=== PATIENT | female | born 1955 | race Caucasian/White ===

== ENCOUNTER 2017-05-24 04:52 | Inpatient (IN) | payer MEDICARE, MEDICAID ==
[2017-05-24] MEDS ORDERED: Albuterol/Ipratropium 3.0-0.5 MG/3 ML Neb Soln NEB ONE (05:19)
[2017-05-24] MEDS ORDERED: Albuterol/Ipratropium 3.0-0.5 MG/3 ML Neb Soln ONE (05:25)
--- NOTE | 2017-05-24 05:27 | EDM.PDOC ---
ED HPI GENERAL MEDICAL PROBLEM - General Chief Complaint: Respiratory Problem Stated Complaint: [facility] Time Seen by Provider: 05/24/17 05:12 Source of Information: Reports: Patient, Family History Limitations: Reports: Respiratory Distress - History of Present Illness INITIAL COMMENTS - FREE TEXT/NARRATIVE: This is a 61-year-old female. She apparently was seen by her doctor in the office because she has cellulitis of her lower extremities and she was placed on doxycycline. Over the last 48 hours she has been getting increasingly short of breath. She does smoke and she does not have oxygen at home. She is brought to the ER by ambulance because of her shortness of breath. She does indicate that she's been coughing over the last couple of days but she can't seem to get up any phlegm. She indicates that she has a history of emphysema. She does complain that if she tries to lift her arms up overhead to fix her hair feels like her fat in her neck causes her air to get cut off and if she sits on the toilet with handle she can't put her hands up on the handles without feeling like her air is getting cut off. She denies any nausea and vomiting no diarrhea. She does not know if she's had a fever. Patient denies any history of congestive heart failure. She has long-standing peripheral edema and the edema goes up to her hips. She is not able to walk but maybe 3 or 4 steps before she gets short of breath and has to sit down. The patient's skin smells of tobacco smoke. - Related Data Allergies Allergy/AdvReac Type Severity Reaction Status Date / Time adhesive Allergy Rash Verified 05/24/17 04:55 amoxicillin Allergy Rash Verified 05/24/17 04:55 cimetidine [From Tagamet] Allergy Hives Verified 05/24/17 04:55 venom-honey bee Allergy Swelling Verified 05/24/17 04:55 [bee venom (honey bee)] Home Meds: Home Meds Aspirin/Acetaminophen/Caffeine [Headache Relief Tablet] 1 tab PO DAILY PRN 08/23 [History] Levothyroxine Sodium [Synthroid] 112 mcg PO DAILY 08/24/15 [History] Phenylephrine HCl [Suphedrine PE] 1 tab PO ASDIRECTED PRN 08/24/15 [History] Propylene Glycol/Peg 400 [Systane 0.3-0.4% Eye Drops] 1 drop EYEBOTH TID PRN [History] Ranitidine HCl [Zantac 75] 75 mg PO DAILY PRN 08/24/15 [History] diphenhydrAMINE [Benadryl] 50 mg PO BEDTIME PRN 08/24/15 [History] Doxycycline [Vibramycin] 100 mg PO BID 05/24/17 [History] Furosemide [Lasix] 40 mg PO DAILY 05/24/17 [History] Liothyronine [Cytomel] 5 mcg PO DAILY 05/24/17 [History] Past Medical History HEENT History: Reports: Sinusitis, Other (See Below) Other HEENT History: bilateral tinnitus, wears reading glasses Cardiovascular History: Reports: [place], Other (See Below) Other Cardiovascular History: lower extremity edema Respiratory History: Reports: COPD, Other (See Below) Other Respiratory History: panlobular emphysema, dyspnea Gastrointestinal History: Reports: Cholelithiasis, GERD, Other (See Below) Other Gastrointestinal History: umbilical hernia Genitourinary History: Reports: Urinary Incontinence, Other (See Below) Other Genitourinary History: stress incontinence Musculoskeletal History: Reports: Back Pain, Chronic, Osteoporosis, Other (See Below) Other Musculoskeletal History: carpal tunnel syndrome Neurological History: Reports: Headaches, Chronic Psychiatric History: Reports: Other (See Below) Other Psychiatric History: fatigue Endocrine/Metabolic History: Reports: Hypothyroidism, Obesity/BMI 30+ Hematologic History: Reports: Other (See Below) Other Hematologic History: erythrocytosis - Past Surgical History GI Surgical History: Reports: Appendectomy Female Surgical History: Reports: Hysterectomy Social & Family History - Tobacco Use Smoking Status *Q: Current Every Day Smoker Years of Tobacco use: 50 Packs/Tins Daily: 1 Second Hand Smoke Exposure: Yes - Caffeine Use Caffeine Use: Reports: None - Alcohol Use Days Per Week of Alcohol Use: 0 Number of Drinks Per Day: 0 Total Drinks Per Week: 0 - Recreational Drug Use Recreational Drug Use: Yes - Living Situation & Occupation Living situation: Reports: with Family ED ROS GENERAL - Review of Systems Review Of Systems: See Below Constitutional: Reports: Weakness, Fatigue. Denies: Fever, Chills HEENT: Reports: Rhinitis. Denies: Throat Pain, Throat Swelling Respiratory: Reports: Shortness of Breath, Wheezing, Cough Cardiovascular: Reports: Dyspnea on Exertion, Edema. Denies: Chest Pain Endocrine: Reports: Other (Low thyroid) GI/Abdominal: Reports: Other (Morbidly obese) : Reports: No Symptoms Musculoskeletal: Reports: Other (Limited ambulation secondary to her weight and shortness of breath) Skin: Reports: Other (Lower extremities have severe edema with cellulitis) Neurological: Reports: No Symptoms Psychiatric: Reports: No Symptoms Hematologic/Lymphatic: Reports: No Symptoms ED EXAM, GENERAL - Physical Exam Exam: See Below Exam Limited By: Respiratory Distress General Appearance: Alert, Mild Distress, Other (Patient is morbidly obese) Eye Exam: Bilateral Eye: Normal Inspection Ears: Normal External Exam, Normal Canal, Normal TMs Nose: Clear Rhinorrhea Throat/Mouth: Normal Lips, Normal Voice, No Airway Compromise Head: Normocephalic Neck: Other (I cannot test her neck due to her size) Respiratory/Chest: Other (Noted scattered wheezing with a mild prolonged expiratory phase, no rales or rhonchi are noted no stridor) Cardiovascular: Regular Rate, Rhythm, No Murmur, Tachycardia GI/Abdominal: Other (Morbidly obese but she denies any tenderness on palpation I cannot tell if there is any organ enlargement secondary to her size) Back Exam: Decreased Range of Motion Extremities: Other (Lower extremities are extremely swollen with a cellulitis of both of her lower extremities noted, the swelling goes up goes up to her hips ) Neurological: Alert, Oriented Psychiatric: Anxious Skin Exam: Warm, Dry EKG INTERPRETATION EKG Interpretation Comments: EKG shows a sinus tachycardia with no acute ST or T-wave changes and no ischemia noted Course - Vital Signs Last Recorded V/S: Last Vital Signs Temp 97.2 F 05/24/17 04:56 Pulse 109 H 05/24/17 04:56 Resp 33 H 05/24/17 04:56 BP 154/94 H 05/24/17 04:56 Pulse Ox 95 05/24/17 05:21 - Orders/Labs/Meds Orders: Active Orders 24 hr Category Date Time Status EKG 12 Lead [EKG Documentation Completion] [RC] STAT Care 05/24/17 05:19 Active RT Aerosol Therapy [RC] ASDIRECTED Care 05/24/17 05:19 Active Chest 1V Frontal [CR] Stat Exams 05/24/17 05:20 Taken CULTURE BLOOD [BC] Stat Lab 02/11/18 08:05 Received CULTURE BLOOD [BC] Stat Lab 05/24/17 08:15 Received Blood Culture x2 Reflex Set [OM.PC] Stat Oth 05/24/17 07:28 Ordered Labs: Laboratory Tests 05/24/17 05/24/17 05/24/17 Range/Units 05:30 05:37 05:37 WBC 19.67 H (3.98-10.04) K/mm3 RBC 6.19 H (3.98-5.22) M/mm3 Hgb 16.0 H (11.2-15.7) gm/L Hct 54.2 H (34.1-44.9) % MCV 87.6 (79.4-94.8) fl MCH 25.8 (25.6-32.2) pg MCHC 29.5 L (32.2-35.5) g/dl RDW Std Deviation 59.8 H (36.4-46.3) fL Plt Count 332 (182-369) K/mm3 MPV 10.5 (9.4-12.3) fl Neut % (Auto) 84.5 H (34.0-71.1) % Lymph % (Auto) 6.9 L (19.3-51.7) % [place] % (Auto) 5.7 (4.7-12.5) % Eos % (Auto) 1.8 (0.7-5.8) Baso % (Auto) 0.3 (0.1-1.2) % Neut # (Auto) 16.64 H (1.56-6.13) K/mm3 Lymph # (Auto) 1.35 (1.18-3.74) K/mm3 [place] # (Auto) 1.12 H (0.24-0.36) K/mm3 Eos # (Auto) 0.36 (0.04-0.36) K/mm3 Baso # (Auto) 0.05 (0.01-0.08) K/mm3 Manual Slide Review Abnormal smear Sodium 141 (136-145) mEq/L Potassium 4.0 (3.5-5.1) mEq/L Chloride 101 (98-107) mEq/L Carbon Dioxide 31 (21-32) mEq/L Anion Gap 13.0 (5-15) BUN 13 (7-18) mg/dL Creatinine 0.7 (0.55-1.02) mg/dL Est Cr Clr Drug Dosing 69.81 mL/min Estimated GFR (MDRD) > 60 (>60) mL/min BUN/Creatinine Ratio 18.6 H (14-18) Glucose 141 H (80-115) mg/dL Lactic Acid 2.2 H (0.4-2.0) mmol/L Calcium 9.0 (8.5-10.1) mg/dL Total Bilirubin 0.8 (0.2-1.0) mg/dL AST 22 (15-37) U/L ALT 30 (14-59) U/L Alkaline Phosphatase 139 H (46-116) U/L Troponin I < 0.017 (0.00-0.056) ng/mL NT-Pro-B Natriuret Pep (0-125) pg/mL Total Protein 7.5 (6.4-8.2) g/dl Albumin 3.2 L (3.4-5.0) g/dl Globulin 4.3 gm/dL Albumin/Globulin Ratio 0.7 L (1-2) TSH 3rd Generation 3.890 H (0.358-3.74) uIU/mL 05/24/17 Range/Units 05:37 WBC (3.98-10.04) K/mm3 RBC (3.98-5.22) M/mm3 Hgb (11.2-15.7) gm/L Hct (34.1-44.9) % MCV (79.4-94.8) fl MCH (25.6-32.2) pg MCHC (32.2-35.5) g/dl RDW Std Deviation (36.4-46.3) fL Plt Count (182-369) K/mm3 MPV (9.4-12.3) fl Neut % (Auto) (34.0-71.1) % Lymph % (Auto) (19.3-51.7) % [place] % (Auto) (4.7-12.5) % Eos % (Auto) (0.7-5.8) Baso % (Auto) (0.1-1.2) % Neut # (Auto) (1.56-6.13) K/mm3 Lymph # (Auto) (1.18-3.74) K/mm3 [place] # (Auto) (0.24-0.36) K/mm3 Eos # (Auto) (0.04-0.36) K/mm3 Baso # (Auto) (0.01-0.08) K/mm3 Manual Slide Review Sodium (136-145) mEq/L Potassium (3.5-5.1) mEq/L Chloride (98-107) mEq/L Carbon Dioxide (21-32) mEq/L Anion Gap (5-15) BUN (7-18) mg/dL Creatinine (0.55-1.02) mg/dL Est Cr Clr Drug Dosing mL/min Estimated GFR (MDRD) (>60) mL/min BUN/Creatinine Ratio (14-18) Glucose (80-115) mg/dL Lactic Acid (0.4-2.0) mmol/L Calcium (8.5-10.1) mg/dL Total Bilirubin (0.2-1.0) mg/dL AST (15-37) U/L ALT (14-59) U/L Alkaline Phosphatase (46-116) U/L Troponin I (0.00-0.056) ng/mL NT-Pro-B Natriuret Pep 201 H (0-125) pg/mL Total Protein (6.4-8.2) g/dl Albumin (3.4-5.0) g/dl Globulin gm/dL Albumin/Globulin Ratio (1-2) TSH 3rd Generation (0.358-3.74) uIU/mL Meds: Medications Discontinued Medications Generic Name Dose Route Start Last Admin Trade Name Freq PRN Reason Stop Dose Admin Albuterol/Ipratropium 3 ml 05/24/17 05:19 05/24/17 05:21 Duoneb 3.0-0.5 Mg/3 Ml NEB 05/24/17 05:20 3 ml ONETIME ONE Administration Albuterol/Ipratropium Confirm 05/24/17 05:25 05/24/17 05:36 Duoneb 3.0-0.5 Mg/3 Ml Administered 05/24/17 05:26 Not Given Dose 3 ml .ROUTE .STK-MED ONE - Radiology Interpretation Free Text/Narrative:: Chest x-ray is somewhat underpenetrated I really can't tell much about the bases but the upper alex look clear. - Re-Assessments/Exams Free Text/Narrative Re-Assessment/Exam: 05/24/17 08:33 I spoke to the patient and the family regarding her test results. She is going to be admitted to the hospital for treatment of her cellulitis and exacerbation of her COPD with acute bronchitis. Departure - Departure Time of Disposition: 08:34 Disposition: Admitted As Inpatient 66 Condition: Poor Clinical Impression: Bilateral lower leg cellulitis, Morbid obesity, Edema of both lower legs due to peripheral venous insufficiency, Acute exacerbation of chronic obstructive pulmonary disease (COPD), Hypoxemia COPD (chronic obstructive pulmonary disease) Qualifiers: COPD type: COPD with acute lower respiratory infection Qualified Code(s): J44.0 - Chronic obstructive pulmonary disease with acute lower respiratory infection Acute bronchitis Qualifiers: Bronchitis organism: unspecified organism Qualified Code(s): J20.9 - Acute bronchitis, unspecified - Discharge Information Additional Instructions: I spoke to Dr. Fernandez regarding the patient and she will admit the patient to the hospital for further evaluation and treatment ED Communication - ED Communication Date/Time Date: 05/24/17 Time Called: 08:38 - Discussed Case With (1) Discussed Case With (1): Admitting Provider Person/s Notified (1): Xiomara Fernandez - Conversation Summary Summary Comment: I spoke with Dr. Fernandez and she will admit the patient for further evaluation and treatment - My Orders Last 24 Hours: My Active Orders 05/24/17 05:19 EKG 12 Lead [EKG Documentation Completion] [RC] STAT RT Aerosol Therapy [RC] ASDIRECTED 05/24/17 05:20 Chest 1V Frontal [CR] Stat 05/24/17 07:28 Blood Culture x2 Reflex Set [OM.PC] Stat 05/24/17 08:05 CULTURE BLOOD [BC] Stat 05/24/17 08:15 CULTURE BLOOD [BC] Stat - Assessment/Plan Last 24 Hours: My Active Orders 05/24/17 05:19 EKG 12 Lead [EKG Documentation Completion] [RC] STAT RT Aerosol Therapy [RC] ASDIRECTED 05/24/17 05:20 Chest 1V Frontal [CR] Stat 05/24/17 07:28 Blood Culture x2 Reflex Set [OM.PC] Stat 05/24/17 08:05 CULTURE BLOOD [BC] Stat 05/24/17 08:15 CULTURE BLOOD [BC] Stat
[2017-05-24] MEDS ORDERED: Levofloxacin/Dextrose 5%-Water 750 MG in Premix Bag 1 BAG IV ONE (08:34)
--- NOTE | 2017-05-24 09:51 | PCM.HP ---
H&P History of Present Illness - General Date of Service: 05/24/17 Source of Information: Provider History Limitations: Reports: No Limitations - History of Present Illness Initial Comments - Free Text/Narative: Extremely morbidly obese female presents with SOB after exertion of three steps on level ground. NYHA functional class III-IV, stage C is likely. The patient is not active and has all of her needs provided by her family including bathing. She appears to have seen a primary care provider recently and reports starting doxycycline for bilateral LE cellulitis. Additionally the choice of doxy may have been to treat a COPD exacerbation. She attempts limited activity because raising her arms for any reason will cause a shift in her adipose resulting in shortness of breath. Onset of Symptoms: Reports: Unknown/Unsure Duration of Symptoms: Reports: Week(s):, Getting Worse Location: Reports: Lower Extremity, Left, Lower Extremity, Right Quality: Reports: Same as Previous Episode Severity: Moderate Improves with: Reports: Medication Worsens with: Reports: None Associated Symptoms: Reports: Malaise, Shortness of Breath, Weakness - Related Data Allergies/Adverse Reactions: Allergies Allergy/AdvReac Type Severity Reaction Status Date / Time adhesive Allergy Rash Verified 05/24/17 04:55 amoxicillin Allergy Rash Verified 05/24/17 04:55 cimetidine [From Tagamet] Allergy Hives Verified 05/24/17 04:55 venom-honey bee Allergy Swelling Verified 05/24/17 04:55 [bee venom (honey bee)] Home Medications: Home Meds Aspirin/Acetaminophen/Caffeine [Headache Relief Tablet] 1 tab PO DAILY PRN 08/23 [History] Levothyroxine Sodium [Synthroid] 112 mcg PO DAILY 08/24/15 [History] Phenylephrine HCl [Suphedrine PE] 1 tab PO ASDIRECTED PRN 08/24/15 [History] Propylene Glycol/Peg 400 [Systane 0.3-0.4% Eye Drops] 1 drop EYEBOTH TID PRN [History] Ranitidine HCl [Zantac 75] 75 mg PO DAILY PRN 08/24/15 [History] diphenhydrAMINE [Benadryl] 50 mg PO BEDTIME PRN 08/24/15 [History] Doxycycline [Vibramycin] 100 mg PO BID 05/24/17 [History] Furosemide [Lasix] 40 mg PO DAILY 05/24/17 [History] Liothyronine [Cytomel] 5 mcg PO DAILY 05/24/17 [History] Past Medical History HEENT History: Reports: Sinusitis, Other (See Below) Other HEENT History: bilateral tinnitus, wears reading glasses Cardiovascular History: Reports: [place], Other (See Below) Other Cardiovascular History: lower extremity edema Respiratory History: Reports: COPD, Other (See Below) Other Respiratory History: panlobular emphysema, dyspnea Gastrointestinal History: Reports: Cholelithiasis, GERD, Other (See Below) Other Gastrointestinal History: umbilical hernia Genitourinary History: Reports: Urinary Incontinence, Other (See Below) Other Genitourinary History: stress incontinence Musculoskeletal History: Reports: Back Pain, Chronic, Osteoporosis, Other (See Below) Other Musculoskeletal History: carpal tunnel syndrome Neurological History: Reports: Headaches, Chronic Psychiatric History: Reports: Other (See Below) Other Psychiatric History: fatigue Endocrine/Metabolic History: Reports: Hypothyroidism, Obesity/BMI 30+ Hematologic History: Reports: Other (See Below) Other Hematologic History: erythrocytosis - Past Surgical History GI Surgical History: Reports: Appendectomy Female Surgical History: Reports: Hysterectomy Social & Family History - Tobacco Use Smoking Status *Q: Current Every Day Smoker Years of Tobacco use: 50 Packs/Tins Daily: 1 Second Hand Smoke Exposure: Yes - Caffeine Use Caffeine Use: Reports: None - Alcohol Use Days Per Week of Alcohol Use: 0 Number of Drinks Per Day: 0 Total Drinks Per Week: 0 - Recreational Drug Use Recreational Drug Use: Yes - Living Situation & Occupation Living situation: Reports: with Family H&P Review of Systems - Review of Systems: Review Of Systems: See Below General: Reports: Malaise, Weakness, Fatigue HEENT: Reports: No Symptoms Pulmonary: Reports: Shortness of Breath, Wheezing Cardiovascular: Reports: No Symptoms Gastrointestinal: Reports: No Symptoms Genitourinary: Reports: No Symptoms Musculoskeletal: Reports: No Symptoms Skin: Reports: Erythema, Wound, Change in Color Psychiatric: Reports: Depression Neurological: Reports: No Symptoms Hematologic/Lymphatic: Reports: No Symptoms Immunologic: Reports: No Symptoms Exam - Exam Exam: See Below - Vital Signs Vital Signs: Last Vital Signs Temp 36.2 C 05/24/17 04:56 Pulse 109 H 05/24/17 04:56 Resp 33 H 05/24/17 04:56 BP 154/94 H 05/24/17 04:56 Pulse Ox 88 L 05/24/17 09:18 Weight: 158.757 kg - Exam Quality Assessment: Supplemental Oxygen, DVT Prophylaxis, Skin Breakdown General: Alert, Oriented, Cooperative HEENT: EACs Clear, Nares Patent, Normal Nasal Septum, Pupils Equal, Pupils Reactive, PERRLA Neck: Supple, Trachea Midline Lungs: Normal Respiratory Effort Cardiovascular: Regular Rate, Regular Rhythm GI/Abdominal Exam: Normal Bowel Sounds, Soft, Non-Tender, No Organomegaly, No Distention (Female) Exam: Deferred Rectal (Female) Exam: Deferred Back Exam: Normal Inspection Extremities: Normal Inspection, Pedal Edema Skin: Moist Neurological: Cranial Nerves Intact, Normal Speech Neuro Extensive - Mental Status: Alert Neuro Extensive - Motor, Sensory, Reflexes: CN II-XII Intact Psychiatric: Alert, Depressed - Patient Data Result Diagrams: 05/24/17 05:37 05/24/17 05:30 *Q Meaningful Use (ADM) - VTE *Q VTE Criteria *Q: - Stroke *Q Stroke Criteria *Q: - AMI *Q AMI Criteria *Q: - Problem List (1) Acute bronchitis SNOMED Code(s): 09248992 ICD Code: J20.9 - ACUTE BRONCHITIS, UNSPECIFIED Status: Acute Current Visit: Yes Qualifiers: Bronchitis organism: unspecified organism Qualified Code(s): J20.9 - Acute bronchitis, unspecified (2) Acute exacerbation of chronic obstructive pulmonary disease (COPD) SNOMED Code(s): 056838102 ICD Code: J44.1 - CHRONIC OBSTRUCTIVE PULMONARY DISEASE W (ACUTE) EXACERBATION Status: Acute Current Visit: Yes (3) Bilateral lower leg cellulitis SNOMED Code(s): 877798394 ICD Code: L03.116 - CELLULITIS OF LEFT LOWER LIMB; L03.115 - CELLULITIS OF RIGHT LOWER LIMB Status: Acute Current Visit: Yes (4) Edema of both lower legs due to peripheral venous insufficiency SNOMED Code(s): 80591587663508739 ICD Code: I87.2 - VENOUS INSUFFICIENCY (CHRONIC) (PERIPHERAL); R60.9 - EDEMA , UNSPECIFIED Status: Acute Current Visit: Yes (5) Hypoxemia SNOMED Code(s): 514546489 ICD Code: R09.02 - HYPOXEMIA Status: Acute Current Visit: Yes (6) Morbid obesity SNOMED Code(s): 956699716 ICD Code: E66.01 - MORBID (SEVERE) OBESITY DUE TO EXCESS CALORIES Status: Acute Current Visit: Yes Problem List Initiated/Reviewed/Updated: Yes Orders Last 24hrs: Medication Orders Levofloxacin/Dextrose 750 mg/ (Premix) 150 mls @ 100 mls/hr IV ONETIME ONE Stop: 05/24/17 10:03 Last Admin: 05/24/17 09:40 Dose: 100 mls/hr Assessment/Plan Comment:: Impression: Acute exacerbation of COPD with hypoxia Tobacco abuse/dependence Morbid obesity Poor functional capacity Query CHF, NYHA functional clas III, stage C Query Pulmonary Venous Hypertension Hypothyroid--not therapeutic Chronic venous insufficiency with cellulitis Depression Plan: Nebs scheduled/prn IV Levoquin Nicotine replace O2, keep sat>90% Needs sleep study Bilateral wounds on lower extremities, continue ATB Screen for MRSA Tobacco cessation ed Obesity diet/exercise education Dietary consult Psych consult PT/OT/CM
[2017-05-24] MEDS ORDERED: Albuterol 0.083% 2.5 MG/3 ML Neb Soln NEB PRN (11:26)
[2017-05-24] MEDS ORDERED: Albuterol/Ipratropium 3.0-0.5 MG/3 ML Neb Soln NEB PRN (11:27)
[2017-05-24] MEDS ORDERED: Enoxaparin 40 MG/0.4 ML Syringe SUBCUT SCH (11:30)
[2017-05-24] MEDS: Furosemide 20 MG/2 ML VIAL IVPUSH SCH (13:40)
[2017-05-24] MEDS: Nicotine 21 MG/24 Hr Patch TRDERM SCH (13:40)
[2017-05-24] MEDS ORDERED: Vancomycin 2 GM in Sodium Chloride 0.9% 500 ML IV ONE (14:00)
[2017-05-24] MEDS ORDERED: Pneumococcal Polyvalent-23 Vaccine 0.5 ML SDV IM ONE (14:52)
[2017-05-24] MEDS: Oseltamivir 75 MG Cap PO SCH ×2 (14:53→21:45)
[2017-05-24] MEDS: Metoprolol Tartrate 25 MG Tab PO SCH ×2 (17:41→21:43)
[2017-05-24] MEDS ORDERED: Levalbuterol HCl 1.25 MG/0.5 ML Neb NEB ONE (17:41)
--- NOTE | 2017-05-24 17:46 | CR ---
Chest: Portable view of the chest was obtained. Comparison: No prior chest x-ray. Heart is enlarged. Slight increased density is noted overlying the left heart margin most likely due to atelectasis. Lungs otherwise are clear. Bony structures are grossly intact. Impression: 1. Cardiomegaly. 2. Probable atelectasis within the left mid to lower lung. Diagnostic code #3
[2017-05-24] MEDS ORDERED: Metoprolol Tartrate 5 MG/5 ML SDV ONE (17:50)
[2017-05-24] MEDS ORDERED: Levalbuterol HCl 1.25 MG/3 ML Neb NEB PRN (17:53)
[2017-05-24] MEDS: Metoprolol Tartrate 5 MG/5 ML SDV IVPUSH PRN (17:57)
[2017-05-24] MEDS ORDERED: Diltiazem 125 MG in Sodium Chloride 0.9% 100 ML IV SCH (18:00)
[2017-05-24] MEDS ORDERED: Ipratropium 0.02% 0.5 MG/2.5 ML Neb Soln NEB SCH (21:00)
[2017-05-24] MEDS: Levalbuterol HCl 1.25 MG/3 ML Neb NEB PRN (21:09)
[2017-05-24] MEDS: Ipratropium 0.02% 0.5 MG/2.5 ML Neb Soln NEB SCH (21:09)
[2017-05-24] MEDS: Enoxaparin 150 MG/1 ML Syringe SUBCUT SCH (22:12)
[2017-05-25] MEDS ORDERED: Vancomycin 1 GM, Vancomycin 500 MG in Sodium Chloride 0.9% 250 ML IV SCH (02:00)
[2017-05-25] MEDS: Levalbuterol HCl 1.25 MG/3 ML Neb NEB PRN ×4 (02:52→20:38)
[2017-05-25] MEDS: Levofloxacin/Dextrose 5%-Water 750 MG in Premix Bag 1 BAG IV SCH (03:46)
[2017-05-25] MEDS: Furosemide 20 MG/2 ML VIAL IVPUSH SCH ×2 (05:35→15:03)
[2017-05-25] MEDS: Levothyroxine 112 MCG Tab PO SCH (05:35)
[2017-05-25] MEDS: Liothyronine 5 MCG Tab PO SCH (06:05)
[2017-05-25] MEDS: Ipratropium 0.02% 0.5 MG/2.5 ML Neb Soln NEB SCH ×4 (06:12→20:38)
[2017-05-25] MEDS: Metoprolol Tartrate 25 MG Tab PO SCH ×2 (09:25→20:26)
[2017-05-25] MEDS: Oseltamivir 75 MG Cap PO SCH ×2 (09:25→20:26)
[2017-05-25] MEDS: Nicotine 21 MG/24 Hr Patch TRDERM SCH (09:27)
[2017-05-25] MEDS: Enoxaparin 150 MG/1 ML Syringe SUBCUT SCH ×2 (09:27→20:27)
[2017-05-25] MEDS: Vancomycin 1 GM, Vancomycin 500 MG in Sodium Chloride 0.9% 500 ML IV SCH (15:03)
--- NOTE | 2017-05-25 18:22 | PCM.PN ---
- General Info Date of Service: 05/25/17 Functional Status: Reports: Tolerating Diet, Ambulating (minimal), Urinating - Review of Systems General: Reports: Weakness, Malaise HEENT: Reports: No Symptoms Pulmonary: Reports: Shortness of Breath Cardiovascular: Reports: Dyspnea on Exertion Gastrointestinal: Reports: No Symptoms Genitourinary: Reports: No Symptoms Musculoskeletal: Reports: No Symptoms Skin: Reports: No Symptoms Neurological: Reports: No Symptoms Psychiatric: Reports: No Symptoms - Patient Data Vitals - Most Recent: Last Vital Signs Temp 36.2 C 05/25/17 16:00 Pulse 79 05/25/17 16:00 Resp 21 H 05/25/17 16:00 BP 157/71 H 05/25/17 16:00 Pulse Ox 90 L 05/25/17 16:00 Weight - Most Recent: 162.386 kg I&O - Last 24 Hours: Intake & Output 05/25/17 05/25/17 05/25/17 06:59 14:59 22:59 Intake Total 450 1160 500 Output Total 370 350 350 Balance 80 810 150 Lab Results Last 24 Hours: Laboratory Results - last 24 hr 05/24/17 05/24/17 05/25/17 Range/Units 16:20 20:13 06:10 WBC 13.24 H (3.98-10.04) K/mm3 RBC 5.62 H (3.98-5.22) M/mm3 Hgb 14.5 (11.2-15.7) gm/L Hct 51.5 H (34.1-44.9) % MCV 91.6 (79.4-94.8) fl MCH 25.8 (25.6-32.2) pg MCHC 28.2 L (32.2-35.5) g/dl RDW Std Deviation 60.5 H (36.4-46.3) fL Plt Count 311 (182-369) K/mm3 MPV 11.0 (9.4-12.3) fl Neut % (Auto) 82.4 H (34.0-71.1) % Lymph % (Auto) 6.6 L (19.3-51.7) % [place] % (Auto) 9.0 (4.7-12.5) % Eos % (Auto) 0.4 L (0.7-5.8) Baso % (Auto) 0.2 (0.1-1.2) % Neut # (Auto) 10.92 H (1.56-6.13) K/mm3 Lymph # (Auto) 0.87 L (1.18-3.74) K/mm3 [place] # (Auto) 1.19 H (0.24-0.36) K/mm3 Eos # (Auto) 0.05 (0.04-0.36) K/mm3 Baso # (Auto) 0.03 (0.01-0.08) K/mm3 Manual Slide Review Abnormal smear Sodium (136-145) mEq/L Potassium (3.5-5.1) mEq/L Chloride (98-107) mEq/L Carbon Dioxide (21-32) mEq/L Anion Gap (5-15) BUN (7-18) mg/dL Creatinine (0.55-1.02) mg/dL Est Cr Clr Drug Dosing mL/min Estimated GFR (MDRD) (>60) mL/min BUN/Creatinine Ratio (14-18) Glucose (80-115) mg/dL Calcium (8.5-10.1) mg/dL Magnesium (1.8-2.4) mg/dl Troponin I < 0.017 (0.00-0.056) ng/mL C-Reactive Protein (<1.0) mg/dL NT-Pro-B Natriuret Pep (0-125) pg/mL Mycoplasma pneumon IgM (NEGATIVE) MRSA (PCR) Negative 05/25/17 05/25/17 Range/Units 06:10 06:10 WBC (3.98-10.04) K/mm3 RBC (3.98-5.22) M/mm3 Hgb (11.2-15.7) gm/L Hct (34.1-44.9) % MCV (79.4-94.8) fl MCH (25.6-32.2) pg MCHC (32.2-35.5) g/dl RDW Std Deviation (36.4-46.3) fL Plt Count (182-369) K/mm3 MPV (9.4-12.3) fl Neut % (Auto) (34.0-71.1) % Lymph % (Auto) (19.3-51.7) % [place] % (Auto) (4.7-12.5) % Eos % (Auto) (0.7-5.8) Baso % (Auto) (0.1-1.2) % Neut # (Auto) (1.56-6.13) K/mm3 Lymph # (Auto) (1.18-3.74) K/mm3 [place] # (Auto) (0.24-0.36) K/mm3 Eos # (Auto) (0.04-0.36) K/mm3 Baso # (Auto) (0.01-0.08) K/mm3 Manual Slide Review Sodium 137 (136-145) mEq/L Potassium 4.7 (3.5-5.1) mEq/L Chloride 100 (98-107) mEq/L Carbon Dioxide 34 H (21-32) mEq/L Anion Gap 7.7 (5-15) BUN 14 (7-18) mg/dL Creatinine 0.6 (0.55-1.02) mg/dL Est Cr Clr Drug Dosing 77.88 mL/min Estimated GFR (MDRD) > 60 (>60) mL/min BUN/Creatinine Ratio 23.3 H (14-18) Glucose 127 H (80-115) mg/dL Calcium 8.7 (8.5-10.1) mg/dL Magnesium 1.8 (1.8-2.4) mg/dl Troponin I (0.00-0.056) ng/mL C-Reactive Protein 5.8 H* (<1.0) mg/dL NT-Pro-B Natriuret Pep 1071 H (0-125) pg/mL Mycoplasma pneumon IgM Negative (NEGATIVE) MRSA (PCR) [place] Results Last 24 Hours: Microbiology 05/24/17 13:10 Wound Culture - Preliminary Leg, Right Beta Streptococcus Group B 05/24/17 13:10 Influenza Type A Antigen Screen - Final Nasal, Unspecified Positive Influenza A Ag Influenza Type B Antigen Screen - Final NEGATIVE INFLUENZA B VIRUS AG Med Orders - Current: Current Medications Enoxaparin Sodium (Lovenox) 150 mg SUBCUT Q12HR RORY Last Admin: 05/25/17 09:27 Dose: 150 mg Furosemide (Lasix) 20 mg IVPUSH BIDDIURETIC RORY Last Admin: 05/25/17 15:03 Dose: 20 mg Levofloxacin/Dextrose 750 mg/ (Premix) 150 mls @ 100 mls/hr IV Q24H RORY Last Admin: 05/25/17 03:46 Dose: 100 mls/hr Diltiazem HCl 125 mg/ Sodium (Chloride) 125 mls @ 10 mls/hr IV TITRATE RORY; 10 MG/HR PRN Reason: Protocol Vancomycin HCl 1 gm/Vancomycin HCl 500 mg/ Sodium Chloride 500 mls @ 333.333 mls/hr IV Q12H [facility] Last Admin: 05/25/17 15:03 Dose: 333.333 mls/hr Ipratropium Majestic (Atrovent) 0.5 mg NEB QIDRT RORY Last Admin: 05/25/17 15:30 Dose: 0.5 mg Levalbuterol HCl (Xopenex) 1.25 mg NEB Q4HRRT PRN PRN Reason: Shortness of Breath Last Admin: 05/25/17 15:31 Dose: 1.25 mg Levothyroxine Sodium (Levothyroxine) 112 mcg PO ACBREAKFAST [facility] Last Admin: 05/25/17 05:35 Dose: 112 mcg Liothyronine Sodium (Cytomel) 5 mcg PO ACBREAKFAST [facility] Last Admin: 05/25/17 06:05 Dose: Not Given Metoprolol Tartrate (Lopressor) 25 mg PO Q12HR [facility] Last Admin: 05/25/17 09:25 Dose: 25 mg Metoprolol Tartrate (Lopressor) 5 mg IVPUSH Q4H PRN PRN Reason: HR>120 Last Admin: 05/24/17 17:57 Dose: 5 mg Miscellaneous Information (Remove Patch) 1 ea TRDERM DAILY [facility] Last Admin: 05/25/17 09:27 Dose: 1 ea Nicotine (Habitrol) 21 mg TRDERM DAILY [facility] Last Admin: 05/25/17 09:27 Dose: 21 mg Oseltamivir Phosphate (Tamiflu) 75 mg PO BID [facility] Stop: 05/28/17 14:01 Last Admin: 05/25/17 09:25 Dose: 75 mg Vancomycin HCl (Pharmacy To Dose - Vancomycin) 0 dose .XX ASDIRECTED PRN PRN Reason: RX TO DOSE VANCOMYCIN Discontinued Medications Albuterol (Proventil Neb Soln) 2.5 mg NEB Q4HRRT PRN PRN Reason: Shortness of Breath Albuterol/Ipratropium (Duoneb 3.0-0.5 Mg/3 Ml) 3 ml NEB ONETIME ONE Stop: 05/24/17 05:20 Last Admin: 05/24/17 05:21 Dose: 3 ml Albuterol/Ipratropium (Duoneb 3.0-0.5 Mg/3 Ml) Confirm Administered Dose 3 ml .ROUTE .STK-MED ONE Stop: 05/24/17 05:26 Last Admin: 05/24/17 05:36 Dose: Not Given Albuterol/Ipratropium (Duoneb 3.0-0.5 Mg/3 Ml) 3 ml NEB QIDRT PRN PRN Reason: Shortness of Breath Last Admin: 05/24/17 12:52 Dose: 3 ml Enoxaparin Sodium (Lovenox) 40 mg SUBCUT DAILY [facility] Last Admin: 05/24/17 13:40 Dose: 40 mg Levofloxacin/Dextrose 750 mg/ (Premix) 150 mls @ 100 mls/hr IV ONETIME ONE Stop: 05/24/17 10:03 Last Admin: 05/24/17 09:40 Dose: 100 mls/hr Vancomycin HCl 2 gm/ Sodium (Chloride) 500 mls @ 500 mls/hr IV ONETIME ONE Stop: 05/24/17 14:59 Last Admin: 05/24/17 14:53 Dose: 500 mls/hr Vancomycin HCl 1 gm/Vancomycin HCl 500 mg/ Sodium Chloride 250 mls @ 125 mls/ hr IV Q12H [facility] Last Admin: 05/25/17 01:43 Dose: 125 mls/hr Ipratropium Majestic (Atrovent) 0.5 mg NEB QID RORY Levalbuterol HCl (Xopenex) 1.25 mg NEB ONETIME ONE Stop: 05/24/17 17:42 Last Admin: 05/24/17 18:04 Dose: 1.25 mg Levalbuterol HCl (Xopenex) 1.25 mg NEB Q6HRRT PRN PRN Reason: Shortness of Breath Metoprolol Tartrate (Lopressor) Confirm Administered Dose 5 mg .ROUTE .STK-MED ONE Stop: 05/24/17 17:51 Last Admin: 05/24/17 18:52 Dose: Not Given Pneumococcal Polyvalent Vaccine (Pneumovax 23) 0.5 ml IM .ONCE ONE Stop: 05/24/17 14:53 - Exam Quality Assessment: Supplemental Oxygen, DVT Prophylaxis General: Alert, Oriented, Cooperative, No Acute Distress HEENT: Pupils Equal, Pupils Reactive, EOMI Neck: Trachea Midline, No JVD Lungs: Normal Respiratory Effort, Decreased Breath Sounds Cardiovascular: Regular Rate, Regular Rhythm GI/Abdominal Exam: Normal Bowel Sounds, Soft, Non-Tender, No Organomegaly, No Distention (Female) Exam: Deferred Back Exam: Normal Inspection Extremities: Normal Inspection, Normal Range of Motion, Non-Tender, Pedal Edema Skin: Warm Neurological: No New Focal Deficit, Normal Speech Psy/Mental Status: Alert, Normal Affect, Normal Mood - Problem List & Annotations (1) Acute bronchitis SNOMED Code(s): 67991237 Code(s): J20.9 - ACUTE BRONCHITIS, UNSPECIFIED Status: Acute Current Visit: Yes Qualifiers: Bronchitis organism: unspecified organism Qualified Code(s): J20.9 - Acute bronchitis, unspecified (2) Acute exacerbation of chronic obstructive pulmonary disease (COPD) SNOMED Code(s): 341699322 Code(s): J44.1 - CHRONIC OBSTRUCTIVE PULMONARY DISEASE W (ACUTE) EXACERBATION Status: Acute Current Visit: Yes (3) Bilateral lower leg cellulitis SNOMED Code(s): 420911693 Code(s): L03.116 - CELLULITIS OF LEFT LOWER LIMB; L03.115 - CELLULITIS OF RIGHT LOWER LIMB Status: Acute Current Visit: Yes (4) Edema of both lower legs due to peripheral venous insufficiency SNOMED Code(s): 89222891266836021 Code(s): I87.2 - VENOUS INSUFFICIENCY (CHRONIC) (PERIPHERAL); R60.9 - EDEMA, UNSPECIFIED Status: Acute Current Visit: Yes (5) Hypoxemia SNOMED Code(s): 874230178 Code(s): R09.02 - HYPOXEMIA Status: Acute Current Visit: Yes (6) Morbid obesity SNOMED Code(s): 692275958 Code(s): E66.01 - MORBID (SEVERE) OBESITY DUE TO EXCESS CALORIES Status: Acute Current Visit: Yes - Problem List Review Problem List Initiated/Reviewed/Updated: Yes - My Orders Last 24 Hours: My Active Orders 05/24/17 17:49 Metoprolol Tartrate [Lopressor] 5 mg IVPUSH Q4H PRN 05/24/17 17:51 Patient Status [ADT] Routine Cardiac Monitoring [RC] . DIRECTED 05/24/17 17:54 RT Aerosol Therapy [RC] ASDIRECTED 05/24/17 17:56 Levalbuterol HCl [Xopenex] 1.25 mg NEB Q4HRRT PRN 05/24/17 18:00 Diltiazem 125 mg Sodium Chloride 0.9% [Normal Saline] 100 ml IV TITRATE Metoprolol Tartrate [Lopressor] 25 mg PO Q12HR 05/24/17 21:00 Enoxaparin [Lovenox] 150 mg SUBCUT Q12HR Ipratropium [Atrovent] 0.5 mg NEB QIDRT 05/25/17 14:00 Vancomycin 1 gm Vancomycin 500 mg Sodium Chloride 0.9% [Normal Saline] 500 ml IV Q12H 05/26/17 09:00 Echo Comp wo Cont [US] Routine - Plan Plan:: Impression: Acute exacerbation of COPD with hypoxia, transferred to ICU, 05/24/17 Tobacco abuse/dependence A Fib with RVR Morbid obesity Poor functional capacity Query CHF, NYHA functional clas III, stage C Query Pulmonary Venous Hypertension Hypothyroid--not therapeutic Chronic venous insufficiency with cellulitis Depression Plan: Nebs scheduled/prn IV Levoquin Nicotine patch O2, keep sat>90% Needs sleep study Bilateral wounds on lower extremities, continue ATB; wound care per PT Isolation: contact/droplet Tobacco cessation ed Obesity diet/exercise education Dietary consult Psych consult Query [facility] at disposition; needs inpatient PT and wound care PT/OT/SM (re: SNF)
[2017-05-26] MEDS: Ibuprofen 600 MG Tab PO PRN (00:54)
[2017-05-26] MEDS: Vancomycin 1 GM, Vancomycin 500 MG in Sodium Chloride 0.9% 500 ML IV SCH (01:23)
[2017-05-26] MEDS: Levofloxacin/Dextrose 5%-Water 750 MG in Premix Bag 1 BAG IV SCH (03:08)
[2017-05-26] MEDS: Furosemide 20 MG/2 ML VIAL IVPUSH SCH ×2 (06:00→14:45)
[2017-05-26] MEDS: Liothyronine 5 MCG Tab PO SCH (06:00)
[2017-05-26] MEDS: Levothyroxine 112 MCG Tab PO SCH (06:00)
[2017-05-26] MEDS: Ipratropium 0.02% 0.5 MG/2.5 ML Neb Soln NEB SCH ×4 (06:54→20:44)
--- NOTE | 2017-05-26 08:41 | CR ---
Chest: Two views of the chest were obtained. Comparison: Prior chest x-ray of 05/24/17. Pulmonary vessels are mildly congested on current chest x-ray. Heart is slightly enlarged. Small pleural effusions are seen. Bony structures are grossly intact. Impression: 1. Findings suspicious for mild CHF. Diagnostic code #3
[2017-05-26] MEDS ORDERED: Levalbuterol HCl 1.25 MG/3 ML Neb NEB ONE (09:46)
[2017-05-26] MEDS: Oseltamivir 75 MG Cap PO SCH ×2 (09:52→20:52)
[2017-05-26] MEDS: Metoprolol Tartrate 25 MG Tab PO SCH ×2 (09:52→20:52)
[2017-05-26] MEDS: Nicotine 21 MG/24 Hr Patch TRDERM SCH (09:56)
[2017-05-26] MEDS: Enoxaparin 150 MG/1 ML Syringe SUBCUT SCH ×2 (09:57→20:53)
[2017-05-26] MEDS: Levalbuterol HCl 1.25 MG/3 ML Neb NEB PRN ×2 (10:01→16:44)
[2017-05-26] MEDS ORDERED: methylPREDNISolone Sodium Succinate 125 MG/2 ML SDV IVPUSH ONE (10:07)
--- NOTE | 2017-05-26 13:21 | PCM.SN ---
- Free Text/Narrative Note: Date: 05/26/2017 Start: 1200 Stop: 1305 Time Out: 1155 Procedure: PICC Line placement for long-term antibiotic therapy. Diagnosis: Cellulitis Anesthesia requested for PICC line placement. Patient educated on risk/benefits , allergies reviewed, medication list reviewed, patient agrees to proceed, consent obtained. Patient positioned in supine position. Right arm prepped with 3 chloroprep's, 20 gauge angiocatheter placed to right basilica vein, sterile drapes placed, and sterile gown, gloves used, along with cap and mask. (Sterile Technique Noted ) 1% lidocaine used to localize area. MicroIntroducer kit used: Cherrish NXT PICC 4 malay catheter single lumen advanced without difficulties noted. REF: [id number] LOT: [id number] EXP: 2018-01-10 Catheter advanced and secured at 45 cm at the skin. Catheter cut at 60 cm. Easy blood aspiration noted and catheter flushed with 20 ml's of Normal Saline. Mastisol/Steri-Strips placed, along with Tegaderm with chlorahexidine square applied, with dressing applied. Portable chest xray done and awaiting radiology report for placement confirmation. Bria Woods CRNA
--- NOTE | 2017-05-26 15:08 | PCM.PN ---
- General Info Date of Service: 05/26/17 Admission Dx/Problem (Free Text): A-fib with RVR, Cellulitis Subjective Update: In to see Danielle. She just had a BM and is sitting in the chair. She appears SOB. She states this is worse than her normal. Nursing reports pt. was on BiPAP earlier in day and then came off of it to eat and visit with friends. 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 Her legs have dried up considerably. No active drainage noted. She does have bandages on the posterior aspect of both legs and nursing is working on changing the bandages. Denies any chest pain. She reports some difficulty with eating because she has "bad teeth." Will recommend a dental consult after discharge. She states it hurts to chew and she can really only have soft foods. Functional Status: Reports: Tolerating Diet (although reports some difficulty due to oral pain from her teeth ), Ambulating, Urinating, Other (morbidly obease ). Denies: New Symptoms - Review of Systems General: Reports: Weakness, Fatigue. Denies: Appetite HEENT: Reports: No Symptoms Pulmonary: Reports: Shortness of Breath, Cough, Wheezing. Denies: Pleuritic Chest Pain, Sputum Cardiovascular: Reports: No Symptoms, Dyspnea on Exertion, Edema. Denies: Chest Pain, Palpitations Gastrointestinal: Reports: Decreased Appetite. Denies: Abdominal Pain, Constipation, Diarrhea, Nausea, Vomiting Genitourinary: Reports: No Symptoms Musculoskeletal: Reports: No Symptoms Skin: Reports: No Symptoms Neurological: Reports: Headache (mild now but was worse last night ). Denies: Confusion, Dizziness, Pre-Existing Deficit, Seizure, Syncope, Trouble Speaking Psychiatric: Reports: No Symptoms - Patient Data Vitals - Most Recent: Last Vital Signs Temp 97.5 F 05/26/17 12:00 Pulse 72 05/26/17 12:00 Resp 24 H 05/26/17 12:00 BP 138/75 05/26/17 12:00 Pulse Ox 90 L 05/26/17 12:00 Weight - Most Recent: 359 lb 4.8 oz I&O - Last 24 Hours: Intake & Output 05/26/17 05/26/17 05/26/17 06:59 14:59 22:59 Intake Total 1023 500 Output Total 345 410 Balance 678 90 Lab Results Last 24 Hours: Laboratory Results - last 24 hr 05/26/17 05/26/17 05/26/17 Range/Units 05:58 05:58 05:58 WBC 13.15 H (3.98-10.04) K/mm3 RBC 5.63 H (3.98-5.22) M/mm3 Hgb 14.4 (11.2-15.7) gm/L Hct 51.0 H (34.1-44.9) % MCV 90.6 (79.4-94.8) fl MCH 25.6 (25.6-32.2) pg MCHC 28.2 L (32.2-35.5) g/dl RDW Std Deviation 60.5 H (36.4-46.3) fL Plt Count 276 (182-369) K/mm3 MPV 11.1 (9.4-12.3) fl Neut % (Auto) 79.8 H (34.0-71.1) % Lymph % (Auto) 6.5 L (19.3-51.7) % [place] % (Auto) 11.8 (4.7-12.5) % Eos % (Auto) 1.0 (0.7-5.8) Baso % (Auto) 0.4 (0.1-1.2) % Neut # (Auto) 10.51 H (1.56-6.13) K/mm3 Lymph # (Auto) 0.85 L (1.18-3.74) K/mm3 [place] # (Auto) 1.55 H (0.24-0.36) K/mm3 Eos # (Auto) 0.13 (0.04-0.36) K/mm3 Baso # (Auto) 0.05 (0.01-0.08) K/mm3 Manual Slide Review Abnormal smear Puncture Site ABG pH (7.35-7.45) ABG pCO2 (35.0-45.0) mmHg ABG pO2 (80.0-100.0) mmHg ABG HCO3 (22.0-26.0) meq/L ABG O2 Saturation (96.0-97.0) % ABG Base Excess (-2-2.0) Augusto Test A-a Gradient mmHg O2 Delivery Device Oxygen Flow Rate FiO2 (21.00-100.00) % Sodium 135 L (136-145) mEq/L Potassium 4.2 (3.5-5.1) mEq/L Chloride 96 L (98-107) mEq/L Carbon Dioxide 34 H (21-32) mEq/L Anion Gap 9.2 (5-15) BUN 15 (7-18) mg/dL Creatinine 0.5 L (0.55-1.02) mg/dL Est Cr Clr Drug Dosing 93.45 mL/min Estimated GFR (MDRD) > 60 (>60) mL/min BUN/Creatinine Ratio 30.0 H (14-18) Glucose 108 (80-115) mg/dL Calcium 8.6 (8.5-10.1) mg/dL Magnesium 1.8 (1.8-2.4) mg/dl C-Reactive Protein 4.6 H* (<1.0) mg/dL NT-Pro-B Natriuret Pep 1002 H (0-125) pg/mL 05/26/17 05/26/17 Range/Units 09:55 13:48 WBC (3.98-10.04) K/mm3 RBC (3.98-5.22) M/mm3 Hgb (11.2-15.7) gm/L Hct (34.1-44.9) % MCV (79.4-94.8) fl MCH (25.6-32.2) pg MCHC (32.2-35.5) g/dl RDW Std Deviation (36.4-46.3) fL Plt Count (182-369) K/mm3 MPV (9.4-12.3) fl Neut % (Auto) (34.0-71.1) % Lymph % (Auto) (19.3-51.7) % [place] % (Auto) (4.7-12.5) % Eos % (Auto) (0.7-5.8) Baso % (Auto) (0.1-1.2) % Neut # (Auto) (1.56-6.13) K/mm3 Lymph # (Auto) (1.18-3.74) K/mm3 [place] # (Auto) (0.24-0.36) K/mm3 Eos # (Auto) (0.04-0.36) K/mm3 Baso # (Auto) (0.01-0.08) K/mm3 Manual Slide Review Puncture Site Rt radial Lt radial ABG pH 7.30 L 7.32 L (7.35-7.45) ABG pCO2 73.6 H* 70.0 H (35.0-45.0) mmHg ABG pO2 62.0 L 56.0 L (80.0-100.0) mmHg ABG HCO3 35.2 H 35.1 H (22.0-26.0) meq/L ABG O2 Saturation 88.6 L 88.8 L (96.0-97.0) % ABG Base Excess 6.0 H 6.5 H (-2-2.0) Augusto Test Positive A-a Gradient 102 61 mmHg O2 Delivery Device Nasal cannula Nasal cannula Oxygen Flow Rate 5.0 3.0 FiO2 40.00 32.00 (21.00-100.00) % Sodium (136-145) mEq/L Potassium (3.5-5.1) mEq/L Chloride (98-107) mEq/L Carbon Dioxide (21-32) mEq/L Anion Gap (5-15) BUN (7-18) mg/dL Creatinine (0.55-1.02) mg/dL Est Cr Clr Drug Dosing mL/min Estimated GFR (MDRD) (>60) mL/min BUN/Creatinine Ratio (14-18) Glucose (80-115) mg/dL Calcium (8.5-10.1) mg/dL Magnesium (1.8-2.4) mg/dl C-Reactive Protein (<1.0) mg/dL NT-Pro-B Natriuret Pep (0-125) pg/mL [place] Results Last 24 Hours: Microbiology 05/24/17 13:10 Wound Culture - Final Leg, Right Beta Streptococcus Group B 05/24/17 16:20 Wound Culture - Preliminary Groin, Left Gram Positive Cocci Beta Streptococcus Group B 05/24/17 14:46 Streptococcus pneumoniae Antigen (M - Final Urine Med Orders - Current: Current Medications Enoxaparin Sodium (Lovenox) 150 mg SUBCUT Q12HR RORY Last Admin: 05/26/17 09:57 Dose: 150 mg Furosemide (Lasix) 20 mg IVPUSH BIDDIURETIC RORY Last Admin: 05/26/17 14:45 Dose: 20 mg Levofloxacin/Dextrose 750 mg/ (Premix) 150 mls @ 100 mls/hr IV Q24H RORY Last Admin: 05/26/17 03:08 Dose: 100 mls/hr Diltiazem HCl 125 mg/ Sodium (Chloride) 125 mls @ 10 mls/hr IV TITRATE RORY; 10 MG/HR PRN Reason: Protocol Ibuprofen (Motrin) 600 mg PO Q6H PRN PRN Reason: Pain Last Admin: 05/26/17 00:54 Dose: 600 mg Ipratropium Thompson (Atrovent) 0.5 mg NEB QIDRT RORY Last Admin: 05/26/17 10:01 Dose: 0.5 mg Levalbuterol HCl (Xopenex) 1.25 mg NEB Q4HRRT PRN PRN Reason: Shortness of Breath Last Admin: 05/26/17 10:01 Dose: 1.25 mg Levothyroxine Sodium (Levothyroxine) 112 mcg PO ACBREAKFAST [facility] Last Admin: 05/26/17 06:00 Dose: 112 mcg Liothyronine Sodium (Cytomel) 5 mcg PO ACBREAKFAST [facility] Last Admin: 05/26/17 06:00 Dose: 5 mcg Methylprednisolone Sodium Succinate (Solu-Medrol) 125 mg IVPUSH Q6H RORY Metoprolol Tartrate (Lopressor) 25 mg PO Q12HR [facility] Last Admin: 05/26/17 09:52 Dose: 25 mg Metoprolol Tartrate (Lopressor) 5 mg IVPUSH Q4H PRN PRN Reason: HR>120 Last Admin: 05/24/17 17:57 Dose: 5 mg Miscellaneous Information (Remove Patch) 1 ea TRDERM DAILY [facility] Last Admin: 05/26/17 09:57 Dose: 1 ea Nicotine (Habitrol) 21 mg TRDERM DAILY [facility] Last Admin: 05/26/17 09:56 Dose: 21 mg Oseltamivir Phosphate (Tamiflu) 75 mg PO BID [facility] Stop: 05/28/17 14:01 Last Admin: 05/26/17 09:52 Dose: 75 mg Discontinued Medications Albuterol (Proventil Neb Soln) 2.5 mg NEB Q4HRRT PRN PRN Reason: Shortness of Breath Albuterol/Ipratropium (Duoneb 3.0-0.5 Mg/3 Ml) 3 ml NEB ONETIME ONE Stop: 05/24/17 05:20 Last Admin: 05/24/17 05:21 Dose: 3 ml Albuterol/Ipratropium (Duoneb 3.0-0.5 Mg/3 Ml) Confirm Administered Dose 3 ml .ROUTE .STK-MED ONE Stop: 05/24/17 05:26 Last Admin: 05/24/17 05:36 Dose: Not Given Albuterol/Ipratropium (Duoneb 3.0-0.5 Mg/3 Ml) 3 ml NEB QIDRT PRN PRN Reason: Shortness of Breath Last Admin: 05/24/17 12:52 Dose: 3 ml Enoxaparin Sodium (Lovenox) 40 mg SUBCUT DAILY [facility] Last Admin: 05/24/17 13:40 Dose: 40 mg Levofloxacin/Dextrose 750 mg/ (Premix) 150 mls @ 100 mls/hr IV ONETIME ONE Stop: 05/24/17 10:03 Last Admin: 05/24/17 09:40 Dose: 100 mls/hr Vancomycin HCl 2 gm/ Sodium (Chloride) 500 mls @ 500 mls/hr IV ONETIME ONE Stop: 05/24/17 14:59 Last Admin: 05/24/17 14:53 Dose: 500 mls/hr Vancomycin HCl 1 gm/Vancomycin HCl 500 mg/ Sodium Chloride 250 mls @ 125 mls/ hr IV Q12H [facility] Last Admin: 05/25/17 01:43 Dose: 125 mls/hr Vancomycin HCl 1 gm/Vancomycin HCl 500 mg/ Sodium Chloride 500 mls @ 333.333 mls/hr IV Q12H [facility] Last Admin: 05/26/17 01:23 Dose: 333.333 mls/hr Ipratropium Thompson (Atrovent) 0.5 mg NEB QID RORY Levalbuterol HCl (Xopenex) 1.25 mg NEB ONETIME ONE Stop: 05/24/17 17:42 Last Admin: 05/24/17 18:04 Dose: 1.25 mg Levalbuterol HCl (Xopenex) 1.25 mg NEB Q6HRRT PRN PRN Reason: Shortness of Breath Levalbuterol HCl (Xopenex) 2.5 mg NEB ONETIME ONE Stop: 05/26/17 09:47 Last Admin: 05/26/17 10:02 Dose: 2.5 mg Methylprednisolone Sodium Succinate (Solu-Medrol) 125 mg IVPUSH ONETIME ONE Stop: 05/26/17 10:08 Last Admin: 05/26/17 10:31 Dose: 125 mg Metoprolol Tartrate (Lopressor) Confirm Administered Dose 5 mg .ROUTE .STK-MED ONE Stop: 05/24/17 17:51 Last Admin: 05/24/17 18:52 Dose: Not Given Pneumococcal Polyvalent Vaccine (Pneumovax 23) 0.5 ml IM .ONCE ONE Stop: 05/24/17 14:53 Vancomycin HCl (Pharmacy To Dose - Vancomycin) 0 dose .XX ASDIRECTED PRN PRN Reason: RX TO DOSE VANCOMYCIN - Exam Quality Assessment: Supplemental Oxygen, Urine Catheter, DVT Prophylaxis General: Alert, Oriented, Cooperative, Mild Distress HEENT: Pupils Equal, Pupils Reactive, EOMI, Mucous Membr. Moist/[place] Neck: Supple, Other (difficult to evaluate due to body habitus ) Lungs: Decreased Breath Sounds, Wheezing, Other (somewhat SOB appearing although she did just return from the bathroom and had a BM ) GI/Abdominal Exam: Normal Bowel Sounds, Soft, Non-Tender, No Distention (Female) Exam: Deferred Back Exam: Normal Inspection Extremities: Pedal Edema (mild ), Redness, Other (cool, Dry flaky skin. No drainage. Bandages intact bilaterally on the posterior aspects. Non-tender. Improved from admission.). No: Leg Pain, Increased Warmth Peripheral Pulses: 0: Posterior Tibial (L), Posterior Tibial (R), Dorsalis Pedis (L), Dorsalis Pedis (R), 1+: Radial (L), Radial (R) Skin: Cool, Other (legs as above ) Wound/Incisions: Healing Well, Dressing Dry and Intact, No Drainage. No: Erythema Neurological: No New Focal Deficit Psy/Mental Status: Alert, Normal Affect, Normal Mood - Problem List & Annotations (1) Acute bronchitis SNOMED Code(s): 38888607 Code(s): J20.9 - ACUTE BRONCHITIS, UNSPECIFIED Status: Acute Priority: High Current Visit: Yes Qualifiers: Bronchitis organism: unspecified organism Qualified Code(s): J20.9 - Acute bronchitis, unspecified (2) Acute exacerbation of chronic obstructive pulmonary disease (COPD) SNOMED Code(s): 346079990 Code(s): J44.1 - CHRONIC OBSTRUCTIVE PULMONARY DISEASE W (ACUTE) EXACERBATION Status: Acute Priority: High Current Visit: Yes (3) Bilateral lower leg cellulitis SNOMED Code(s): 783922495 Code(s): L03.116 - CELLULITIS OF LEFT LOWER LIMB; L03.115 - CELLULITIS OF RIGHT LOWER LIMB Status: Acute Priority: High Current Visit: Yes (4) COPD (chronic obstructive pulmonary disease) SNOMED Code(s): 46680885 Code(s): J44.9 - CHRONIC OBSTRUCTIVE PULMONARY DISEASE, UNSPECIFIED Status : Acute Priority: High Current Visit: Yes Qualifiers: COPD type: COPD with acute lower respiratory infection Qualified Code(s): J44.0 - Chronic obstructive pulmonary disease with acute lower respiratory infection (5) Edema of both lower legs due to peripheral venous insufficiency SNOMED Code(s): 30989905095499910 Code(s): I87.2 - VENOUS INSUFFICIENCY (CHRONIC) (PERIPHERAL); R60.9 - EDEMA, UNSPECIFIED Status: Chronic Priority: Medium Current Visit: Yes (6) Hypoxemia SNOMED Code(s): 767157447 Code(s): R09.02 - HYPOXEMIA Status: Acute Priority: High Current Visit : Yes (7) Morbid obesity SNOMED Code(s): 875834844 Code(s): E66.01 - MORBID (SEVERE) OBESITY DUE TO EXCESS CALORIES Status: Chronic Priority: High Current Visit: Yes (8) Tobacco use disorder SNOMED Code(s): 604674822 Code(s): F17.200 - NICOTINE DEPENDENCE, UNSPECIFIED, UNCOMPLICATED Status: Chronic Priority: Medium Current Visit: Yes (9) Influenza A SNOMED Code(s): 252500946 Code(s): J10.1 - FLU DUE TO OTH IDENT INFLUENZA VIRUS W OTH RESP MANIFEST Status: Acute Priority: High Current Visit: Yes (10) Hypothyroidism SNOMED Code(s): 91374753 Code(s): E03.9 - HYPOTHYROIDISM, UNSPECIFIED Status: Acute Priority: High Current Visit: Yes Qualifiers: Hypothyroidism type: unspecified Qualified Code(s): E03.9 - Hypothyroidism , unspecified - Problem List Review Problem List Initiated/Reviewed/Updated: Yes - Plan Plan:: Impression: Acute exacerbation of COPD with hypoxia, transferred to ICU, 05/24/17 Tobacco abuse/dependence A Fib with RVR -->resolved Morbid obesity Poor functional capacity Query CHF, NYHA functional clas III, stage C--> Echo obtained, pending Query Pulmonary Venous Hypertension-->Echo obtained, pending Hypothyroid--not therapeutic, resume home meds Chronic venous insufficiency with cellulitis Depression Influenza A Plan: Nebs scheduled/prn PICC line placed 05/26/17 BIPAP IV Levoquin Tamiflu Nicotine patch O2, keep sat>90% Needs sleep study Bilateral wounds on lower extremities, continue ATB; wound care per PT Isolation: contact/droplet Tobacco cessation ed Needs dental consult at discharge (Re: pain when eating) Obesity diet/exercise education Dietary consult Query Vibra at disposition; needs inpatient PT and wound care PT/OT/SM (re: SNF) Code Status: Full code, PCP: Dr. Milton
[2017-05-26] MEDS: methylPREDNISolone Sodium Succinate 125 MG/2 ML SDV IVPUSH SCH ×2 (15:42→20:53)
[2017-05-27] MEDS: methylPREDNISolone Sodium Succinate 125 MG/2 ML SDV IVPUSH SCH ×4 (04:08→20:38)
[2017-05-27] MEDS: Levofloxacin/Dextrose 5%-Water 750 MG in Premix Bag 1 BAG IV SCH (04:08)
[2017-05-27] MEDS: Ipratropium 0.02% 0.5 MG/2.5 ML Neb Soln NEB SCH ×4 (05:26→20:15)
[2017-05-27] MEDS: Levothyroxine 112 MCG Tab PO SCH (06:40)
[2017-05-27] MEDS: Liothyronine 5 MCG Tab PO SCH (06:40)
[2017-05-27] MEDS: Furosemide 20 MG/2 ML VIAL IVPUSH SCH ×2 (06:41→14:18)
[2017-05-27] MEDS: Oseltamivir 75 MG Cap PO SCH ×2 (09:03→20:38)
[2017-05-27] MEDS: Nicotine 21 MG/24 Hr Patch TRDERM SCH (09:03)
[2017-05-27] MEDS: Metoprolol Tartrate 25 MG Tab PO SCH ×2 (09:04→20:39)
[2017-05-27] MEDS: Enoxaparin 150 MG/1 ML Syringe SUBCUT SCH ×2 (09:05→20:39)
--- NOTE | 2017-05-27 09:14 | CR ---
Chest: Portable view of the chest was obtained. Comparison: Prior chest x-ray of 05/26/17 (7:53 AM) Note: Study has only now been made available for interpretation. Findings: PICC line is seen entering from the right side. Tip of PICC line lies within the expected region of the superior vena cava in satisfactory position. Heart is enlarged. Minimal pulmonary vascular congestion is seen. Lungs otherwise are clear. Bony structures are grossly intact. Impression: 1. Satisfactory position of right-sided PICC line. Tip currently lies within the expected region of the superior vena cava. 2. Stable cardiomegaly and minimal pulmonary vascular congestion. Diagnostic code #2
[2017-05-27] MEDS: Levalbuterol HCl 1.25 MG/3 ML Neb NEB PRN ×2 (09:25→16:00)
[2017-05-27] MEDS: Saccharomyces Boulardii (Probiotic) 250 MG Cap PO SCH ×2 (12:18→20:38)
--- NOTE | 2017-05-27 16:27 | PCM.PN ---
- General Info Date of Service: 05/27/17 Admission Dx/Problem (Free Text): A-fib with RVR, Cellulitis Subjective Update: In to see Danielle. She is sitting in the chair with high-flow O2 on. The plan is to provide high-flow o2 during the day and BIPAP at night. She is 40% blended high-flow. She has not tolerated the BIPAP very well and states it makes her feel very warm while wearing it. While talking with me her saturations remained at 86-90 with 88-89% for a majority of the time. She reports her SOB is back to baseline. She has been up to use the restroom today and reports a softer BM. She reports some fecal material in her groin and she did have her friend bring a device she uses to extend her reach and help clean this out. Padilla is in place. Plan is to discharge to SNF for continued care upon discharge. Her legs continue to improve. Functional Status: Reports: Pain Controlled, Tolerating Diet, Ambulating, Urinating. Denies: New Symptoms - Review of Systems General: Reports: No Symptoms HEENT: Reports: No Symptoms Pulmonary: Reports: Shortness of Breath (improving ), Cough (improving ), Sputum (improving ), Wheezing. Denies: Pleuritic Chest Pain Cardiovascular: Reports: Palpitations, Dyspnea on Exertion, Edema. Denies: Chest Pain, Lightheadedness Gastrointestinal: Reports: No Symptoms. Denies: Abdominal Pain, Constipation, Diarrhea, Nausea, Vomiting Genitourinary: Reports: No Symptoms Musculoskeletal: Reports: No Symptoms Skin: Reports: No Symptoms Neurological: Reports: No Symptoms Psychiatric: Reports: No Symptoms - Patient Data Vitals - Most Recent: Last Vital Signs Temp 97.7 F 05/27/17 15:13 Pulse 86 05/27/17 15:13 Resp 28 H 05/27/17 15:13 BP 143/77 H 05/27/17 15:13 Pulse Ox 91 L 05/27/17 16:00 Weight - Most Recent: 363 lb I&O - Last 24 Hours: Intake & Output 05/27/17 05/27/17 05/27/17 06:59 14:59 22:59 Intake Total 306 391 9850 Output Total 845 700 100 Balance -595 -580 1545 Lab Results Last 24 Hours: Laboratory Results - last 24 hr 05/27/17 05/27/17 Range/Units 05:46 05:46 WBC 11.36 H (3.98-10.04) K/mm3 RBC 5.84 H (3.98-5.22) M/mm3 Hgb 15.1 (11.2-15.7) gm/L Hct 51.4 H (34.1-44.9) % MCV 88.0 (79.4-94.8) fl MCH 25.9 (25.6-32.2) pg MCHC 29.4 L (32.2-35.5) g/dl RDW Std Deviation 57.3 H (36.4-46.3) fL Plt Count 273 (182-369) K/mm3 MPV 11.1 (9.4-12.3) fl Neut % (Auto) 91.9 H (34.0-71.1) % Lymph % (Auto) 5.5 L (19.3-51.7) % Traverse % (Auto) 2.1 L (4.7-12.5) % Eos % (Auto) 0 L (0.7-5.8) Baso % (Auto) 0.1 (0.1-1.2) % Neut # (Auto) 10.44 H (1.56-6.13) K/mm3 Lymph # (Auto) 0.63 L (1.18-3.74) K/mm3 Traverse # (Auto) 0.24 (0.24-0.36) K/mm3 Eos # (Auto) 0.00 L (0.04-0.36) K/mm3 Baso # (Auto) 0.01 (0.01-0.08) K/mm3 Manual Slide Review Abnormal smear Sodium 137 (136-145) mEq/L Potassium 4.4 (3.5-5.1) mEq/L Chloride 97 L (98-107) mEq/L Carbon Dioxide 34 H (21-32) mEq/L Anion Gap 10.4 (5-15) BUN 14 (7-18) mg/dL Creatinine 0.5 L (0.55-1.02) mg/dL Est Cr Clr Drug Dosing 93.45 mL/min Estimated GFR (MDRD) > 60 (>60) mL/min BUN/Creatinine Ratio 28.0 H (14-18) Glucose 149 H (80-115) mg/dL Calcium 9.1 (8.5-10.1) mg/dL Magnesium 1.9 (1.8-2.4) mg/dl C-Reactive Protein 3.3 H* (<1.0) mg/dL [place] Results Last 24 Hours: Microbiology 05/24/17 16:20 Wound Culture - Final Groin, Left Staphylococcus Aureus Beta Streptococcus Group B 05/24/17 13:10 Wound Culture - Final Leg, Right Beta Streptococcus Group B Med Orders - Current: Current Medications Enoxaparin Sodium (Lovenox) 150 mg SUBCUT Q12HR [facility] Last Admin: 05/27/17 09:05 Dose: 150 mg Furosemide (Lasix) 20 mg IVPUSH BIDDIURETIC RORY Last Admin: 05/27/17 14:18 Dose: 20 mg Levofloxacin/Dextrose 750 mg/ (Premix) 150 mls @ 100 mls/hr IV Q24H RORY Last Admin: 05/27/17 04:08 Dose: 100 mls/hr Diltiazem HCl 125 mg/ Sodium (Chloride) 125 mls @ 10 mls/hr IV TITRATE RORY; 10 MG/HR PRN Reason: Protocol Ibuprofen (Motrin) 600 mg PO Q6H PRN PRN Reason: Pain Last Admin: 05/26/17 00:54 Dose: 600 mg Ipratropium Fontanelle (Atrovent) 0.5 mg NEB QIDRT RORY Last Admin: 05/27/17 16:00 Dose: 0.5 mg Levalbuterol HCl (Xopenex) 1.25 mg NEB Q4HRRT PRN PRN Reason: Shortness of Breath Last Admin: 05/27/17 16:00 Dose: 1.25 mg Levothyroxine Sodium (Levothyroxine) 112 mcg PO ACBREAKFAST [facility] Last Admin: 05/27/17 06:40 Dose: 112 mcg Liothyronine Sodium (Cytomel) 5 mcg PO ACBREAKFAST RORY Last Admin: 05/27/17 06:40 Dose: 5 mcg Methylprednisolone Sodium Succinate (Solu-Medrol) 125 mg IVPUSH Q6H [facility] Last Admin: 05/27/17 14:16 Dose: 125 mg Metoprolol Tartrate (Lopressor) 25 mg PO Q12HR [facility] Last Admin: 05/27/17 09:04 Dose: 25 mg Metoprolol Tartrate (Lopressor) 5 mg IVPUSH Q4H PRN PRN Reason: HR>120 Last Admin: 05/24/17 17:57 Dose: 5 mg Miscellaneous Information (Remove Patch) 1 ea TRDERM DAILY [facility] Last Admin: 05/27/17 09:05 Dose: 1 ea Nicotine (Habitrol) 21 mg TRDERM DAILY [facility] Last Admin: 05/27/17 09:03 Dose: 21 mg Oseltamivir Phosphate (Tamiflu) 75 mg PO BID [facility] Stop: 05/28/17 14:01 Last Admin: 05/27/17 09:03 Dose: 75 mg Saccharomyces Boulardii (Florastor) 250 mg PO BID [facility] Last Admin: 05/27/17 12:18 Dose: 250 mg Discontinued Medications Albuterol (Proventil Neb Soln) 2.5 mg NEB Q4HRRT PRN PRN Reason: Shortness of Breath Albuterol/Ipratropium (Duoneb 3.0-0.5 Mg/3 Ml) 3 ml NEB ONETIME ONE Stop: 05/24/17 05:20 Last Admin: 05/24/17 05:21 Dose: 3 ml Albuterol/Ipratropium (Duoneb 3.0-0.5 Mg/3 Ml) Confirm Administered Dose 3 ml .ROUTE .STK-MED ONE Stop: 05/24/17 05:26 Last Admin: 05/24/17 05:36 Dose: Not Given Albuterol/Ipratropium (Duoneb 3.0-0.5 Mg/3 Ml) 3 ml NEB QIDRT PRN PRN Reason: Shortness of Breath Last Admin: 05/24/17 12:52 Dose: 3 ml Enoxaparin Sodium (Lovenox) 40 mg SUBCUT DAILY [facility] Last Admin: 05/24/17 13:40 Dose: 40 mg Levofloxacin/Dextrose 750 mg/ (Premix) 150 mls @ 100 mls/hr IV ONETIME ONE Stop: 05/24/17 10:03 Last Admin: 05/24/17 09:40 Dose: 100 mls/hr Vancomycin HCl 2 gm/ Sodium (Chloride) 500 mls @ 500 mls/hr IV ONETIME ONE Stop: 05/24/17 14:59 Last Admin: 05/24/17 14:53 Dose: 500 mls/hr Vancomycin HCl 1 gm/Vancomycin HCl 500 mg/ Sodium Chloride 250 mls @ 125 mls/ hr IV Q12H [facility] Last Admin: 05/25/17 01:43 Dose: 125 mls/hr Vancomycin HCl 1 gm/Vancomycin HCl 500 mg/ Sodium Chloride 500 mls @ 333.333 mls/hr IV Q12H [facility] Last Admin: 05/26/17 01:23 Dose: 333.333 mls/hr Ipratropium Fontanelle (Atrovent) 0.5 mg NEB QID RORY Levalbuterol HCl (Xopenex) 1.25 mg NEB ONETIME ONE Stop: 05/24/17 17:42 Last Admin: 05/24/17 18:04 Dose: 1.25 mg Levalbuterol HCl (Xopenex) 1.25 mg NEB Q6HRRT PRN PRN Reason: Shortness of Breath Levalbuterol HCl (Xopenex) 2.5 mg NEB ONETIME ONE Stop: 05/26/17 09:47 Last Admin: 05/26/17 10:02 Dose: 2.5 mg Methylprednisolone Sodium Succinate (Solu-Medrol) 125 mg IVPUSH ONETIME ONE Stop: 05/26/17 10:08 Last Admin: 05/26/17 10:31 Dose: 125 mg Metoprolol Tartrate (Lopressor) Confirm Administered Dose 5 mg .ROUTE .STK-MED ONE Stop: 05/24/17 17:51 Last Admin: 05/24/17 18:52 Dose: Not Given Pneumococcal Polyvalent Vaccine (Pneumovax 23) 0.5 ml IM .ONCE ONE Stop: 05/24/17 14:53 Vancomycin HCl (Pharmacy To Dose - Vancomycin) 0 dose .XX ASDIRECTED PRN PRN Reason: RX TO DOSE VANCOMYCIN - Exam Quality Assessment: Supplemental Oxygen, Central Line/PICC, Urine Catheter, DVT Prophylaxis General: Alert, Oriented, Cooperative, No Acute Distress HEENT: Pupils Equal, Pupils Reactive, EOMI, Mucous Membr. Moist/[place] Neck: Other (unable to evaluate due to neck mass ) Lungs: Normal Respiratory Effort, Decreased Breath Sounds, Wheezing Cardiovascular: Regular Rate, Regular Rhythm GI/Abdominal Exam: Normal Bowel Sounds, Soft, Non-Tender (Female) Exam: Deferred Back Exam: Normal Inspection, Decreased Range of Motion (due to mass ) Extremities: Pedal Edema, Limited Range of Motion (due to mass ), Redness ( improved ). No: Leg Pain, Increased Warmth Peripheral Pulses: 0: Posterior Tibial (L), Posterior Tibial (R), Dorsalis Pedis (L), Dorsalis Pedis (R), 1+: Radial (L), Radial (R) Skin: Dry, Intact, Cool (patient has been requesting fans and very cool room temperatures), Other (see leg discription above ) Neurological: No New Focal Deficit Psy/Mental Status: Alert, Normal Affect, Normal Mood - Problem List & Annotations (1) Acute bronchitis SNOMED Code(s): 73039753 Code(s): J20.9 - ACUTE BRONCHITIS, UNSPECIFIED Status: Acute Priority: High Current Visit: Yes Qualifiers: Bronchitis organism: unspecified organism Qualified Code(s): J20.9 - Acute bronchitis, unspecified (2) Acute exacerbation of chronic obstructive pulmonary disease (COPD) SNOMED Code(s): 273574833 Code(s): J44.1 - CHRONIC OBSTRUCTIVE PULMONARY DISEASE W (ACUTE) EXACERBATION Status: Acute Priority: High Current Visit: Yes (3) Bilateral lower leg cellulitis SNOMED Code(s): 247288284 Code(s): L03.116 - CELLULITIS OF LEFT LOWER LIMB; L03.115 - CELLULITIS OF RIGHT LOWER LIMB Status: Acute Priority: High Current Visit: Yes (4) COPD (chronic obstructive pulmonary disease) SNOMED Code(s): 94942522 Code(s): J44.9 - CHRONIC OBSTRUCTIVE PULMONARY DISEASE, UNSPECIFIED Status : Acute Priority: High Current Visit: Yes Qualifiers: COPD type: COPD with acute lower respiratory infection Qualified Code(s): J44.0 - Chronic obstructive pulmonary disease with acute lower respiratory infection (5) Edema of both lower legs due to peripheral venous insufficiency SNOMED Code(s): 66528493411821428 Code(s): I87.2 - VENOUS INSUFFICIENCY (CHRONIC) (PERIPHERAL); R60.9 - EDEMA, UNSPECIFIED Status: Chronic Priority: Medium Current Visit: Yes (6) Hypoxemia SNOMED Code(s): 619134932 Code(s): R09.02 - HYPOXEMIA Status: Acute Priority: High Current Visit : Yes (7) Morbid obesity SNOMED Code(s): 065056006 Code(s): E66.01 - MORBID (SEVERE) OBESITY DUE TO EXCESS CALORIES Status: Chronic Priority: High Current Visit: Yes (8) Tobacco use disorder SNOMED Code(s): 182828593 Code(s): F17.200 - NICOTINE DEPENDENCE, UNSPECIFIED, UNCOMPLICATED Status: Chronic Priority: Medium Current Visit: Yes (9) Influenza A SNOMED Code(s): 404325417 Code(s): J10.1 - FLU DUE TO OTH IDENT INFLUENZA VIRUS W OTH RESP MANIFEST Status: Acute Priority: High Current Visit: Yes (10) Hypothyroidism SNOMED Code(s): 93502731 Code(s): E03.9 - HYPOTHYROIDISM, UNSPECIFIED Status: Acute Priority: High Current Visit: Yes Qualifiers: Hypothyroidism type: unspecified Qualified Code(s): E03.9 - Hypothyroidism , unspecified - Problem List Review Problem List Initiated/Reviewed/Updated: Yes - My Orders Last 24 Hours: My Active Orders 05/27/17 Breakfast Soft Diet [DIET] - Plan Plan:: Impression: Acute exacerbation of COPD with hypoxia, transferred to ICU, 05/24/17 Tobacco abuse/dependence A Fib with RVR -->resolved Morbid obesity Poor functional capacity Query CHF, NYHA functional clas III, stage C--> Echo obtained -LVEF 65% -grade 1 pattern LV diastolic filling -severely elevated RVSP -Dilated inferior vena cava with rest or size variation less than 50% -RV volume/pressure overload. Query Pulmonary Venous Hypertension-->Echo obtained as above Hypothyroid--not therapeutic, resume home meds Chronic venous insufficiency with cellulitis Beta strep group B in culture. Groin wound Staph aureus and beta strep group B from culture CKD stage III--> resolved Electrolyte abnormalities - supplement Query depression Chronic: A Fib HLD HTN IBS Hypothyroidism Plan: Nebs scheduled/prn PICC line placed 05/26/17 BIPAP and high flow O2 IV Levoquin Tamiflu Nicotine patch O2, keep sat>90% Needs sleep study Bilateral wounds on lower extremities, continue ATB; wound care per PT Isolation: contact/droplet Tobacco cessation ed Psych consult PFTs just prior to discharge Needs dental consult at discharge (Re: pain when eating) - soft diet Obesity diet/exercise education Dietary consult Query Vibra at disposition; needs inpatient PT and wound care PT/OT/SM (re: SNF) Code Status: Full code, PCP: Dr. Milton
[2017-05-27] MEDS: Budesonide 0.5 MG/2 ML Neb Susp NEB SCH (20:15)
[2017-05-28] MEDS: methylPREDNISolone Sodium Succinate 125 MG/2 ML SDV IVPUSH SCH ×4 (03:12→20:50)
[2017-05-28] MEDS: Levofloxacin/Dextrose 5%-Water 750 MG in Premix Bag 1 BAG IV SCH (03:13)
[2017-05-28] MEDS: Budesonide 0.5 MG/2 ML Neb Susp NEB SCH ×2 (05:10→21:54)
[2017-05-28] MEDS: Ipratropium 0.02% 0.5 MG/2.5 ML Neb Soln NEB SCH ×4 (05:10→21:54)
[2017-05-28] MEDS: Furosemide 20 MG/2 ML VIAL IVPUSH SCH ×2 (06:55→15:14)
[2017-05-28] MEDS: Levothyroxine 112 MCG Tab PO SCH (06:57)
[2017-05-28] MEDS: Liothyronine 5 MCG Tab PO SCH (06:57)
[2017-05-28] MEDS: Nicotine 21 MG/24 Hr Patch TRDERM SCH (11:25)
[2017-05-28] MEDS: Saccharomyces Boulardii (Probiotic) 250 MG Cap PO SCH ×2 (11:25→20:49)
[2017-05-28] MEDS: Enoxaparin 150 MG/1 ML Syringe SUBCUT SCH ×2 (11:26→20:49)
[2017-05-28] MEDS: Metoprolol Tartrate 25 MG Tab PO SCH ×2 (11:27→20:48)
[2017-05-28] MEDS: Oseltamivir 75 MG Cap PO SCH (11:27)
[2017-05-28] MEDS: Levalbuterol HCl 1.25 MG/3 ML Neb NEB PRN ×2 (11:53→18:24)
--- NOTE | 2017-05-28 15:03 | PCM.PN ---
- General Info Date of Service: 05/28/17 Admission Dx/Problem (Free Text): A-fib with RVR, Cellulitis Subjective Update: In to see Danielle. She is sitting in the chair with O2 through NC. She appears to be doing quite well. She reports her SOB has improved and may be better than baseline. We discussed her cage catheter and the decision was made to discontinue it as she has been ambulating well and her groin wound is healing. I stressed the importance of proper hygiene. We have been utilizing high flow O2 occasionally and the plan now is for night time use as she has struggled with the BIPAP. She will need an outpatient sleep study and we will try to obtain PFTs prior to discharge. Hopeful for discharge on Thursday to [facility]. Functional Status: Reports: Pain Controlled, Tolerating Diet, Ambulating, Urinating, Incentive Spirometry. Denies: New Symptoms - Review of Systems General: Denies: Fever, Weakness, Fatigue, Malaise HEENT: Reports: No Symptoms. Denies: Ear Pain, Eye Pain, Headaches, Sore Throat Pulmonary: Reports: Shortness of Breath (back to baseline or improved with O2 via NC ), Cough (improved ), Wheezing (improved). Denies: Pleuritic Chest Pain , Sputum Cardiovascular: Reports: Dyspnea on Exertion, Edema. Denies: Chest Pain, Palpitations Gastrointestinal: Reports: No Symptoms. Denies: Constipation, Diarrhea, Nausea , Vomiting Genitourinary: Reports: No Symptoms Musculoskeletal: Reports: No Symptoms Skin: Reports: No Symptoms Neurological: Reports: No Symptoms Psychiatric: Reports: No Symptoms - Patient Data Vitals - Most Recent: Last Vital Signs Temp 97.0 F 05/28/17 07:41 Pulse 72 05/28/17 11:27 Resp 18 05/28/17 07:41 BP 122/81 05/28/17 11:27 Pulse Ox 91 L 05/28/17 14:55 Weight - Most Recent: 355 lb 11.2 oz I&O - Last 24 Hours: Intake & Output 05/28/17 05/28/17 05/28/17 06:59 14:59 22:59 Intake Total 450 240 Output Total 450 Balance 0 240 Lab Results Last 24 Hours: Laboratory Results - last 24 hr 05/28/17 05/28/17 Range/Units 05:53 05:53 WBC 13.72 H (3.98-10.04) K/mm3 RBC 5.72 H (3.98-5.22) M/mm3 Hgb 14.8 (11.2-15.7) gm/L Hct 50.9 H (34.1-44.9) % MCV 89.0 (79.4-94.8) fl MCH 25.9 (25.6-32.2) pg MCHC 29.1 L (32.2-35.5) g/dl RDW Std Deviation 58.7 H (36.4-46.3) fL Plt Count 283 (182-369) K/mm3 MPV 11.2 (9.4-12.3) fl Neut % (Auto) 91.1 H (34.0-71.1) % Lymph % (Auto) 5.1 L (19.3-51.7) % [place] % (Auto) 3.6 L (4.7-12.5) % Eos % (Auto) 0 L (0.7-5.8) Baso % (Auto) 0.0 L (0.1-1.2) % Neut # (Auto) 12.50 H (1.56-6.13) K/mm3 Lymph # (Auto) 0.70 L (1.18-3.74) K/mm3 [place] # (Auto) 0.49 H (0.24-0.36) K/mm3 Eos # (Auto) 0.00 L (0.04-0.36) K/mm3 Baso # (Auto) 0.00 L (0.01-0.08) K/mm3 Manual Slide Review Abnormal smear Sodium 140 (136-145) mEq/L Potassium 4.5 (3.5-5.1) mEq/L Chloride 99 (98-107) mEq/L Carbon Dioxide 39 H (21-32) mEq/L Anion Gap 6.5 (5-15) BUN 18 (7-18) mg/dL Creatinine 0.5 L (0.55-1.02) mg/dL Est Cr Clr Drug Dosing 93.45 mL/min Estimated GFR (MDRD) > 60 (>60) mL/min BUN/Creatinine Ratio 36.0 H (14-18) Glucose 142 H (80-115) mg/dL Calcium 9.3 (8.5-10.1) mg/dL Magnesium 2.2 (1.8-2.4) mg/dl C-Reactive Protein 1.2 H* (<1.0) mg/dL [place] Results Last 24 Hours: Microbiology 05/24/17 16:20 Wound Culture - Final Groin, Left Staphylococcus Aureus Beta Streptococcus Group B Med Orders - Current: Current Medications Budesonide (Pulmicort) 0.[address] [facility] Last Admin: 05/28/17 05:10 Dose: 0.5 mg Enoxaparin Sodium (Lovenox) [address] [facility] Last Admin: 05/28/17 11:26 Dose: 150 mg Furosemide (Lasix) [address] [facility] Last Admin: 05/28/17 06:55 Dose: 20 mg Ibuprofen (Motrin) 600 mg PO Q6H PRN PRN Reason: Pain Last Admin: 05/26/17 00:54 Dose: 600 mg Ipratropium [place] (Atrovent) 0.[address] [facility] Last Admin: 05/28/17 11:53 Dose: 0.5 mg Levalbuterol HCl (Xopenex) 1.25 mg NEB Q4HRRT PRN PRN Reason: Shortness of Breath Last Admin: 05/28/17 11:53 Dose: 1.25 mg Levofloxacin (Levaquin) [address] [facility] Levothyroxine Sodium (Levothyroxine) [address] [facility] Last Admin: 05/28/17 06:57 Dose: 112 mcg Liothyronine Sodium (Cytomel) [address] [facility] Last Admin: 05/28/17 06:57 Dose: 5 mcg Methylprednisolone Sodium Succinate (Solu-Medrol) [address] [facility] Last Admin: 05/28/17 11:27 Dose: 125 mg Metoprolol Tartrate (Lopressor) [address] [facility] Last Admin: 05/28/17 11:27 Dose: 25 mg Metoprolol Tartrate (Lopressor) 5 mg IVPUSH Q4H PRN PRN Reason: HR>120 Last Admin: 05/24/17 17:57 Dose: 5 mg Miscellaneous Information (Remove Patch) [address] [facility] Last Admin: 05/28/17 11:27 Dose: 1 ea Nicotine (Habitrol) [address] [facility] Last Admin: 05/28/17 11:25 Dose: 21 mg Saccharomyces Boulardii (Florastor) [address] [facility] Last Admin: 05/28/17 11:25 Dose: 250 mg Discontinued Medications Albuterol (Proventil Neb Soln) 2.5 mg NEB Q4HRRT PRN PRN Reason: Shortness of Breath Albuterol/Ipratropium (Duoneb 3.0-0.5 Mg/3 Ml) 3 ml NEB ONETIME ONE Stop: 05/24/17 05:20 Last Admin: 05/24/17 05:21 Dose: 3 ml Albuterol/Ipratropium (Duoneb 3.0-0.5 Mg/3 Ml) Confirm Administered Dose 3 ml .ROUTE .STK-MED ONE Stop: 05/24/17 05:26 Last Admin: 05/24/17 05:36 Dose: Not Given Albuterol/Ipratropium (Duoneb 3.0-0.5 Mg/3 Ml) 3 ml NEB QIDRT PRN PRN Reason: Shortness of Breath Last Admin: 05/24/17 12:52 Dose: 3 ml Enoxaparin Sodium (Lovenox) [address] [facility] Last Admin: 05/24/17 13:40 Dose: 40 mg Levofloxacin/Dextrose 750 mg/ (Premix) 150 mls @ 100 mls/hr IV ONETIME ONE Stop: 05/24/17 10:03 Last Admin: 05/24/17 09:40 Dose: 100 mls/hr Levofloxacin/Dextrose 750 mg/ (Premix) 150 mls @ 100 mls/hr IV Q24H [facility] Last Admin: 05/28/17 03:13 Dose: 100 mls/hr Vancomycin HCl 2 gm/ Sodium (Chloride) 500 mls @ 500 mls/hr IV ONETIME ONE Stop: 05/24/17 14:59 Last Admin: 05/24/17 14:53 Dose: 500 mls/hr Vancomycin HCl 1 gm/Vancomycin HCl 500 mg/ Sodium Chloride 250 mls @ 125 mls/ hr IV Q12H [facility] Last Admin: 05/25/17 01:43 Dose: 125 mls/hr Diltiazem HCl 125 mg/ Sodium (Chloride) 125 mls @ 10 mls/hr IV TITRATE [facility]; 10 MG/HR PRN Reason: Protocol Vancomycin HCl 1 gm/Vancomycin HCl 500 mg/ Sodium Chloride 500 mls @ 333.333 mls/hr IV Q12H [facility] Last Admin: 05/26/17 01:23 Dose: 333.333 mls/hr Ipratropium [place] (Atrovent) 0.5 mg NEB QID [facility] Levalbuterol HCl (Xopenex) 1.25 mg NEB ONETIME ONE Stop: 05/24/17 17:42 Last Admin: 05/24/17 18:04 Dose: 1.25 mg Levalbuterol HCl (Xopenex) 1.25 mg NEB Q6HRRT PRN PRN Reason: Shortness of Breath Levalbuterol HCl (Xopenex) 2.5 mg NEB ONETIME ONE Stop: 05/26/17 09:47 Last Admin: 05/26/17 10:02 Dose: 2.5 mg Methylprednisolone Sodium Succinate (Solu-Medrol) 125 mg IVPUSH ONETIME ONE Stop: 05/26/17 10:08 Last Admin: 05/26/17 10:31 Dose: 125 mg Metoprolol Tartrate (Lopressor) Confirm Administered Dose 5 mg .ROUTE .STK-MED ONE Stop: 05/24/17 17:51 Last Admin: 05/24/17 18:52 Dose: Not Given Oseltamivir Phosphate (Tamiflu) 75 mg PO BID [facility] Stop: 05/28/17 14:01 Last Admin: 05/28/17 11:27 Dose: 75 mg Pneumococcal Polyvalent Vaccine (Pneumovax 23) 0.5 ml IM .ONCE ONE Stop: 05/24/17 14:53 Vancomycin HCl (Pharmacy To Dose - Vancomycin) 0 dose .XX ASDIRECTED PRN PRN Reason: RX TO DOSE VANCOMYCIN - Exam Quality Assessment: Supplemental Oxygen, Urine Catheter (to be removed today ), DVT Prophylaxis General: Alert, Oriented, Cooperative HEENT: Pupils Equal, Pupils Reactive, EOMI, Mucous Membr. Moist/[place] Neck: Other (difficult to evaluate due to body habitus ) Lungs: Normal Respiratory Effort, Decreased Breath Sounds, Wheezing Cardiovascular: Regular Rate, Regular Rhythm, Other (diminished tones due to body habitus ) GI/Abdominal Exam: Normal Bowel Sounds, Soft, Non-Tender (Female) Exam: Deferred Back Exam: Normal Inspection, Decreased Range of Motion Extremities: Non-Tender, Pedal Edema (very mild ), Limited Range of Motion, Redness, Other (bilater leg wounds continue to improve. PK bandage in place. ) Peripheral Pulses: 0: Posterior Tibial (L), Posterior Tibial (R), Dorsalis Pedis (L), Dorsalis Pedis (R), 1+: Radial (L), Radial (R) Skin: Warm, Dry, Intact, Other (Leg wounds as above. Small groin wound that is improving and just slightly red now ) Wound/Incisions: Healing Well, Dressing Dry and Intact, No Drainage. No: Erythema Neurological: No New Focal Deficit Psy/Mental Status: Alert, Normal Affect, Normal Mood - Problem List & Annotations (1) Acute bronchitis SNOMED Code(s): 31562261 Code(s): J20.9 - ACUTE BRONCHITIS, UNSPECIFIED Status: Acute Priority: High Current Visit: Yes Qualifiers: Bronchitis organism: unspecified organism Qualified Code(s): J20.9 - Acute bronchitis, unspecified (2) Acute exacerbation of chronic obstructive pulmonary disease (COPD) SNOMED Code(s): 424702089 Code(s): J44.1 - CHRONIC OBSTRUCTIVE PULMONARY DISEASE W (ACUTE) EXACERBATION Status: Acute Priority: High Current Visit: Yes (3) Bilateral lower leg cellulitis SNOMED Code(s): 225350302 Code(s): L03.116 - CELLULITIS OF LEFT LOWER LIMB; L03.115 - CELLULITIS OF RIGHT LOWER LIMB Status: Acute Priority: High Current Visit: Yes (4) COPD (chronic obstructive pulmonary disease) SNOMED Code(s): 85910411 Code(s): J44.9 - CHRONIC OBSTRUCTIVE PULMONARY DISEASE, UNSPECIFIED Status : Acute Priority: High Current Visit: Yes Qualifiers: COPD type: COPD with acute lower respiratory infection Qualified Code(s): J44.0 - Chronic obstructive pulmonary disease with acute lower respiratory infection (5) Edema of both lower legs due to peripheral venous insufficiency SNOMED Code(s): 60922700712896458 Code(s): I87.2 - VENOUS INSUFFICIENCY (CHRONIC) (PERIPHERAL); R60.9 - EDEMA, UNSPECIFIED Status: Chronic Priority: Medium Current Visit: Yes (6) Hypoxemia SNOMED Code(s): 893958836 Code(s): R09.02 - HYPOXEMIA Status: Acute Priority: High Current Visit : Yes (7) Morbid obesity SNOMED Code(s): 799799463 Code(s): E66.01 - MORBID (SEVERE) OBESITY DUE TO EXCESS CALORIES Status: Chronic Priority: High Current Visit: Yes (8) Tobacco use disorder SNOMED Code(s): 672174707 Code(s): F17.200 - NICOTINE DEPENDENCE, UNSPECIFIED, UNCOMPLICATED Status: Chronic Priority: Medium Current Visit: Yes (9) Influenza A SNOMED Code(s): 265341041 Code(s): J10.1 - FLU DUE TO OTH IDENT INFLUENZA VIRUS W OTH RESP MANIFEST Status: Acute Priority: High Current Visit: Yes (10) Hypothyroidism SNOMED Code(s): 43011959 Code(s): E03.9 - HYPOTHYROIDISM, UNSPECIFIED Status: Acute Priority: High Current Visit: Yes Qualifiers: Hypothyroidism type: unspecified Qualified Code(s): E03.9 - Hypothyroidism , unspecified - Problem List Review Problem List Initiated/Reviewed/Updated: Yes - My Orders Last 24 Hours: My Active Orders 05/27/17 18:24 Consult to Physician [CONS] Routine 05/27/17 18:25 Notify Provider Consults [RC] ASDIRECTED 05/27/17 21:00 Budesonide [Pulmicort] 0.5 mg NEB BIDRT - Plan Plan:: Impression: Acute exacerbation of COPD with hypoxia, transferred to ICU, 05/24/17--> Downgraded to M/S/P on 05/27/17 Tobacco abuse/dependence A Fib with RVR -->resolved Morbid obesity Poor functional capacity Query CHF, NYHA functional clas III, stage C--> Echo obtained -LVEF 65% -grade 1 pattern LV diastolic filling -severely elevated RVSP -Dilated inferior vena cava with rest or size variation less than 50% -RV volume/pressure overload. Query Pulmonary Venous Hypertension-->Echo obtained as above Hypothyroid--not therapeutic, resume home meds Chronic venous insufficiency with cellulitis -->improving Beta strep group B in culture. Groin wound-->improving Staph aureus and beta strep group B from culture CKD stage III--> resolved Electrolyte abnormalities - supplement Query depression-->perla consulted and does not find pt. depressed Chronic: A Fib HLD HTN IBS Hypothyroidism Plan: Nebs scheduled/prn PICC line placed 05/26/17 BIPAP and high flow O2 -->NC as tolerated IV Levoquin--> PO levaquin tomorrow Tamiflu -->finished therapy Nicotine patch O2, keep sat>90% Needs sleep study Bilateral wounds on lower extremities, continue ATB; wound care per PT Isolation: contact/droplet Tobacco cessation ed Psych consult PFTs just prior to discharge Needs dental consult at discharge (Re: pain when eating) - soft diet Obesity diet/exercise education Dietary consult Query Vibra at disposition; needs inpatient PT and wound care PT/OT/SM (re: SNF) Code Status: Full code, PCP: Dr. Milton LOS >96 HR due to SNF placement, slow response to treatment; Likely discharge Thursday to SNF
[2017-05-29] MEDS: methylPREDNISolone Sodium Succinate 125 MG/2 ML SDV IVPUSH SCH ×2 (02:44→10:49)
[2017-05-29] MEDS: Ipratropium 0.02% 0.5 MG/2.5 ML Neb Soln NEB SCH ×4 (05:18→21:49)
[2017-05-29] MEDS: Budesonide 0.5 MG/2 ML Neb Susp NEB SCH ×2 (05:18→21:49)
[2017-05-29] MEDS: Furosemide 20 MG/2 ML VIAL IVPUSH SCH ×2 (06:52→13:31)
[2017-05-29] MEDS: Levothyroxine 112 MCG Tab PO SCH (06:52)
[2017-05-29] MEDS: Levofloxacin 750 MG Tab PO SCH (06:52)
[2017-05-29] MEDS: Liothyronine 5 MCG Tab PO SCH (07:36)
[2017-05-29] MEDS: Levalbuterol HCl 1.25 MG/3 ML Neb NEB PRN ×2 (09:45→16:45)
[2017-05-29] MEDS: Metoprolol Tartrate 25 MG Tab PO SCH ×2 (10:43→21:43)
[2017-05-29] MEDS: Saccharomyces Boulardii (Probiotic) 250 MG Cap PO SCH ×2 (10:49→21:57)
[2017-05-29] MEDS: Nicotine 21 MG/24 Hr Patch TRDERM SCH (10:50)
[2017-05-29] MEDS: Enoxaparin 150 MG/1 ML Syringe SUBCUT SCH ×2 (10:54→21:47)
--- NOTE | 2017-05-29 12:18 | CONS ---
CONSULTING PHYSICIAN: Nic De La O MD DATE OF CONSULTATION: 05/28/2017 REPORT TITLE: Psychiatric Inpatient Consultation BODY AFTER REPORT TITLE: This is a 60-minute inpatient clinical event. IDENTIFICATION: The patient is a 61-year-old female who is admitted to Inpatient Med/Surg Unit at [facility] on 05/24/2017. She is seen for psychiatric evaluation. CHIEF COMPLAINT: "Flu." HISTORY OF PRESENT ILLNESS: The patient is a 61-year-old female who was admitted for complications of the flu on 05/24/2017. She states that "I get shortness of breath due, a lot, to my weight mostly." She states most recently, "my legs got swollen, and I got edema real bad in addition to having shortness of breath." The patient states that physical health issues and her weight are the main issues, though she does acknowledge "I get stressed out every now and then," but she feels that the stress is mostly, again, due to her physical health and weight. She states that most recently "up until this flu, I have been happy when I am at home. Mostly, it is my breathing issues due to my weight." The patient is denying that she is depressed at this point in time. She does not feel that she is excessively anxious. She denies that she is suicidal or homicidal. She denies any psychotic, delusional, or paranoid symptoms. She denies any illicit substance use or excessive alcohol use complicating her clinical picture. The patient feels that if she can get better from a physical standpoint, she will be doing quite well and does not feel that she needs any kind of psychiatric intervention at this point in time. MEDICATIONS: At the time of presentation are: 1. Nebulizers. 2. Lasix. 3. Synthroid. 4. Tamiflu. 5. Antihypertensive. ALLERGIES: 1. Amoxicillin. 2. Cimetidine. 3. Adhesive tape. PAST MEDICAL HISTORY: 1. Obesity. 2. Hypertension. 3. Hypothyroid. 4. COPD. REVIEW OF SYSTEMS: Aside from cardiovascular, endocrine, pulmonary, and musculoskeletal, all other major organ systems are negative at this point in time for acute difficulties or complications. FAMILY PSYCHIATRIC AND CHEMICAL DEPENDENCY HISTORY: The patient reports maternal grandmother had a history of dementia and paranoia. PAST PSYCHIATRIC AND CHEMICAL DEPENDENCY HISTORY: The patient denies any previous psychiatric hospitalizations or chemical dependency treatments. She is a 1-pack per day smoker x45 years. The patient denies any previous suicide attempts or self-injurious behaviors. She does report some anorexic and bulimic behaviors in her teens, but nothing for many years. Denies any past psychiatric medication history. PRIMARY OUTPATIENT PROVIDER: Dr. Milton. SOCIAL HISTORY: The patient was born in [place]. She was an only child. Her biological father was a contract clerk automobile. Mother was a homemaker. The patient's parents when the patient was 1 years of age. She stayed with her mother who remarried, and then her stepfather was active duty [employer]. The patient's highest level of education is bachelor of science, art, and [place] from [employer]. 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 She has been currently on disability for the past 7 years for physical health issues. She has been x3. She has one son from her first marriage. [place] [facility] when she is not having health issues requiring hospitalization. She denies any prior service or current legal difficulties. She is raised Orthodox. She enjoys reading, jigsaw puzzles, computer games, crafts, and doll collecting. MENTAL STATUS EXAMINATION: The patient is a 61-year-old talkative, white female in no apparent distress. Speech is of regular rate and rhythm. The patient is cognitively oriented. Psychomotor activity is within normal limits. There are no abnormal motor movements or tics observed. Gait and station are not observed. This patient is seated during the course of the interview. Mood is good. Affect is cooperative overall for the purposes of the inpatient psychiatric consult. There is no behavioral or stated evidence of acute suicidal or homicidal ideation or acute psychotic, delusional, or paranoid symptoms. Thought processes are significant for some circumstantiality, but the patient is able to be redirected when needed. There are no acute manic symptoms or loose associations evident. Judgment and insight appear unimpaired at this point in time. Motivation for help appears fair to good. VITAL SIGNS: 5 feet 3 inches tall, 355 pounds, 159/91, 65, 28, 97.2 degrees. IMPRESSION: [place] I: 1. Anxiety disorder, not otherwise specified, F41.9. 2. Depression, not otherwise specified, F32.9. 3. Rule out major depressive disorder. [place] II: None. [place] III: 1. Obesity. 2. Hypertension. 3. Hypothyroid. 4. Chronic obstructive pulmonary disease. [place] IV: Severe. [place] V: 55. PLAN: 1. Recommend the patient be continued on her current treatment plan as laid out by her primary inpatient medical treatment team. 2. Also, recommend the patient's current medical and prescribed medication regimen be continued by primary inpatient medical treatment team. 3. Do not feel that psychiatric medication intervention is necessary at this point in time as the patient is not displaying any overt signs or symptoms of psychosis, depression, or anxiety, and for her part, is denying that she needs any assistance in the mental health area. 4. Do recommend nutritional services consult for purposes of dietary modification plan to help with the patient reducing her weight. 5. Recommend weight reduction strategies be discussed and implemented with the patient that are consistent with maintaining her overall physical health stability. 6. Pastoral guidance while the patient remains on the inpatient medical unit. 7. We will continue to follow up with the patient on an as-needed basis while she remains on the inpatient medical unit. 8. We will follow up with the patient sooner if any complications in the interim. 9. Crisis plan is in place. NIEVES /[id number]
--- NOTE | 2017-05-29 16:15 | PCM.PN ---
- General Info Admission Dx/Problem (Free Text): A-fib with RVR, Cellulitis Subjective Update: In to see Danielle. She is doing well. Back on NC and saturations are around 90%. She reports her SOB is around baseline. She states she is feeling better. Her right toes are slightly red but not warm to the touch. Both legs are wrapped in PK bandages. Nursing reports legs look very good. Padilla was removed last night. She was switched to PO levaquin today. Steroids were decreased. She has been accepted at [facility] and they are reportedly coming up to evaluate her at some point. Likely discharge Thursday or Thursday. Functional Status: Reports: Pain Controlled, Tolerating Diet, Ambulating, Urinating, Incentive Spirometry. Denies: New Symptoms - Review of Systems General: Reports: No Symptoms. Denies: Fever, Weakness, Fatigue HEENT: Reports: No Symptoms Pulmonary: Reports: Shortness of Breath (baseline ), Cough (improved ). Denies : Wheezing Cardiovascular: Reports: Dyspnea on Exertion (baseline ), Edema. Denies: Chest Pain Gastrointestinal: Reports: No Symptoms. Denies: Constipation, Diarrhea, Nausea , Vomiting Genitourinary: Reports: No Symptoms Musculoskeletal: Reports: No Symptoms Skin: Reports: No Symptoms Neurological: Reports: No Symptoms Psychiatric: Reports: No Symptoms - Patient Data Vitals - Most Recent: Last Vital Signs Temp 98.4 F 05/29/17 12:30 Pulse 67 05/29/17 12:30 Resp 24 H 05/29/17 12:30 BP 139/77 05/29/17 12:30 Pulse Ox 90 L 05/29/17 12:30 Weight - Most Recent: 351 lb 6.4 oz I&O - Last 24 Hours: Intake & Output 05/29/17 05/29/17 05/29/17 06:59 14:59 22:59 Intake Total 500 300 240 Balance 500 300 240 Lab Results Last 24 Hours: Laboratory Results - last 24 hr 05/29/17 05/29/17 Range/Units 05:50 05:50 WBC 12.61 H (3.98-10.04) K/mm3 RBC 5.80 H (3.98-5.22) M/mm3 Hgb 14.8 (11.2-15.7) gm/L Hct 51.3 H (34.1-44.9) % MCV 88.4 (79.4-94.8) fl MCH 25.5 L (25.6-32.2) pg MCHC 28.8 L (32.2-35.5) g/dl RDW Std Deviation 59.3 H (36.4-46.3) fL Plt Count 279 (182-369) K/mm3 MPV 11.8 (9.4-12.3) fl Neut % (Auto) 89.1 H (34.0-71.1) % Lymph % (Auto) 6.3 L (19.3-51.7) % [place] % (Auto) 4.4 L (4.7-12.5) % Eos % (Auto) 0 L (0.7-5.8) Baso % (Auto) 0.0 L (0.1-1.2) % Neut # (Auto) 11.23 H (1.56-6.13) K/mm3 Lymph # (Auto) 0.79 L (1.18-3.74) K/mm3 [place] # (Auto) 0.56 H (0.24-0.36) K/mm3 Eos # (Auto) 0.00 L (0.04-0.36) K/mm3 Baso # (Auto) 0.00 L (0.01-0.08) K/mm3 Manual Slide Review Abnormal smear Sodium 141 (136-145) mEq/L Potassium 4.3 (3.5-5.1) mEq/L Chloride 99 (98-107) mEq/L Carbon Dioxide 41 H* (21-32) mEq/L Anion Gap 5.3 (5-15) BUN 20 H (7-18) mg/dL Creatinine 0.5 L (0.55-1.02) mg/dL Est Cr Clr Drug Dosing 93.45 mL/min Estimated GFR (MDRD) > 60 (>60) mL/min BUN/Creatinine Ratio 40.0 H (14-18) Glucose 140 H (80-115) mg/dL Calcium 9.4 (8.5-10.1) mg/dL Magnesium 2.3 (1.8-2.4) mg/dl C-Reactive Protein 0.2 (<1.0) mg/dL Med Orders - Current: Current Medications Budesonide (Pulmicort) 0.5 mg NEB BIDRT [facility] Last Admin: 05/29/17 05:18 Dose: 0.5 mg Enoxaparin Sodium (Lovenox) 150 mg SUBCUT Q12HR [facility] Last Admin: 05/29/17 10:54 Dose: 150 mg Furosemide (Lasix) 20 mg IVPUSH BIDDIURETIC [facility] Last Admin: 05/29/17 13:31 Dose: 20 mg Ibuprofen (Motrin) 600 mg PO Q6H PRN PRN Reason: Pain Last Admin: 05/26/17 00:54 Dose: 600 mg Ipratropium [place] (Atrovent) 0.5 mg NEB QIDRT [facility] Last Admin: 05/29/17 09:45 Dose: 0.5 mg Levalbuterol HCl (Xopenex) 1.25 mg NEB Q4HRRT PRN PRN Reason: Shortness of Breath Last Admin: 05/29/17 09:45 Dose: 1.25 mg Levofloxacin (Levaquin) 750 mg PO Q24H [facility] Last Admin: 05/29/17 06:52 Dose: 750 mg Levothyroxine Sodium (Levothyroxine) 112 mcg PO ACBREAKFAST [facility] Last Admin: 05/29/17 06:52 Dose: 112 mcg Liothyronine Sodium (Cytomel) 5 mcg PO ACBREAKFAST [facility] Last Admin: 05/29/17 07:36 Dose: 5 mcg Methylprednisolone Sodium Succinate (Solu-Medrol) 80 mg IVPUSH Q12H [facility] Metoprolol Tartrate (Lopressor) 25 mg PO Q12HR [facility] Last Admin: 05/29/17 10:43 Dose: 25 mg Metoprolol Tartrate (Lopressor) 5 mg IVPUSH Q4H PRN PRN Reason: HR>120 Last Admin: 05/24/17 17:57 Dose: 5 mg Miscellaneous Information (Remove Patch) 1 ea TRDERM DAILY [facility] Last Admin: 05/29/17 10:52 Dose: Not Given Nicotine (Habitrol) 21 mg TRDERM DAILY [facility] Last Admin: 05/29/17 10:50 Dose: 21 mg Saccharomyces Boulardii (Florastor) 250 mg PO BID [facility] Last Admin: 05/29/17 10:49 Dose: 250 mg Discontinued Medications Albuterol (Proventil Neb Soln) 2.5 mg NEB Q4HRRT PRN PRN Reason: Shortness of Breath Albuterol/Ipratropium (Duoneb 3.0-0.5 Mg/3 Ml) 3 ml NEB ONETIME ONE Stop: 05/24/17 05:20 Last Admin: 05/24/17 05:21 Dose: 3 ml Albuterol/Ipratropium (Duoneb 3.0-0.5 Mg/3 Ml) Confirm Administered Dose 3 ml .ROUTE .STK-MED ONE Stop: 05/24/17 05:26 Last Admin: 05/24/17 05:36 Dose: Not Given Albuterol/Ipratropium (Duoneb 3.0-0.5 Mg/3 Ml) 3 ml NEB QIDRT PRN PRN Reason: Shortness of Breath Last Admin: 05/24/17 12:52 Dose: 3 ml Enoxaparin Sodium (Lovenox) 40 mg SUBCUT DAILY [facility] Last Admin: 05/24/17 13:40 Dose: 40 mg Levofloxacin/Dextrose 750 mg/ (Premix) 150 mls @ 100 mls/hr IV ONETIME ONE Stop: 05/24/17 10:03 Last Admin: 05/24/17 09:40 Dose: 100 mls/hr Levofloxacin/Dextrose 750 mg/ (Premix) 150 mls @ 100 mls/hr IV Q24H [facility] Last Admin: 05/28/17 03:13 Dose: 100 mls/hr Vancomycin HCl 2 gm/ Sodium (Chloride) 500 mls @ 500 mls/hr IV ONETIME ONE Stop: 05/24/17 14:59 Last Admin: 05/24/17 14:53 Dose: 500 mls/hr Vancomycin HCl 1 gm/Vancomycin HCl 500 mg/ Sodium Chloride 250 mls @ 125 mls/ hr IV Q12H [facility] Last Admin: 05/25/17 01:43 Dose: 125 mls/hr Diltiazem HCl 125 mg/ Sodium (Chloride) 125 mls @ 10 mls/hr IV TITRATE [facility]; 10 MG/HR PRN Reason: Protocol Vancomycin HCl 1 gm/Vancomycin HCl 500 mg/ Sodium Chloride 500 mls @ 333.333 mls/hr IV Q12H [facility] Last Admin: 05/26/17 01:23 Dose: 333.333 mls/hr Ipratropium [place] (Atrovent) 0.5 mg NEB QID [facility] Levalbuterol HCl (Xopenex) 1.25 mg NEB ONETIME ONE Stop: 05/24/17 17:42 Last Admin: 05/24/17 18:04 Dose: 1.25 mg Levalbuterol HCl (Xopenex) 1.25 mg NEB Q6HRRT PRN PRN Reason: Shortness of Breath Levalbuterol HCl (Xopenex) 2.5 mg NEB ONETIME ONE Stop: 05/26/17 09:47 Last Admin: 05/26/17 10:02 Dose: 2.5 mg Methylprednisolone Sodium Succinate (Solu-Medrol) 125 mg IVPUSH ONETIME ONE Stop: 05/26/17 10:08 Last Admin: 05/26/17 10:31 Dose: 125 mg Methylprednisolone Sodium Succinate (Solu-Medrol) 125 mg IVPUSH Q6H [facility] Last Admin: 05/29/17 10:49 Dose: 125 mg Metoprolol Tartrate (Lopressor) Confirm Administered Dose 5 mg .ROUTE .STK-MED ONE Stop: 05/24/17 17:51 Last Admin: 05/24/17 18:52 Dose: Not Given Oseltamivir Phosphate (Tamiflu) 75 mg PO BID [facility] Stop: 05/28/17 14:01 Last Admin: 05/28/17 11:27 Dose: 75 mg Pneumococcal Polyvalent Vaccine (Pneumovax 23) 0.5 ml IM .ONCE ONE Stop: 05/24/17 14:53 Vancomycin HCl (Pharmacy To Dose - Vancomycin) 0 dose .XX ASDIRECTED PRN PRN Reason: RX TO DOSE VANCOMYCIN - Exam Quality Assessment: Supplemental Oxygen, Central Line/PICC, DVT Prophylaxis General: Alert, Oriented, Cooperative, No Acute Distress HEENT: Pupils Equal, Pupils Reactive, EOMI, Mucous Membr. Moist/[place] Neck: Supple, Other (difficult to examine due to neck size ) Lungs: Normal Respiratory Effort, Decreased Breath Sounds. No: Rhonchi, Wheezing Cardiovascular: Regular Rate, Regular Rhythm, Other (distant heart tones ) GI/Abdominal Exam: Normal Bowel Sounds, Soft, Non-Tender (Female) Exam: Deferred Back Exam: Normal Inspection, Decreased Range of Motion Extremities: Normal Range of Motion, Non-Tender, Redness (improved), Other ( wounds greatly improved over admission. Bandages with PK wraps in place. ) Peripheral Pulses: 0: Posterior Tibial (L) (Unable to palpate due to PK Bandage ), Posterior Tibial (R) (Unable to palpate due to PK Bandage), Dorsalis Pedis ( L) (Unable to palpate due to PK Bandage), Dorsalis Pedis (R) (Unable to palpate due to PK Bandage), 1+: Radial (L), Radial (R) Skin: Warm, Dry, Intact Wound/Incisions: Healing Well, Dressing Dry and Intact, No Drainage Neurological: No New Focal Deficit Psy/Mental Status: Alert, Normal Affect, Normal Mood - Problem List & Annotations (1) Acute bronchitis SNOMED Code(s): 93270252 Code(s): J20.9 - ACUTE BRONCHITIS, UNSPECIFIED Status: Acute Priority: High Current Visit: Yes Qualifiers: Bronchitis organism: unspecified organism Qualified Code(s): J20.9 - Acute bronchitis, unspecified (2) Acute exacerbation of chronic obstructive pulmonary disease (COPD) SNOMED Code(s): 857147195 Code(s): J44.1 - CHRONIC OBSTRUCTIVE PULMONARY DISEASE W (ACUTE) EXACERBATION Status: Acute Priority: High Current Visit: Yes (3) Bilateral lower leg cellulitis SNOMED Code(s): 188027633 Code(s): L03.116 - CELLULITIS OF LEFT LOWER LIMB; L03.115 - CELLULITIS OF RIGHT LOWER LIMB Status: Acute Priority: High Current Visit: Yes (4) COPD (chronic obstructive pulmonary disease) SNOMED Code(s): 19283212 Code(s): J44.9 - CHRONIC OBSTRUCTIVE PULMONARY DISEASE, UNSPECIFIED Status : Acute Priority: High Current Visit: Yes Qualifiers: COPD type: COPD with acute lower respiratory infection Qualified Code(s): J44.0 - Chronic obstructive pulmonary disease with acute lower respiratory infection (5) Edema of both lower legs due to peripheral venous insufficiency SNOMED Code(s): 80638722392631210 Code(s): I87.2 - VENOUS INSUFFICIENCY (CHRONIC) (PERIPHERAL); R60.9 - EDEMA, UNSPECIFIED Status: Chronic Priority: Medium Current Visit: Yes (6) Hypoxemia SNOMED Code(s): 648603867 Code(s): R09.02 - HYPOXEMIA Status: Acute Priority: High Current Visit : Yes (7) Morbid obesity SNOMED Code(s): 314769628 Code(s): E66.01 - MORBID (SEVERE) OBESITY DUE TO EXCESS CALORIES Status: Chronic Priority: High Current Visit: Yes (8) Tobacco use disorder SNOMED Code(s): 906753523 Code(s): F17.200 - NICOTINE DEPENDENCE, UNSPECIFIED, UNCOMPLICATED Status: Chronic Priority: Medium Current Visit: Yes (9) Influenza A SNOMED Code(s): 126277638 Code(s): J10.1 - FLU DUE TO OTH IDENT INFLUENZA VIRUS W OTH RESP MANIFEST Status: Acute Priority: High Current Visit: Yes (10) Hypothyroidism SNOMED Code(s): 16586983 Code(s): E03.9 - HYPOTHYROIDISM, UNSPECIFIED Status: Acute Priority: High Current Visit: Yes Qualifiers: Hypothyroidism type: unspecified Qualified Code(s): E03.9 - Hypothyroidism , unspecified - Problem List Review Problem List Initiated/Reviewed/Updated: Yes - My Orders Last 24 Hours: My Active Orders 05/28/17 18:21 DC Padilla Catheter [Urinary Catheter Removal] [RC] Per Unit Routine - Plan Plan:: Impression: Acute exacerbation of COPD with hypoxia, transferred to ICU, 05/24/17--> Downgraded to M/S/P on 05/27/17 Tobacco abuse/dependence A Fib with RVR -->resolved Morbid obesity Poor functional capacity Query CHF, NYHA functional clas III, stage C--> Echo obtained -LVEF 65% -grade 1 pattern LV diastolic filling -severely elevated RVSP -Dilated inferior vena cava with rest or size variation less than 50% -RV volume/pressure overload. Query Pulmonary Venous Hypertension-->Echo obtained as above Hypothyroid--not therapeutic, resume home meds Chronic venous insufficiency with cellulitis -->improving Beta strep group B in culture. Groin wound-->improving Staph aureus and beta strep group B from culture CKD stage III--> resolved Electrolyte abnormalities - supplemented Query depression-->perla consulted and does not find pt. depressed Chronic: A Fib HLD HTN IBS Hypothyroidism Plan: Nebs scheduled/prn PICC line placed 05/26/17 BIPAP and high flow O2 -->NC as tolerated IV Levoquin--> PO levaquin today Tamiflu -->finished therapy Nicotine patch O2, keep sat>90% Needs sleep study Bilateral wounds on lower extremities, continue ATB; wound care per PT Isolation: contact/droplet Tobacco cessation ed Psych consult PFTs just prior to discharge or outpatient Needs dental consult at discharge (Re: pain when eating) - soft diet Obesity diet/exercise education Dietary consult Query [facility] at disposition; needs inpatient PT and wound care PT/OT/SM (re: SNF) Code Status: Full code, PCP: Dr. Milton LOS >96 HR due to SNF placement, slow response to treatment; Likely discharge Thursday to [facility]
[2017-05-29] MEDS: methylPREDNISolone Sodium Succinate 40 MG/1 ML SDV IVPUSH SCH ×2 (21:58→22:06)
[2017-05-30] MEDS: Furosemide 20 MG/2 ML VIAL IVPUSH SCH (06:04)
[2017-05-30] MEDS: Levothyroxine 112 MCG Tab PO SCH (06:04)
[2017-05-30] MEDS: Liothyronine 5 MCG Tab PO SCH (06:04)
[2017-05-30] MEDS: Levofloxacin 750 MG Tab PO SCH (06:04)
[2017-05-30] MEDS: Ipratropium 0.02% 0.5 MG/2.5 ML Neb Soln NEB SCH ×4 (06:33→20:26)
[2017-05-30] MEDS: Budesonide 0.5 MG/2 ML Neb Susp NEB SCH ×2 (06:33→20:26)
[2017-05-30] MEDS: Levalbuterol HCl 1.25 MG/3 ML Neb NEB PRN (09:00)
[2017-05-30] MEDS ORDERED: Enoxaparin 40 MG/0.4 ML Syringe SUBCUT SCH (09:35)
[2017-05-30] MEDS: Saccharomyces Boulardii (Probiotic) 250 MG Cap PO SCH ×2 (10:04→21:48)
[2017-05-30] MEDS: Nicotine 21 MG/24 Hr Patch TRDERM SCH (10:05)
[2017-05-30] MEDS: Enoxaparin 40 MG/0.4 ML Syringe SUBCUT SCH (10:06)
[2017-05-30] MEDS: Tamsulosin 0.4 MG Cap.ER PO SCH (10:07)
[2017-05-30] MEDS: Metoprolol Tartrate 25 MG Tab PO SCH ×2 (10:07→21:49)
[2017-05-30] MEDS: Enoxaparin 150 MG/1 ML Syringe SUBCUT SCH (13:17)
--- NOTE | 2017-05-30 14:30 | PCM.PN ---
- General Info Date of Service: 05/30/17 Functional Status: Reports: Pain Controlled, Tolerating Diet, Ambulating, Urinating - Review of Systems General: Reports: No Symptoms HEENT: Reports: No Symptoms Pulmonary: Reports: No Symptoms Cardiovascular: Reports: No Symptoms Gastrointestinal: Reports: No Symptoms Genitourinary: Reports: No Symptoms Musculoskeletal: Reports: No Symptoms Skin: Reports: No Symptoms Neurological: Reports: No Symptoms Psychiatric: Reports: No Symptoms - Patient Data Vitals - Most Recent: Last Vital Signs Temp 36.3 C 05/30/17 11:34 Pulse 58 L 05/30/17 11:34 Resp 24 H 05/30/17 11:34 BP 114/76 05/30/17 11:34 Pulse Ox 93 L 05/30/17 11:34 Weight - Most Recent: 158.621 kg I&O - Last 24 Hours: Intake & Output 05/29/17 05/30/17 05/30/17 22:59 06:59 14:59 Intake Total 1030 550 360 Balance 1030 550 360 Med Orders - Current: Current Medications Budesonide (Pulmicort) 0.5 mg NEB BIDRT [facility] Last Admin: 05/30/17 06:33 Dose: 0.5 mg Enoxaparin Sodium (Lovenox) 40 mg SUBCUT DAILY [facility] Last Admin: 05/30/17 10:06 Dose: 40 mg Furosemide (Lasix) 20 mg PO BIDDIURETIC [facility] Ibuprofen (Motrin) 600 mg PO Q6H PRN PRN Reason: Pain Last Admin: 05/26/17 00:54 Dose: 600 mg Ipratropium [place] (Atrovent) 0.5 mg NEB QIDRT [facility] Last Admin: 05/30/17 09:00 Dose: 0.5 mg Levalbuterol HCl (Xopenex) 1.25 mg NEB Q4HRRT PRN PRN Reason: Shortness of Breath Last Admin: 05/30/17 09:00 Dose: 1.25 mg Levofloxacin (Levaquin) 750 mg PO Q24H [facility] Last Admin: 05/30/17 06:04 Dose: 750 mg Levothyroxine Sodium (Levothyroxine) 112 mcg PO ACBREAKFAST [facility] Last Admin: 05/30/17 06:04 Dose: 112 mcg Liothyronine Sodium (Cytomel) 5 mcg PO ACBREAKFAST [facility] Last Admin: 05/30/17 06:04 Dose: 5 mcg Metoprolol Tartrate (Lopressor) 25 mg PO Q12HR [facility] Last Admin: 05/30/17 10:07 Dose: 25 mg Metoprolol Tartrate (Lopressor) 5 mg IVPUSH Q4H PRN PRN Reason: HR>120 Last Admin: 05/24/17 17:57 Dose: 5 mg Miscellaneous Information (Remove Patch) 1 ea TRDERM DAILY [facility] Last Admin: 05/30/17 10:05 Dose: 1 ea Nicotine (Habitrol) 21 mg TRDERM DAILY [facility] Last Admin: 05/30/17 10:05 Dose: 21 mg Prednisone (Prednisone) 40 mg PO WITHBREAKFAST [facility] Saccharomyces Boulardii (Florastor) 250 mg PO BID [facility] Last Admin: 05/30/17 10:04 Dose: 250 mg Tamsulosin HCl (Flomax) 0.4 mg PO PCBREAKFAST [facility] Last Admin: 05/30/17 10:07 Dose: 0.4 mg Discontinued Medications Albuterol (Proventil Neb Soln) 2.5 mg NEB Q4HRRT PRN PRN Reason: Shortness of Breath Albuterol/Ipratropium (Duoneb 3.0-0.5 Mg/3 Ml) 3 ml NEB ONETIME ONE Stop: 05/24/17 05:20 Last Admin: 05/24/17 05:21 Dose: 3 ml Albuterol/Ipratropium (Duoneb 3.0-0.5 Mg/3 Ml) Confirm Administered Dose 3 ml .ROUTE .STK-MED ONE Stop: 05/24/17 05:26 Last Admin: 05/24/17 05:36 Dose: Not Given Albuterol/Ipratropium (Duoneb 3.0-0.5 Mg/3 Ml) 3 ml NEB QIDRT PRN PRN Reason: Shortness of Breath Last Admin: 05/24/17 12:52 Dose: 3 ml Enoxaparin Sodium (Lovenox) 40 mg SUBCUT DAILY [facility] Last Admin: 05/24/17 13:40 Dose: 40 mg Enoxaparin Sodium (Lovenox) 150 mg SUBCUT Q12HR [facility] Last Admin: 05/30/17 13:17 Dose: Not Given Enoxaparin Sodium (Lovenox) 40 mg SUBCUT Q12HR [facility] Furosemide (Lasix) 20 mg IVPUSH BIDDIURETIC [facility] Last Admin: 05/30/17 06:04 Dose: 20 mg Levofloxacin/Dextrose 750 mg/ (Premix) 150 mls @ 100 mls/hr IV ONETIME ONE Stop: 05/24/17 10:03 Last Admin: 05/24/17 09:40 Dose: 100 mls/hr Levofloxacin/Dextrose 750 mg/ (Premix) 150 mls @ 100 mls/hr IV Q24H [facility] Last Admin: 05/28/17 03:13 Dose: 100 mls/hr Vancomycin HCl 2 gm/ Sodium (Chloride) 500 mls @ 500 mls/hr IV ONETIME ONE Stop: 05/24/17 14:59 Last Admin: 05/24/17 14:53 Dose: 500 mls/hr Vancomycin HCl 1 gm/Vancomycin HCl 500 mg/ Sodium Chloride 250 mls @ 125 mls/ hr IV Q12H [facility] Last Admin: 05/25/17 01:43 Dose: 125 mls/hr Diltiazem HCl 125 mg/ Sodium (Chloride) 125 mls @ 10 mls/hr IV TITRATE [facility]; 10 MG/HR PRN Reason: Protocol Vancomycin HCl 1 gm/Vancomycin HCl 500 mg/ Sodium Chloride 500 mls @ 333.333 mls/hr IV Q12H [facility] Last Admin: 05/26/17 01:23 Dose: 333.333 mls/hr Ipratropium [place] (Atrovent) 0.5 mg NEB QID [facility] Levalbuterol HCl (Xopenex) 1.25 mg NEB ONETIME ONE Stop: 05/24/17 17:42 Last Admin: 05/24/17 18:04 Dose: 1.25 mg Levalbuterol HCl (Xopenex) 1.25 mg NEB Q6HRRT PRN PRN Reason: Shortness of Breath Levalbuterol HCl (Xopenex) 2.5 mg NEB ONETIME ONE Stop: 05/26/17 09:47 Last Admin: 05/26/17 10:02 Dose: 2.5 mg Methylprednisolone Sodium Succinate (Solu-Medrol) 125 mg IVPUSH ONETIME ONE Stop: 05/26/17 10:08 Last Admin: 05/26/17 10:31 Dose: 125 mg Methylprednisolone Sodium Succinate (Solu-Medrol) 125 mg IVPUSH Q6H [facility] Last Admin: 05/29/17 10:49 Dose: 125 mg Methylprednisolone Sodium Succinate (Solu-Medrol) 80 mg IVPUSH Q12H [facility] Last Admin: 05/29/17 22:06 Dose: 80 mg Metoprolol Tartrate (Lopressor) Confirm Administered Dose 5 mg .ROUTE .STK-MED ONE Stop: 05/24/17 17:51 Last Admin: 05/24/17 18:52 Dose: Not Given Oseltamivir Phosphate (Tamiflu) 75 mg PO BID [facility] Stop: 05/28/17 14:01 Last Admin: 05/28/17 11:27 Dose: 75 mg Pneumococcal Polyvalent Vaccine (Pneumovax 23) 0.5 ml IM .ONCE ONE Stop: 05/24/17 14:53 Vancomycin HCl (Pharmacy To Dose - Vancomycin) 0 dose .XX ASDIRECTED PRN PRN Reason: RX TO DOSE VANCOMYCIN - Exam Quality Assessment: Supplemental Oxygen, DVT Prophylaxis General: Alert, Oriented, Cooperative, No Acute Distress HEENT: Pupils Equal, Pupils Reactive, EOMI Neck: Trachea Midline, No JVD Lungs: Normal Respiratory Effort, Decreased Breath Sounds Cardiovascular: Regular Rate, Regular Rhythm GI/Abdominal Exam: Normal Bowel Sounds, Soft, Non-Tender, No Organomegaly, No Distention (Female) Exam: Deferred Back Exam: Normal Inspection Extremities: Normal Inspection, Non-Tender, Normal Capillary Refill Skin: Warm Wound/Incisions: Healing Well, Dressing Dry and Intact, No Drainage Neurological: No New Focal Deficit, Normal Speech Psy/Mental Status: Alert, Normal Affect, Normal Mood - Problem List & Annotations (1) Acute bronchitis SNOMED Code(s): 73836925 Code(s): J20.9 - ACUTE BRONCHITIS, UNSPECIFIED Status: Acute Priority: High Current Visit: Yes Qualifiers: Bronchitis organism: unspecified organism Qualified Code(s): J20.9 - Acute bronchitis, unspecified (2) Acute exacerbation of chronic obstructive pulmonary disease (COPD) SNOMED Code(s): 256342410 Code(s): J44.1 - CHRONIC OBSTRUCTIVE PULMONARY DISEASE W (ACUTE) EXACERBATION Status: Acute Priority: High Current Visit: Yes (3) Bilateral lower leg cellulitis SNOMED Code(s): 806862633 Code(s): L03.116 - CELLULITIS OF LEFT LOWER LIMB; L03.115 - CELLULITIS OF RIGHT LOWER LIMB Status: Acute Priority: High Current Visit: Yes (4) Edema of both lower legs due to peripheral venous insufficiency SNOMED Code(s): 69203174398943988 Code(s): I87.2 - VENOUS INSUFFICIENCY (CHRONIC) (PERIPHERAL); R60.9 - EDEMA, UNSPECIFIED Status: Chronic Priority: Medium Current Visit: Yes (5) Hypoxemia SNOMED Code(s): 350754716 Code(s): R09.02 - HYPOXEMIA Status: Acute Priority: High Current Visit : Yes (6) Morbid obesity SNOMED Code(s): 054930242 Code(s): E66.01 - MORBID (SEVERE) OBESITY DUE TO EXCESS CALORIES Status: Chronic Priority: High Current Visit: Yes - Problem List Review Problem List Initiated/Reviewed/Updated: Yes - My Orders Last 24 Hours: My Active Orders 05/30/17 09:35 Enoxaparin [Lovenox] 40 mg SUBCUT DAILY 05/30/17 14:00 Furosemide [Lasix] 20 mg PO BIDDIURETIC 05/31/17 05:00 BMP [BASIC METABOLIC PANEL,BMP] [CHEM] DAILY CBC WITH AUTO DIFF [HEME] DAILY CRP [C-REACTIVE PROTEIN] [CHEM] DAILY MAGNESIUM [CHEM] DAILY 05/31/17 07:00 predniSONE 40 mg PO WITHBREAKFAST 06/01/17 05:00 BMP [BASIC METABOLIC PANEL,BMP] [CHEM] DAILY CBC WITH AUTO DIFF [HEME] DAILY CRP [C-REACTIVE PROTEIN] [CHEM] DAILY MAGNESIUM [CHEM] DAILY 06/02/17 05:00 BMP [BASIC METABOLIC PANEL,BMP] [CHEM] DAILY CBC WITH AUTO DIFF [HEME] DAILY CRP [C-REACTIVE PROTEIN] [CHEM] DAILY MAGNESIUM [CHEM] DAILY - Plan Plan:: Impression: Acute exacerbation of COPD with hypoxia, transferred to ICU, 05/24/17--> Downgraded to M/S/P on 05/27/17 Tobacco abuse/dependence PFT with severe COPD A Fib with RVR -->resolved Morbid obesity Poor functional capacity Query CHF, NYHA functional clas III, stage C--> Echo obtained -LVEF 65% -grade 1 pattern LV diastolic filling -severely elevated RVSP -Dilated inferior vena cava with rest or size variation less than 50% -RV volume/pressure overload. Query Pulmonary Venous Hypertension-->Echo obtained as above Hypothyroid--not therapeutic, resume home meds Chronic venous insufficiency with cellulitis -->improving Beta strep group B in culture. Groin wound-->improving Staph aureus and beta strep group B from culture--covered by Levoquin 750 mg, started on oral dose CKD stage III--> resolved Electrolyte abnormalities - supplemented Query depression-->started on Buspar 15 mg BID Morbid obesity-->has loss 19 Kg since admission Chronic: A Fib HLD HTN IBS Hypothyroidism Plan: Nebs scheduled/prn PICC line placed 05/26/17 BIPAP and high flow O2 -->NC as tolerated Tamiflu -->finished therapy Nicotine patch O2, keep sat>90% *Needs sleep study as outpatient Bilateral wounds on lower extremities, continue ATB; wound care per PT Isolation: contact/droplet Tobacco cessation ed Psych consult-->started Buspar PFTs just prior to discharge or outpatient-->completed, see above *Needs dental consult at discharge (Re: pain when eating) - soft diet Obesity diet/exercise education Dietary consult Query [facility] at disposition; needs inpatient PT and wound care PT/OT/SM (re: SNF) Code Status: Full code, PCP: Dr. Milton LOS >96 HR due to SNF placement, slow response to treatment; Likely discharge Thursday to [facility]
[2017-05-30] MEDS: Furosemide 20 MG Tab PO SCH (15:19)
[2017-05-30] MEDS: Nystatin Topical Powder 15 GM Bottle TOP SCH ×2 (17:44→21:49)
[2017-05-30] MEDS ORDERED: Nystatin Topical Powder 15 GM Bottle TOP SCH (21:00)
[2017-05-30] MEDS: busPIRone 15 MG Tab PO SCH (21:48)
[2017-05-31] MEDS: Budesonide 0.5 MG/2 ML Neb Susp NEB SCH ×2 (06:41→20:48)
[2017-05-31] MEDS: Ipratropium 0.02% 0.5 MG/2.5 ML Neb Soln NEB SCH ×4 (06:41→20:48)
[2017-05-31] MEDS: Liothyronine 5 MCG Tab PO SCH (06:59)
[2017-05-31] MEDS: predniSONE 20 MG Tab PO SCH (06:59)
[2017-05-31] MEDS: Levofloxacin 750 MG Tab PO SCH (06:59)
[2017-05-31] MEDS: Furosemide 20 MG Tab PO SCH ×2 (06:59→14:32)
[2017-05-31] MEDS: Levothyroxine 112 MCG Tab PO SCH (06:59)
--- NOTE | 2017-05-31 08:09 | PCM.PN ---
- General Info Date of Service: 05/31/17 Admission Dx/Problem (Free Text): A-fib with RVR, Cellulitis Subjective Update: Follow Up Functional Status: Reports: Pain Controlled, Tolerating Diet, Urinating - Review of Systems General: Denies: Fever, Weakness Pulmonary: Reports: Cough. Denies: Shortness of Breath, Sputum, Wheezing Cardiovascular: Reports: Dyspnea on Exertion. Denies: Chest Pain, Palpitations , Edema, Lightheadedness Gastrointestinal: Denies: Abdominal Pain, Constipation, Diarrhea, Nausea, Vomiting Genitourinary: Reports: No Symptoms Musculoskeletal: Reports: No Symptoms Skin: Denies: Cyanosis, Mottled, Pallor, Diaphoresis, Rash Neurological: Reports: Difficulty Walking, Gait Disturbance. Denies: Confusion , Pre-Existing Deficit, Weakness Psychiatric: Denies: Depression, Anxiety, Agitation, Hallucinations Systems Review Comment:: No significant overnight or acute issues. She feels good and slept good last night. She has no new complaints. - Patient Data Vitals - Most Recent: Last Vital Signs Temp 36.9 C 05/31/17 03:03 Pulse 62 05/31/17 03:03 Resp 20 05/31/17 03:03 BP 118/61 05/30/17 21:49 Pulse Ox 93 L 05/31/17 06:41 Weight - Most Recent: 158.757 kg I&O - Last 24 Hours: Intake & Output 05/30/17 05/31/17 05/31/17 22:59 06:59 14:59 Intake Total 990 Balance 990 Lab Results Last 24 Hours: Laboratory Results - last 24 hr 05/31/17 05/31/17 Range/Units 05:07 05:07 WBC 14.07 H (3.98-10.04) K/mm3 RBC 5.64 H (3.98-5.22) M/mm3 Hgb 14.5 (11.2-15.7) gm/L Hct 49.7 H (34.1-44.9) % MCV 88.1 (79.4-94.8) fl MCH 25.7 (25.6-32.2) pg MCHC 29.2 L (32.2-35.5) g/dl RDW Std Deviation 59.4 H (36.4-46.3) fL Plt Count 224 (182-369) K/mm3 MPV 10.8 (9.4-12.3) fl Neut % (Auto) 77.5 H (34.0-71.1) % Lymph % (Auto) 10.0 L (19.3-51.7) % [place] % (Auto) 10.7 (4.7-12.5) % Eos % (Auto) 1.4 (0.7-5.8) Baso % (Auto) 0.0 L (0.1-1.2) % Neut # (Auto) 10.91 H (1.56-6.13) K/mm3 Lymph # (Auto) 1.41 (1.18-3.74) K/mm3 [place] # (Auto) 1.51 H (0.24-0.36) K/mm3 Eos # (Auto) 0.19 (0.04-0.36) K/mm3 Baso # (Auto) 0.00 L (0.01-0.08) K/mm3 Manual Slide Review Abnormal smear Sodium 140 (136-145) mEq/L Potassium 4.1 (3.5-5.1) mEq/L Chloride 100 (98-107) mEq/L Carbon Dioxide 41 H* (21-32) mEq/L Anion Gap 3.1 L (5-15) BUN 22 H (7-18) mg/dL Creatinine 0.6 (0.55-1.02) mg/dL Est Cr Clr Drug Dosing 77.88 mL/min Estimated GFR (MDRD) > 60 (>60) mL/min BUN/Creatinine Ratio 36.7 H (14-18) Glucose 83 (80-115) mg/dL Calcium 8.7 (8.5-10.1) mg/dL Magnesium 2.2 (1.8-2.4) mg/dl C-Reactive Protein < 0.2 (<1.0) mg/dL Med Orders - Current: Current Medications Budesonide (Pulmicort) 0.5 mg NEB BIDRT [facility] Last Admin: 05/31/17 06:41 Dose: 0.5 mg Buspirone HCl (Buspar) 15 mg PO BID [facility] Last Admin: 05/30/17 21:48 Dose: Not Given Enoxaparin Sodium (Lovenox) 40 mg SUBCUT DAILY [facility] Last Admin: 05/30/17 10:06 Dose: 40 mg Furosemide (Lasix) 20 mg PO BIDDIURETIC [facility] Last Admin: 05/31/17 06:59 Dose: 20 mg Ibuprofen (Motrin) 600 mg PO Q6H PRN PRN Reason: Pain Last Admin: 05/26/17 00:54 Dose: 600 mg Ipratropium [place] (Atrovent) 0.5 mg NEB QIDRT [facility] Last Admin: 05/31/17 06:41 Dose: 0.5 mg Levalbuterol HCl (Xopenex) 1.25 mg NEB Q4HRRT PRN PRN Reason: Shortness of Breath Last Admin: 05/30/17 09:00 Dose: 1.25 mg Levofloxacin (Levaquin) 750 mg PO Q24H [facility] Last Admin: 05/31/17 06:59 Dose: 750 mg Levothyroxine Sodium (Levothyroxine) 112 mcg PO ACBREAKFAST [facility] Last Admin: 05/31/17 06:59 Dose: 112 mcg Liothyronine Sodium (Cytomel) 5 mcg PO ACBREAKFAST [facility] Last Admin: 05/31/17 06:59 Dose: 5 mcg Metoprolol Tartrate (Lopressor) 25 mg PO Q12HR [facility] Last Admin: 05/30/17 21:49 Dose: 25 mg Metoprolol Tartrate (Lopressor) 5 mg IVPUSH Q4H PRN PRN Reason: HR>120 Last Admin: 05/24/17 17:57 Dose: 5 mg Miscellaneous Information (Remove Patch) 1 ea TRDERM DAILY [facility] Last Admin: 05/30/17 10:05 Dose: 1 ea Nicotine (Habitrol) 21 mg TRDERM DAILY [facility] Last Admin: 05/30/17 10:05 Dose: 21 mg Nystatin (Nystop) 0 gm TOP TID [facility] Last Admin: 05/30/17 21:49 Dose: 1 applic Prednisone (Prednisone) 40 mg PO WITHBREAKFAST [facility] Last Admin: 05/31/17 06:59 Dose: 40 mg Saccharomyces Boulardii (Florastor) 250 mg PO BID [facility] Last Admin: 05/30/17 21:48 Dose: 250 mg Tamsulosin HCl (Flomax) 0.4 mg PO PCBREAKFAST [facility] Last Admin: 05/30/17 10:07 Dose: 0.4 mg Discontinued Medications Albuterol (Proventil Neb Soln) 2.5 mg NEB Q4HRRT PRN PRN Reason: Shortness of Breath Albuterol/Ipratropium (Duoneb 3.0-0.5 Mg/3 Ml) 3 ml NEB ONETIME ONE Stop: 05/24/17 05:20 Last Admin: 05/24/17 05:21 Dose: 3 ml Albuterol/Ipratropium (Duoneb 3.0-0.5 Mg/3 Ml) Confirm Administered Dose 3 ml .ROUTE .STK-MED ONE Stop: 05/24/17 05:26 Last Admin: 05/24/17 05:36 Dose: Not Given Albuterol/Ipratropium (Duoneb 3.0-0.5 Mg/3 Ml) 3 ml NEB QIDRT PRN PRN Reason: Shortness of Breath Last Admin: 05/24/17 12:52 Dose: 3 ml Enoxaparin Sodium (Lovenox) 40 mg SUBCUT DAILY [facility] Last Admin: 05/24/17 13:40 Dose: 40 mg Enoxaparin Sodium (Lovenox) 150 mg SUBCUT Q12HR [facility] Last Admin: 05/30/17 13:17 Dose: Not Given Enoxaparin Sodium (Lovenox) 40 mg SUBCUT Q12HR [facility] Furosemide (Lasix) 20 mg IVPUSH BIDDIURETIC [facility] Last Admin: 05/30/17 06:04 Dose: 20 mg Levofloxacin/Dextrose 750 mg/ (Premix) 150 mls @ 100 mls/hr IV ONETIME ONE Stop: 05/24/17 10:03 Last Admin: 05/24/17 09:40 Dose: 100 mls/hr Levofloxacin/Dextrose 750 mg/ (Premix) 150 mls @ 100 mls/hr IV Q24H [facility] Last Admin: 05/28/17 03:13 Dose: 100 mls/hr Vancomycin HCl 2 gm/ Sodium (Chloride) 500 mls @ 500 mls/hr IV ONETIME ONE Stop: 05/24/17 14:59 Last Admin: 05/24/17 14:53 Dose: 500 mls/hr Vancomycin HCl 1 gm/Vancomycin HCl 500 mg/ Sodium Chloride 250 mls @ 125 mls/ hr IV Q12H [facility] Last Admin: 05/25/17 01:43 Dose: 125 mls/hr Diltiazem HCl 125 mg/ Sodium (Chloride) 125 mls @ 10 mls/hr IV TITRATE [facility]; 10 MG/HR PRN Reason: Protocol Vancomycin HCl 1 gm/Vancomycin HCl 500 mg/ Sodium Chloride 500 mls @ 333.333 mls/hr IV Q12H [facility] Last Admin: 05/26/17 01:23 Dose: 333.333 mls/hr Ipratropium [place] (Atrovent) 0.5 mg NEB QID [facility] Levalbuterol HCl (Xopenex) 1.25 mg NEB ONETIME ONE Stop: 05/24/17 17:42 Last Admin: 05/24/17 18:04 Dose: 1.25 mg Levalbuterol HCl (Xopenex) 1.25 mg NEB Q6HRRT PRN PRN Reason: Shortness of Breath Levalbuterol HCl (Xopenex) 2.5 mg NEB ONETIME ONE Stop: 05/26/17 09:47 Last Admin: 05/26/17 10:02 Dose: 2.5 mg Methylprednisolone Sodium Succinate (Solu-Medrol) 125 mg IVPUSH ONETIME ONE Stop: 05/26/17 10:08 Last Admin: 05/26/17 10:31 Dose: 125 mg Methylprednisolone Sodium Succinate (Solu-Medrol) 125 mg IVPUSH Q6H [facility] Last Admin: 05/29/17 10:49 Dose: 125 mg Methylprednisolone Sodium Succinate (Solu-Medrol) 80 mg IVPUSH Q12H [facility] Last Admin: 05/29/17 22:06 Dose: 80 mg Metoprolol Tartrate (Lopressor) Confirm Administered Dose 5 mg .ROUTE .STK-MED ONE Stop: 05/24/17 17:51 Last Admin: 05/24/17 18:52 Dose: Not Given Nystatin (Nystop) 0 gm TOP TID [facility] Oseltamivir Phosphate (Tamiflu) 75 mg PO BID [facility] Stop: 05/28/17 14:01 Last Admin: 05/28/17 11:27 Dose: 75 mg Pneumococcal Polyvalent Vaccine (Pneumovax 23) 0.5 ml IM .ONCE ONE Stop: 05/24/17 14:53 Vancomycin HCl (Pharmacy To Dose - Vancomycin) 0 dose .XX ASDIRECTED PRN PRN Reason: RX TO DOSE VANCOMYCIN - Exam Quality Assessment: Supplemental Oxygen General: Alert, Oriented, Cooperative, No Acute Distress, Other (morbidly obese) HEENT: Pupils Equal, Pupils Reactive, EOMI, Mucous Membr. Moist/[place] Neck: Supple, Trachea Midline, No JVD, No Thyromegaly, Other (short and thick) Lungs: Normal Respiratory Effort, Decreased Breath Sounds, Wheezing (mild) Cardiovascular: Regular Rate, Regular Rhythm GI/Abdominal Exam: Normal Bowel Sounds, Soft, Non-Tender, No Organomegaly, No Distention, No Abnormal Bruit, No Mass, Other (Obese) (Female) Exam: Deferred Back Exam: Normal Inspection, Decreased Range of Motion Extremities: Normal Range of Motion, Non-Tender, Redness, Other (small dime like lesion (open wound) on right bernardo-lateral meléndez ). No: Normal Capillary Refill, Pedal Edema, Leg Pain, Increased Warmth, Mottled, Pallor Peripheral Pulses: 1+: Dorsalis Pedis (L), Dorsalis Pedis (R) Skin: Warm, Dry, Intact Wound/Incisions: Healing Well, No Drainage Neurological: No New Focal Deficit. No: Normal Gait Psy/Mental Status: Alert, Normal Affect, Normal Mood - Problem List Review Problem List Initiated/Reviewed/Updated: Yes - Plan Plan:: Impression: Acute: COPD Exacerbation, Significantly Improved - She is an active smoker; smokes 1 or <1 ppd; counseled on smoking cessation - Continue RT Care, Supplemental O2, Bronchodilators, Smooth Muscle Relaxant - D/c Levaquin-she has not pneumonia - PFT result -severe but not able to view report - Start oral azithromycin 250 mg po daily for anti-inflammatory agent; first dose now - Switch IV steroid to oral prednisone for pharmacy to put in OHS/Probable LIZ - Morbidly Obese with BMI of 64 - Poor functional capacity; she wheel chair bound - Screen for LIZ with STOP BANG - Counseled on LSM - Sleep study after discharge Hypercapnea - CO2 34-41 (today); she is alert and awake - 2/2 OHS/LIZ - Supplemental O2 - Needs BiPAP Tobacco Abuse/Dependence - She is still an active smoker - Counseled on smoking cessation - Nicotine patch 21 mg daily Morbid Obesity - BMI 64 - Dietary on board for weight management - Counseled on LSM CHF, NYHA functional clas III, stage C -HF with Preserved EF -2D echo: LVEF 65%, Grade 1 pattern LV diastolic filling, Severely elevated RVSP,Dilated inferior vena cava with rest or size variation less than 50% and RV volume/pressure overload -Continue diuretic and 2L fluid daily restriction Query Pulmonary Venous Hypertension--> Echo obtained as above - 2D echo poorly visuali - Advised LSM - Continue diuretic SSTI/Cellullitis - Risk Factors: Chronic Venous Insufficiency and Poor Hygiene due to Immobility - Positive for Staph aureus and beta strep group B from culture - Small coin like lesion on right bernardo-lateral meléndez - Skin irritation on skin fold in the groin area - Continue oral levaquin and keep area dry - Discontinue Bari wrapped - Cover lesion with gauze loosely BID Anxiety/Depression - [place] I - She has no clinical depression or anxiety per tele-psych consult - Dr. De La O did not recommend any psych meds - Will d/c Buspar - No need for level 2 screening Inadequate IV Access - Continue PICC line Resolved: S/p A Fib with RVR S/p Electrolyte abnormalities Chronic: A Fib HLD HTN Venous Insufficiency IBS Hypothyroidism Obesity Morbid obesity Plan: She is clinically stable Continue current treatment BIPAP and high flow O2 as tolerated O2, keep sat>90% PFTs completed in house-unable to view report *Needs dental consult at discharge (Re: pain when eating) - soft diet Obesity diet/exercise education Continue PT/OT-to improve functional capacity Code Status: Full code, PCP: Dr. Milton LOS > 96 HR due to SNF placement, slow response to treatment; Likely discharge Thursday to [facility]
[2017-05-31] MEDS: Enoxaparin 40 MG/0.4 ML Syringe SUBCUT SCH (08:49)
[2017-05-31] MEDS: Saccharomyces Boulardii (Probiotic) 250 MG Cap PO SCH ×2 (08:49→21:18)
[2017-05-31] MEDS: busPIRone 15 MG Tab PO SCH (08:49)
[2017-05-31] MEDS: Nystatin Topical Powder 15 GM Bottle TOP SCH ×3 (08:50→21:19)
[2017-05-31] MEDS: Nicotine 21 MG/24 Hr Patch TRDERM SCH (08:52)
[2017-05-31] MEDS: Levalbuterol HCl 1.25 MG/3 ML Neb NEB PRN (09:08)
[2017-05-31] MEDS: Tamsulosin 0.4 MG Cap.ER PO SCH (09:24)
[2017-05-31] MEDS: Metoprolol Tartrate 25 MG Tab PO SCH ×2 (09:24→21:14)
[2017-06-01] MEDS: Levothyroxine 112 MCG Tab PO SCH (05:57)
[2017-06-01] MEDS: Furosemide 20 MG Tab PO SCH ×2 (05:57→15:33)
[2017-06-01] MEDS: Liothyronine 5 MCG Tab PO SCH (05:58)
[2017-06-01] MEDS: predniSONE 20 MG Tab PO SCH (06:39)
[2017-06-01] MEDS: Ipratropium 0.02% 0.5 MG/2.5 ML Neb Soln NEB SCH ×4 (07:05→22:06)
[2017-06-01] MEDS: Budesonide 0.5 MG/2 ML Neb Susp NEB SCH ×2 (07:05→22:06)
--- NOTE | 2017-06-01 07:19 | PCM.DCSUM1 ---
Discharge Summary - Hospital Course Free Text/Narrative:: This is a 61-year-old female. She apparently was seen by her doctor in the office because she has cellulitis of her lower extremities and she was placed on doxycycline. Over the last 48 hours she has been getting increasingly short of breath. She does smoke and she does not have oxygen at home. She is brought to the ER by ambulance because of her shortness of breath. She does indicate that she's been coughing over the last couple of days but she can't seem to get up any phlegm. She indicates that she has a history of emphysema. She does complain that if she tries to lift her arms up overhead to fix her hair feels like her fat in her neck causes her air to get cut off and if she sits on the toilet with handle she can't put her hands up on the handles without feeling like her air is getting cut off. She denies any nausea and vomiting no diarrhea. She does not know if she's had a fever. Patient denies any history of congestive heart failure. She has long-standing peripheral edema and the edema goes up to her hips. She is not able to walk but maybe 3 or 4 steps before she gets short of breath and has to sit down. The patient's skin smells of tobacco smoke. - Discharge Data Discharge Date: 06/01/17 (admit date 05/24/17) Discharge Disposition: DC/Tfer to SNF 03 Condition: Good - Discharge Diagnosis/Problem(s) (1) Hypoxemia SNOMED Code(s): 906753273 ICD Code: R09.02 - HYPOXEMIA Status: Acute Priority: High Current Visit : Yes (2) Acute exacerbation of chronic obstructive pulmonary disease (COPD) SNOMED Code(s): 291295599 ICD Code: J44.1 - CHRONIC OBSTRUCTIVE PULMONARY DISEASE W (ACUTE) EXACERBATION Status: Acute Priority: High Current Visit: Yes (3) Acute bronchitis SNOMED Code(s): 67534230 ICD Code: J20.9 - ACUTE BRONCHITIS, UNSPECIFIED Status: Acute Priority: High Current Visit: Yes Qualifiers: Bronchitis organism: unspecified organism Qualified Code(s): J20.9 - Acute bronchitis, unspecified (4) Bilateral lower leg cellulitis SNOMED Code(s): 323413600 ICD Code: L03.116 - CELLULITIS OF LEFT LOWER LIMB; L03.115 - CELLULITIS OF RIGHT LOWER LIMB Status: Resolved Priority: High Current Visit: Yes (5) Edema of both lower legs due to peripheral venous insufficiency SNOMED Code(s): 17567640346069391 ICD Code: I87.2 - VENOUS INSUFFICIENCY (CHRONIC) (PERIPHERAL); R60.9 - EDEMA , UNSPECIFIED Status: Chronic Priority: Medium Current Visit: Yes (6) Morbid obesity SNOMED Code(s): 722808573 ICD Code: E66.01 - MORBID (SEVERE) OBESITY DUE TO EXCESS CALORIES Status: Chronic Priority: High Current Visit: Yes (7) Pulmonary hypertension SNOMED Code(s): 81705407 ICD Code: I27.20 - PULMONARY HYPERTENSION, UNSPECIFIED Status: Chronic Priority: Medium Current Visit: Yes (8) Tobacco use disorder SNOMED Code(s): 402797118 ICD Code: F17.200 - NICOTINE DEPENDENCE, UNSPECIFIED, UNCOMPLICATED Status : Chronic Priority: High Current Visit: Yes (9) Influenza A SNOMED Code(s): 083098418 ICD Code: J10.1 - FLU DUE TO OTH IDENT INFLUENZA VIRUS W OTH RESP MANIFEST Status: Resolved Priority: High Current Visit: Yes (10) Hypothyroidism SNOMED Code(s): 60322342 ICD Code: E03.9 - HYPOTHYROIDISM, UNSPECIFIED Status: Chronic Priority: Medium Current Visit: Yes Qualifiers: Hypothyroidism type: unspecified Qualified Code(s): E03.9 - Hypothyroidism , unspecified - Patient Summary/Data Operative Procedure(s) Performed: None Complications: None Consults: Consultations 05/24/17 13:17 Consult to Physical Therapy [PT Evaluation and Treatment] [CONS] Routine 05/27/17 18:24 Consult to Physician [CONS] Routine 05/28/17 10:59 Consult to Spiritual Care [CONS] Routine Labs Pending at D/C: None Recommend recheck of TSH in 8-12 weeks as thyroid medication was adjusted during hospital stay Recommended Follow-up Testing/Procedures: Patient DC instructions: Nursing: Please give PPSV23 vaccine prior to d/c or chart refusal. No record per Thor. Thank you. Wound care: daily and as needed cleansing of wound then apply Telfa, Kerliz and Coban to bilateral legs. Daily weight. Keep a record for your doctor. Physical and occupational therapy to treat and evaluate if patient goes to the care home A bed rail and tub transfer bench have been ordered for you. Please go to [facility] ([facility] near [facility]) if you wish to obtain these items--for when you are discharged home from rehab Supplemental oxygen to keep saturations >90% Follow-up with ambulatory care coordinator for Pulmonary Function Tests- discuss with Primary Care Provider Follow up with PCP within one week of discharge; Dr. Milton Planned Operative Procedure(s) after DC: None Hospital Course: Impression: Acute: COPD Exacerbation, Significantly Improved - She is an active smoker; smokes 1 or <1 ppd; counseled on smoking cessation , nicotine patch and education-- will be dc'd with rx for nicotine patch - Continue RT Care, Supplemental O2, Bronchodilators, Smooth Muscle Relaxant - D/c Levaquin-she has not pneumonia - PFT result -severe but not able to view report--recommend consult with Insole Lip Turner after review with PCP. - Start oral azithromycin 250 mg po daily for anti-inflammatory agent-- completed course, no need for abx on DC - Switch IV steroid to oral prednisone for pharmacy to put in---prednisone taper on discharge OHS/Probable LIZ - Morbidly Obese with BMI of 64 - Poor functional capacity; she wheel chair bound - Screen for LIZ with STOP BANG - Counseled on LSM - Sleep study after discharge----discuss with PCP. Hypercapnea - CO2 34-41 (today); she is alert and awake- mental status unchanged and baseline; she likely is chronic CO2 retainer due to above - 2/2 OHS/LIZ - Supplemental O2 - Needs BiPAP Tobacco Abuse/Dependence - She is still an active smoker - Counseled on smoking cessation - Nicotine patch 21 mg daily- will receive rx on dc as well Morbid Obesity - BMI 64 - Dietary on board for weight management - Counseled on LSM CHF, NYHA functional clas III, stage C -HF with Preserved EF -2D echo: LVEF 65%, Grade 1 pattern LV diastolic filling, Severely elevated RVSP,Dilated inferior vena cava with rest or size variation less than 50% and RV volume/pressure overload -Continue diuretic and 2L fluid daily restriction Query Pulmonary Venous Hypertension--> Echo obtained as above - 2D echo poorly visuali - Advised LSM - Continue diuretic SSTI/Cellullitis - Risk Factors: Chronic Venous Insufficiency and Poor Hygiene due to Immobility - Positive for Staph aureus and beta strep group B from culture-- treatment with abx course completed during stay, no need for further abx at discharge - Small coin like lesion on right bernardo-lateral meléndez - Skin irritation on skin fold in the groin area - Continue oral levaquin and keep area dry--course completed and dc'd - Discontinue Bari wrapped - Cover lesion with gauze loosely BID Anxiety/Depression---doing well - [place] I - She has no clinical depression or anxiety per tele-psych consult - Dr. De La O did not recommend any psych meds - Will d/c Buspar - No need for level 2 screening Inadequate IV Access - Continue PICC line---will DC at discharge Resolved: S/p A Fib with RVR -- rates controlled now with BB, cont on discharge S/p Electrolyte abnormalities Chronic: A Fib HLD HTN Venous Insufficiency IBS Hypothyroidism--adjusted medications while in hospital- recommend recheck TSH in 8-12 wks with PCP after discharge Obesity Morbid obesity Plan: She is clinically stable Continue current treatment BIPAP and high flow O2 as tolerated O2, keep sat>90% PFTs completed in house-unable to view report *Needs dental consult at discharge (Re: pain when eating) - soft diet Obesity diet/exercise education Continue PT/OT-to improve functional capacity Code Status: Full code, PCP: Dr. Milton LOS > 96 HR due to SNF placement, slow response to treatment; Likely discharge Thursday to [facility] - Patient Instructions Diet: Heart Healthy Diet, Weight Loss Diet Activity: As Tolerated (ambulate 3-4 times daily) Showering/Bathing: May Shower Wound/Incision Care: Change Dressing Daily (and as needed) Notify Provider of: Fever, Increased Pain, Swelling and Redness, Drainage, Nausea and/or Vomiting - Discharge Plan Prescriptions/Med Rec: Levalbuterol HCl [Xopenex] 1.25 mg NEB Q4HRRT PRN #1 box PRN Reason: Shortness Of Breath Metoprolol Tartrate [Lopressor] 25 mg PO Q12HR #60 tablet Budesonide [Pulmicort] 0.5 mg NEB BIDRT #1 box Furosemide [Lasix] 20 mg PO BIDDIURETIC #60 tablet Ipratropium [Atrovent] 0.5 mg NEB QIDRT #1 box Nicotine [Nicotine Patch] 1 each TD DAILY #30 patch.td24 Nystatin [Nystop] 0 gm TOP TID #1 bottle Prednisone [IJD: Prednisone] 10 mg PO DAILY #30 tab Saccharomyces Boulardii [Florastor] 250 mg PO BID #60 cap Tamsulosin [Flomax] 0.4 mg PO PCBREAKFAST #30 cap.er Home Medications: Home Meds Aspirin/Acetaminophen/Caffeine [Headache Relief Tablet] 1 tab PO DAILY PRN 08/23 [History] Levothyroxine Sodium [Synthroid] 112 mcg PO DAILY 08/24/15 [History] Propylene Glycol/Peg 400 [Systane 0.3-0.4% Eye Drops] 1 drop EYEBOTH TID PRN [History] Ranitidine HCl [Zantac 75] 75 mg PO DAILY PRN 08/24/15 [History] Liothyronine [Cytomel] 5 mcg PO DAILY 05/24/17 [History] Budesonide [Pulmicort] 0.5 mg NEB BIDRT #1 box 06/01/17 [Rx] Furosemide [Lasix] 20 mg PO BIDDIURETIC #60 tablet 06/01/17 [Rx] Ibuprofen [IJD: Ibuprofen] 600 mg PO Q6H PRN tablet 06/01/17 [Rx] Ipratropium [Atrovent] 0.5 mg NEB QIDRT #1 box 06/01/17 [Rx] Levalbuterol HCl [Xopenex] 1.25 mg NEB Q4HRRT PRN #1 box 06/01/17 [Rx] Metoprolol Tartrate [Lopressor] 25 mg PO Q12HR #60 tablet 06/01/17 [Rx] Nicotine [Nicotine Patch] 1 each TD DAILY #30 patch.td24 06/01/17 [Rx] Nystatin [Nystop] 0 gm TOP TID #1 bottle 06/01/17 [Rx] Prednisone [IJD: Prednisone] 10 mg PO DAILY #30 tab 06/01/17 [Rx] Saccharomyces Boulardii [Florastor] 250 mg PO BID #60 cap 06/01/17 [Rx] Tamsulosin [Flomax] 0.4 mg PO PCBREAKFAST #30 cap.er 06/01/17 [Rx] Patient Handouts: Chronic Obstructive Pulmonary Disease, [id number], Pulmonary Hypertension, Chronic Venous Insufficiency, How to Change Your Dressing, Cejb-vp-Kczh, Heart Failure, [id number], Steps to Quit Smoking, Obesity, Adult, Syuw-gl-[id number] Referrals: Juni Milton MD [Primary Care Provider] - - Discharge Summary/Plan Comment DC Time >30 min.: Yes (45) - General Info Date of Service: 06/01/17 Admission Dx/Problem (Free Text: A-fib with RVR, Cellulitis Doing well. HR's controlled. Skin and Labs improved. Plans DC to SNF today per Dr. Hou. Functional Status: Reports: Pain Controlled, Tolerating Diet, Ambulating, Urinating. Denies: New Symptoms - Review of Systems General: Reports: Weakness (much improved). Denies: Fever HEENT: Reports: No Symptoms Pulmonary: Reports: Shortness of Breath (chronic but improved since admit) Cardiovascular: Reports: No Symptoms. Denies: Chest Pain, Palpitations Gastrointestinal: Reports: No Symptoms. Denies: Abdominal Pain, Diarrhea, Nausea, Vomiting Genitourinary: Reports: No Symptoms Skin: Reports: Other (chronic edema and venous insufficiency changes noted) Neurological: Reports: No Symptoms Psychiatric: Reports: No Symptoms - Patient Data Vitals - Most Recent: Last Vital Signs Temp 97.5 F 06/01/17 03:04 Pulse 68 06/01/17 03:04 Resp 20 06/01/17 03:04 BP 131/77 06/01/17 03:04 Pulse Ox 89 L 06/01/17 07:05 Weight - Most Recent: 350 lb 12.8 oz I&O - Last 24 hours: Intake & Output 05/31/17 06/01/17 06/01/17 22:59 06:59 14:59 Intake Total 1200 2700 Balance 1200 2700 Lab Results - Last 24 hrs: Laboratory Results - last 24 hr 06/01/17 Range/Units 05:55 WBC 13.77 H (3.98-10.04) K/mm3 RBC 5.73 H (3.98-5.22) M/mm3 Hgb 14.6 (11.2-15.7) gm/L Hct 49.7 H (34.1-44.9) % MCV 86.7 (79.4-94.8) fl MCH 25.5 L (25.6-32.2) pg MCHC 29.4 L (32.2-35.5) g/dl RDW Std Deviation 59.1 H (36.4-46.3) fL Plt Count 218 (182-369) K/mm3 MPV 11.3 (9.4-12.3) fl Neut % (Auto) 72.6 H (34.0-71.1) % Lymph % (Auto) 12.8 L (19.3-51.7) % [place] % (Auto) 10.5 (4.7-12.5) % Eos % (Auto) 3.6 (0.7-5.8) Baso % (Auto) 0.1 (0.1-1.2) % Neut # (Auto) 9.98 H (1.56-6.13) K/mm3 Lymph # (Auto) 1.76 (1.18-3.74) K/mm3 [place] # (Auto) 1.45 H (0.24-0.36) K/mm3 Eos # (Auto) 0.50 H (0.04-0.36) K/mm3 Baso # (Auto) 0.02 (0.01-0.08) K/mm3 Manual Slide Review Abnormal smear Med Orders - Current: Current Medications Budesonide (Pulmicort) 0.5 mg NEB BIDRT [facility] Last Admin: 06/01/17 07:05 Dose: 0.5 mg Enoxaparin Sodium (Lovenox) 40 mg SUBCUT DAILY [facility] Last Admin: 05/31/17 08:49 Dose: 40 mg Furosemide (Lasix) 20 mg PO BIDDIURETIC [facility] Last Admin: 06/01/17 05:57 Dose: 20 mg Ibuprofen (Motrin) 600 mg PO Q6H PRN PRN Reason: Pain Last Admin: 05/26/17 00:54 Dose: 600 mg Ipratropium [place] (Atrovent) 0.5 mg NEB QIDRT [facility] Last Admin: 06/01/17 07:05 Dose: 0.5 mg Levalbuterol HCl (Xopenex) 1.25 mg NEB Q4HRRT PRN PRN Reason: Shortness of Breath Last Admin: 05/31/17 09:08 Dose: 1.25 mg Levothyroxine Sodium (Levothyroxine) 112 mcg PO ACBREAKFAST [facility] Last Admin: 06/01/17 05:57 Dose: 112 mcg Liothyronine Sodium (Cytomel) 5 mcg PO ACBREAKFAST [facility] Last Admin: 06/01/17 05:58 Dose: 5 mcg Metoprolol Tartrate (Lopressor) 25 mg PO Q12HR [facility] Last Admin: 05/31/17 21:14 Dose: 25 mg Metoprolol Tartrate (Lopressor) 5 mg IVPUSH Q4H PRN PRN Reason: HR>120 Last Admin: 05/24/17 17:57 Dose: 5 mg Miscellaneous Information (Remove Patch) 1 ea TRDERM DAILY [facility] Last Admin: 05/31/17 09:00 Dose: 1 ea Nicotine (Habitrol) 21 mg TRDERM DAILY [facility] Last Admin: 05/31/17 08:52 Dose: 21 mg Nystatin (Nystop) 0 gm TOP TID [facility] Last Admin: 05/31/17 21:19 Dose: Not Given Prednisone (Pred[facility]one) [facility] Last Admin: 06/01/17 06:39 Dose: 40 mg Saccharomyces Boulardii (Florastor) 250 mg PO BID [facility] Last Admin: 05/31/17 21:18 Dose: 250 mg Tamsulosin HCl (Flomax) 0.[facility] Last Admin: 05/31/17 09:24 Dose: 0.4 mg Discontinued Medications Albuterol (Proventil Neb Soln) 2.5 mg NEB Q4HRRT PRN PRN Reason: Shortness of Breath Albuterol/Ipratropium (Duoneb 3.0-0.5 Mg/3 Ml) 3 ml NEB ONETIME ONE Stop: 05/24/17 05:20 Last Admin: 05/24/17 05:21 Dose: 3 ml Albuterol/Ipratropium (Duoneb 3.0-0.5 Mg/3 Ml) Confirm Administered Dose 3 ml .ROUTE .STK-MED ONE Stop: 05/24/17 05:26 Last Admin: 05/24/17 05:36 Dose: Not Given Albuterol/Ipratropium (Duoneb 3.0-0.5 Mg/3 Ml) 3 ml NEB QIDRT PRN PRN Reason: Shortness of Breath Last Admin: 05/24/17 12:52 Dose: 3 ml Buspirone HCl (Buspar) 15 mg PO BID [facility] Last Admin: 05/31/17 08:49 Dose: 15 mg Enoxaparin Sodium (Lovenox) 40 mg SUBCUT DAILY [facility] Last Admin: 05/24/17 13:40 Dose: 40 mg Enoxaparin Sodium (Lovenox) 150 mg SUBCUT Q12HR [facility] Last Admin: 05/30/17 13:17 Dose: Not Given Enoxaparin Sodium (Lovenox) 40 mg SUBCUT Q12HR [facility] Furosemide (Lasix) 20 mg IVPUSH BIDDIURETIC [facility] Last Admin: 05/30/17 06:04 Dose: 20 mg Levofloxacin/Dextrose 750 mg/ (Premix) 150 mls @ 100 mls/hr IV ONETIME ONE Stop: 05/24/17 10:03 Last Admin: 05/24/17 09:40 Dose: 100 mls/hr Levofloxacin/Dextrose 750 mg/ (Premix) 150 mls @ 100 mls/hr IV Q24H [facility] Last Admin: 05/28/17 03:13 Dose: 100 mls/hr Vancomycin HCl 2 gm/ Sodium (Chloride) 500 mls @ 500 mls/hr IV ONETIME ONE Stop: 05/24/17 14:59 Last Admin: 05/24/17 14:53 Dose: 500 mls/hr Vancomycin HCl 1 gm/Vancomycin HCl 500 mg/ Sodium Chloride 250 mls @ 125 mls/ hr IV Q12H [facility] Last Admin: 05/25/17 01:43 Dose: 125 mls/hr Diltiazem HCl 125 mg/ Sodium (Chloride) 125 mls @ 10 mls/hr IV TITRATE RORY; 10 MG/HR PRN Reason: Protocol Vancomycin HCl 1 gm/Vancomycin HCl 500 mg/ Sodium Chloride 500 mls @ 333.333 mls/hr IV Q12H [facility] Last Admin: 05/26/17 01:23 Dose: 333.333 mls/hr Ipratropium [place] (Atrovent) 0.5 mg NEB QID RORY Levalbuterol HCl (Xopenex) 1.25 mg NEB ONETIME ONE Stop: 05/24/17 17:42 Last Admin: 05/24/17 18:04 Dose: 1.25 mg Levalbuterol HCl (Xopenex) 1.25 mg NEB Q6HRRT PRN PRN Reason: Shortness of Breath Levalbuterol HCl (Xopenex) 2.5 mg NEB ONETIME ONE Stop: 05/26/17 09:47 Last Admin: 05/26/17 10:02 Dose: 2.5 mg Levofloxacin (Levaquin) 750 mg PO Q24H [facility] Last Admin: 05/31/17 06:59 Dose: 750 mg Methylprednisolone Sodium Succinate (Solu-Medrol) 125 mg IVPUSH ONETIME ONE Stop: 05/26/17 10:08 Last Admin: 05/26/17 10:31 Dose: 125 mg Methylprednisolone Sodium Succinate (Solu-Medrol) 125 mg IVPUSH Q6H [facility] Last Admin: 05/29/17 10:49 Dose: 125 mg Methylprednisolone Sodium Succinate (Solu-Medrol) 80 mg IVPUSH Q12H [facility] Last Admin: 05/29/17 22:06 Dose: 80 mg Metoprolol Tartrate (Lopressor) Confirm Administered Dose 5 mg .ROUTE .STK-MED ONE Stop: 05/24/17 17:51 Last Admin: 05/24/17 18:52 Dose: Not Given Nystatin (Nystop) 0 gm TOP TID [facility] Oseltamivir Phosphate (Tamiflu) 75 mg PO BID [facility] Stop: 05/28/17 14:01 Last Admin: 05/28/17 11:27 Dose: 75 mg Pneumococcal Polyvalent Vaccine (Pneumovax 23) 0.5 ml IM .ONCE ONE Stop: 05/24/17 14:53 Vancomycin HCl (Pharmacy To Dose - Vancomycin) 0 dose .XX ASDIRECTED PRN PRN Reason: RX TO DOSE VANCOMYCIN - Exam Quality Assessment: Reports: Supplemental Oxygen, DVT Prophylaxis General: Reports: Alert, Oriented, Cooperative, No Acute Distress HEENT: Reports: Pupils Equal, EOMI, Mucous Membr. Moist/Landa Neck: Reports: Supple Lungs: Reports: Normal Respiratory Effort, Decreased Breath Sounds (mid to lower lobes) Cardiovascular: Reports: Regular Rate, Regular Rhythm GI/Abdominal Exam: Normal Bowel Sounds, Soft, Non-Tender, Other (round/obese) (Female) Exam: Deferred Rectal (Female) Exam: Deferred Skin: Reports: Other (lower extremities, mid meléndez down, 1+ edema, minimal erythema, no open or weeping areas, venous insufficiency changes noted, significant improvement since admit.) Neurological: Reports: No New Focal Deficit Psy/Mental Status: Reports: Alert, Normal Affect, Normal Mood *Q Meaningful Use (DIS) - VTE *Q VTE Criteria *Q: - Stroke *Q Stroke Criteria *Q: - AMI *Q AMI Criteria *Q:
[2017-06-01] MEDS: Levalbuterol HCl 1.25 MG/3 ML Neb NEB PRN ×2 (09:11→15:55)
[2017-06-01] MEDS: Nicotine 21 MG/24 Hr Patch TRDERM SCH (09:58)
[2017-06-01] MEDS: Saccharomyces Boulardii (Probiotic) 250 MG Cap PO SCH ×2 (09:58→21:15)
[2017-06-01] MEDS: Tamsulosin 0.4 MG Cap.ER PO SCH (09:59)
[2017-06-01] MEDS: Metoprolol Tartrate 25 MG Tab PO SCH ×2 (09:59→21:15)
[2017-06-01] MEDS: Enoxaparin 40 MG/0.4 ML Syringe SUBCUT SCH (10:00)
[2017-06-01] MEDS: Nystatin Topical Powder 15 GM Bottle TOP SCH ×3 (10:00→21:16)
--- NOTE | 2017-06-01 11:37 | PCM.PN ---
- General Info Date of Service: 06/01/17 Admission Dx/Problem (Free Text): A-fib with RVR, Cellulitis Doing well. HR's controlled. Skin and Labs improved. Awaiting level 2 screening for SNF placement today. Patient states she feels good, minimal to no anxiety today, no depressive symptoms. She does have loose stools, "from those antibiotics" but is slowly improving, states "my butt is francisca raw from it". Staff is providing all chris care as patient is unable due to size. She will need assistance with this for the time being. Functional Status: Reports: Pain Controlled, Tolerating Diet, Ambulating, Urinating. Denies: New Symptoms - Review of Systems General: Reports: No Symptoms HEENT: Reports: No Symptoms Pulmonary: Reports: Shortness of Breath (chronic- improved), Cough (improved) Cardiovascular: Reports: No Symptoms. Denies: Chest Pain, Palpitations Gastrointestinal: Reports: Diarrhea (some loose stools, is improving). Denies: Abdominal Pain, Nausea, Vomiting Genitourinary: Reports: Incontinence Skin: Reports: Other (leg wounds improving. No pain) Neurological: Reports: No Symptoms Psychiatric: Denies: Depression, Anxiety - Patient Data Vitals - Most Recent: Last Vital Signs Temp 98.2 F 06/01/17 07:40 Pulse 73 06/01/17 09:59 Resp 19 06/01/17 07:40 BP 137/64 06/01/17 09:59 Pulse Ox 88 L 06/01/17 09:12 Weight - Most Recent: 350 lb 12.8 oz I&O - Last 24 Hours: Intake & Output 05/31/17 06/01/17 06/01/17 22:59 06:59 14:59 Intake Total 1200 2700 Balance 1200 2700 Lab Results Last 24 Hours: Laboratory Results - last 24 hr 06/01/17 06/01/17 Range/Units 05:55 05:55 WBC 13.77 H (3.98-10.04) K/mm3 RBC 5.73 H (3.98-5.22) M/mm3 Hgb 14.6 (11.2-15.7) gm/L Hct 49.7 H (34.1-44.9) % MCV 86.7 (79.4-94.8) fl MCH 25.5 L (25.6-32.2) pg MCHC 29.4 L (32.2-35.5) g/dl RDW Std Deviation 59.1 H (36.4-46.3) fL Plt Count 218 (182-369) K/mm3 MPV 11.3 (9.4-12.3) fl Neut % (Auto) 72.6 H (34.0-71.1) % Lymph % (Auto) 12.8 L (19.3-51.7) % Maries % (Auto) 10.5 (4.7-12.5) % Eos % (Auto) 3.6 (0.7-5.8) Baso % (Auto) 0.1 (0.1-1.2) % Neut # (Auto) 9.98 H (1.56-6.13) K/mm3 Lymph # (Auto) 1.76 (1.18-3.74) K/mm3 Maries # (Auto) 1.45 H (0.24-0.36) K/mm3 Eos # (Auto) 0.50 H (0.04-0.36) K/mm3 Baso # (Auto) 0.02 (0.01-0.08) K/mm3 Manual Slide Review Abnormal smear Sodium 140 (136-145) mEq/L Potassium 4.0 (3.5-5.1) mEq/L Chloride 100 (98-107) mEq/L Carbon Dioxide 38 H (21-32) mEq/L Anion Gap 6.0 (5-15) BUN 18 (7-18) mg/dL Creatinine 0.6 (0.55-1.02) mg/dL Est Cr Clr Drug Dosing 77.88 mL/min Estimated GFR (MDRD) > 60 (>60) mL/min BUN/Creatinine Ratio 30.0 H (14-18) Glucose 96 (80-115) mg/dL Calcium 8.6 (8.5-10.1) mg/dL Magnesium 2.2 (1.8-2.4) mg/dl C-Reactive Protein 0.3 (<1.0) mg/dL Med Orders - Current: Current Medications Budesonide (Pulmicort) 0.5 mg NEB BIDRT [facility] Last Admin: 06/01/17 07:05 Dose: 0.5 mg Enoxaparin Sodium (Lovenox) 40 mg SUBCUT DAILY [facility] Last Admin: 06/01/17 10:00 Dose: 40 mg Furosemide (Lasix) 20 mg PO BIDDIURETIC [facility] Last Admin: 06/01/17 05:57 Dose: 20 mg Ibuprofen (Motrin) 600 mg PO Q6H PRN PRN Reason: Pain Last Admin: 05/26/17 00:54 Dose: 600 mg Ipratropium Thornton (Atrovent) 0.5 mg NEB QIDRT [facility] Last Admin: 06/01/17 09:11 Dose: 0.5 mg Levalbuterol HCl (Xopenex) 1.25 mg NEB Q4HRRT PRN PRN Reason: Shortness of Breath Last Admin: 06/01/17 09:11 Dose: 1.25 mg Levothyroxine Sodium (Levothyroxine) 112 mcg PO ACBREAKFAST [facility] Last Admin: 06/01/17 05:57 Dose: 112 mcg Liothyronine Sodium (Cytomel) 5 mcg PO ACBREAKFAST [facility] Last Admin: 06/01/17 05:58 Dose: 5 mcg Metoprolol Tartrate (Lopressor) 25 mg PO Q12HR [facility] Last Admin: 06/01/17 09:59 Dose: 25 mg Metoprolol Tartrate (Lopressor) 5 mg IVPUSH Q4H PRN PRN Reason: HR>120 Last Admin: 05/24/17 17:57 Dose: 5 mg Miscellaneous Information (Remove Patch) 1 ea TRDERM DAILY [facility] Last Admin: 06/01/17 10:00 Dose: 1 ea Nicotine (Habitrol) 21 mg TRDERM DAILY [facility] Last Admin: 06/01/17 09:58 Dose: 21 mg Nystatin (Nystop) 0 gm TOP TID [facility] Last Admin: 06/01/17 10:00 Dose: Not Given Prednisone (Prednisone) 40 mg PO WITHBREAKFAST [facility] Last Admin: 06/01/17 06:39 Dose: 40 mg Saccharomyces Boulardii (Florastor) 250 mg PO BID [facility] Last Admin: 06/01/17 09:58 Dose: 250 mg Tamsulosin HCl (Flomax) 0.4 mg PO PCBREAKFAST [facility] Last Admin: 06/01/17 09:59 Dose: 0.4 mg Discontinued Medications Albuterol (Proventil Neb Soln) 2.5 mg NEB Q4HRRT PRN PRN Reason: Shortness of Breath Albuterol/Ipratropium (Duoneb 3.0-0.5 Mg/3 Ml) 3 ml NEB ONETIME ONE Stop: 05/24/17 05:20 Last Admin: 05/24/17 05:21 Dose: 3 ml Albuterol/Ipratropium (Duoneb 3.0-0.5 Mg/3 Ml) Confirm Administered Dose 3 ml .ROUTE .STK-MED ONE Stop: 05/24/17 05:26 Last Admin: 05/24/17 05:36 Dose: Not Given Albuterol/Ipratropium (Duoneb 3.0-0.5 Mg/3 Ml) 3 ml NEB QIDRT PRN PRN Reason: Shortness of Breath Last Admin: 05/24/17 12:52 Dose: 3 ml Buspirone HCl (Buspar) 15 mg PO BID [facility] Last Admin: 05/31/17 08:49 Dose: 15 mg Enoxaparin Sodium (Lovenox) 40 mg SUBCUT DAILY [facility] Last Admin: 05/24/17 13:40 Dose: 40 mg Enoxaparin Sodium (Lovenox) 150 mg SUBCUT Q12HR [facility] Last Admin: 05/30/17 13:17 Dose: Not Given Enoxaparin Sodium (Lovenox) 40 mg SUBCUT Q12HR [facility] Furosemide (Lasix) 20 mg IVPUSH BIDDIURETIC [facility] Last Admin: 05/30/17 06:04 Dose: 20 mg Levofloxacin/Dextrose 750 mg/ (Premix) 150 mls @ 100 mls/hr IV ONETIME ONE Stop: 05/24/17 10:03 Last Admin: 05/24/17 09:40 Dose: 100 mls/hr Levofloxacin/Dextrose 750 mg/ (Premix) 150 mls @ 100 mls/hr IV Q24H [facility] Last Admin: 05/28/17 03:13 Dose: 100 mls/hr Vancomycin HCl 2 gm/ Sodium (Chloride) 500 mls @ 500 mls/hr IV ONETIME ONE Stop: 05/24/17 14:59 Last Admin: 05/24/17 14:53 Dose: 500 mls/hr Vancomycin HCl 1 gm/Vancomycin HCl 500 mg/ Sodium Chloride 250 mls @ 125 mls/ hr IV Q12H [facility] Last Admin: 05/25/17 01:43 Dose: 125 mls/hr Diltiazem HCl 125 mg/ Sodium (Chloride) 125 mls @ 10 mls/hr IV TITRATE RORY; 10 MG/HR PRN Reason: Protocol Vancomycin HCl 1 gm/Vancomycin HCl 500 mg/ Sodium Chloride 500 mls @ 333.333 mls/hr IV Q12H [facility] Last Admin: 05/26/17 01:23 Dose: 333.333 mls/hr Ipratropium Thornton (Atrovent) 0.5 mg NEB QID [facility] Levalbuterol HCl (Xopenex) 1.25 mg NEB ONETIME ONE Stop: 05/24/17 17:42 Last Admin: 05/24/17 18:04 Dose: 1.25 mg Levalbuterol HCl (Xopenex) 1.25 mg NEB Q6HRRT PRN PRN Reason: Shortness of Breath Levalbuterol HCl (Xopenex) 2.5 mg NEB ONETIME ONE Stop: 05/26/17 09:47 Last Admin: 05/26/17 10:02 Dose: 2.5 mg Levofloxacin (Levaquin) 750 mg PO Q24H [facility] Last Admin: 05/31/17 06:59 Dose: 750 mg Methylprednisolone Sodium Succinate (Solu-Medrol) 125 mg IVPUSH ONETIME ONE Stop: 05/26/17 10:08 Last Admin: 05/26/17 10:31 Dose: 125 mg Methylprednisolone Sodium Succinate (Solu-Medrol) 125 mg IVPUSH Q6H [facility] Last Admin: 05/29/17 10:49 Dose: 125 mg Methylprednisolone Sodium Succinate (Solu-Medrol) 80 mg IVPUSH Q12H [facility] Last Admin: 05/29/17 22:06 Dose: 80 mg Metoprolol Tartrate (Lopressor) Confirm Administered Dose 5 mg .ROUTE .STK-MED ONE Stop: 05/24/17 17:51 Last Admin: 05/24/17 18:52 Dose: Not Given Nystatin (Nystop) 0 gm TOP TID [facility] Oseltamivir Phosphate (Tamiflu) 75 mg PO BID [facility] Stop: 05/28/17 14:01 Last Admin: 05/28/17 11:27 Dose: 75 mg Pneumococcal Polyvalent Vaccine (Pneumovax 23) 0.5 ml IM .ONCE ONE Stop: 05/24/17 14:53 Vancomycin HCl (Pharmacy To Dose - Vancomycin) 0 dose .XX ASDIRECTED PRN PRN Reason: RX TO DOSE VANCOMYCIN - Exam Quality Assessment: Supplemental Oxygen, DVT Prophylaxis General: Alert, Oriented, Cooperative, No Acute Distress HEENT: Pupils Equal, EOMI, Mucous Membr. Moist/[place] Neck: Supple Lungs: Normal Respiratory Effort, Decreased Breath Sounds Cardiovascular: Regular Rate, Regular Rhythm, Other (distant heart tones) GI/Abdominal Exam: Normal Bowel Sounds, Soft, Other (round/obese) (Female) Exam: Deferred Extremities: Other (LE with mild erythema- chronic, peeling skin, small superficial cracks with scabs surrounding ankles bilaterally; no weeping or oozing, edema is minimal to 1+ bilat) Neurological: No New Focal Deficit Psy/Mental Status: Alert, Normal Affect, Normal Mood, Other (pleasant and talkative this morning) - Problem List & Annotations (1) Hypoxemia SNOMED Code(s): 978576942 Code(s): R09.02 - HYPOXEMIA Status: Acute Priority: High Current Visit : Yes (2) Acute exacerbation of chronic obstructive pulmonary disease (COPD) SNOMED Code(s): 665186728 Code(s): J44.1 - CHRONIC OBSTRUCTIVE PULMONARY DISEASE W (ACUTE) EXACERBATION Status: Acute Priority: High Current Visit: Yes (3) Acute bronchitis SNOMED Code(s): 42266518 Code(s): J20.9 - ACUTE BRONCHITIS, UNSPECIFIED Status: Resolved Priority : High Current Visit: Yes Qualifiers: Bronchitis organism: unspecified organism Qualified Code(s): J20.9 - Acute bronchitis, unspecified (4) Bilateral lower leg cellulitis SNOMED Code(s): 027994636 Code(s): L03.116 - CELLULITIS OF LEFT LOWER LIMB; L03.115 - CELLULITIS OF RIGHT LOWER LIMB Status: Resolved Priority: High Current Visit: Yes (5) Edema of both lower legs due to peripheral venous insufficiency SNOMED Code(s): 15966304130193279 Code(s): I87.2 - VENOUS INSUFFICIENCY (CHRONIC) (PERIPHERAL); R60.9 - EDEMA, UNSPECIFIED Status: Chronic Priority: Medium Current Visit: Yes (6) Morbid obesity SNOMED Code(s): 276263152 Code(s): E66.01 - MORBID (SEVERE) OBESITY DUE TO EXCESS CALORIES Status: Chronic Priority: High Current Visit: Yes (7) Pulmonary hypertension SNOMED Code(s): 44306661 Code(s): I27.20 - PULMONARY HYPERTENSION, UNSPECIFIED Status: Chronic Priority: Medium Current Visit: Yes (8) Tobacco use disorder SNOMED Code(s): 449304940 Code(s): F17.200 - NICOTINE DEPENDENCE, UNSPECIFIED, UNCOMPLICATED Status: Chronic Priority: High Current Visit: Yes (9) Influenza A SNOMED Code(s): 974086355 Code(s): J10.1 - FLU DUE TO OTH IDENT INFLUENZA VIRUS W OTH RESP MANIFEST Status: Resolved Priority: High Current Visit: Yes (10) Hypothyroidism SNOMED Code(s): 44651429 Code(s): E03.9 - HYPOTHYROIDISM, UNSPECIFIED Status: Chronic Priority: Medium Current Visit: Yes Qualifiers: Hypothyroidism type: unspecified Qualified Code(s): E03.9 - Hypothyroidism , unspecified - Problem List Review Problem List Initiated/Reviewed/Updated: Yes - My Orders Last 24 Hours: My Active Orders 06/01/17 07:14 Ready for Discharge [RC] PER UNIT ROUTINE - Plan Plan:: Impression: Acute: COPD Exacerbation, Significantly Improved - She is an active smoker; smokes 1 or <1 ppd; counseled on smoking cessation - nicotine patch at DC - Continue RT Care, Supplemental O2, Bronchodilators, Smooth Muscle Relaxant - D/c Levaquin-she has not pneumonia - PFT result -severe but not able to view report - Start oral azithromycin 250 mg po daily for anti-inflammatory agent; completed course - Switch IV steroid to oral prednisone for pharmacy to put in-- Prednisone taper on discharge OHS/Probable LIZ - Morbidly Obese with BMI of 64 - Poor functional capacity; she wheel chair bound - Screen for LIZ with STOP BANG - Counseled on LSM - Recommend Sleep study after discharge Hypercapnea - CO2 34-41 (today); she is alert and awake--likely chronic retainer with COPD and suspected LIZ - 2/2 OHS/LIZ - Supplemental O2 during the day to keep sats >90% - Needs BiPAP at HS Tobacco Abuse/Dependence - She is still an active smoker - Counseled on smoking cessation - Nicotine patch 21 mg daily Morbid Obesity - BMI 64 - Dietary on board for weight management - Counseled on LSM CHF, NYHA functional clas III, stage C -HF with Preserved EF -2D echo: LVEF 65%, Grade 1 pattern LV diastolic filling, Severely elevated RVSP,Dilated inferior vena cava with rest or size variation less than 50% and RV volume/pressure overload -Continue diuretic and 2L fluid daily restriction, BB Query Pulmonary Venous Hypertension--> Echo obtained as above - Advised LSM - Continue diuretic, BB SSTI/Cellullitis - Risk Factors: Chronic Venous Insufficiency and Poor Hygiene due to Immobility - Positive for Staph aureus and beta strep group B from culture - Small coin like lesion on right bernardo-lateral meléndez - Skin irritation on skin fold in the groin area - Abx course completed, cont probiotic - Discontinue Bari wrapped; Cover lesion with gauze loosely BID - PADNET study ordered Anxiety/Depression - [place] I - She has no clinical depression or anxiety per tele-psych consult - Dr. De La O did not recommend any psych meds - Will d/c Buspar - No need for level 2 screening Inadequate IV Access - Continue PICC line-- will DC prior to discharge home Resolved: S/p A Fib with RVR S/p Electrolyte abnormalities Chronic: A Fib--rates controlled now HLD HTN- stable Venous Insufficiency IBS Hypohyroidism-- recommend recheck TSH in 8-12 wks Morbid obesity Plan: She is clinically stable Continue current treatment BIPAP at HS with supplemental O2 to keep sat>90% PFTs completed in house *Needs dental consult at discharge (Re: pain when eating) - soft diet Obesity diet/exercise education Smoking cessation education Continue PT/OT-to improve functional capacity Code Status: Full code, PCP: Dr. Milton LOS > 96 HR due to SNF placement, slow response to treatment; Likely discharge Thursday to [facility]---now DC is pending level 2 screening per SW.
[2017-06-01] MEDS: Ibuprofen 600 MG Tab PO PRN (17:11)
[2017-06-02] MEDS: Ibuprofen 600 MG Tab PO PRN ×3 (01:02→22:31)
[2017-06-02] MEDS: Ipratropium 0.02% 0.5 MG/2.5 ML Neb Soln NEB SCH ×4 (05:25→21:51)
[2017-06-02] MEDS: Budesonide 0.5 MG/2 ML Neb Susp NEB SCH ×2 (05:25→21:51)
[2017-06-02] MEDS: Liothyronine 5 MCG Tab PO SCH (06:25)
[2017-06-02] MEDS: Furosemide 20 MG Tab PO SCH ×2 (06:26→13:45)
[2017-06-02] MEDS: Levothyroxine 112 MCG Tab PO SCH (06:26)
[2017-06-02] MEDS: predniSONE 20 MG Tab PO SCH (06:27)
[2017-06-02] MEDS: Nicotine 21 MG/24 Hr Patch TRDERM SCH (08:29)
[2017-06-02] MEDS: Metoprolol Tartrate 25 MG Tab PO SCH ×2 (08:29→22:11)
[2017-06-02] MEDS: Saccharomyces Boulardii (Probiotic) 250 MG Cap PO SCH ×2 (08:29→22:11)
[2017-06-02] MEDS: Enoxaparin 40 MG/0.4 ML Syringe SUBCUT SCH (08:30)
[2017-06-02] MEDS: Nystatin Topical Powder 15 GM Bottle TOP SCH ×2 (08:30→18:25)
[2017-06-02] MEDS: Tamsulosin 0.4 MG Cap.ER PO SCH (10:56)
--- NOTE | 2017-06-02 11:37 | PCM.PN ---
- General Info Date of Service: 06/02/17 Admission Dx/Problem (Free Text): A-fib with RVR, Cellulitis Doing well. HR's controlled. Skin and Labs improved. Awaiting level 2 screening for SNF/Rehab placement. Patient states she feels good, minimal to no anxiety today, no depressive symptoms. She does have loose stools, "from those antibiotics" but is slowly improving, states "my butt is francisca raw from it". Staff is providing all chris care as patient is unable due to size. She will need assistance with this for the time being. Functional Status: Reports: Pain Controlled, Tolerating Diet, Ambulating, Urinating, Incentive Spirometry. Denies: New Symptoms - Review of Systems General: Reports: No Symptoms HEENT: Reports: No Symptoms Pulmonary: Reports: No Symptoms Cardiovascular: Reports: No Symptoms Gastrointestinal: Reports: Diarrhea (improved from yesterday). Denies: Abdominal Pain, Nausea, Vomiting Genitourinary: Reports: No Symptoms Musculoskeletal: Reports: No Symptoms Skin: Reports: Other (improving, LE scaling and peeling) Neurological: Reports: No Symptoms Psychiatric: Reports: No Symptoms. Denies: Depression, Mood Lability, Anxiety - Patient Data Vitals - Most Recent: Last Vital Signs Temp 97.7 F 06/02/17 07:40 Pulse 69 06/02/17 08:29 Resp 19 06/02/17 07:40 BP 115/60 06/02/17 08:29 Pulse Ox 90 L 06/02/17 09:04 Weight - Most Recent: 342 lb 8 oz I&O - Last 24 Hours: Intake & Output 06/01/17 06/02/17 06/02/17 22:59 06:59 14:59 Intake Total 840 300 300 Output Total 1100 600 Balance -260 -300 300 Lab Results Last 24 Hours: Laboratory Results - last 24 hr 06/02/17 06/02/17 Range/Units 06:02 06:02 WBC 12.92 H (3.98-10.04) K/mm3 RBC 5.36 H (3.98-5.22) M/mm3 Hgb 14.4 (11.2-15.7) gm/L Hct 47.3 H (34.1-44.9) % MCV 88.2 (79.4-94.8) fl MCH 26.9 (25.6-32.2) pg MCHC 30.4 L (32.2-35.5) g/dl RDW Std Deviation 59.8 H (36.4-46.3) fL Plt Count 204 (182-369) K/mm3 MPV 11.8 (9.4-12.3) fl Neut % (Auto) 67.5 (34.0-71.1) % Lymph % (Auto) 15.9 L (19.3-51.7) % [place] % (Auto) 9.9 (4.7-12.5) % Eos % (Auto) 6.5 H (0.7-5.8) Baso % (Auto) 0.2 (0.1-1.2) % Neut # (Auto) 8.73 H (1.56-6.13) K/mm3 Lymph # (Auto) 2.05 (1.18-3.74) K/mm3 [place] # (Auto) 1.28 H (0.24-0.36) K/mm3 Eos # (Auto) 0.84 H (0.04-0.36) K/mm3 Baso # (Auto) 0.02 (0.01-0.08) K/mm3 Sodium 141 (136-145) mEq/L Potassium 4.1 (3.5-5.1) mEq/L Chloride 101 (98-107) mEq/L Carbon Dioxide 37 H (21-32) mEq/L Anion Gap 7.1 (5-15) BUN 17 (7-18) mg/dL Creatinine 0.5 L (0.55-1.02) mg/dL Est Cr Clr Drug Dosing 93.45 mL/min Estimated GFR (MDRD) > 60 (>60) mL/min BUN/Creatinine Ratio 34.0 H (14-18) Glucose 86 (80-115) mg/dL Calcium 8.4 L (8.5-10.1) mg/dL Magnesium 2.2 (1.8-2.4) mg/dl C-Reactive Protein < 0.2 (<1.0) mg/dL Med Orders - Current: Current Medications Budesonide (Pulmicort) 0.5 mg NEB BIDRT [facility] Last Admin: 06/02/17 05:25 Dose: 0.5 mg Enoxaparin Sodium (Lovenox) 40 mg SUBCUT DAILY [facility] Last Admin: 06/02/17 08:30 Dose: 40 mg Furosemide (Lasix) 20 mg PO BIDDIURETIC [facility] Last Admin: 06/02/17 06:26 Dose: 20 mg Ibuprofen (Motrin) 600 mg PO Q6H PRN PRN Reason: Pain Last Admin: 06/02/17 08:29 Dose: 600 mg Ipratropium [place]pa (Atrovent) 0.5 mg NEB QIDRT [facility] Last Admin: 06/02/17 09:02 Dose: 0.5 mg Levalbuterol HCl (Xopenex) 1.25 mg NEB Q4HRRT PRN PRN Reason: Shortness of Breath Last Admin: 06/01/17 15:55 Dose: 1.25 mg Levothyroxine Sodium (Levothyroxine) 112 mcg PO ACBREAKFAST [facility] Last Admin: 06/02/17 06:26 Dose: 112 mcg Liothyronine Sodium (Cytomel) 5 mcg PO ACBREAKFAST [facility] Last Admin: 06/02/17 06:25 Dose: 5 mcg Metoprolol Tartrate (Lopressor) 25 mg PO Q12HR [facility] Last Admin: 06/02/17 08:29 Dose: 25 mg Metoprolol Tartrate (Lopressor) 5 mg IVPUSH Q4H PRN PRN Reason: HR>120 Last Admin: 05/24/17 17:57 Dose: 5 mg Miscellaneous Information (Remove Patch) 1 ea TRDERM DAILY [facility] Last Admin: 06/02/17 08:30 Dose: 1 ea Nicotine (Habitrol) 21 mg TRDERM DAILY [facility] Last Admin: 06/02/17 08:29 Dose: 21 mg Nystatin (Nystop) 0 gm TOP TID [facility] Last Admin: 06/02/17 08:30 Dose: Not Given Prednisone (Prednisone) 40 mg PO WITHBREAKFAST [facility] Last Admin: 06/02/17 06:27 Dose: 40 mg Saccharomyces Boulardii (Florastor) 250 mg PO BID [facility] Last Admin: 06/02/17 08:29 Dose: 250 mg Tamsulosin HCl (Flomax) 0.4 mg PO PCBREAKFAST [facility] Last Admin: 06/02/17 10:56 Dose: 0.4 mg Discontinued Medications Albuterol (Proventil Neb Soln) 2.5 mg NEB Q4HRRT PRN PRN Reason: Shortness of Breath Albuterol/Ipratropium (Duoneb 3.0-0.5 Mg/3 Ml) 3 ml NEB ONETIME ONE Stop: 05/24/17 05:20 Last Admin: 05/24/17 05:21 Dose: 3 ml Albuterol/Ipratropium (Duoneb 3.0-0.5 Mg/3 Ml) Confirm Administered Dose 3 ml .ROUTE .STK-MED ONE Stop: 05/24/17 05:26 Last Admin: 05/24/17 05:36 Dose: Not Given Albuterol/Ipratropium (Duoneb 3.0-0.5 Mg/3 Ml) 3 ml NEB QIDRT PRN PRN Reason: Shortness of Breath Last Admin: 05/24/17 12:52 Dose: 3 ml Buspirone HCl (Buspar) 15 mg PO BID [facility] Last Admin: 05/31/17 08:49 Dose: 15 mg Enoxaparin Sodium (Lovenox) 40 mg SUBCUT DAILY [facility] Last Admin: 05/24/17 13:40 Dose: 40 mg Enoxaparin Sodium (Lovenox) 150 mg SUBCUT Q12HR [facility] Last Admin: 05/30/17 13:17 Dose: Not Given Enoxaparin Sodium (Lovenox) 40 mg SUBCUT Q12HR [facility] Furosemide (Lasix) 20 mg IVPUSH BIDDIURETIC [facility] Last Admin: 05/30/17 06:04 Dose: 20 mg Levofloxacin/Dextrose 750 mg/ (Premix) 150 mls @ 100 mls/hr IV ONETIME ONE Stop: 05/24/17 10:03 Last Admin: 05/24/17 09:40 Dose: 100 mls/hr Levofloxacin/Dextrose 750 mg/ (Premix) 150 mls @ 100 mls/hr IV Q24H [facility] Last Admin: 05/28/17 03:13 Dose: 100 mls/hr Vancomycin HCl 2 gm/ Sodium (Chloride) 500 mls @ 500 mls/hr IV ONETIME ONE Stop: 05/24/17 14:59 Last Admin: 05/24/17 14:53 Dose: 500 mls/hr Vancomycin HCl 1 gm/Vancomycin HCl 500 mg/ Sodium Chloride 250 mls @ 125 mls/ hr IV Q12H [facility] Last Admin: 05/25/17 01:43 Dose: 125 mls/hr Diltiazem HCl 125 mg/ Sodium (Chloride) 125 mls @ 10 mls/hr IV TITRATE RORY; 10 MG/HR PRN Reason: Protocol Vancomycin HCl 1 gm/Vancomycin HCl 500 mg/ Sodium Chloride 500 mls @ 333.333 mls/hr IV Q12H [facility] Last Admin: 05/26/17 01:23 Dose: 333.333 mls/hr Ipratropium Talpa (Atrovent) 0.5 mg NEB QID [facility] Levalbuterol HCl (Xopenex) 1.25 mg NEB ONETIME ONE Stop: 05/24/17 17:42 Last Admin: 05/24/17 18:04 Dose: 1.25 mg Levalbuterol HCl (Xopenex) 1.25 mg NEB Q6HRRT PRN PRN Reason: Shortness of Breath Levalbuterol HCl (Xopenex) 2.5 mg NEB ONETIME ONE Stop: 05/26/17 09:47 Last Admin: 05/26/17 10:02 Dose: 2.5 mg Levofloxacin (Levaquin) 750 mg PO Q24H [facility] Last Admin: 05/31/17 06:59 Dose: 750 mg Methylprednisolone Sodium Succinate (Solu-Medrol) 125 mg IVPUSH ONETIME ONE Stop: 05/26/17 10:08 Last Admin: 05/26/17 10:31 Dose: 125 mg Methylprednisolone Sodium Succinate (Solu-Medrol) 125 mg IVPUSH Q6H [facility] Last Admin: 05/29/17 10:49 Dose: 125 mg Methylprednisolone Sodium Succinate (Solu-Medrol) 80 mg IVPUSH Q12H [facility] Last Admin: 05/29/17 22:06 Dose: 80 mg Metoprolol Tartrate (Lopressor) Confirm Administered Dose 5 mg .ROUTE .STK-MED ONE Stop: 05/24/17 17:51 Last Admin: 05/24/17 18:52 Dose: Not Given Nystatin (Nystop) 0 gm TOP TID [facility] Oseltamivir Phosphate (Tamiflu) 75 mg PO BID [facility] Stop: 05/28/17 14:01 Last Admin: 05/28/17 11:27 Dose: 75 mg Pneumococcal Polyvalent Vaccine (Pneumovax 23) 0.5 ml IM .ONCE ONE Stop: 05/24/17 14:53 Vancomycin HCl (Pharmacy To Dose - Vancomycin) 0 dose .XX ASDIRECTED PRN PRN Reason: RX TO DOSE VANCOMYCIN - Exam Quality Assessment: Supplemental Oxygen, DVT Prophylaxis General: Alert, Oriented, Cooperative, No Acute Distress HEENT: Pupils Equal, EOMI, Mucous Membr. Moist/[place] Neck: Supple Lungs: Normal Respiratory Effort, Decreased Breath Sounds (throughout) Cardiovascular: Regular Rate, Regular Rhythm, Other (distant heart tones) GI/Abdominal Exam: Other (round/obese) (Female) Exam: Deferred Extremities: Other (trace to 1+ edema bilat LE; scaling improving, scabs still present to lateral aspects of both ankles from peeling/weeping sites prior. Overall significat improvememnt) Peripheral Pulses: 1+: Dorsalis Pedis (L), Dorsalis Pedis (R) Neurological: No New Focal Deficit Psy/Mental Status: Alert, Normal Affect, Normal Mood - Problem List & Annotations (1) Hypoxemia SNOMED Code(s): 520029924 Code(s): R09.02 - HYPOXEMIA Status: Acute Priority: High Current Visit : Yes (2) Acute exacerbation of chronic obstructive pulmonary disease (COPD) SNOMED Code(s): 731704582 Code(s): J44.1 - CHRONIC OBSTRUCTIVE PULMONARY DISEASE W (ACUTE) EXACERBATION Status: Acute Priority: High Current Visit: Yes (3) Acute bronchitis SNOMED Code(s): 12657363 Code(s): J20.9 - ACUTE BRONCHITIS, UNSPECIFIED Status: Resolved Priority : High Current Visit: Yes Qualifiers: Bronchitis organism: unspecified organism Qualified Code(s): J20.9 - Acute bronchitis, unspecified (4) Bilateral lower leg cellulitis SNOMED Code(s): 775913228 Code(s): L03.116 - CELLULITIS OF LEFT LOWER LIMB; L03.115 - CELLULITIS OF RIGHT LOWER LIMB Status: Resolved Priority: High Current Visit: Yes (5) Edema of both lower legs due to peripheral venous insufficiency SNOMED Code(s): 39104480463767033 Code(s): I87.2 - VENOUS INSUFFICIENCY (CHRONIC) (PERIPHERAL); R60.9 - EDEMA, UNSPECIFIED Status: Chronic Priority: Medium Current Visit: Yes (6) Morbid obesity SNOMED Code(s): 389366936 Code(s): E66.01 - MORBID (SEVERE) OBESITY DUE TO EXCESS CALORIES Status: Chronic Priority: High Current Visit: Yes (7) Pulmonary hypertension SNOMED Code(s): 60084375 Code(s): I27.20 - PULMONARY HYPERTENSION, UNSPECIFIED Status: Chronic Priority: Medium Current Visit: Yes (8) Tobacco use disorder SNOMED Code(s): 566047625 Code(s): F17.200 - NICOTINE DEPENDENCE, UNSPECIFIED, UNCOMPLICATED Status: Chronic Priority: High Current Visit: Yes (9) Influenza A SNOMED Code(s): 633564732 Code(s): J10.1 - FLU DUE TO OTH IDENT INFLUENZA VIRUS W OTH RESP MANIFEST Status: Resolved Priority: High Current Visit: Yes (10) Hypothyroidism SNOMED Code(s): 72802579 Code(s): E03.9 - HYPOTHYROIDISM, UNSPECIFIED Status: Chronic Priority: Medium Current Visit: Yes Qualifiers: Hypothyroidism type: unspecified Qualified Code(s): E03.9 - Hypothyroidism , unspecified - Problem List Review Problem List Initiated/Reviewed/Updated: Yes - Plan Plan:: Impression: Acute: COPD Exacerbation, Significantly Improved - She is an active smoker; smokes 1 or <1 ppd; counseled on smoking cessation - nicotine patch at ND - Continue RT Care, Supplemental O2, Bronchodilators, Smooth Muscle Relaxant - D/c Levaquin-she has not pneumonia - PFT result -severe but not able to view report - Start oral azithromycin 250 mg po daily for anti-inflammatory agent; completed course - Switch IV steroid to oral prednisone for pharmacy to put in-- Prednisone taper on discharge--- prednisone currently at 40mg PO daily OHS/Probable LIZ - Morbidly Obese with BMI of 64 - Poor functional capacity; she wheel chair bound - Screen for LIZ with STOP BANG - Counseled on LSM - Recommend Sleep study after discharge Hypercapnea - CO2 34-41 (today); she is alert and awake--likely chronic retainer with COPD and suspected LIZ - 2/2 OHS/LIZ - Supplemental O2 during the day to keep sats >90% - Needs BiPAP at Tobacco Abuse/Dependence - She is still an active smoker - Counseled on smoking cessation - Nicotine patch 21 mg daily Morbid Obesity - BMI 64 - Dietary on board for weight management - Counseled on LSM CHF, NYHA functional clas III, stage C -HF with Preserved EF -2D echo: LVEF 65%, Grade 1 pattern LV diastolic filling, Severely elevated RVSP,Dilated inferior vena cava with rest or size variation less than 50% and RV volume/pressure overload -Continue diuretic and 2L fluid daily restriction, BB Query Pulmonary Venous Hypertension--> Echo obtained as above - Advised LSM - Continue diuretic, BB SSTI/Cellullitis - Risk Factors: Chronic Venous Insufficiency and Poor Hygiene due to Immobility - Positive for Staph aureus and beta strep group B from culture - Small coin like lesion on right bernardo-lateral meléndez - Skin irritation on skin fold in the groin area - Abx course completed, cont probiotic - Discontinue Bari wrapped; Cover lesion with gauze loosely BID - PADNET study ordered- results pending today Anxiety/Depression - [place] - She has no clinical depression or anxiety per tele-psych consult - Dr. De La O did not recommend any psych meds - Will d/c Buspar - No need for level [address] Hou -Awaiting screening results; placement is pending this screening currently Inadequate IV Access - Continue PICC line-- will DC prior to discharge home Resolved: S/p A Fib with RVR S/p Electrolyte abnormalities Chronic: A Fib--rates controlled now HLD HTN- stable Venous Insufficiency IBS Hypohyroidism-- recommend recheck TSH in 8-12 wks Morbid obesity Plan: She is clinically stable Continue current treatment BIPAP at HS with supplemental O2 to keep sat>90% PFTs completed in house *Needs dental consult at discharge (Re: pain when eating) - soft diet Obesity diet/exercise education Smoking cessation education Continue PT/OT-to improve functional capacity Code Status: Full code, PCP: Dr. Milton LOS > 96 HR due to SNF placement, slow response to treatment; Likely discharge to [place] SNF/rehab pending level 2 screening results.
[2017-06-03] MEDS: Budesonide 0.5 MG/2 ML Neb Susp NEB SCH ×2 (05:09→22:08)
[2017-06-03] MEDS: Ipratropium 0.02% 0.5 MG/2.5 ML Neb Soln NEB SCH ×4 (05:09→22:08)
[2017-06-03] MEDS: Furosemide 20 MG Tab PO SCH ×2 (05:52→14:42)
[2017-06-03] MEDS: Levothyroxine 112 MCG Tab PO SCH (05:52)
[2017-06-03] MEDS: Liothyronine 5 MCG Tab PO SCH (05:52)
[2017-06-03] MEDS: predniSONE 20 MG Tab PO SCH (06:14)
[2017-06-03] MEDS: Metoprolol Tartrate 25 MG Tab PO SCH ×2 (08:10→22:25)
[2017-06-03] MEDS: Saccharomyces Boulardii (Probiotic) 250 MG Cap PO SCH ×2 (08:10→22:25)
[2017-06-03] MEDS: Ibuprofen 600 MG Tab PO PRN (08:11)
[2017-06-03] MEDS: Nicotine 21 MG/24 Hr Patch TRDERM SCH (08:11)
[2017-06-03] MEDS: Enoxaparin 40 MG/0.4 ML Syringe SUBCUT SCH (08:12)
[2017-06-03] MEDS: Tamsulosin 0.4 MG Cap.ER PO SCH (09:39)
--- NOTE | 2017-06-03 10:47 | PCM.PN ---
- General Info Date of Service: 06/03/17 Admission Dx/Problem (Free Text): A-fib with RVR, Cellulitis Doing well. HR's controlled. Skin and Labs improved. Awaiting level 2 screening for SNF/Rehab placement. Patient states she feels good, minimal to no anxiety today, no depressive symptoms. She does have loose stools, "from those antibiotics" but is slowly improving, states "my butt is francisca raw from it". Staff is providing all chris care as patient is unable due to size. She will need assistance with this for the time being. Subjective Update: In to see Danielle. She is sitting on the edge of bed. We discussed her LUCERO results and her plan of care. She is questioning SNF placement. Discussed with charge nurse. SW/CM will talk with patient. She reports she feels like she did before she was sick and is significantly improved. Legs are dry but improved. Small wound of posterior aspect of right leg which is improving. Nursing has been washing and drying legs, also treating with moisturizer. She is on 2L O2. Denies SOB with conversation. Likely discharge tomorrow or Thursday pending placement. - Patient Data Vitals - Most Recent: Last Vital Signs Temp 98.4 F 06/03/17 07:34 Pulse 72 06/03/17 08:10 Resp 18 06/03/17 07:34 BP 139/71 06/03/17 08:10 Pulse Ox 88 L 06/03/17 09:59 Weight - Most Recent: 338 lb 8 oz I&O - Last 24 Hours: Intake & Output 06/02/17 06/03/17 06/03/17 22:59 06:59 14:59 Intake Total 880 600 340 Output Total 1850 1500 Balance -970 -900 340 Lab Results Last 24 Hours: Laboratory Results - last 24 hr 06/03/17 06/03/17 Range/Units 05:50 05:50 WBC 17.29 H (3.98-10.04) K/mm3 RBC 5.58 H (3.98-5.22) M/mm3 Hgb 14.8 (11.2-15.7) gm/L Hct 49.3 H (34.1-44.9) % MCV 88.4 (79.4-94.8) fl MCH 26.5 (25.6-32.2) pg MCHC 30.0 L (32.2-35.5) g/dl RDW Std Deviation 60.6 H (36.4-46.3) fL Plt Count 227 (182-369) K/mm3 MPV 11.9 (9.4-12.3) fl Neut % (Auto) 68.5 (34.0-71.1) % Lymph % (Auto) 15.6 L (19.3-51.7) % [place] % (Auto) 10.8 (4.7-12.5) % Eos % (Auto) 5.0 (0.7-5.8) Baso % (Auto) 0.1 (0.1-1.2) % Neut # (Auto) 11.86 H (1.56-6.13) K/mm3 Lymph # (Auto) 2.69 (1.18-3.74) K/mm3 [place] # (Auto) 1.86 H (0.24-0.36) K/mm3 Eos # (Auto) 0.87 H (0.04-0.36) K/mm3 Baso # (Auto) 0.01 (0.01-0.08) K/mm3 Manual Slide Review Abnormal smear Sodium 142 (136-145) mEq/L Potassium 4.3 (3.5-5.1) mEq/L Chloride 101 (98-107) mEq/L Carbon Dioxide 34 H (21-32) mEq/L Anion Gap 11.3 (5-15) BUN 16 (7-18) mg/dL Creatinine 0.6 (0.55-1.02) mg/dL Est Cr Clr Drug Dosing 77.88 mL/min Estimated GFR (MDRD) > 60 (>60) mL/min BUN/Creatinine Ratio 26.7 H (14-18) Glucose 79 L (80-115) mg/dL Calcium 8.7 (8.5-10.1) mg/dL Med Orders - Current: Current Medications Budesonide (Pulmicort) 0.5 mg NEB BIDRT [facility] Last Admin: 06/03/17 05:09 Dose: 0.5 mg Enoxaparin Sodium (Lovenox) 40 mg SUBCUT DAILY [facility] Last Admin: 06/03/17 08:12 Dose: 40 mg Furosemide (Lasix) 20 mg PO BIDDIURETIC [facility] Last Admin: 06/03/17 05:52 Dose: 20 mg Ibuprofen (Motrin) 600 mg PO Q6H PRN PRN Reason: Pain Last Admin: 06/03/17 08:11 Dose: 600 mg Ipratropium [place] (Atrovent) 0.5 mg NEB QIDRT [facility] Last Admin: 06/03/17 09:59 Dose: 0.5 mg Levalbuterol HCl (Xopenex) 1.25 mg NEB Q4HRRT PRN PRN Reason: Shortness of Breath Last Admin: 06/01/17 15:55 Dose: 1.25 mg Levothyroxine Sodium (Levothyroxine) 112 mcg PO ACBREAKFAST [facility] Last Admin: 06/03/17 05:52 Dose: 112 mcg Liothyronine Sodium (Cytomel) 5 mcg PO ACBREAKFAST [facility] Last Admin: 06/03/17 05:52 Dose: 5 mcg Metoprolol Tartrate (Lopressor) 25 mg PO Q12HR [facility] Last Admin: 06/03/17 08:10 Dose: 25 mg Metoprolol Tartrate (Lopressor) 5 mg IVPUSH Q4H PRN PRN Reason: HR>120 Last Admin: 05/24/17 17:57 Dose: 5 mg Miscellaneous Information (Remove Patch) 1 ea TRDERM DAILY [facility] Last Admin: 06/03/17 08:12 Dose: 1 ea Nicotine (Habitrol) 21 mg TRDERM DAILY [facility] Last Admin: 06/03/17 08:11 Dose: 21 mg Prednisone (Prednisone) 40 mg PO WITHBREAKFAST [facility] Last Admin: 06/03/17 06:14 Dose: 40 mg Saccharomyces Boulardii (Florastor) 250 mg PO BID [facility] Last Admin: 06/03/17 08:10 Dose: 250 mg Tamsulosin HCl (Flomax) 0.4 mg PO PCBREAKFAST [facility] Last Admin: 06/03/17 09:39 Dose: 0.4 mg Discontinued Medications Albuterol (Proventil Neb Soln) 2.5 mg NEB Q4HRRT PRN PRN Reason: Shortness of Breath Albuterol/Ipratropium (Duoneb 3.0-0.5 Mg/3 Ml) 3 ml NEB ONETIME ONE Stop: 05/24/17 05:20 Last Admin: 05/24/17 05:21 Dose: 3 ml Albuterol/Ipratropium (Duoneb 3.0-0.5 Mg/3 Ml) Confirm Administered Dose 3 ml .ROUTE .STK-MED ONE Stop: 05/24/17 05:26 Last Admin: 05/24/17 05:36 Dose: Not Given Albuterol/Ipratropium (Duoneb 3.0-0.5 Mg/3 Ml) 3 ml NEB QIDRT PRN PRN Reason: Shortness of Breath Last Admin: 05/24/17 12:52 Dose: 3 ml Buspirone HCl (Buspar) 15 mg PO BID [facility] Last Admin: 05/31/17 08:49 Dose: 15 mg Enoxaparin Sodium (Lovenox) 40 mg SUBCUT DAILY [facility] Last Admin: 05/24/17 13:40 Dose: 40 mg Enoxaparin Sodium (Lovenox) 150 mg SUBCUT Q12HR [facility] Last Admin: 05/30/17 13:17 Dose: Not Given Enoxaparin Sodium (Lovenox) 40 mg SUBCUT Q12HR [facility] Furosemide (Lasix) 20 mg IVPUSH BIDDIURETIC [facility] Last Admin: 05/30/17 06:04 Dose: 20 mg Levofloxacin/Dextrose 750 mg/ (Premix) 150 mls @ 100 mls/hr IV ONETIME ONE Stop: 05/24/17 10:03 Last Admin: 05/24/17 09:40 Dose: 100 mls/hr Levofloxacin/Dextrose 750 mg/ (Premix) 150 mls @ 100 mls/hr IV Q24H [facility] Last Admin: 05/28/17 03:13 Dose: 100 mls/hr Vancomycin HCl 2 gm/ Sodium (Chloride) 500 mls @ 500 mls/hr IV ONETIME ONE Stop: 05/24/17 14:59 Last Admin: 05/24/17 14:53 Dose: 500 mls/hr Vancomycin HCl 1 gm/Vancomycin HCl 500 mg/ Sodium Chloride 250 mls @ 125 mls/ hr IV Q12H RORY Last Admin: 05/25/17 01:43 Dose: 125 mls/hr Diltiazem HCl 125 mg/ Sodium (Chloride) 125 mls @ 10 mls/hr IV TITRATE RORY; 10 MG/HR PRN Reason: Protocol Vancomycin HCl 1 gm/Vancomycin HCl 500 mg/ Sodium Chloride 500 mls @ 333.333 mls/hr IV Q12H [facility] Last Admin: 05/26/17 01:23 Dose: 333.333 mls/hr Ipratropium [place] (Atrovent) 0.5 mg NEB QID RORY Levalbuterol HCl (Xopenex) 1.25 mg NEB ONETIME ONE Stop: 05/24/17 17:42 Last Admin: 05/24/17 18:04 Dose: 1.25 mg Levalbuterol HCl (Xopenex) 1.25 mg NEB Q6HRRT PRN PRN Reason: Shortness of Breath Levalbuterol HCl (Xopenex) 2.5 mg NEB ONETIME ONE Stop: 05/26/17 09:47 Last Admin: 05/26/17 10:02 Dose: 2.5 mg Levofloxacin (Levaquin) 750 mg PO Q24H [facility] Last Admin: 05/31/17 06:59 Dose: 750 mg Methylprednisolone Sodium Succinate (Solu-Medrol) 125 mg IVPUSH ONETIME ONE Stop: 05/26/17 10:08 Last Admin: 05/26/17 10:31 Dose: 125 mg Methylprednisolone Sodium Succinate (Solu-Medrol) 125 mg IVPUSH Q6H [facility] Last Admin: 05/29/17 10:49 Dose: 125 mg Methylprednisolone Sodium Succinate (Solu-Medrol) 80 mg IVPUSH Q12H [facility] Last Admin: 05/29/17 22:06 Dose: 80 mg Metoprolol Tartrate (Lopressor) Confirm Administered Dose 5 mg .ROUTE .STK-MED ONE Stop: 05/24/17 17:51 Last Admin: 05/24/17 18:52 Dose: Not Given Nystatin (Nystop) 0 gm TOP TID [facility] Nystatin (Nystop) 0 gm TOP TID [facility] Last Admin: 06/02/17 18:25 Dose: Not Given Oseltamivir Phosphate (Tamiflu) 75 mg PO BID RORY Stop: 05/28/17 14:01 Last Admin: 05/28/17 11:27 Dose: 75 mg Pneumococcal Polyvalent Vaccine (Pneumovax 23) 0.5 ml IM .ONCE ONE Stop: 05/24/17 14:53 Vancomycin HCl (Pharmacy To Dose - Vancomycin) 0 dose .XX ASDIRECTED PRN PRN Reason: RX TO DOSE VANCOMYCIN - Exam Quality Assessment: Supplemental Oxygen, Central Line/PICC, DVT Prophylaxis General: Alert, Oriented, Cooperative, No Acute Distress HEENT: Pupils Equal, Pupils Reactive, EOMI, Mucous Membr. Moist/[place] Neck: Supple, Trachea Midline, No JVD Lungs: Clear to Auscultation, Normal Respiratory Effort, Decreased Breath Sounds Cardiovascular: Regular Rate, Regular Rhythm, Other (distant heart tones ) GI/Abdominal Exam: Normal Bowel Sounds, Soft, Non-Tender, No Organomegaly, No Distention, No Abnormal Bruit, No Mass, Pelvis Stable (Female) Exam: Normal External Exam, Normal Speculum Exam, Normal Bimanual Exam Back Exam: Normal Inspection, Full Range of Motion Extremities: Non-Tender, Normal Capillary Refill, Pedal Edema (trace to none ), Redness, Other (legs dry and scaly. Mild wound to right posterior leg. Nursing is treating. Is improving.) Peripheral Pulses: 0: Posterior Tibial (L), Posterior Tibial (R), Dorsalis Pedis (L), Dorsalis Pedis (R), 2+: Radial (L), Radial (R) Skin: Warm, Dry, Intact Wound/Incisions: Healing Well, No Drainage Neurological: No New Focal Deficit Psy/Mental Status: Alert, Normal Affect, Normal Mood - Problem List & Annotations (1) Acute bronchitis SNOMED Code(s): 36555932 Code(s): J20.9 - ACUTE BRONCHITIS, UNSPECIFIED Status: Resolved Priority : High Current Visit: Yes Qualifiers: Bronchitis organism: unspecified organism Qualified Code(s): J20.9 - Acute bronchitis, unspecified (2) Acute exacerbation of chronic obstructive pulmonary disease (COPD) SNOMED Code(s): 828993504 Code(s): J44.1 - CHRONIC OBSTRUCTIVE PULMONARY DISEASE W (ACUTE) EXACERBATION Status: Acute Priority: High Current Visit: Yes (3) Bilateral lower leg cellulitis SNOMED Code(s): 679105045 Code(s): L03.116 - CELLULITIS OF LEFT LOWER LIMB; L03.115 - CELLULITIS OF RIGHT LOWER LIMB Status: Resolved Priority: High Current Visit: Yes (4) COPD (chronic obstructive pulmonary disease) SNOMED Code(s): 82990360 Code(s): J44.9 - CHRONIC OBSTRUCTIVE PULMONARY DISEASE, UNSPECIFIED Status : Acute Priority: High Current Visit: Yes Qualifiers: COPD type: COPD with acute lower respiratory infection Qualified Code(s): J44.0 - Chronic obstructive pulmonary disease with acute lower respiratory infection (5) Edema of both lower legs due to peripheral venous insufficiency SNOMED Code(s): 79602872473963896 Code(s): I87.2 - VENOUS INSUFFICIENCY (CHRONIC) (PERIPHERAL); R60.9 - EDEMA, UNSPECIFIED Status: Chronic Priority: Medium Current Visit: Yes (6) Hypoxemia SNOMED Code(s): 935556698 Code(s): R09.02 - HYPOXEMIA Status: Acute Priority: High Current Visit : Yes (7) Morbid obesity SNOMED Code(s): 269328914 Code(s): E66.01 - MORBID (SEVERE) OBESITY DUE TO EXCESS CALORIES Status: Chronic Priority: High Current Visit: Yes (8) Tobacco use disorder SNOMED Code(s): 961642153 Code(s): F17.200 - NICOTINE DEPENDENCE, UNSPECIFIED, UNCOMPLICATED Status: Chronic Priority: High Current Visit: Yes (9) Influenza A SNOMED Code(s): 819035862 Code(s): J10.1 - FLU DUE TO OTH IDENT INFLUENZA VIRUS W OTH RESP MANIFEST Status: Resolved Priority: High Current Visit: Yes (10) Hypothyroidism SNOMED Code(s): 59015931 Code(s): E03.9 - HYPOTHYROIDISM, UNSPECIFIED Status: Chronic Priority: Medium Current Visit: Yes Qualifiers: Hypothyroidism type: unspecified Qualified Code(s): E03.9 - Hypothyroidism , unspecified - Problem List Review Problem List Initiated/Reviewed/Updated: Yes - Plan Plan:: Impression: Acute: COPD Exacerbation, Significantly Improved - She is an active smoker; smokes 1 or <1 ppd; counseled on smoking cessation - nicotine patch at NM - Continue RT Care, Supplemental O2, Bronchodilators, Smooth Muscle Relaxant - D/c Levaquin-she has no pneumonia - PFT result -severe disease, no response to bronchodilators - Start oral azithromycin 250 mg po daily for anti-inflammatory agent; completed course - Switch IV steroid to oral prednisone for pharmacy to put in-- Prednisone taper on discharge--- prednisone currently at 40mg PO daily OHS/Probable LIZ - Morbidly Obese with BMI of 64 - Poor functional capacity; she is wheelchair bound - Screen for LIZ with STOP BANG - Counseled on LSM - Recommend Sleep study after discharge Hypercapnea - CO2 34-41; she is alert and awake--likely chronic retainer with COPD and suspected LIZ - 2/2 OHS/LIZ - Supplemental O2 during the day to keep sats >90% - Needs BiPAP at HS Tobacco Abuse/Dependence - She is still an active smoker - Counseled on smoking cessation - Nicotine patch 21 mg daily Morbid Obesity - BMI 64-->61.9 - Dietary on board for weight management - Counseled on LSM CHF, NYHA functional clas III, stage C -HF with Preserved EF -2D echo: LVEF 65%, Grade 1 pattern LV diastolic filling, Severely elevated RVSP,Dilated inferior vena cava with rest or size variation less than 50% and RV volume/pressure overload -Continue diuretic and 2L fluid daily restriction, BB Query Pulmonary Venous Hypertension--> Echo obtained as above - Advised LSM - Continue diuretic, BB SSTI/Cellullitis - Risk Factors: Chronic Venous Insufficiency and Poor Hygiene due to Immobility - Positive for Staph aureus and beta strep group B from culture - Small coin like lesion on right bernardo-lateral meléndez - Skin irritation on skin fold in the groin area - Abx course completed, cont probiotic - Discontinue Bari wrapped; Cover lesion with gauze loosely BID - PADNET study ordered- no PVD bilaterally Anxiety/Depression - [place] I - She has no clinical depression or anxiety per tele-psych consult - Dr. De La O did not recommend any psych meds - Will d/c Buspar - No need for level [address] Hou - Awaiting screening results, has been seen; placement is pending this screening currently Inadequate IV Access - Nursing will attempt to switch to periphreal IV today, if no success will keep PICC - Risks and benefits discussed with patient. Resolved: S/p A Fib with RVR S/p Electrolyte abnormalities Chronic: A Fib--rates controlled now HLD HTN- stable Venous Insufficiency IBS Hypohyroidism-- recommend recheck TSH in 8-12 wks Morbid obesity Plan: She is clinically stable Continue current treatment BIPAP at HS with supplemental O2 to keep sat>90% PFTs completed in house *Needs dental consult at discharge (Re: pain when eating) - soft diet Obesity diet/exercise education Smoking cessation education Continue PT/OT-to improve functional capacity Code Status: Full code, PCP: Dr. Milton LOS > 96 HR due to SNF placement, slow response to treatment; Likely discharge to [facility]/rehab pending level 2 screening results.
[2017-06-04] MEDS: Metoprolol Tartrate 5 MG/5 ML SDV IVPUSH PRN ×2 (04:18→08:19)
[2017-06-04] MEDS: Ipratropium 0.02% 0.5 MG/2.5 ML Neb Soln NEB SCH ×4 (05:33→21:49)
[2017-06-04] MEDS: Budesonide 0.5 MG/2 ML Neb Susp NEB SCH ×2 (05:33→21:49)
[2017-06-04] MEDS: Levothyroxine 112 MCG Tab PO SCH (06:00)
[2017-06-04] MEDS: Liothyronine 5 MCG Tab PO SCH (06:00)
[2017-06-04] MEDS: Furosemide 20 MG Tab PO SCH ×2 (06:01→13:38)
[2017-06-04] MEDS: predniSONE 20 MG Tab PO SCH (06:01)
[2017-06-04] MEDS: Enoxaparin 40 MG/0.4 ML Syringe SUBCUT SCH (08:14)
[2017-06-04] MEDS: Saccharomyces Boulardii (Probiotic) 250 MG Cap PO SCH ×2 (08:14→22:01)
[2017-06-04] MEDS: Nicotine 21 MG/24 Hr Patch TRDERM SCH (08:15)
[2017-06-04] MEDS: Metoprolol Tartrate 25 MG Tab PO SCH ×2 (08:16→22:01)
[2017-06-04] MEDS: Tamsulosin 0.4 MG Cap.ER PO SCH (09:48)
--- NOTE | 2017-06-04 09:52 | PCM.PN ---
- General Info Date of Service: 06/04/17 Admission Dx/Problem (Free Text): A-fib with RVR, Cellulitis Subjective Update: In to see Danielle. She is doing well. Lying in bed watching TV. Labs look good. Her WBC is elevated but still likely from her steroids. Functional Status: Reports: Pain Controlled, Tolerating Diet, Ambulating, Urinating. Denies: New Symptoms - Review of Systems General: Reports: No Symptoms HEENT: Reports: No Symptoms Pulmonary: Reports: No Symptoms Cardiovascular: Reports: No Symptoms Gastrointestinal: Reports: No Symptoms Genitourinary: Reports: No Symptoms Musculoskeletal: Reports: No Symptoms Skin: Reports: No Symptoms Neurological: Reports: No Symptoms Psychiatric: Reports: No Symptoms - Patient Data Vitals - Most Recent: Last Vital Signs Temp 98.4 F 06/04/17 08:15 Pulse 123 H 06/04/17 08:19 Resp 20 06/04/17 08:15 BP 103/83 06/04/17 08:19 Pulse Ox 91 L 06/04/17 09:11 Weight - Most Recent: 336 lb 3.2 oz I&O - Last 24 Hours: Intake & Output 06/03/17 06/04/17 06/04/17 22:59 06:59 14:59 Intake Total 640 650 Output Total 1900 1350 Balance -1260 -700 Lab Results Last 24 Hours: Laboratory Results - last 24 hr 06/04/17 06/04/17 Range/Units 06:18 06:18 WBC 17.85 H (3.98-10.04) K/mm3 RBC 5.82 H (3.98-5.22) M/mm3 Hgb 15.3 (11.2-15.7) gm/L Hct 50.7 H (34.1-44.9) % MCV 87.1 (79.4-94.8) fl MCH 26.3 (25.6-32.2) pg MCHC 30.2 L (32.2-35.5) g/dl RDW Std Deviation 59.8 H (36.4-46.3) fL Plt Count 222 (182-369) K/mm3 MPV 11.1 (9.4-12.3) fl Neut % (Auto) 67.8 (34.0-71.1) % Lymph % (Auto) 15.6 L (19.3-51.7) % Cooper % (Auto) 12.8 H (4.7-12.5) % Eos % (Auto) 3.7 (0.7-5.8) Baso % (Auto) 0.1 (0.1-1.2) % Neut # (Auto) 12.09 H (1.56-6.13) K/mm3 Lymph # (Auto) 2.79 (1.18-3.74) K/mm3 Cooper # (Auto) 2.29 H (0.24-0.36) K/mm3 Eos # (Auto) 0.66 H (0.04-0.36) K/mm3 Baso # (Auto) 0.02 (0.01-0.08) K/mm3 Manual Slide Review Normal smear Sodium 141 (136-145) mEq/L Potassium 4.5 (3.5-5.1) mEq/L Chloride 102 (98-107) mEq/L Carbon Dioxide 35 H (21-32) mEq/L Anion Gap 8.5 (5-15) BUN 15 (7-18) mg/dL Creatinine 0.6 (0.55-1.02) mg/dL Est Cr Clr Drug Dosing 77.88 mL/min Estimated GFR (MDRD) > 60 (>60) mL/min BUN/Creatinine Ratio 25.0 H (14-18) Glucose 112 (80-115) mg/dL Calcium 8.5 (8.5-10.1) mg/dL Magnesium 2.1 (1.8-2.4) mg/dl Med Orders - Current: Current Medications Budesonide (Pulmicort) 0.5 mg NEB BIDRT [facility] Last Admin: 06/04/17 05:33 Dose: 0.5 mg Enoxaparin Sodium (Lovenox) 40 mg SUBCUT DAILY [facility] Last Admin: 06/04/17 08:14 Dose: 40 mg Furosemide (Lasix) 20 mg PO BIDDIURETIC [facility] Last Admin: 06/04/17 06:01 Dose: 20 mg Ibuprofen (Motrin) 600 mg PO Q6H PRN PRN Reason: Pain Last Admin: 06/03/17 08:11 Dose: 600 mg Ipratropium [place] (Atrovent) 0.5 mg NEB QIDRT [facility] Last Admin: 06/04/17 09:11 Dose: 0.5 mg Levalbuterol HCl (Xopenex) 1.25 mg NEB Q4HRRT PRN PRN Reason: Shortness of Breath Last Admin: 06/01/17 15:55 Dose: 1.25 mg Levothyroxine Sodium (Levothyroxine) 112 mcg PO ACBREAKFAST [facility] Last Admin: 06/04/17 06:00 Dose: 112 mcg Liothyronine Sodium (Cytomel) 5 mcg PO ACBREAKFAST [facility] Last Admin: 06/04/17 06:00 Dose: 5 mcg Metoprolol Tartrate (Lopressor) 25 mg PO Q12HR [facility] Last Admin: 06/04/17 08:16 Dose: 25 mg Metoprolol Tartrate (Lopressor) 5 mg IVPUSH Q4H PRN PRN Reason: HR>120 Last Admin: 06/04/17 08:19 Dose: 5 mg Miscellaneous Information (Remove Patch) 1 ea TRDERM DAILY [facility] Last Admin: 06/04/17 09:48 Dose: 1 ea Nicotine (Habitrol) 21 mg TRDERM DAILY [facility] Last Admin: 06/04/17 08:15 Dose: 21 mg Prednisone (Prednisone) 40 mg PO WITHBREAKFAST [facility] Last Admin: 06/04/17 06:01 Dose: 40 mg Saccharomyces Boulardii (Florastor) 250 mg PO BID [facility] Last Admin: 06/04/17 08:14 Dose: 250 mg Tamsulosin HCl (Flomax) 0.4 mg PO PCBREAKFAST [facility] Last Admin: 06/04/17 09:48 Dose: 0.4 mg Discontinued Medications Albuterol (Proventil Neb Soln) 2.5 mg NEB Q4HRRT PRN PRN Reason: Shortness of Breath Albuterol/Ipratropium (Duoneb 3.0-0.5 Mg/3 Ml) 3 ml NEB ONETIME ONE Stop: 05/24/17 05:20 Last Admin: 05/24/17 05:21 Dose: 3 ml Albuterol/Ipratropium (Duoneb 3.0-0.5 Mg/3 Ml) Confirm Administered Dose 3 ml .ROUTE .STK-MED ONE Stop: 05/24/17 05:26 Last Admin: 05/24/17 05:36 Dose: Not Given Albuterol/Ipratropium (Duoneb 3.0-0.5 Mg/3 Ml) 3 ml NEB QIDRT PRN PRN Reason: Shortness of Breath Last Admin: 05/24/17 12:52 Dose: 3 ml Buspirone HCl (Buspar) 15 mg PO BID [facility] Last Admin: 05/31/17 08:49 Dose: 15 mg Enoxaparin Sodium (Lovenox) 40 mg SUBCUT DAILY [facility] Last Admin: 05/24/17 13:40 Dose: 40 mg Enoxaparin Sodium (Lovenox) 150 mg SUBCUT Q12HR [facility] Last Admin: 05/30/17 13:17 Dose: Not Given Enoxaparin Sodium (Lovenox) 40 mg SUBCUT Q12HR [facility] Furosemide (Lasix) 20 mg IVPUSH BIDDIURETIC [facility] Last Admin: 05/30/17 06:04 Dose: 20 mg Levofloxacin/Dextrose 750 mg/ (Premix) 150 mls @ 100 mls/hr IV ONETIME ONE Stop: 05/24/17 10:03 Last Admin: 05/24/17 09:40 Dose: 100 mls/hr Levofloxacin/Dextrose 750 mg/ (Premix) 150 mls @ 100 mls/hr IV Q24H [facility] Last Admin: 05/28/17 03:13 Dose: 100 mls/hr Vancomycin HCl 2 gm/ Sodium (Chloride) 500 mls @ 500 mls/hr IV ONETIME ONE Stop: 05/24/17 14:59 Last Admin: 05/24/17 14:53 Dose: 500 mls/hr Vancomycin HCl 1 gm/Vancomycin HCl 500 mg/ Sodium Chloride 250 mls @ 125 mls/ hr IV Q12H [facility] Last Admin: 05/25/17 01:43 Dose: 125 mls/hr Diltiazem HCl 125 mg/ Sodium (Chloride) 125 mls @ 10 mls/hr IV TITRATE [facility]; 10 MG/HR PRN Reason: Protocol Vancomycin HCl 1 gm/Vancomycin HCl 500 mg/ Sodium Chloride 500 mls @ 333.333 mls/hr IV Q12H [facility] Last Admin: 05/26/17 01:23 Dose: 333.333 mls/hr Ipratropium [place] (Atrovent) 0.5 mg NEB QID [facility] Levalbuterol HCl (Xopenex) 1.25 mg NEB ONETIME ONE Stop: 05/24/17 17:42 Last Admin: 05/24/17 18:04 Dose: 1.25 mg Levalbuterol HCl (Xopenex) 1.25 mg NEB Q6HRRT PRN PRN Reason: Shortness of Breath Levalbuterol HCl (Xopenex) 2.5 mg NEB ONETIME ONE Stop: 05/26/17 09:47 Last Admin: 05/26/17 10:02 Dose: 2.5 mg Levofloxacin (Levaquin) 750 mg PO Q24H [facility] Last Admin: 05/31/17 06:59 Dose: 750 mg Methylprednisolone Sodium Succinate (Solu-Medrol) 125 mg IVPUSH ONETIME ONE Stop: 05/26/17 10:08 Last Admin: 05/26/17 10:31 Dose: 125 mg Methylprednisolone Sodium Succinate (Solu-Medrol) 125 mg IVPUSH Q6H [facility] Last Admin: 05/29/17 10:49 Dose: 125 mg Methylprednisolone Sodium Succinate (Solu-Medrol) 80 mg IVPUSH Q12H [facility] Last Admin: 05/29/17 22:06 Dose: 80 mg Metoprolol Tartrate (Lopressor) Confirm Administered Dose 5 mg .ROUTE .STK-MED ONE Stop: 05/24/17 17:51 Last Admin: 05/24/17 18:52 Dose: Not Given Nystatin (Nystop) 0 gm TOP TID [facility] Nystatin (Nystop) 0 gm TOP TID [facility] Last Admin: 06/02/17 18:25 Dose: Not Given Oseltamivir Phosphate (Tamiflu) 75 mg PO BID [facility] Stop: 05/28/17 14:01 Last Admin: 05/28/17 11:27 Dose: 75 mg Pneumococcal Polyvalent Vaccine (Pneumovax 23) 0.5 ml IM .ONCE ONE Stop: 05/24/17 14:53 Vancomycin HCl (Pharmacy To Dose - Vancomycin) 0 dose .XX ASDIRECTED PRN PRN Reason: RX TO DOSE VANCOMYCIN - Exam Quality Assessment: Supplemental Oxygen, DVT Prophylaxis General: Alert, Oriented, Cooperative, No Acute Distress HEENT: Pupils Equal, Pupils Reactive, EOMI, Mucous Membr. Moist/[place] Neck: Supple, Trachea Midline, No JVD Lungs: Normal Respiratory Effort, Decreased Breath Sounds Cardiovascular: Regular Rate, Regular Rhythm GI/Abdominal Exam: Normal Bowel Sounds, Soft, Non-Tender, No Organomegaly, No Distention, No Abnormal Bruit, No Mass, Pelvis Stable (Female) Exam: Deferred Extremities: Non-Tender, No Pedal Edema, Normal Capillary Refill, Redness ( improved to resolved ), Other (Dry scaly skin bilaterally.) Peripheral Pulses: 1+: Posterior Tibial (L), Posterior Tibial (R), Dorsalis Pedis (L), Dorsalis Pedis (R), 2+: Radial (L), Radial (R) Skin: Warm, Dry, Intact Wound/Incisions: Healing Well Neurological: No New Focal Deficit Psy/Mental Status: Alert, Normal Affect, Normal Mood - Problem List & Annotations (1) Acute bronchitis SNOMED Code(s): 96298907 Code(s): J20.9 - ACUTE BRONCHITIS, UNSPECIFIED Status: Resolved Priority : High Current Visit: Yes Qualifiers: Bronchitis organism: unspecified organism Qualified Code(s): J20.9 - Acute bronchitis, unspecified (2) Acute exacerbation of chronic obstructive pulmonary disease (COPD) SNOMED Code(s): 351392960 Code(s): J44.1 - CHRONIC OBSTRUCTIVE PULMONARY DISEASE W (ACUTE) EXACERBATION Status: Acute Priority: High Current Visit: Yes (3) Bilateral lower leg cellulitis SNOMED Code(s): 495660353 Code(s): L03.116 - CELLULITIS OF LEFT LOWER LIMB; L03.115 - CELLULITIS OF RIGHT LOWER LIMB Status: Resolved Priority: High Current Visit: Yes (4) COPD (chronic obstructive pulmonary disease) SNOMED Code(s): 85873947 Code(s): J44.9 - CHRONIC OBSTRUCTIVE PULMONARY DISEASE, UNSPECIFIED Status : Acute Priority: High Current Visit: Yes Qualifiers: COPD type: COPD with acute lower respiratory infection Qualified Code(s): J44.0 - Chronic obstructive pulmonary disease with acute lower respiratory infection (5) Edema of both lower legs due to peripheral venous insufficiency SNOMED Code(s): 80973055471569443 Code(s): I87.2 - VENOUS INSUFFICIENCY (CHRONIC) (PERIPHERAL); R60.9 - EDEMA, UNSPECIFIED Status: Chronic Priority: Medium Current Visit: Yes (6) Hypoxemia SNOMED Code(s): 121000833 Code(s): R09.02 - HYPOXEMIA Status: Acute Priority: High Current Visit : Yes (7) Morbid obesity SNOMED Code(s): 945342709 Code(s): E66.01 - MORBID (SEVERE) OBESITY DUE TO EXCESS CALORIES Status: Chronic Priority: High Current Visit: Yes (8) Tobacco use disorder SNOMED Code(s): 444005489 Code(s): F17.200 - NICOTINE DEPENDENCE, UNSPECIFIED, UNCOMPLICATED Status: Chronic Priority: High Current Visit: Yes (9) Influenza A SNOMED Code(s): 201192866 Code(s): J10.1 - FLU DUE TO OTH IDENT INFLUENZA VIRUS W OTH RESP MANIFEST Status: Resolved Priority: High Current Visit: Yes (10) Hypothyroidism SNOMED Code(s): 35065299 Code(s): E03.9 - HYPOTHYROIDISM, UNSPECIFIED Status: Chronic Priority: Medium Current Visit: Yes Qualifiers: Hypothyroidism type: unspecified Qualified Code(s): E03.9 - Hypothyroidism , unspecified - Problem List Review Problem List Initiated/Reviewed/Updated: Yes - My Orders Last 24 Hours: My Active Orders 06/03/17 12:13 Central Line PICC Discontinue [OM.PC] Routine 06/05/17 05:11 BASIC METABOLIC PANEL,BMP [CHEM] AM CBC WITH AUTO DIFF [HEME] AM MAGNESIUM [CHEM] AM 06/06/17 05:11 BASIC METABOLIC PANEL,BMP [CHEM] AM CBC WITH AUTO DIFF [HEME] AM MAGNESIUM [CHEM] AM 06/07/17 05:11 BASIC METABOLIC PANEL,BMP [CHEM] AM CBC WITH AUTO DIFF [HEME] AM MAGNESIUM [CHEM] AM - Plan Plan:: Impression: Acute: COPD Exacerbation, Significantly Improved to resolved - She is an active smoker; smokes 1 or <1 ppd; counseled on smoking cessation - nicotine patch at [place] - Continue RT Care, Supplemental O2, Bronchodilators, Smooth Muscle Relaxant - D/c Levaquin-she has no pneumonia - PFT result -severe disease, no response to bronchodilators - Start oral azithromycin 250 mg po daily for anti-inflammatory agent; completed course - Switch IV steroid to oral prednisone for pharmacy to put in-- Prednisone taper on discharge--- prednisone currently at 40mg PO daily OHS/Probable LIZ - Morbidly Obese with BMI of 64 - Poor functional capacity; she is wheelchair bound - Screen for LIZ with STOP BANG - Counseled on LSM - Recommend Sleep study after discharge Hypercapnea - CO2 34-41; she is alert and awake--likely chronic retainer with COPD and suspected LIZ - 2/2 OHS/LIZ - Supplemental O2 during the day to keep sats >90% - Needs BiPAP at HS Tobacco Abuse/Dependence - She is still an active smoker - Counseled on smoking cessation - Nicotine patch 21 mg daily Morbid Obesity - BMI 64-->61.9 - Slowly loosing weight during stay - Dietary on board for weight management - Counseled on LSM CHF, NYHA functional clas III, stage C -HF with Preserved EF -2D echo: LVEF 65%, Grade 1 pattern LV diastolic filling, Severely elevated RVSP,Dilated inferior vena cava with rest or size variation less than 50% and RV volume/pressure overload -Continue diuretic and 2L fluid daily restriction, BB Query Pulmonary Venous Hypertension--> Echo obtained as above - Advised LSM - Continue diuretic, BB SSTI/Cellullitis, Improved - Risk Factors: Chronic Venous Insufficiency and Poor Hygiene due to Immobility - Positive for Staph aureus and beta strep group B from culture - Small coin like lesion on right bernardo-lateral meléndez - Skin irritation on skin fold in the groin area - Abx course completed, cont probiotic - Discontinue Bari wrapped; Cover lesion with gauze loosely BID - PADNET study ordered- no PVD bilaterally Anxiety/Depression - [place] I - She has no clinical depression or anxiety per tele-psych consult - Dr. De La O did not recommend any psych meds - Will d/c Buspar - No need for level [address] Hou - Awaiting screening results, has been seen; placement is pending this screening currently Resolved: Inadequate IV Access - peripheral IV established by nursing - Nursing will attempt to switch to periphreal IV today, if no success will keep PICC - Risks and benefits discussed with patient. Resolved: S/p A Fib with RVR S/p Electrolyte abnormalities Chronic: A Fib--rates controlled now HLD HTN- stable Venous Insufficiency IBS Hypohyroidism-- recommend recheck TSH in 8-12 wks Morbid obesity Plan: She is clinically stable Continue current treatment BIPAP at HS with supplemental O2 to keep sat>90% PFTs completed in house *Needs dental consult at discharge (Re: pain when eating) - soft diet Obesity diet/exercise education Smoking cessation education Continue PT/OT-to improve functional capacity Code Status: Full code, PCP: Dr. Milton LOS > 96 HR due to SNF placement, slow response to treatment; Likely discharge to [facility] [place]hab pending level 2 screening results.
[2017-06-05] MEDS: Ipratropium 0.02% 0.5 MG/2.5 ML Neb Soln NEB SCH ×4 (06:03→21:14)
[2017-06-05] MEDS: Budesonide 0.5 MG/2 ML Neb Susp NEB SCH ×2 (06:03→21:14)
[2017-06-05] MEDS: Furosemide 20 MG Tab PO SCH ×2 (06:21→15:00)
[2017-06-05] MEDS: Liothyronine 5 MCG Tab PO SCH (06:21)
[2017-06-05] MEDS: Levothyroxine 112 MCG Tab PO SCH (06:21)
[2017-06-05] MEDS: predniSONE 20 MG Tab PO SCH (06:21)
[2017-06-05] MEDS: Nicotine 21 MG/24 Hr Patch TRDERM SCH (09:07)
[2017-06-05] MEDS: Saccharomyces Boulardii (Probiotic) 250 MG Cap PO SCH ×2 (09:07→21:00)
[2017-06-05] MEDS: Metoprolol Tartrate 25 MG Tab PO SCH ×2 (09:10→21:00)
[2017-06-05] MEDS: Enoxaparin 40 MG/0.4 ML Syringe SUBCUT SCH (09:10)
[2017-06-05] MEDS: Tamsulosin 0.4 MG Cap.ER PO SCH (11:43)
--- NOTE | 2017-06-05 15:27 | PCM.PN ---
- General Info Date of Service: 06/05/17 Admission Dx/Problem (Free Text): A-fib with RVR, Cellulitis Subjective Update: In to see Danielle. She is doing well. Lying in bed watching TV. Labs continue to look good. Her WBC is elevated but still likely from her steroids. Will discontinue steroids. Functional Status: Reports: Pain Controlled, Tolerating Diet, Ambulating, Urinating, Incentive Spirometry. Denies: New Symptoms - Review of Systems General: Reports: No Symptoms HEENT: Reports: No Symptoms Pulmonary: Reports: Shortness of Breath (at baseline ). Denies: Cough, Sputum Cardiovascular: Reports: Dyspnea on Exertion (at baseline ). Denies: Chest Pain , Orthopnea, Edema, Lightheadedness Gastrointestinal: Reports: No Symptoms Genitourinary: Reports: No Symptoms Musculoskeletal: Reports: No Symptoms Skin: Reports: No Symptoms Neurological: Reports: No Symptoms Psychiatric: Reports: No Symptoms - Patient Data Vitals - Most Recent: Last Vital Signs Temp 97.5 F 06/05/17 11:15 Pulse 66 06/05/17 11:46 Resp 17 06/05/17 11:15 BP 114/62 06/05/17 11:15 Pulse Ox 88 L 06/05/17 11:46 Weight - Most Recent: 335 lb 3.2 oz I&O - Last 24 Hours: Intake & Output 06/05/17 06/05/17 06/05/17 06:59 14:59 22:59 Intake Total 400 300 Output Total 550 Balance -150 300 Lab Results Last 24 Hours: Laboratory Results - last 24 hr 06/05/17 06/05/17 Range/Units 06:26 06:26 WBC 17.03 H (3.98-10.04) K/mm3 RBC 5.70 H (3.98-5.22) M/mm3 Hgb 14.6 (11.2-15.7) gm/L Hct 49.3 H (34.1-44.9) % MCV 86.5 (79.4-94.8) fl MCH 25.6 (25.6-32.2) pg MCHC 29.6 L (32.2-35.5) g/dl RDW Std Deviation 58.7 H (36.4-46.3) fL Plt Count 196 (182-369) K/mm3 MPV 10.9 (9.4-12.3) fl Neut % (Auto) 64.4 (34.0-71.1) % Lymph % (Auto) 16.6 L (19.3-51.7) % [place] % (Auto) 13.7 H (4.7-12.5) % Eos % (Auto) 4.0 (0.7-5.8) Baso % (Auto) 0.2 (0.1-1.2) % Neut # (Auto) 10.98 H (1.56-6.13) K/mm3 Lymph # (Auto) 2.82 (1.18-3.74) K/mm3 [place] # (Auto) 2.34 H (0.24-0.36) K/mm3 Eos # (Auto) 0.68 H (0.04-0.36) K/mm3 Baso # (Auto) 0.03 (0.01-0.08) K/mm3 Manual Slide Review Abnormal smear Sodium 141 (136-145) mEq/L Potassium 4.5 (3.5-5.1) mEq/L Chloride 101 (98-107) mEq/L Carbon Dioxide 37 H (21-32) mEq/L Anion Gap 7.5 (5-15) BUN 14 (7-18) mg/dL Creatinine 0.6 (0.55-1.02) mg/dL Est Cr Clr Drug Dosing 77.88 mL/min Estimated GFR (MDRD) > 60 (>60) mL/min BUN/Creatinine Ratio 23.3 H (14-18) Glucose 101 (80-115) mg/dL Calcium 8.8 (8.5-10.1) mg/dL Magnesium 2.2 (1.8-2.4) mg/dl Med Orders - Current: Current Medications Budesonide (Pulmicort) 0.5 mg NEB BIDRT [facility] Last Admin: 06/05/17 06:03 Dose: 0.5 mg Enoxaparin Sodium (Lovenox) 40 mg SUBCUT DAILY [facility] Last Admin: 06/05/17 09:10 Dose: 40 mg Furosemide (Lasix) 20 mg PO BIDDIURETIC [facility] Last Admin: 06/05/17 15:00 Dose: 20 mg Ibuprofen (Motrin) 600 mg PO Q6H PRN PRN Reason: Pain Last Admin: 06/03/17 08:11 Dose: 600 mg Ipratropium [place] (Atrovent) 0.5 mg NEB QIDRT [facility] Last Admin: 06/05/17 09:31 Dose: 0.5 mg Levalbuterol HCl (Xopenex) 1.25 mg NEB Q4HRRT PRN PRN Reason: Shortness of Breath Last Admin: 06/01/17 15:55 Dose: 1.25 mg Levothyroxine Sodium (Levothyroxine) 112 mcg PO ACBREAKFAST [facility] Last Admin: 06/05/17 06:21 Dose: 112 mcg Liothyronine Sodium (Cytomel) 5 mcg PO ACBREAKFAST [facility] Last Admin: 06/05/17 06:21 Dose: 5 mcg Metoprolol Tartrate (Lopressor) 25 mg PO Q12HR [facility] Last Admin: 06/05/17 09:10 Dose: 25 mg Metoprolol Tartrate (Lopressor) 5 mg IVPUSH Q4H PRN PRN Reason: HR>120 Last Admin: 06/04/17 08:19 Dose: 5 mg Nicotine (Habitrol) 21 mg TRDERM DAILY [facility] Last Admin: 06/05/17 09:07 Dose: 21 mg Prednisone (Prednisone) 40 mg PO WITHBREAKFAST [facility] Last Admin: 06/05/17 06:21 Dose: 40 mg Saccharomyces Boulardii (Florastor) 250 mg PO BID [facility] Last Admin: 06/05/17 09:07 Dose: 250 mg Tamsulosin HCl (Flomax) 0.4 mg PO PCBREAKFAST [facility] Last Admin: 06/05/17 11:43 Dose: 0.4 mg Discontinued Medications Albuterol (Proventil Neb Soln) 2.5 mg NEB Q4HRRT PRN PRN Reason: Shortness of Breath Albuterol/Ipratropium (Duoneb 3.0-0.5 Mg/3 Ml) 3 ml NEB ONETIME ONE Stop: 05/24/17 05:20 Last Admin: 05/24/17 05:21 Dose: 3 ml Albuterol/Ipratropium (Duoneb 3.0-0.5 Mg/3 Ml) Confirm Administered Dose 3 ml .ROUTE .STK-MED ONE Stop: 05/24/17 05:26 Last Admin: 05/24/17 05:36 Dose: Not Given Albuterol/Ipratropium (Duoneb 3.0-0.5 Mg/3 Ml) 3 ml NEB QIDRT PRN PRN Reason: Shortness of Breath Last Admin: 05/24/17 12:52 Dose: 3 ml Buspirone HCl (Buspar) 15 mg PO BID [facility] Last Admin: 05/31/17 08:49 Dose: 15 mg Enoxaparin Sodium (Lovenox) 40 mg SUBCUT DAILY [facility] Last Admin: 05/24/17 13:40 Dose: 40 mg Enoxaparin Sodium (Lovenox) 150 mg SUBCUT Q12HR [facility] Last Admin: 05/30/17 13:17 Dose: Not Given Enoxaparin Sodium (Lovenox) 40 mg SUBCUT Q12HR [facility] Furosemide (Lasix) 20 mg IVPUSH BIDDIURETIC [facility] Last Admin: 05/30/17 06:04 Dose: 20 mg Levofloxacin/Dextrose 750 mg/ (Premix) 150 mls @ 100 mls/hr IV ONETIME ONE Stop: 05/24/17 10:03 Last Admin: 05/24/17 09:40 Dose: 100 mls/hr Levofloxacin/Dextrose 750 mg/ (Premix) 150 mls @ 100 mls/hr IV Q24H [facility] Last Admin: 05/28/17 03:13 Dose: 100 mls/hr Vancomycin HCl 2 gm/ Sodium (Chloride) 500 mls @ 500 mls/hr IV ONETIME ONE Stop: 05/24/17 14:59 Last Admin: 05/24/17 14:53 Dose: 500 mls/hr Vancomycin HCl 1 gm/Vancomycin HCl 500 mg/ Sodium Chloride 250 mls @ 125 mls/ hr IV Q12H [facility] Last Admin: 05/25/17 01:43 Dose: 125 mls/hr Diltiazem HCl 125 mg/ Sodium (Chloride) 125 mls @ 10 mls/hr IV TITRATE [facility]; 10 MG/HR PRN Reason: Protocol Vancomycin HCl 1 gm/Vancomycin HCl 500 mg/ Sodium Chloride 500 mls @ 333.333 mls/hr IV Q12H [facility] Last Admin: 05/26/17 01:23 Dose: 333.333 mls/hr Ipratropium [place] (Atrovent) 0.5 mg NEB QID [facility] Levalbuterol HCl (Xopenex) 1.25 mg NEB ONETIME ONE Stop: 05/24/17 17:42 Last Admin: 05/24/17 18:04 Dose: 1.25 mg Levalbuterol HCl (Xopenex) 1.25 mg NEB Q6HRRT PRN PRN Reason: Shortness of Breath Levalbuterol HCl (Xopenex) 2.5 mg NEB ONETIME ONE Stop: 05/26/17 09:47 Last Admin: 05/26/17 10:02 Dose: 2.5 mg Levofloxacin (Levaquin) 750 mg PO Q24H [facility] Last Admin: 05/31/17 06:59 Dose: 750 mg Methylprednisolone Sodium Succinate (Solu-Medrol) 125 mg IVPUSH ONETIME ONE Stop: 05/26/17 10:08 Last Admin: 05/26/17 10:31 Dose: 125 mg Methylprednisolone Sodium Succinate (Solu-Medrol) 125 mg IVPUSH Q6H [facility] Last Admin: 05/29/17 10:49 Dose: 125 mg Methylprednisolone Sodium Succinate (Solu-Medrol) 80 mg IVPUSH Q12H [facility] Last Admin: 05/29/17 22:06 Dose: 80 mg Metoprolol Tartrate (Lopressor) Confirm Administered Dose 5 mg .ROUTE .STK-MED ONE Stop: 05/24/17 17:51 Last Admin: 05/24/17 18:52 Dose: Not Given Miscellaneous Information (Remove Patch) 1 ea TRDERM DAILY [facility] Last Admin: 06/05/17 09:11 Dose: 1 ea Nystatin (Nystop) 0 gm TOP TID [facility] Nystatin (Nystop) 0 gm TOP TID [facility] Last Admin: 06/02/17 18:25 Dose: Not Given Oseltamivir Phosphate (Tamiflu) 75 mg PO BID [facility] Stop: 05/28/17 14:01 Last Admin: 05/28/17 11:27 Dose: 75 mg Pneumococcal Polyvalent Vaccine (Pneumovax 23) 0.5 ml IM .ONCE ONE Stop: 05/24/17 14:53 Vancomycin HCl (Pharmacy To Dose - Vancomycin) 0 dose .XX ASDIRECTED PRN PRN Reason: RX TO DOSE VANCOMYCIN - Exam Quality Assessment: Supplemental Oxygen, DVT Prophylaxis General: Alert, Oriented, Cooperative, No Acute Distress HEENT: Pupils Equal, Pupils Reactive, EOMI, Mucous Membr. Moist/[place] Neck: Supple, Trachea Midline Lungs: Normal Respiratory Effort, Decreased Breath Sounds, Wheezing (mild ) Cardiovascular: Regular Rate, Tachycardia GI/Abdominal Exam: Normal Bowel Sounds, Soft, Non-Tender, No Organomegaly, No Distention, No Abnormal Bruit, No Mass, Pelvis Stable (Female) Exam: Deferred Back Exam: Normal Inspection, Full Range of Motion Extremities: Normal Range of Motion, Non-Tender, No Pedal Edema, Normal Capillary Refill, Redness (stable ). No: Leg Pain, Increased Warmth Peripheral Pulses: 1+: Posterior Tibial (L), Posterior Tibial (R), Dorsalis Pedis (L), Dorsalis Pedis (R), 2+: Radial (L), Radial (R) Skin: Warm, Dry, Intact Neurological: No New Focal Deficit Psy/Mental Status: Alert, Normal Affect, Normal Mood - Problem List & Annotations (1) Acute bronchitis SNOMED Code(s): 14299826 Code(s): J20.9 - ACUTE BRONCHITIS, UNSPECIFIED Status: Resolved Priority : High Current Visit: Yes Qualifiers: Bronchitis organism: unspecified organism Qualified Code(s): J20.9 - Acute bronchitis, unspecified (2) Acute exacerbation of chronic obstructive pulmonary disease (COPD) SNOMED Code(s): 686519648 Code(s): J44.1 - CHRONIC OBSTRUCTIVE PULMONARY DISEASE W (ACUTE) EXACERBATION Status: Acute Priority: High Current Visit: Yes (3) Bilateral lower leg cellulitis SNOMED Code(s): 284038527 Code(s): L03.116 - CELLULITIS OF LEFT LOWER LIMB; L03.115 - CELLULITIS OF RIGHT LOWER LIMB Status: Resolved Priority: High Current Visit: Yes (4) COPD (chronic obstructive pulmonary disease) SNOMED Code(s): 45286608 Code(s): J44.9 - CHRONIC OBSTRUCTIVE PULMONARY DISEASE, UNSPECIFIED Status : Acute Priority: High Current Visit: Yes Qualifiers: COPD type: COPD with acute lower respiratory infection Qualified Code(s): J44.0 - Chronic obstructive pulmonary disease with acute lower respiratory infection (5) Edema of both lower legs due to peripheral venous insufficiency SNOMED Code(s): 89269503668802505 Code(s): I87.2 - VENOUS INSUFFICIENCY (CHRONIC) (PERIPHERAL); R60.9 - EDEMA, UNSPECIFIED Status: Chronic Priority: Medium Current Visit: Yes (6) Hypoxemia SNOMED Code(s): 436645043 Code(s): R09.02 - HYPOXEMIA Status: Acute Priority: High Current Visit : Yes (7) Morbid obesity SNOMED Code(s): 479609928 Code(s): E66.01 - MORBID (SEVERE) OBESITY DUE TO EXCESS CALORIES Status: Chronic Priority: High Current Visit: Yes (8) Tobacco use disorder SNOMED Code(s): 132987688 Code(s): F17.200 - NICOTINE DEPENDENCE, UNSPECIFIED, UNCOMPLICATED Status: Chronic Priority: High Current Visit: Yes (9) Influenza A SNOMED Code(s): 292943454 Code(s): J10.1 - FLU DUE TO OTH IDENT INFLUENZA VIRUS W OTH RESP MANIFEST Status: Resolved Priority: High Current Visit: Yes (10) Hypothyroidism SNOMED Code(s): 07982344 Code(s): E03.9 - HYPOTHYROIDISM, UNSPECIFIED Status: Chronic Priority: Medium Current Visit: Yes Qualifiers: Hypothyroidism type: unspecified Qualified Code(s): E03.9 - Hypothyroidism , unspecified - Problem List Review Problem List Initiated/Reviewed/Updated: Yes - My Orders Last 24 Hours: My Active Orders 06/06/17 05:11 BASIC METABOLIC PANEL,BMP [CHEM] AM CBC WITH AUTO DIFF [HEME] AM MAGNESIUM [CHEM] AM 06/07/17 05:11 BASIC METABOLIC PANEL,BMP [CHEM] AM CBC WITH AUTO DIFF [HEME] AM MAGNESIUM [CHEM] AM - Plan Plan:: Impression: Acute: COPD Exacerbation, Significantly Improved to resolved - She is an active smoker; smokes 1 or <1 ppd; counseled on smoking cessation - nicotine patch at [place] - Continue RT Care, Supplemental O2, Bronchodilators, Smooth Muscle Relaxant - D/c Levaquin-she has no pneumonia - PFT result -severe disease, no response to bronchodilators - Start oral azithromycin 250 mg po daily for anti-inflammatory agent; completed course - Switch IV steroid to oral prednisone for pharmacy to put in-- Prednisone taper on discharge--- prednisone currently at 40mg PO daily OHS/Probable LIZ - Morbidly Obese with BMI of 64 - Poor functional capacity; she is wheelchair bound - Screen for LIZ with STOP BANG - Counseled on LSM - Recommend Sleep study after discharge Hypercapnea - CO2 34-41; she is alert and awake--likely chronic retainer with COPD and suspected LIZ - 2/2 OHS/LIZ - Supplemental O2 during the day to keep sats >90% - Needs BiPAP at HS Tobacco Abuse/Dependence - She is still an active smoker - Counseled on smoking cessation - Nicotine patch 21 mg daily Morbid Obesity - BMI 64-->61.9 - Slowly loosing weight during stay - Dietary on board for weight management - Counseled on LSM CHF, NYHA functional clas III, stage C -HF with Preserved EF -2D echo: LVEF 65%, Grade 1 pattern LV diastolic filling, Severely elevated RVSP,Dilated inferior vena cava with rest or size variation less than 50% and RV volume/pressure overload -Continue diuretic and 2L fluid daily restriction, BB Query Pulmonary Venous Hypertension--> Echo obtained as above - Advised LSM - Continue diuretic, BB SSTI/Cellullitis, resolved - Risk Factors: Chronic Venous Insufficiency and Poor Hygiene due to Immobility - Positive for Staph aureus and beta strep group B from culture - Small coin like lesion on right bernardo-lateral meléndez - Skin irritation on skin fold in the groin area - Abx course completed, cont probiotic - Discontinue Bari wrapped; Cover lesion with gauze loosely BID - PADNET study ordered- no PVD bilaterally Anxiety/Depression - [place] I - She has no clinical depression or anxiety per tele-psych consult - Dr. De La O did not recommend any psych meds - Will d/c Buspar - No need for level [address] Hou - Awaiting screening results, has been seen; placement is pending this screening currently Resolved: Inadequate IV Access - peripheral IV established by nursing - Nursing will attempt to switch to periphreal IV today, if no success will keep PICC - Risks and benefits discussed with patient. Resolved: S/p A Fib with RVR S/p Electrolyte abnormalities Chronic: A Fib--rates controlled now HLD HTN- stable Venous Insufficiency IBS Hypohyroidism-- recommend recheck TSH in 8-12 wks Morbid obesity Plan: She is clinically stable Continue current treatment BIPAP at HS with supplemental O2 to keep sat>90% PFTs completed in house *Needs dental consult at discharge (Re: pain when eating) - soft diet Obesity diet/exercise education Smoking cessation education Continue PT/OT-to improve functional capacity Code Status: Full code, PCP: Dr. Milton LOS > 96 HR due to SNF placement, slow response to treatment; Likely discharge to [facility]/rehab pending level 2 screening results.
[2017-06-06] MEDS: predniSONE 20 MG Tab PO SCH (06:09)
[2017-06-06] MEDS: Levothyroxine 112 MCG Tab PO SCH (06:09)
[2017-06-06] MEDS: Furosemide 20 MG Tab PO SCH ×2 (06:09→13:49)
[2017-06-06] MEDS: Budesonide 0.5 MG/2 ML Neb Susp NEB SCH ×2 (06:17→20:30)
[2017-06-06] MEDS: Ipratropium 0.02% 0.5 MG/2.5 ML Neb Soln NEB SCH ×3 (06:17→15:42)
[2017-06-06] MEDS: Liothyronine 5 MCG Tab PO SCH (06:28)
--- NOTE | 2017-06-06 07:44 | PCM.PN ---
- General Info Date of Service: 06/06/17 Admission Dx/Problem (Free Text): A-fib with RVR, Cellulitis Subjective Update: No overnight or acute issues. She is doing relatively well. She has no new complaints or issues. Functional Status: Reports: Pain Controlled, Tolerating Diet, Urinating - Review of Systems General: Denies: Fever, Weakness, Fatigue, Malaise, Chills HEENT: Reports: No Symptoms Pulmonary: Denies: Shortness of Breath Cardiovascular: Denies: Chest Pain Gastrointestinal: Reports: Flatus. Denies: Abdominal Pain, Constipation, Diarrhea, Nausea, Vomiting Genitourinary: Reports: No Symptoms Musculoskeletal: Reports: No Symptoms Skin: Denies: Cyanosis, Mottled, Pallor, Diaphoresis Neurological: Reports: Difficulty Walking, Gait Disturbance. Denies: Confusion , Weakness Psychiatric: Denies: Depression, Mood Lability, Anxiety, Agitation, Hallucinations Systems Review Comment:: No overnight or acute issues. She is doing relatively well. She has no new complaints. - Patient Data Vitals - Most Recent: Last Vital Signs Temp 36.7 C 06/05/17 19:25 Pulse 80 06/05/17 21:00 Resp 19 06/05/17 19:25 BP 131/61 06/05/17 21:00 Pulse Ox 90 L 06/06/17 06:20 Weight - Most Recent: 150.729 kg I&O - Last 24 Hours: Intake & Output 06/05/17 06/06/17 06/06/17 22:59 06:59 14:59 Intake Total 1000 300 Output Total 550 1800 Balance 450 -1500 Lab Results Last 24 Hours: Laboratory Results - last 24 hr 06/05/17 06/06/17 06/06/17 Range/Units 06:26 05:40 05:40 WBC 16.68 H (3.98-10.04) K/mm3 RBC 5.72 H (3.98-5.22) M/mm3 Hgb 14.7 (11.2-15.7) gm/L Hct 49.6 H (34.1-44.9) % MCV 86.7 (79.4-94.8) fl MCH 25.7 (25.6-32.2) pg MCHC 29.6 L (32.2-35.5) g/dl RDW Std Deviation 59.4 H (36.4-46.3) fL Plt Count 201 (182-369) K/mm3 MPV 11.8 (9.4-12.3) fl Neut % (Auto) 64.1 (34.0-71.1) % Lymph % (Auto) 17.0 L (19.3-51.7) % [place] % (Auto) 12.9 H (4.7-12.5) % Eos % (Auto) 4.7 (0.7-5.8) Baso % (Auto) 0.1 (0.1-1.2) % Neut # (Auto) 10.68 H (1.56-6.13) K/mm3 Lymph # (Auto) 2.84 (1.18-3.74) K/mm3 [place] # (Auto) 2.15 H (0.24-0.36) K/mm3 Eos # (Auto) 0.79 H (0.04-0.36) K/mm3 Baso # (Auto) 0.02 (0.01-0.08) K/mm3 Manual Slide Review Abnormal smear Normal smear Sodium 141 (136-145) mEq/L Potassium 3.8 (3.5-5.1) mEq/L Chloride 100 (98-107) mEq/L Carbon Dioxide 35 H (21-32) mEq/L Anion Gap 9.8 (5-15) BUN 15 (7-18) mg/dL Creatinine 0.7 (0.55-1.02) mg/dL Est Cr Clr Drug Dosing 66.75 mL/min Estimated GFR (MDRD) > 60 (>60) mL/min BUN/Creatinine Ratio 21.4 H (14-18) Glucose 89 (80-115) mg/dL Calcium 8.8 (8.5-10.1) mg/dL Magnesium 2.1 (1.8-2.4) mg/dl Med Orders - Current: Current Medications Budesonide (Pulmicort) 0.5 mg NEB BIDRT [facility] Last Admin: 06/06/17 06:17 Dose: 0.5 mg Enoxaparin Sodium (Lovenox) 40 mg SUBCUT DAILY [facility] Last Admin: 06/05/17 09:10 Dose: 40 mg Furosemide (Lasix) 20 mg PO BIDDIURETIC [facility] Last Admin: 06/06/17 06:09 Dose: 20 mg Ibuprofen (Motrin) 600 mg PO Q6H PRN PRN Reason: Pain Last Admin: 06/03/17 08:11 Dose: 600 mg Ipratropium [place] (Atrovent) 0.5 mg NEB QIDRT [facility] Last Admin: 06/06/17 06:17 Dose: 0.5 mg Levalbuterol HCl (Xopenex) 1.25 mg NEB Q4HRRT PRN PRN Reason: Shortness of Breath Last Admin: 06/01/17 15:55 Dose: 1.25 mg Levothyroxine Sodium (Levothyroxine) 112 mcg PO ACBREAKFAST [facility] Last Admin: 06/06/17 06:09 Dose: 112 mcg Liothyronine Sodium (Cytomel) 5 mcg PO ACBREAKFAST [facility] Last Admin: 06/06/17 06:28 Dose: 5 mcg Metoprolol Tartrate (Lopressor) 25 mg PO Q12HR [facility] Last Admin: 06/05/17 21:00 Dose: 25 mg Metoprolol Tartrate (Lopressor) 5 mg IVPUSH Q4H PRN PRN Reason: HR>120 Last Admin: 06/04/17 08:19 Dose: 5 mg Nicotine (Habitrol) 21 mg TRDERM DAILY [facility] Last Admin: 06/05/17 09:07 Dose: 21 mg Prednisone (Prednisone) 40 mg PO WITHBREAKFAST [facility] Last Admin: 06/06/17 06:09 Dose: 40 mg Saccharomyces Boulardii (Florastor) 250 mg PO BID [facility] Last Admin: 06/05/17 21:00 Dose: 250 mg Tamsulosin HCl (Flomax) 0.4 mg PO PCBREAKFAST [facility] Last Admin: 06/05/17 11:43 Dose: 0.4 mg Discontinued Medications Albuterol (Proventil Neb Soln) 2.5 mg NEB Q4HRRT PRN PRN Reason: Shortness of Breath Albuterol/Ipratropium (Duoneb 3.0-0.5 Mg/3 Ml) 3 ml NEB ONETIME ONE Stop: 05/24/17 05:20 Last Admin: 05/24/17 05:21 Dose: 3 ml Albuterol/Ipratropium (Duoneb 3.0-0.5 Mg/3 Ml) Confirm Administered Dose 3 ml .ROUTE .STK-MED ONE Stop: 05/24/17 05:26 Last Admin: 05/24/17 05:36 Dose: Not Given Albuterol/Ipratropium (Duoneb 3.0-0.5 Mg/3 Ml) 3 ml NEB QIDRT PRN PRN Reason: Shortness of Breath Last Admin: 05/24/17 12:52 Dose: 3 ml Buspirone HCl (Buspar) 15 mg PO BID [facility] Last Admin: 05/31/17 08:49 Dose: 15 mg Enoxaparin Sodium (Lovenox) 40 mg SUBCUT DAILY [facility] Last Admin: 05/24/17 13:40 Dose: 40 mg Enoxaparin Sodium (Lovenox) 150 mg SUBCUT Q12HR [facility] Last Admin: 05/30/17 13:17 Dose: Not Given Enoxaparin Sodium (Lovenox) 40 mg SUBCUT Q12HR [facility] Furosemide (Lasix) 20 mg IVPUSH BIDDIURETIC [facility] Last Admin: 05/30/17 06:04 Dose: 20 mg Levofloxacin/Dextrose 750 mg/ (Premix) 150 mls @ 100 mls/hr IV ONETIME ONE Stop: 05/24/17 10:03 Last Admin: 05/24/17 09:40 Dose: 100 mls/hr Levofloxacin/Dextrose 750 mg/ (Premix) 150 mls @ 100 mls/hr IV Q24H [facility] Last Admin: 05/28/17 03:13 Dose: 100 mls/hr Vancomycin HCl 2 gm/ Sodium (Chloride) 500 mls @ 500 mls/hr IV ONETIME ONE Stop: 05/24/17 14:59 Last Admin: 05/24/17 14:53 Dose: 500 mls/hr Vancomycin HCl 1 gm/Vancomycin HCl 500 mg/ Sodium Chloride 250 mls @ 125 mls/ hr IV Q12H [facility] Last Admin: 05/25/17 01:43 Dose: 125 mls/hr Diltiazem HCl 125 mg/ Sodium (Chloride) 125 mls @ 10 mls/hr IV TITRATE RORY; 10 MG/HR PRN Reason: Protocol Vancomycin HCl 1 gm/Vancomycin HCl 500 mg/ Sodium Chloride 500 mls @ 333.333 mls/hr IV Q12H [facility] Last Admin: 05/26/17 01:23 Dose: 333.333 mls/hr Ipratropium Pillow (Atrovent) 0.5 mg NEB QID [facility] Levalbuterol HCl (Xopenex) 1.25 mg NEB ONETIME ONE Stop: 05/24/17 17:42 Last Admin: 05/24/17 18:04 Dose: 1.25 mg Levalbuterol HCl (Xopenex) 1.25 mg NEB Q6HRRT PRN PRN Reason: Shortness of Breath Levalbuterol HCl (Xopenex) 2.5 mg NEB ONETIME ONE Stop: 05/26/17 09:47 Last Admin: 05/26/17 10:02 Dose: 2.5 mg Levofloxacin (Levaquin) 750 mg PO Q24H [facility] Last Admin: 05/31/17 06:59 Dose: 750 mg Methylprednisolone Sodium Succinate (Solu-Medrol) 125 mg IVPUSH ONETIME ONE Stop: 05/26/17 10:08 Last Admin: 05/26/17 10:31 Dose: 125 mg Methylprednisolone Sodium Succinate (Solu-Medrol) 125 mg IVPUSH Q6H [facility] Last Admin: 05/29/17 10:49 Dose: 125 mg Methylprednisolone Sodium Succinate (Solu-Medrol) 80 mg IVPUSH Q12H [facility] Last Admin: 05/29/17 22:06 Dose: 80 mg Metoprolol Tartrate (Lopressor) Confirm Administered Dose 5 mg .ROUTE .STK-MED ONE Stop: 05/24/17 17:51 Last Admin: 05/24/17 18:52 Dose: Not Given Miscellaneous Information (Remove Patch) 1 ea TRDERM DAILY [facility] Last Admin: 06/05/17 09:11 Dose: 1 ea Nystatin (Nystop) 0 gm TOP TID [facility] Nystatin (Nystop) 0 gm TOP TID [facility] Last Admin: 06/02/17 18:25 Dose: Not Given Oseltamivir Phosphate (Tamiflu) 75 mg PO BID [facility] Stop: 05/28/17 14:01 Last Admin: 05/28/17 11:27 Dose: 75 mg Pneumococcal Polyvalent Vaccine (Pneumovax 23) 0.5 ml IM .ONCE ONE Stop: 05/24/17 14:53 Vancomycin HCl (Pharmacy To Dose - Vancomycin) 0 dose .XX ASDIRECTED PRN PRN Reason: RX TO DOSE VANCOMYCIN - Exam Quality Assessment: Supplemental Oxygen General: Alert, Oriented, Cooperative, No Acute Distress, Other (Morbdily Obese) HEENT: Pupils Equal, Pupils Reactive, EOMI, Mucous Membr. Moist/[place] Neck: Supple, Trachea Midline, No JVD, No Thyromegaly Lungs: Clear to Auscultation, Normal Respiratory Effort, Decreased Breath Sounds Cardiovascular: Regular Rate, Regular Rhythm GI/Abdominal Exam: Normal Bowel Sounds, Soft, Non-Tender, No Organomegaly, No Distention, No Abnormal Bruit, Other (Obese) (Female) Exam: Deferred Back Exam: Normal Inspection, Decreased Range of Motion Extremities: Normal Inspection, Normal Range of Motion, Non-Tender, No Pedal Edema, Normal Capillary Refill, Redness Peripheral Pulses: 2+: Dorsalis Pedis (L), Dorsalis Pedis (R) Skin: Warm, Dry, Intact Neurological: No New Focal Deficit Psy/Mental Status: Alert, Normal Affect, Normal Mood - Problem List Review Problem List Initiated/Reviewed/Updated: Yes - Plan Plan:: Impression: Acute: OHS/Probable LIZ - Morbidly Obese with BMI of 64 - Poor functional capacity; she is wheelchair bound - Screen for LIZ with STOP BANG - Counseled on LSM - Recommend Sleep study after discharge Hypercapnea - CO2 34-41; she is alert and awake--likely chronic retainer with COPD and suspected LIZ - 2/2 OHS/LIZ - Supplemental O2 during the day to keep sats >90% - PRN BiPAP at Tobacco Abuse/Dependence - She is still an active smoker - Counseled on smoking cessation - Nicotine patch 21 mg daily Morbid Obesity - BMI 64--> 61.9 - Slowly loosing weight during stay - Dietary on board for weight management - Counseled on LSM Anxiety/Depression - [place] I - She has no clinical depression or anxiety per tele-psych consult - Dr. De La O did not recommend any psych meds - Will d/c Buspar - No need for level [address] Hou - Awaiting screening results, has been seen; placement is pending this screening currently Resolved: Inadequate IV Access - peripheral IV established by nursing - Nursing will attempt to switch to periphreal IV today, if no success will keep PICC - Risks and benefits discussed with patient S/p COPD Exacerbation - She is an active smoker; smokes 1 or <1 ppd; counseled on smoking cessation - nicotine patch at [place] - Continue RT Care, Supplemental O2, Bronchodilators, Smooth Muscle Relaxant - D/c Levaquin-she has no pneumonia - PFT result -severe disease, no response to bronchodilators - Start oral azithromycin 250 mg po daily for anti-inflammatory agent; completed course - Switch IV steroid to oral prednisone for pharmacy to put in; now off prednisone S/p A Fib with RVR S/p Electrolyte abnormalities CHF, NYHA functional clas III, stage C -HF with Preserved EF -2D echo: LVEF 65%, Grade 1 pattern LV diastolic filling, Severely elevated RVSP,Dilated inferior vena cava with rest or size variation less than 50% and RV volume/pressure overload -Continue diuretic and 2L fluid daily restriction, BB Query Pulmonary Venous Hypertension--> Echo obtained as above - Advised LSM - Continue diuretic, BB SSTI/Cellullitis - Risk Factors: Chronic Venous Insufficiency and Poor Hygiene due to Immobility - Positive for Staph aureus and beta strep group B from culture - Small coin like lesion on right bernardo-lateral meléndez - Skin irritation on skin fold in the groin area - Abx course completed, cont probiotic - Discontinue Bari wrapped; Cover lesion with gauze loosely BID - PADNET study ordered- no PVD bilaterally Chronic: A Fib--rates controlled now HLD HTN- stable Venous Insufficiency IBS Hypohyroidism-- recommend recheck TSH in 8-12 wks Morbid obesity Plan: She remains clinically stable Continue current treatment PRN BIPAP at HS with supplemental O2 to keep sat>90% *Needs dental consult at discharge (Re: pain when eating) - soft diet Obesity diet/exercise education Smoking cessation education Continue PT/OT-to improve functional capacity Code Status: Full code, PCP: Dr. Milton Still awaiting placement
[2017-06-06] MEDS: Nicotine 21 MG/24 Hr Patch TRDERM SCH (09:57)
[2017-06-06] MEDS: Metoprolol Tartrate 25 MG Tab PO SCH ×2 (09:57→20:48)
[2017-06-06] MEDS: Enoxaparin 40 MG/0.4 ML Syringe SUBCUT SCH (09:57)
[2017-06-06] MEDS: Saccharomyces Boulardii (Probiotic) 250 MG Cap PO SCH (09:57)
[2017-06-06] MEDS: Tamsulosin 0.4 MG Cap.ER PO SCH (09:58)
[2017-06-07] MEDS: Liothyronine 5 MCG Tab PO SCH (06:24)
[2017-06-07] MEDS: Furosemide 20 MG Tab PO SCH ×2 (06:24→13:43)
[2017-06-07] MEDS: Levothyroxine 112 MCG Tab PO SCH (06:24)
[2017-06-07] MEDS: Budesonide 0.5 MG/2 ML Neb Susp NEB SCH ×2 (06:27→20:44)
[2017-06-07] MEDS: Metoprolol Tartrate 25 MG Tab PO SCH ×2 (09:26→20:38)
[2017-06-07] MEDS: Tamsulosin 0.4 MG Cap.ER PO SCH (09:32)
[2017-06-07] MEDS: Enoxaparin 40 MG/0.4 ML Syringe SUBCUT SCH (09:34)
[2017-06-07] MEDS: Nicotine 21 MG/24 Hr Patch TRDERM SCH (09:56)
--- NOTE | 2017-06-07 12:08 | PCM.PN ---
- General Info Date of Service: 06/07/17 Admission Dx/Problem (Free Text): A-fib with RVR, Cellulitis Subjective Update: No overnight or acute issues. She is doing relatively well. She has no new complaints or issues. Functional Status: Reports: Pain Controlled, Tolerating Diet, Ambulating, Urinating. Denies: New Symptoms - Review of Systems General: Denies: Fever, Weakness, Fatigue, Malaise, Chills HEENT: Reports: No Symptoms Pulmonary: Denies: Shortness of Breath Cardiovascular: Denies: Chest Pain Gastrointestinal: Denies: Abdominal Pain, Nausea, Vomiting Genitourinary: Reports: No Symptoms Musculoskeletal: Reports: No Symptoms Skin: Denies: Cyanosis, Jaundice, Pallor, Diaphoresis Neurological: Reports: Difficulty Walking, Gait Disturbance. Denies: Confusion , Weakness Psychiatric: Reports: Agitation. Denies: Depression, Anxiety, Hallucinations Systems Review Comment:: No overnight or acute issues. She is doing relatively well. She has no complaints. - Patient Data Vitals - Most Recent: Last Vital Signs Temp 36.6 C 06/07/17 04:19 Pulse 78 06/07/17 09:26 Resp 20 06/07/17 09:00 BP 125/65 06/07/17 09:26 Pulse Ox 90 L 06/07/17 09:00 Weight - Most Recent: 149.277 kg I&O - Last 24 Hours: Intake & Output 06/06/17 06/07/17 06/07/17 22:59 06:59 14:59 Intake Total 480 200 340 Output Total 600 1650 Balance -120 -1450 340 Lab Results Last 24 Hours: Laboratory Results - last 24 hr 06/07/17 06/07/17 Range/Units 05:50 05:50 WBC 16.73 H (3.98-10.04) K/mm3 RBC 5.71 H (3.98-5.22) M/mm3 Hgb 14.7 (11.2-15.7) gm/L Hct 49.2 H (34.1-44.9) % MCV 86.2 (79.4-94.8) fl MCH 25.7 (25.6-32.2) pg MCHC 29.9 L (32.2-35.5) g/dl RDW Std Deviation 59.8 H (36.4-46.3) fL Plt Count 188 (182-369) K/mm3 MPV 11.3 (9.4-12.3) fl Neut % (Auto) 64.6 (34.0-71.1) % Lymph % (Auto) 17.2 L (19.3-51.7) % [place] % (Auto) 11.2 (4.7-12.5) % Eos % (Auto) 5.6 (0.7-5.8) Baso % (Auto) 0.2 (0.1-1.2) % Neut # (Auto) 10.83 H (1.56-6.13) K/mm3 Lymph # (Auto) 2.87 (1.18-3.74) K/mm3 [place] # (Auto) 1.87 H (0.24-0.36) K/mm3 Eos # (Auto) 0.93 H (0.04-0.36) K/mm3 Baso # (Auto) 0.03 (0.01-0.08) K/mm3 Manual Slide Review Normal smear Sodium 141 (136-145) mEq/L Potassium 4.1 (3.5-5.1) mEq/L Chloride 102 (98-107) mEq/L Carbon Dioxide 33 H (21-32) mEq/L Anion Gap 10.1 (5-15) BUN 15 (7-18) mg/dL Creatinine 0.6 (0.55-1.02) mg/dL Est Cr Clr Drug Dosing 77.88 mL/min Estimated GFR (MDRD) > 60 (>60) mL/min BUN/Creatinine Ratio 25.0 H (14-18) Glucose 101 (80-115) mg/dL Calcium 8.8 (8.5-10.1) mg/dL Magnesium 2.1 (1.8-2.4) mg/dl Med Orders - Current: Current Medications Budesonide (Pulmicort) 0.5 mg NEB BIDRT [facility] Last Admin: 06/07/17 06:27 Dose: 0.5 mg Enoxaparin Sodium (Lovenox) 40 mg SUBCUT DAILY [facility] Last Admin: 06/07/17 09:34 Dose: 40 mg Furosemide (Lasix) 20 mg PO BIDDIURETIC [facility] Last Admin: 06/07/17 06:24 Dose: 20 mg Ibuprofen (Motrin) 600 mg PO Q6H PRN PRN Reason: Pain Last Admin: 06/03/17 08:11 Dose: 600 mg Levalbuterol HCl (Xopenex) 1.25 mg NEB Q4HRRT PRN PRN Reason: Shortness of Breath Last Admin: 06/01/17 15:55 Dose: 1.25 mg Levothyroxine Sodium (Levothyroxine) 112 mcg PO ACBREAKFAST [facility] Last Admin: 06/07/17 06:24 Dose: 112 mcg Liothyronine Sodium (Cytomel) 5 mcg PO ACBREAKFAST [facility] Last Admin: 06/07/17 06:24 Dose: 5 mcg Metoprolol Tartrate (Lopressor) 25 mg PO Q12HR [facility] Last Admin: 06/07/17 09:26 Dose: 25 mg Metoprolol Tartrate (Lopressor) 5 mg IVPUSH Q4H PRN PRN Reason: HR>120 Last Admin: 06/04/17 08:19 Dose: 5 mg Nicotine (Habitrol) 21 mg TRDERM DAILY [facility] Last Admin: 06/07/17 09:56 Dose: 21 mg Tamsulosin HCl (Flomax) 0.4 mg PO PCBREAKFAST [facility] Last Admin: 06/07/17 09:32 Dose: 0.4 mg Discontinued Medications Albuterol (Proventil Neb Soln) 2.5 mg NEB Q4HRRT PRN PRN Reason: Shortness of Breath Albuterol/Ipratropium (Duoneb 3.0-0.5 Mg/3 Ml) 3 ml NEB ONETIME ONE Stop: 05/24/17 05:20 Last Admin: 05/24/17 05:21 Dose: 3 ml Albuterol/Ipratropium (Duoneb 3.0-0.5 Mg/3 Ml) Confirm Administered Dose 3 ml .ROUTE .STK-MED ONE Stop: 05/24/17 05:26 Last Admin: 05/24/17 05:36 Dose: Not Given Albuterol/Ipratropium (Duoneb 3.0-0.5 Mg/3 Ml) 3 ml NEB QIDRT PRN PRN Reason: Shortness of Breath Last Admin: 05/24/17 12:52 Dose: 3 ml Buspirone HCl (Buspar) 15 mg PO BID [facility] Last Admin: 05/31/17 08:49 Dose: 15 mg Enoxaparin Sodium (Lovenox) 40 mg SUBCUT DAILY [facility] Last Admin: 05/24/17 13:40 Dose: 40 mg Enoxaparin Sodium (Lovenox) 150 mg SUBCUT Q12HR [facility] Last Admin: 05/30/17 13:17 Dose: Not Given Enoxaparin Sodium (Lovenox) 40 mg SUBCUT Q12HR [facility] Furosemide (Lasix) 20 mg IVPUSH BIDDIURETIC [facility] Last Admin: 05/30/17 06:04 Dose: 20 mg Levofloxacin/Dextrose 750 mg/ (Premix) 150 mls @ 100 mls/hr IV ONETIME ONE Stop: 05/24/17 10:03 Last Admin: 05/24/17 09:40 Dose: 100 mls/hr Levofloxacin/Dextrose 750 mg/ (Premix) 150 mls @ 100 mls/hr IV Q24H [facility] Last Admin: 05/28/17 03:13 Dose: 100 mls/hr Vancomycin HCl 2 gm/ Sodium (Chloride) 500 mls @ 500 mls/hr IV ONETIME ONE Stop: 05/24/17 14:59 Last Admin: 05/24/17 14:53 Dose: 500 mls/hr Vancomycin HCl 1 gm/Vancomycin HCl 500 mg/ Sodium Chloride 250 mls @ 125 mls/ hr IV Q12H [facility] Last Admin: 05/25/17 01:43 Dose: 125 mls/hr Diltiazem HCl 125 mg/ Sodium (Chloride) 125 mls @ 10 mls/hr IV TITRATE RORY; 10 MG/HR PRN Reason: Protocol Vancomycin HCl 1 gm/Vancomycin HCl 500 mg/ Sodium Chloride 500 mls @ 333.333 mls/hr IV Q12H [facility] Last Admin: 05/26/17 01:23 Dose: 333.333 mls/hr Ipratropium [place] (Atrovent) 0.5 mg NEB QID [facility] Ipratropium [place] (Atrovent) 0.5 mg NEB QIDRT [facility] Last Admin: 06/06/17 15:42 Dose: Not Given Levalbuterol HCl (Xopenex) 1.25 mg NEB ONETIME ONE Stop: 05/24/17 17:42 Last Admin: 05/24/17 18:04 Dose: 1.25 mg Levalbuterol HCl (Xopenex) 1.25 mg NEB Q6HRRT PRN PRN Reason: Shortness of Breath Levalbuterol HCl (Xopenex) 2.5 mg NEB ONETIME ONE Stop: 05/26/17 09:47 Last Admin: 05/26/17 10:02 Dose: 2.5 mg Levofloxacin (Levaquin) 750 mg PO Q24H [facility] Last Admin: 05/31/17 06:59 Dose: 750 mg Methylprednisolone Sodium Succinate (Solu-Medrol) 125 mg IVPUSH ONETIME ONE Stop: 05/26/17 10:08 Last Admin: 05/26/17 10:31 Dose: 125 mg Methylprednisolone Sodium Succinate (Solu-Medrol) 125 mg IVPUSH Q6H [facility] Last Admin: 05/29/17 10:49 Dose: 125 mg Methylprednisolone Sodium Succinate (Solu-Medrol) 80 mg IVPUSH Q12H [facility] Last Admin: 05/29/17 22:06 Dose: 80 mg Metoprolol Tartrate (Lopressor) Confirm Administered Dose 5 mg .ROUTE .STK-MED ONE Stop: 05/24/17 17:51 Last Admin: 05/24/17 18:52 Dose: Not Given Miscellaneous Information (Remove Patch) 1 ea TRDERM DAILY [facility] Last Admin: 06/05/17 09:11 Dose: 1 ea Nystatin (Nystop) 0 gm TOP TID [facility] Nystatin (Nystop) 0 gm TOP TID [facility] Last Admin: 06/02/17 18:25 Dose: Not Given Oseltamivir Phosphate (Tamiflu) 75 mg PO BID [facility] Stop: 05/28/17 14:01 Last Admin: 05/28/17 11:27 Dose: 75 mg Pneumococcal Polyvalent Vaccine (Pneumovax 23) 0.5 ml IM .ONCE ONE Stop: 05/24/17 14:53 Prednisone (Prednisone) 40 mg PO WITHBREAKFAST [facility] Last Admin: 06/06/17 06:09 Dose: 40 mg Saccharomyces Boulardii (Florastor) 250 mg PO BID [facility] Last Admin: 06/06/17 09:57 Dose: 250 mg Vancomycin HCl (Pharmacy To Dose - Vancomycin) 0 dose .XX ASDIRECTED PRN PRN Reason: RX TO DOSE VANCOMYCIN - Exam Quality Assessment: Supplemental Oxygen General: Alert, Oriented, Cooperative, No Acute Distress, Other (Morbidly Obese) HEENT: Pupils Equal, EOMI, Mucous Membr. Moist/[place] Neck: Supple, Trachea Midline, No JVD Lungs: Normal Respiratory Effort, Decreased Breath Sounds Cardiovascular: Regular Rate, Regular Rhythm GI/Abdominal Exam: Normal Bowel Sounds, Soft, Non-Tender, No Organomegaly, No Distention, No Abnormal Bruit (Female) Exam: Deferred Back Exam: Normal Inspection, Decreased Range of Motion Extremities: Normal Inspection, Normal Range of Motion, Non-Tender, No Pedal Edema, Normal Capillary Refill, Other (small coin like sore on right lower extremity) Peripheral Pulses: 2+: Dorsalis Pedis (L), Dorsalis Pedis (R) Skin: Warm, Dry, Intact Wound/Incisions: Healing Well, No Drainage. No: Erythema Neurological: No New Focal Deficit Psy/Mental Status: Alert, Normal Affect, Normal Mood - Problem List Review Problem List Initiated/Reviewed/Updated: Yes - Plan Plan:: Impression: Acute: OHS/Probable LIZ - Morbidly Obese with BMI of 64 - Poor functional capacity; she is wheelchair bound - Screen for LIZ with STOP BANG - Counseled on LSM - Recommend Sleep study after discharge Hypercapnea - CO2 34-41; she is alert and awake--likely chronic retainer with COPD and suspected LIZ - 2/2 OHS/LIZ - Supplemental O2 during the day to keep sats >90% - PRN BiPAP at [place] Tobacco Abuse/Dependence - She is still an active smoker - Counseled on smoking cessation - Nicotine patch 21 mg daily Morbid Obesity - BMI 64--> 61.9 - Slowly loosing weight during stay - Dietary on board for weight management - Counseled on LSM Anxiety/Depression - [place] I - She has no clinical depression or anxiety per tele-psych consult - Dr. De La O did not recommend any psych meds - Will d/c Buspar - No need for level [address] Hou - Awaiting screening results, has been seen; placement is pending this screening currently Resolved: Inadequate IV Access - peripheral IV established by nursing - Nursing will attempt to switch to periphreal IV today, if no success will keep PICC - Risks and benefits discussed with patient S/p COPD Exacerbation - She is an active smoker; smokes 1 or <1 ppd; counseled on smoking cessation - nicotine patch at [place] - Continue RT Care, Supplemental O2, Bronchodilators, Smooth Muscle Relaxant - D/c Levaquin-she has no pneumonia - PFT result -severe disease, no response to bronchodilators - Start oral azithromycin 250 mg po daily for anti-inflammatory agent; completed course - Switch IV steroid to oral prednisone for pharmacy to put in; now off prednisone S/p A Fib with RVR S/p Electrolyte abnormalities CHF, NYHA functional clas III, stage C -HF with Preserved EF -2D echo: LVEF 65%, Grade 1 pattern LV diastolic filling, Severely elevated RVSP,Dilated inferior vena cava with rest or size variation less than 50% and RV volume/pressure overload -Continue diuretic and 2L fluid daily restriction, BB Query Pulmonary Venous Hypertension--> Echo obtained as above - Advised LSM - Continue diuretic, BB SSTI/Cellullitis - Risk Factors: Chronic Venous Insufficiency and Poor Hygiene due to Immobility - Positive for Staph aureus and beta strep group B from culture - Small coin like lesion on right bernardo-lateral meléndez - Skin irritation on skin fold in the groin area - Abx course completed, cont probiotic - Discontinue Bari wrapped; Cover lesion with gauze loosely BID - PADNET study ordered- no PVD bilaterally Chronic: A Fib--rates controlled now HLD HTN- stable Venous Insufficiency IBS Hypohyroidism-- recommend recheck TSH in 8-12 wks Morbid obesity Plan: She remains clinically stable Continue current treatment PRN BIPAP at HS with supplemental O2 to keep sat>90% *Needs dental consult at discharge (Re: pain when eating) - soft diet Obesity diet/exercise education Smoking cessation education Continue PT/OT-to improve functional capacity Code Status: Full code, PCP: Dr. Milton Still awaiting placement
[2017-06-08] MEDS: Liothyronine 5 MCG Tab PO SCH (05:58)
[2017-06-08] MEDS: Levothyroxine 112 MCG Tab PO SCH (05:58)
[2017-06-08] MEDS: Furosemide 20 MG Tab PO SCH ×2 (05:59→13:41)
[2017-06-08] MEDS: Budesonide 0.5 MG/2 ML Neb Susp NEB SCH (06:02)
[2017-06-08] MEDS: Tamsulosin 0.4 MG Cap.ER PO SCH (09:32)
[2017-06-08] MEDS: Nicotine 21 MG/24 Hr Patch TRDERM SCH (09:32)
[2017-06-08] MEDS: Enoxaparin 40 MG/0.4 ML Syringe SUBCUT SCH (09:32)
[2017-06-08] MEDS: Metoprolol Tartrate 25 MG Tab PO SCH (09:32)
--- NOTE | 2017-06-08 12:01 | PCM.DCSUM1 ---
Discharge Summary - Hospital Course HPI Initial Comments: Extremely morbidly obese female presents with SOB after exertion of three steps on level ground. NYHA functional class III-IV, stage C is likely. The patient is not active and has all of her needs provided by her family including bathing. She appears to have seen a primary care provider recently and reports starting doxycycline for bilateral LE cellulitis. Additionally the choice of doxy may have been to treat a COPD exacerbation. She attempts limited activity because raising her arms for any reason will cause a shift in her adipose resulting in shortness of breath. - Discharge Data Discharge Date: 06/08/17 (Admit date: 05/24/17) Discharge Disposition: Home, W Home Health Agency 06 Condition: Good - Discharge Diagnosis/Problem(s) (1) Acute bronchitis SNOMED Code(s): 26745567 ICD Code: J20.9 - ACUTE BRONCHITIS, UNSPECIFIED Status: Resolved Priority : High Current Visit: Yes Qualifiers: Bronchitis organism: unspecified organism Qualified Code(s): J20.9 - Acute bronchitis, unspecified (2) Acute exacerbation of chronic obstructive pulmonary disease (COPD) SNOMED Code(s): 294114422 ICD Code: J44.1 - CHRONIC OBSTRUCTIVE PULMONARY DISEASE W (ACUTE) EXACERBATION Status: Resolved Priority: High Current Visit: Yes (3) Bilateral lower leg cellulitis SNOMED Code(s): 314230371 ICD Code: L03.116 - CELLULITIS OF LEFT LOWER LIMB; L03.115 - CELLULITIS OF RIGHT LOWER LIMB Status: Resolved Priority: High Current Visit: Yes (4) COPD (chronic obstructive pulmonary disease) SNOMED Code(s): 50333552 ICD Code: J44.9 - CHRONIC OBSTRUCTIVE PULMONARY DISEASE, UNSPECIFIED Status : Acute Priority: High Current Visit: Yes Qualifiers: COPD type: COPD with acute lower respiratory infection Qualified Code(s): J44.0 - Chronic obstructive pulmonary disease with acute lower respiratory infection (5) Edema of both lower legs due to peripheral venous insufficiency SNOMED Code(s): 67032523224767446 ICD Code: I87.2 - VENOUS INSUFFICIENCY (CHRONIC) (PERIPHERAL); R60.9 - EDEMA , UNSPECIFIED Status: Chronic Priority: Medium Current Visit: Yes (6) Hypoxemia SNOMED Code(s): 916320952 ICD Code: R09.02 - HYPOXEMIA Status: Acute Priority: High Current Visit : Yes (7) Morbid obesity SNOMED Code(s): 283694762 ICD Code: E66.01 - MORBID (SEVERE) OBESITY DUE TO EXCESS CALORIES Status: Chronic Priority: High Current Visit: Yes (8) Tobacco use disorder SNOMED Code(s): 195465597 ICD Code: F17.200 - NICOTINE DEPENDENCE, UNSPECIFIED, UNCOMPLICATED Status : Chronic Priority: High Current Visit: Yes (9) Influenza A SNOMED Code(s): 668397847 ICD Code: J10.1 - FLU DUE TO OTH IDENT INFLUENZA VIRUS W OTH RESP MANIFEST Status: Resolved Priority: High Current Visit: Yes (10) Hypothyroidism SNOMED Code(s): 18604271 ICD Code: E03.9 - HYPOTHYROIDISM, UNSPECIFIED Status: Chronic Priority: Medium Current Visit: Yes Qualifiers: Hypothyroidism type: unspecified Qualified Code(s): E03.9 - Hypothyroidism , unspecified - Patient Summary/Data Operative Procedure(s) Performed: None Consults: Consultations 05/24/17 13:17 Consult to Physical Therapy [PT Evaluation and Treatment] [CONS] Routine 05/27/17 18:24 Consult to Physician [CONS] Routine 05/28/17 10:59 Consult to Spiritual Care [CONS] Routine Labs Pending at D/C: None Recommended Follow-up Testing/Procedures: Follow-up with your primary care provider, Dr. Milton, in 7-10 days Recommend sleep study at discharge. Follow-up with PCP for this Recommend dental visit after discharge regarding dental pain when eating Hospital Course: Impression: Acute: OHS/Probable LIZ - Morbidly Obese with BMI of 64 - Poor functional capacity; she is wheelchair bound - Screen for LIZ with STOP BANG - Counseled on LSM - Recommend Sleep study after discharge Hypercapnea - CO2 34-41; she is alert and awake--likely chronic retainer with COPD and suspected LIZ - 2/2 OHS/LIZ - Supplemental O2 during the day to keep sats >90% - PRN BiPAP at HS Tobacco Abuse/Dependence - She is still an active smoker - Counseled on smoking cessation - Nicotine patch 21 mg daily Morbid Obesity - BMI 64--> 61.9-->60.3 - Slowly loosing weight during stay - Dietary on board for weight management - Counseled on LSM Anxiety/Depression - [place] I - She has no clinical depression or anxiety per tele-psych consult - Dr. De La O did not recommend any psych meds - Will d/c Buspar - No need for level [address] Hou - Awaiting screening results, has been seen; placement is pending this screening currently; will d/c home with home health Resolved: Inadequate IV Access - peripheral IV established by nursing - Nursing will attempt to switch to periphreal IV today, if no success will keep PICC - Risks and benefits discussed with patient S/p COPD Exacerbation - She is an active smoker; smokes 1 or <1 ppd; counseled on smoking cessation - nicotine patch at DC - Continue RT Care, Supplemental O2, Bronchodilators, Smooth Muscle Relaxant - D/c Levaquin-she has no pneumonia - PFT result -severe disease, no response to bronchodilators - Start oral azithromycin 250 mg po daily for anti-inflammatory agent; completed course - Switch IV steroid to oral prednisone for pharmacy to put in; now off prednisone S/p A Fib with RVR S/p Electrolyte abnormalities CHF, NYHA functional clas III, stage C -HF with Preserved EF -2D echo: LVEF 65%, Grade 1 pattern LV diastolic filling, Severely elevated RVSP,Dilated inferior vena cava with rest or size variation less than 50% and RV volume/pressure overload -Continue diuretic and 2L fluid daily restriction, BB Query Pulmonary Venous Hypertension--> Echo obtained as above - Advised LSM - Continue diuretic, BB SSTI/Cellullitis - Risk Factors: Chronic Venous Insufficiency and Poor Hygiene due to Immobility - Positive for Staph aureus and beta strep group B from culture - Small coin like lesion on right bernardo-lateral meléndez - Skin irritation on skin fold in the groin area - Abx course completed, cont probiotic - Discontinue Bari wrapped; Cover lesion with gauze loosely BID - PADNET study ordered- no PVD bilaterally Chronic: A Fib--rates controlled now HLD HTN- stable Venous Insufficiency IBS Hypohyroidism-- recommend recheck TSH in 8-12 wks Morbid obesity Plan: She remains clinically stable Continue current treatment PRN BIPAP at HS with supplemental O2 to keep sat>90% *Needs dental consult at discharge (Re: pain when eating) - soft diet Obesity diet/exercise education Smoking cessation education Continue PT/OT-to improve functional capacity Code Status: Full code, PCP: Dr. Yoan Estes Danielle did quite well while in our care. She responded well to treatment and her cellulitis on her legs resolved. She did have significant swelling which compounded the situation and was placed on a 2L fluid restriction. Her A- fib with RVR responded and remained controlled. This greatly improved the bilateral leg swelling. PFT was obtained and showed severe obstructive airway disease. LUCERO was obtained and was normal. Echo showed EF of 65%. Will defer to the paperwork for these individual tests for full report. She worked regularly with PT/OT and did improve her ability to walk as she was essentially wheelchair bound on admission. She is on O2 and will need 1L at rest and up to 2L with activity. We also suggest follow-up with pulmonology in the future. She will be discharged with a home med, home health, and PT/OT. I met with Danielle face to face. We discussed her plan of care and follow-up. She will be requiring home health for assistance with medications and ADL's. She will need PT/OT for continued conditioning and assistance with ambulation. She should follow-up with her PCP, Dr. Milton, who can monitor her progress and adjust care as needed. We also discussed her smoking status. She has been on a nicotine patch and would like to continue this at home. We discussed how she will likely need to step down her dosing over multiple weeks and Dr. Milton will be an excellent resource for this. We discussed the [place] quits line and she said she is familiar with them. We discussed seeking help with cravings and practical alternatives to smoking. She reports she has a good stockpile of gum for oral cravings. We also discussed the importance of quitting smoking as her lungs are hurt and smoking will only worsen this. She voiced understanding. We attempted some antoinette-max for urinary retention however she did not tolerate this and requested it be stopped. She had had some issues with groin wounds and nystatin powder has been used. We discussed proper hygiene and she voiced understanding. She will be discharged home with nebulized medications, probiotic, lopressor for HR control, and lasix for swelling/heart failure. She should follow-up with Dr. Milton in 7-10 weeks for checkup. She was instructed to weigh herself daily and bring these with to her appointment. It is advised she obtain a sleep study outpatient. - Patient Instructions Diet: Heart Healthy Diet, Weight Loss Diet Fluid Restriction: 2000 mL Activity: As Tolerated (ambulate 3-4 times daily) Showering/Bathing: May Shower Wound/Incision Care: Change Dressing Daily (and as needed) Notify Provider of: Fever, Increased Pain, Swelling and Redness, Drainage, Nausea and/or Vomiting - Discharge Plan Prescriptions/Med Rec: RX: Levalbuterol HCl [Xopenex] 1.25 mg NEB Q4HRRT PRN #1 box PRN Reason: Shortness Of Breath RX: Metoprolol Tartrate [Lopressor] 25 mg PO Q12HR #60 tablet RX: Budesonide [Pulmicort] 0.5 mg NEB BIDRT #1 box RX: Furosemide [Lasix] 20 mg PO BIDDIURETIC #60 tablet RX: Ipratropium [Atrovent] 0.5 mg NEB QIDRT #1 box Nicotine [Nicotine Patch] 1 each TD DAILY #30 patch.td24 RX: Nystatin [Nystop] 0 gm TOP TID #1 bottle RX: Saccharomyces Boulardii [Florastor] 250 mg PO BID #60 cap Home Medications: Home Meds RX: Aspirin/Acetaminophen/Caffeine [Headache Relief Tablet] 1 tab PO DAILY PRN 08/24/15 [History] RX: Levothyroxine Sodium [Synthroid] 112 mcg PO DAILY 08/24/15 [History] RX: Propylene Glycol/Peg 400 [Systane 0.3-0.4% Eye Drops] 1 drop EYEBOTH TID PRN 08/24/15 [History] RX: Ranitidine HCl [Zantac 75] 75 mg PO DAILY PRN 08/24/15 [History] RX: Liothyronine [Cytomel] 5 mcg PO DAILY 05/24/17 [History] Nicotine [Nicotine Patch] 1 each TD DAILY #30 patch.td24 06/01/17 [Rx] RX: Budesonide [Pulmicort] 0.5 mg NEB BIDRT #1 box 06/01/17 [Rx] RX: Furosemide [Lasix] 20 mg PO BIDDIURETIC #60 tablet 06/01/17 [Rx] RX: Ibuprofen [IJD: Ibuprofen] 600 mg PO Q6H PRN tablet 06/01/17 [Rx] RX: Ipratropium [Atrovent] 0.5 mg NEB QIDRT #1 box 06/01/17 [Rx] RX: Levalbuterol HCl [Xopenex] 1.25 mg NEB Q4HRRT PRN #1 box 06/01/17 [Rx] RX: Metoprolol Tartrate [Lopressor] 25 mg PO Q12HR #60 tablet 06/01/17 [Rx] RX: Nystatin [Nystop] 0 gm TOP TID #1 bottle 06/01/17 [Rx] RX: Saccharomyces Boulardii [Florastor] 250 mg PO BID #60 cap 06/01/17 [Rx] Patient Handouts: Chronic Obstructive Pulmonary Disease, [id number], Pulmonary Hypertension, Chronic Venous Insufficiency, How to Change Your Dressing, [id number], Heart Failure, Dzto-[id number], Steps to Quit Smoking, Obesity, Adult, [id number] Referrals: Juni Milton MD [Primary Care Provider] - 06/15/17 1:00 pm (please follow up for the post-hospital appointment as it is scheduled for you below.) - Discharge Summary/Plan Comment DC Time >30 min.: Yes (45 min) - General Info Date of Service: 06/08/17 Admission Dx/Problem (Free Text: A-fib with RVR, Cellulitis Subjective Update: No overnight or acute issues. She is doing relatively well. She has no new complaints or issues. Functional Status: Reports: Pain Controlled, Tolerating Diet, Ambulating, Urinating. Denies: New Symptoms - Review of Systems General: Reports: No Symptoms HEENT: Reports: No Symptoms Pulmonary: Reports: No Symptoms. Denies: Shortness of Breath, Cough, Sputum Cardiovascular: Reports: Dyspnea on Exertion (improved from baseline ). Denies : Chest Pain, Edema Gastrointestinal: Reports: No Symptoms Genitourinary: Reports: No Symptoms Musculoskeletal: Reports: No Symptoms Skin: Reports: No Symptoms Neurological: Reports: No Symptoms Psychiatric: Reports: No Symptoms - Patient Data Vitals - Most Recent: Last Vital Signs Temp 97.5 F 06/08/17 07:46 Pulse 75 06/08/17 09:32 Resp 18 06/08/17 07:46 BP 124/92 H 06/08/17 09:32 Pulse Ox 90 L 06/08/17 07:46 Weight - Most Recent: 329 lb 9.6 oz I&O - Last 24 hours: Intake & Output 06/07/17 06/08/17 06/08/17 22:59 06:59 14:59 Intake Total 880 200 340 Output Total 800 1000 Balance 80 -800 340 Med Orders - Current: Current Medications Budesonide (Pulmicort) 0.5 mg NEB BIDRT [facility] Last Admin: 06/08/17 06:02 Dose: 0.5 mg Enoxaparin Sodium (Lovenox) 40 mg SUBCUT DAILY [facility] Last Admin: 06/08/17 09:32 Dose: 40 mg Furosemide (Lasix) 20 mg PO BIDDIURETIC [facility] Last Admin: 06/08/17 05:59 Dose: 20 mg Ibuprofen (Motrin) 600 mg PO Q6H PRN PRN Reason: Pain Last Admin: 06/03/17 08:11 Dose: 600 mg Levalbuterol HCl (Xopenex) 1.25 mg NEB Q4HRRT PRN PRN Reason: Shortness of Breath Last Admin: 06/01/17 15:55 Dose: 1.25 mg Levothyroxine Sodium (Levothyroxine) 112 mcg PO ACBREAKFAST [facility] Last Admin: 06/08/17 05:58 Dose: 112 mcg Liothyronine Sodium (Cytomel) 5 mcg PO ACBREAKFAST [facility] Last Admin: 06/08/17 05:58 Dose: 5 mcg Metoprolol Tartrate (Lopressor) 25 mg PO Q12HR [facility] Last Admin: 06/08/17 09:32 Dose: 25 mg Metoprolol Tartrate (Lopressor) 5 mg IVPUSH Q4H PRN PRN Reason: HR>120 Last Admin: 06/04/17 08:19 Dose: 5 mg Nicotine (Habitrol) 21 mg TRDERM DAILY [facility] Last Admin: 06/08/17 09:32 Dose: 21 mg Tamsulosin HCl (Flomax) 0.4 mg PO PCBREAKFAST [facility] Last Admin: 06/08/17 09:32 Dose: 0.4 mg Discontinued Medications Albuterol (Proventil Neb Soln) 2.5 mg NEB Q4HRRT PRN PRN Reason: Shortness of Breath Albuterol/Ipratropium (Duoneb 3.0-0.5 Mg/3 Ml) 3 ml NEB ONETIME ONE Stop: 05/24/17 05:20 Last Admin: 05/24/17 05:21 Dose: 3 ml Albuterol/Ipratropium (Duoneb 3.0-0.5 Mg/3 Ml) Confirm Administered Dose 3 ml .ROUTE .STK-MED ONE Stop: 05/24/17 05:26 Last Admin: 05/24/17 05:36 Dose: Not Given Albuterol/Ipratropium (Duoneb 3.0-0.5 Mg/3 Ml) 3 ml NEB QIDRT PRN PRN Reason: Shortness of Breath Last Admin: 05/24/17 12:52 Dose: 3 ml Buspirone HCl (Buspar) 15 mg PO BID [facility] Last Admin: 05/31/17 08:49 Dose: 15 mg Enoxaparin Sodium (Lovenox) 40 mg SUBCUT DAILY [facility] Last Admin: 05/24/17 13:40 Dose: 40 mg Enoxaparin Sodium (Lovenox) 150 mg SUBCUT Q12HR [facility] Last Admin: 05/30/17 13:17 Dose: Not Given Enoxaparin Sodium (Lovenox) 40 mg SUBCUT Q12HR [facility] Furosemide (Lasix) 20 mg IVPUSH BIDDIURETIC [facility] Last Admin: 05/30/17 06:04 Dose: 20 mg Levofloxacin/Dextrose 750 mg/ (Premix) 150 mls @ 100 mls/hr IV ONETIME ONE Stop: 05/24/17 10:03 Last Admin: 05/24/17 09:40 Dose: 100 mls/hr Levofloxacin/Dextrose 750 mg/ (Premix) 150 mls @ 100 mls/hr IV Q24H [facility] Last Admin: 05/28/17 03:13 Dose: 100 mls/hr Vancomycin HCl 2 gm/ Sodium (Chloride) 500 mls @ 500 mls/hr IV ONETIME ONE Stop: 05/24/17 14:59 Last Admin: 05/24/17 14:53 Dose: 500 mls/hr Vancomycin HCl 1 gm/Vancomycin HCl 500 mg/ Sodium Chloride 250 mls @ 125 mls/ hr IV Q12H [facility] Last Admin: 05/25/17 01:43 Dose: 125 mls/hr Diltiazem HCl 125 mg/ Sodium (Chloride) 125 mls @ 10 mls/hr IV TITRATE RORY; 10 MG/HR PRN Reason: Protocol Vancomycin HCl 1 gm/Vancomycin HCl 500 mg/ Sodium Chloride 500 mls @ 333.333 mls/hr IV Q12H [facility] Last Admin: 05/26/17 01:23 Dose: 333.333 mls/hr Ipratropium [place] (Atrovent) 0.5 mg NEB QID RORY Ipratropium [place] (Atrovent) 0.5 mg NEB QIDRT [facility] Last Admin: 06/06/17 15:42 Dose: Not Given Levalbuterol HCl (Xopenex) 1.25 mg NEB ONETIME ONE Stop: 05/24/17 17:42 Last Admin: 05/24/17 18:04 Dose: 1.25 mg Levalbuterol HCl (Xopenex) 1.25 mg NEB Q6HRRT PRN PRN Reason: Shortness of Breath Levalbuterol HCl (Xopenex) 2.5 mg NEB ONETIME ONE Stop: 05/26/17 09:47 Last Admin: 05/26/17 10:02 Dose: 2.5 mg Levofloxacin (Levaquin) 750 mg PO Q24H [facility] Last Admin: 05/31/17 06:59 Dose: 750 mg Methylprednisolone Sodium Succinate (Solu-Medrol) 125 mg IVPUSH ONETIME ONE Stop: 05/26/17 10:08 Last Admin: 05/26/17 10:31 Dose: 125 mg Methylprednisolone Sodium Succinate (Solu-Medrol) 125 mg IVPUSH Q6H [facility] Last Admin: 05/29/17 10:49 Dose: 125 mg Methylprednisolone Sodium Succinate (Solu-Medrol) 80 mg IVPUSH Q12H [facility] Last Admin: 05/29/17 22:06 Dose: 80 mg Metoprolol Tartrate (Lopressor) Confirm Administered Dose 5 mg .ROUTE .STK-MED ONE Stop: 05/24/17 17:51 Last Admin: 05/24/17 18:52 Dose: Not Given Miscellaneous Information (Remove Patch) 1 ea TRDERM DAILY [facility] Last Admin: 06/05/17 09:11 Dose: 1 ea Nystatin (Nystop) 0 gm TOP TID [facility] Nystatin (Nystop) 0 gm TOP TID [facility] Last Admin: 06/02/17 18:25 Dose: Not Given Oseltamivir Phosphate (Tamiflu) 75 mg PO BID [facility] Stop: 05/28/17 14:01 Last Admin: 05/28/17 11:27 Dose: 75 mg Pneumococcal Polyvalent Vaccine (Pneumovax 23) 0.5 ml IM .ONCE ONE Stop: 02/11/18 14:53 Prednisone (Prednisone) 40 mg PO WITHBREAKFAST [facility] Last Admin: 06/06/17 06:09 Dose: 40 mg Saccharomyces Boulardii (Florastor) 250 mg PO BID [facility] Last Admin: 06/06/17 09:57 Dose: 250 mg Vancomycin HCl (Pharmacy To Dose - Vancomycin) 0 dose .XX ASDIRECTED PRN PRN Reason: RX TO DOSE VANCOMYCIN - Exam Quality Assessment: Reports: Supplemental Oxygen, DVT Prophylaxis, Skin Breakdown (mild in groin. ) General: Reports: Alert, Oriented, Cooperative, No Acute Distress HEENT: Reports: Pupils Equal, Pupils Reactive, EOMI, Mucous Membr. Moist/[place] Neck: Reports: Supple, Trachea Midline, No JVD Lungs: Reports: Normal Respiratory Effort, Decreased Breath Sounds Cardiovascular: Reports: Regular Rate, Regular Rhythm GI/Abdominal Exam: Normal Bowel Sounds, Soft, Non-Tender, No Organomegaly, No Distention, No Abnormal Bruit, No Mass, Pelvis Stable (Female) Exam: Deferred Rectal (Female) Exam: Deferred Back Exam: Reports: Normal Inspection, Full Range of Motion Extremities: Normal Inspection, Normal Range of Motion, Non-Tender, No Pedal Edema, Normal Capillary Refill Skin: Reports: Warm, Dry, Intact Wound/Incisions: Reports: Healing Well Neurological: Reports: No New Focal Deficit Psy/Mental Status: Reports: Alert, Normal Affect, Normal Mood *Q Meaningful Use (DIS) - VTE *Q VTE Criteria *Q: - Stroke *Q Stroke Criteria *Q: - AMI *Q AMI Criteria *Q:
[2017-06-08] MEDS ORDERED: Pneumococcal Polyvalent-23 Vaccine 0.5 ML SDV IM ONE (14:18)
[2017-06-08 16:21] VITALS: BP 117/63
== END 2017-06-08 15:45 | disposition home health service (06) | DRG 191 ==
LOC: JD.ED 04:52 → JD.MS 09:22 → UNDOADMIN 09:22 → JD.MS 12:17 → JD.ICU 17:51 → JD.MS 05-27 20:31
PROVIDERS: ADMIT Internal Medicine Cardiovascular Disease; ATTEND Internal Medicine Cardiovascular Disease
PROC: 05HY33Z Insertion of Infusion Device into Upper Vein, Percutaneous Approach (ICD-10-PCS; principal; 2017-05-26)
PROC: 3E03329 Introduction of Other Anti-infective into Peripheral Vein, Percutaneous Approach (ICD-10-PCS; 2017-05-26)
DX: J44.0 Chronic obstructive pulmonary disease with (acute) lower respiratory infection (principal); J20.9 Acute bronchitis, unspecified; L03.116 Cellulitis of left lower limb; L03.115 Cellulitis of right lower limb; Z68.44 Body mass index [BMI] 60.0-69.9, adult; I13.0 Hypertensive heart and chronic kidney disease with heart failure and stage 1 through stage 4 chronic kidney disease, or unspecified chronic kidney disease; J11.1 Influenza due to unidentified influenza virus with other respiratory manifestations; J44.1 Chronic obstructive pulmonary disease with (acute) exacerbation; K21.9 Gastro-esophageal reflux disease without esophagitis; F17.200 Nicotine dependence, unspecified, uncomplicated; I87.2 Venous insufficiency (chronic) (peripheral); R09.02 Hypoxemia; R06.89 Other abnormalities of breathing; E66.01 Morbid (severe) obesity due to excess calories; E03.9 Hypothyroidism, unspecified; F32.9 Major depressive disorder, single episode, unspecified; F41.9 Anxiety disorder, unspecified; N18.3 Chronic kidney disease, stage 3 (moderate); I48.91 Unspecified atrial fibrillation; K58.9 Irritable bowel syndrome, unspecified; G47.33 Obstructive sleep apnea (adult) (pediatric); I50.9 Heart failure, unspecified; B95.61 Methicillin susceptible Staphylococcus aureus infection as the cause of diseases classified elsewhere; B95.1 Streptococcus, group B, as the cause of diseases classified elsewhere; G89.29 Other chronic pain; M54.9 Dorsalgia, unspecified; H93.13 Tinnitus, bilateral; H54.7 Unspecified visual loss; Z88.1 Allergy status to other antibiotic agents; Z91.030 Bee allergy status; Z91.048 Other nonmedicinal substance allergy status; Z79.82 Long term (current) use of aspirin; Z99.81 Dependence on supplemental oxygen; Z79.899 Other long term (current) drug therapy
CPT/HCPCS: 36415; 51702; 71045; 80053; 83605; 83880; 84443; 84484; 85025; 87040 ×2; 93005; 94640; 96365; 96366; 99285; J1956; 36569; 36600; 71046; 71046-26; 80048; 82803; 83735; 86140; 86738; 87070; 87077; 87186; 87641; 87804; 87899; 90471; 90732; 93306; 93923; 94060; 94660; 94761; 97110-GO; 97110-GP; 97116-GP; 97162-GP; 97167-GO; 97530-GO; 97530-GP; 97535-GP; A9270-GY; C1751; G0009; J1650; J2920; J2930; J3370; J3490; J7040; J7050; J7612

== ENCOUNTER 2020-11-03 17:57 | Inpatient (IN) | payer MEDICARE, MEDICAID ==
[2020-11-03] MEDS ORDERED: Sodium Chloride 0.9% 10 ML Syringe FLUSH PRN (18:30)
[2020-11-03] MEDS ORDERED: Diltiazem 50 MG/10 ML SDV IVPUSH ONE (18:31)
--- NOTE | 2020-11-03 18:34 | EDM.PDOC ---
<Brad Best Case - Last Filed: 11/03/20 18:37> ED HPI GENERAL MEDICAL PROBLEM - General Chief Complaint: General Stated Complaint: [facility] Time Seen by Provider: 11/03/20 18:16 Source of Information: Reports: Patient, EMS, RN Notes Reviewed - History of Present Illness INITIAL COMMENTS - FREE TEXT/NARRATIVE: 65 yr old female brought in by [facility] for generalized weakness, difficulty standing and walking worsening over the past 3 to 4 days. She has also been having some R sided back pain, dyspnes with exertion. Not coughing any more than usual. No fever or chills. No voiding sx. No known hx of prior A fib. or prior cardiac problems. Hx of quite severe obesity, prior smoking hx, quit about 2 yrs ago. Uses oxygen 03/11. - Related Data Allergies Allergy/AdvReac Type Severity Reaction Status Date / Time adhesive Allergy Severe Rash Verified 11/03/20 18:10 amoxicillin Allergy Severe Rash Verified 11/03/20 18:10 cimetidine [From Tagamet] Allergy Severe Hives Verified 11/03/20 18:10 venom-honey bee Allergy Severe Swelling Verified 11/03/20 18:10 [bee venom (honey bee)] Home Meds: Home Meds Aspirin/Acetaminophen/Caffeine [Headache Relief Tablet] 1 tab PO DAILY PRN 08/24/15 [History] Levothyroxine Sodium [Synthroid] 112 mcg PO DAILY 08/24/15 [History] Propylene Glycol/Peg 400 [Systane 0.3-0.4% Eye Drops] 1 drop EYEBOTH TID PRN 08/24/15 [History] Aspirin [Aspirin EC] 81 mg PO DAILY 11/03/20 [History] Furosemide [Lasix] 20 mg PO DAILY 11/03/20 [History] diphenhydrAMINE [Benadryl] 25 mg PO DAILY 11/03/20 [History] metFORMIN [Glucophage] 500 mg PO DAILY 11/03/20 [History] Past Medical History HEENT History: Reports: Sinusitis, Other (See Below) Other HEENT History: bilateral tinnitus, wears reading glasses Cardiovascular History: Reports: SD, Other (See Below) Other Cardiovascular History: lower extremity edema Respiratory History: Reports: COPD, Other (See Below) Other Respiratory History: panlobular emphysema, dyspnea Gastrointestinal History: Reports: Cholelithiasis, GERD, Other (See Below) Other Gastrointestinal History: umbilical hernia Genitourinary History: Reports: Urinary Incontinence, Other (See Below) Other Genitourinary History: stress incontinence [employer] History: Reports: None Musculoskeletal History: Reports: Back Pain, Chronic, Osteoporosis, Other (See Below) Other Musculoskeletal History: carpal tunnel syndrome Neurological History: Reports: Headaches, Chronic Other Neuro History: pt. states she has "twitches" Psychiatric History: Reports: Other (See Below) Other Psychiatric History: fatigue Endocrine/Metabolic History: Reports: Hypothyroidism, Obesity/BMI 30+ Hematologic History: Reports: Other (See Below) Other Hematologic History: erythrocytosis Immunologic History: Reports: None Oncologic (Cancer) History: Reports: None Dermatologic History: Reports: Cellulitis - Infectious Disease History Infectious Disease History: Reports: Influenza - Past Surgical History GI Surgical History: Reports: Appendectomy Female Surgical History: Reports: Hysterectomy Social & Family History - Tobacco Use Tobacco Use Status *Q: Never Tobacco User - Caffeine Use Caffeine Use: Reports: None - Recreational Drug Use Recreational Drug Use: No - Living Situation & Occupation Living situation: Reports: with Family ED ROS GENERAL - Review of Systems Review Of Systems: See Below Constitutional: Denies: Fever, Chills, Diaphoresis HEENT: Reports: No Symptoms Respiratory: Reports: Shortness of Breath. Denies: Pleuritic Chest Pain, Cough Cardiovascular: Denies: Chest Pain Endocrine: Reports: Fatigue GI/Abdominal: Denies: Abdominal Pain, Nausea, Vomiting Musculoskeletal: Denies: Shoulder Pain, Arm Pain Skin: Denies: Bruising, Rash Neurological: Reports: Dizziness, Difficulty Walking (for the last 3 to 4 days), Weakness (Generalized). Denies: Trouble Speaking ED EXAM, GENERAL - Physical Exam Exam: See Below General Appearance: Alert, Mild Distress Throat/Mouth: Normal Inspection Head: Atraumatic Neck: Supple Respiratory/Chest: Respiratory Distress (moderate tachypnea). No: Rales, Rhonchi, Wheezing Cardiovascular: Tachycardia, Irregularly Irregular GI/Abdominal: Soft, Non-Tender. No: Tender Back Exam: No: CVA Tenderness (L), CVA Tenderness (R) Extremities: Pedal Edema (mild bilat). No: Leg Pain, Increased Warmth, Redness Neurological: Alert, Oriented, No Motor/Sensory Deficits #1 Interpretation EKG Date: 11/03/20 Rhythm: A-Fib Rate (Beats/Min): 159 P-Wave: Absent QRS: Other (low voltage precordial leads) ST-T: Other (mild nonspecific changes) Course - Re-Assessments/Exams Free Text/Narrative Re-Assessment/Exam: 11/03/20 18:53. Have ordered and 20 mg diltiazem has been given IV. Heart rate is down to 120's form 140 to 150's on arrival. Diltiazem drip ordered. Appropriate labs ordered. Approaching change of shift, will transfer care to Dr Craig. Departure - Departure Disposition: Admitted As Inpatient 66 Clinical Impression: New onset atrial fibrillation, Leukocytosis, Renal insufficiency, Atrial fibrillation with rapid ventricular response - Discharge Information Referrals: Juni Milton MD [Primary Care Provider] - Forms: ED Department Discharge Sepsis Event Note (ED) - Evaluation Sepsis Screening Result: No Definite Risk <Tutu Craig - Last Filed: 11/03/20 20:55> Past Medical History Respiratory History: Reports: COPD (suspected, not PFT-tested, on continuous O2 3L per NC) Endocrine/Metabolic History: Reports: Diabetes, Type II - Past Surgical History HEENT Surgical History: Reports: Oral Surgery (dental extractions), Tonsillectomy Female Surgical History: Reports: Hysterectomy (complete) Social & Family History - Tobacco Use Tobacco Use Status *Q: Former Tobacco User Years of Tobacco use: 46 Packs/Tins Daily: 1 Month/Year Tobacco Last Used: Quit 2018 Tobacco Use Comment: Started smoking 1971 - Alcohol Use Alcohol Use History: No - Recreational Drug Use Recreational Drug Use: No - Living Situation & Occupation Living situation: Reports: , with Family Occupation: Retired Course - Vital Signs Last Recorded V/S: Last Vital Signs Temp 36.3 C 11/03/20 18:06 Pulse 151 H 11/03/20 19:04 Resp 30 H 11/03/20 18:06 BP 139/98 H 11/03/20 19:04 Pulse Ox 94 L 11/03/20 18:06 - Orders/Labs/Meds Orders: Active Orders 24 hr Category Date Time Status EKG 12 Lead [EKG Documentation Completion] [RC] STAT Care 11/03/20 18:29 Active Insert Padilla Catheter [Insert Urinary Catheter] [OM.PC] Care 11/03/20 19:06 Ordered Stat Oxygen Therapy [RC] ASDIRECTED Care 11/03/20 18:29 Active Peripheral IV Care [RC] . DIRECTED Care 11/03/20 18:30 Active Chest 1V Frontal [CR] Stat Exams 11/03/20 18:29 Taken Diltiazem [Cardizem] 100 mg Med 11/03/20 19:00 Active Sodium Chloride 0.9% [Normal Saline] 100 ml IV TITRATE Sodium Chloride 0.9% [Saline Flush] Med 11/03/20 18:30 Active 10 ml FLUSH ASDIRECTED PRN Peripheral IV Insertion Adult [OM.PC] Stat Oth 11/03/20 18:29 Ordered Medication Orders Diltiazem HCl 100 mg/ Sodium (Chloride) 100 mls @ 5 mls/hr IV TITRATE RORY; Protocol Last Titration: 11/03/20 20:04 Dose: 15 mg/hr, 15 mls/hr Documented by: Admin: 11/03/20 19:01 Dose: 10 mg/hr, 10 mls/hr Documented by: COLTEN Sodium Chloride (Sodium Chloride 0.9% 10 Ml Syringe) 10 ml FLUSH ASDIRECTED PRN PRN Reason: Keep Vein Open Last Admin: 11/03/20 18:39 Dose: 10 ml Documented by: COLTEN Labs: Laboratory Tests 11/03/20 11/03/20 11/03/20 Range/Units 18:41 18:47 18:47 WBC 20.54 H (3.98-10.04) K/mm3 RBC 4.88 (3.98-5.22) M/mm3 Hgb 13.4 (11.2-15.7) gm/dl Hct 43.2 (34.1-44.9) % MCV 88.5 (79.4-94.8) fl MCH 27.5 (25.6-32.2) pg MCHC 31.0 L (32.2-35.5) g/dl RDW Std Deviation 50.9 H (36.4-46.3) fL Plt Count 223 (182-369) K/mm3 MPV 10.9 (9.4-12.3) fl Neut % (Auto) 86.4 H (34.0-71.1) % Lymph % (Auto) 4.1 L (19.3-51.7) % [place] % (Auto) 9.0 (4.7-12.5) % Eos % (Auto) 0 L (0.7-5.8) Baso % (Auto) 0.2 (0.1-1.2) % Neut # (Auto) 17.74 H (1.56-6.13) K/mm3 Lymph # (Auto) 0.84 L (1.18-3.74) K/mm3 [place] # (Auto) 1.85 H (0.24-0.36) K/mm3 Eos # (Auto) 0.00 L (0.04-0.36) K/mm3 Baso # (Auto) 0.04 (0.01-0.08) K/mm3 Manual Slide Review Abnormal smear PT (9.7-12.0) SECONDS INR Sodium 136 (136-145) mEq/L Potassium 3.6 (3.5-5.1) mEq/L Chloride 97 L (98-107) mEq/L Carbon Dioxide 30 (21-32) mEq/L Anion Gap 12.6 (5-15) BUN 26 H (7-18) mg/dL Creatinine 1.7 H (0.55-1.02) mg/dL Est Cr Clr Drug Dosing 24.90 mL/min Estimated GFR (MDRD) 30 (>60) mL/min BUN/Creatinine Ratio 15.3 (14-18) Glucose 161 H (70-99) mg/dL Calcium 9.5 (8.5-10.1) mg/dL Total Bilirubin 1.6 H (0.2-1.0) mg/dL AST 44 H (15-37) U/L ALT 22 (14-59) U/L Alkaline Phosphatase 91 (46-116) U/L Troponin I < 0.017 (0.00-0.056) ng/mL NT-Pro-B Natriuret Pep (0-125) pg/mL Total Protein 7.2 (6.4-8.2) g/dl Albumin 3.1 L (3.4-5.0) g/dl Globulin 4.1 gm/dL Albumin/Globulin Ratio 0.8 L (1-2) TSH 3rd Generation 2.046 (0.358-3.74) uIU/mL Urine Color (Yellow) Urine Appearance (Clear) Urine pH (5.0-8.0) Ur Specific [place] (1.005-1.030) Urine Protein (Negative) Urine Glucose (UA) (Negative) Urine Ketones (Negative) Urine Occult Blood (Negative) Urine Nitrite (Negative) Urine Bilirubin (Negative) Urine Urobilinogen (0.2-1.0) Ur Leukocyte Esterase (Negative) U Hyaline Cast (Auto) (0-5) /lpf Urine RBC (0-5) /hpf Urine WBC (0-5) /hpf Ur Squamous Epith Cells (0-5) /hpf Urine Bacteria (FEW) /hpf Urine Mucus (FEW) /hpf SARS-CoV-2 RNA (LY) (NEGATIVE) 11/03/20 11/03/20 11/03/20 Range/Units 18:47 18:47 18:52 WBC (3.98-10.04) K/mm3 RBC (3.98-5.22) M/mm3 Hgb (11.2-15.7) gm/dl Hct (34.1-44.9) % MCV (79.4-94.8) fl MCH (25.6-32.2) pg MCHC (32.2-35.5) g/dl RDW Std Deviation (36.4-46.3) fL Plt Count (182-369) K/mm3 MPV (9.4-12.3) fl Neut % (Auto) (34.0-71.1) % Lymph % (Auto) (19.3-51.7) % [place] % (Auto) (4.7-12.5) % Eos % (Auto) (0.7-5.8) Baso % (Auto) (0.1-1.2) % Neut # (Auto) (1.56-6.13) K/mm3 Lymph # (Auto) (1.18-3.74) K/mm3 [place] # (Auto) (0.24-0.36) K/mm3 Eos # (Auto) (0.04-0.36) K/mm3 Baso # (Auto) (0.01-0.08) K/mm3 Manual Slide Review PT 13.1 H (9.7-12.0) SECONDS INR 1.23 Sodium (136-145) mEq/L Potassium (3.5-5.1) mEq/L Chloride (98-107) mEq/L Carbon Dioxide (21-32) mEq/L Anion Gap (5-15) BUN (7-18) mg/dL Creatinine (0.55-1.02) mg/dL Est Cr Clr Drug Dosing mL/min Estimated GFR (MDRD) (>60) mL/min BUN/Creatinine Ratio (14-18) Glucose (70-99) mg/dL Calcium (8.5-10.1) mg/dL Total Bilirubin (0.2-1.0) mg/dL AST (15-37) U/L ALT (14-59) U/L Alkaline Phosphatase (46-116) U/L Troponin I (0.00-0.056) ng/mL NT-Pro-B Natriuret Pep 1770 H (0-125) pg/mL Total Protein (6.4-8.2) g/dl Albumin (3.4-5.0) g/dl Globulin gm/dL Albumin/Globulin Ratio (1-2) TSH 3rd Generation (0.358-3.74) uIU/mL Urine Color Yellow (Yellow) Urine Appearance Slt cloudy H (Clear) Urine pH 6.0 (5.0-8.0) Ur Specific [place] > or = 1.030 (1.005-1.030) Urine Protein 2+ H (Negative) Urine Glucose (UA) Negative (Negative) Urine Ketones Trace H (Negative) Urine Occult Blood 2+ H (Negative) Urine Nitrite Positive H (Negative) Urine Bilirubin 1+ H (Negative) Urine Urobilinogen 0.2 (0.2-1.0) Ur Leukocyte Esterase Negative (Negative) U Hyaline Cast (Auto) 5-10 H (0-5) /lpf Urine RBC 0-5 (0-5) /hpf Urine WBC 10-20 H (0-5) /hpf Ur Squamous Epith Cells 0-5 (0-5) /hpf Urine Bacteria Many H (FEW) /hpf Urine Mucus Few (FEW) /hpf SARS-CoV-2 RNA (LY) (NEGATIVE) 11/03/20 Range/Units 18:52 WBC (3.98-10.04) K/mm3 RBC (3.98-5.22) M/mm3 Hgb (11.2-15.7) gm/dl Hct (34.1-44.9) % MCV (79.4-94.8) fl MCH (25.6-32.2) pg MCHC (32.2-35.5) g/dl RDW Std Deviation (36.4-46.3) fL Plt Count (182-369) K/mm3 MPV (9.4-12.3) fl Neut % (Auto) (34.0-71.1) % Lymph % (Auto) (19.3-51.7) % [place] % (Auto) (4.7-12.5) % Eos % (Auto) (0.7-5.8) Baso % (Auto) (0.1-1.2) % Neut # (Auto) (1.56-6.13) K/mm3 Lymph # (Auto) (1.18-3.74) K/mm3 [place] # (Auto) (0.24-0.36) K/mm3 Eos # (Auto) (0.04-0.36) K/mm3 Baso # (Auto) (0.01-0.08) K/mm3 Manual Slide Review PT (9.7-12.0) SECONDS INR Sodium (136-145) mEq/L Potassium (3.5-5.1) mEq/L Chloride (98-107) mEq/L Carbon Dioxide (21-32) mEq/L Anion Gap (5-15) BUN (7-18) mg/dL Creatinine (0.55-1.02) mg/dL Est Cr Clr Drug Dosing mL/min Estimated GFR (MDRD) (>60) mL/min BUN/Creatinine Ratio (14-18) Glucose (70-99) mg/dL Calcium (8.5-10.1) mg/dL Total Bilirubin (0.2-1.0) mg/dL AST (15-37) U/L ALT (14-59) U/L Alkaline Phosphatase (46-116) U/L Troponin I (0.00-0.056) ng/mL NT-Pro-B Natriuret Pep (0-125) pg/mL Total Protein (6.4-8.2) g/dl Albumin (3.4-5.0) g/dl Globulin gm/dL Albumin/Globulin Ratio (1-2) TSH 3rd Generation (0.358-3.74) uIU/mL Urine Color (Yellow) Urine Appearance (Clear) Urine pH (5.0-8.0) Ur Specific [place] (1.005-1.030) Urine Protein (Negative) Urine Glucose (UA) (Negative) Urine Ketones (Negative) Urine Occult Blood (Negative) Urine Nitrite (Negative) Urine Bilirubin (Negative) Urine Urobilinogen (0.2-1.0) Ur Leukocyte Esterase (Negative) U Hyaline Cast (Auto) (0-5) /lpf Urine RBC (0-5) /hpf Urine WBC (0-5) /hpf Ur Squamous Epith Cells (0-5) /hpf Urine Bacteria (FEW) /hpf Urine Mucus (FEW) /hpf SARS-CoV-2 RNA (LY) Negative (NEGATIVE) Meds: Medications Generic Name Dose Route Start Last Admin Trade Name Freq PRN Reason Stop Dose Admin Diltiazem HCl 100 mg/ Sodium 100 mls @ 5 mls/hr 11/03/20 19:00 11/03/20 20:04 Chloride IV 15 mg/hr TITRATE RORY 15 mls/hr Titration Protocol 5 MG/HR Sodium Chloride 10 ml 11/03/20 18:30 11/03/20 18:39 Sodium Chloride 0.9% 10 Ml Syringe FLUSH 10 ml ASDIRECTED PRN Administration Keep Vein Open Discontinued Medications Generic Name Dose Route Start Last Admin Trade Name Freq PRN Reason Stop Dose Admin Apixaban 2.5 mg 11/03/20 20:29 11/03/20 20:51 Apixaban 2.5 Mg Tab PO 11/03/20 20:30 2.5 mg ONETIME ONE Administration Diltiazem HCl 20 mg 11/03/20 18:31 11/03/20 18:36 Diltiazem 50 Mg/10 Ml Sdv IVPUSH 11/03/20 18:32 20 mg ONETIME ONE Administration - Re-Assessments/Exams Free Text/Narrative Re-Assessment/Exam: 11/03/20 20:[address] Best, for change of shift. I agree with his history and physical exam as documented. The patient's CBC is remarkable for leukocytosis of 20.54, and is otherwise unremarkable. Her CMP is remarkable for a BUN/Cr elevated at 26/1.7, with hyperglycemia of 161 , and the remainder of her CMP being unremarkable. Her TSH is within normal limits at 2.046. Her troponin is undetectably low. Her pro-BNP is modestly elevated at 1770. Her PT/INR are mildly elevated at 13.1/1.23. Her urinalysis is remarkable for slightly cloudy appearance, 2+ occult blood with 0-5 RBCs, leukocyte esterase negative with 10-20 WBCs, nitrate positive with many bacteria, and 0-5 squamous epithelial cells. The patient's swab for the SARS-CoV-2 virus is negative. Portable chest radiograph reviewed. There is mild cardiomegaly. Mild pulmonary vascular congestion. No pleural effusions seen on this AP view. No focal infiltrate. No pneumothorax. Formal read per the Radiologist pending. At present, the patient's HR is 145 bpm. Her diltiazem drip was increased to 15 mg/h a few minutes ago. Reviewing prior labs finds that the patient's BUN/Cr were normal on 06/07/2017. The patient's [id number] score is 6, therefore anticoagulation is recommended. Although the patient's pro-BNP is modestly elevated, and her portable chest x- ray indicates cardiomegaly and mild pulmonary vascular congestion, I am not recommending diuresis at this time, as her elevated pro-BNP is likely related to her renal insufficiency, and her mild pulmonary vascular congestion is likely related to her atrial fibrillation and rapid heart rate. If her heart rate can be brought under control, her CHF will likely resolve itself, and if we were to give a diuretic, it would only worsen her renal insufficiency. 11/03/20 20:[address] Negrito Muse, Hospitalist, at 20:19. He accepted the patient for admission to the ICU. He prefers Eliquis for anticoagulation. Because of her renal insufficiency, the recommended dose is 2.5 mg po BID. 11/03/20 20:51 The above plan was discussed with the patient and 2 family members. The patient mentioned that Dr. Lockhart told her that she has ventricular hypertrophy, but she denied having CHF. She stated that she takes furosemide for lower extremity edema, not her heart. She mentioned that her chronic back pain is acting up. I offered to treat it with some pain medication or muscle relaxant, but she declined. I mentioned to her that the beds in the ICU will likely be much more comfortable than the gurneys in the ED. Departure - Departure Time of Disposition: 20:23 Condition: Good - Discharge Information *PRESCRIPTION DRUG MONITORING PROGRAM REVIEWED*: Not Applicable *COPY OF PRESCRIPTION DRUG MONITORING REPORT IN PATIENT LASHA: Not Applicable Sepsis Event Note (ED) - Focused Exam Vital Signs: Vital Signs Temp Pulse Resp BP Pulse Ox 11/03/20 19:04 151 H 139/98 H 11/03/20 18:06 36.3 C 164 H 30 H 156/129 H 94 L
[2020-11-03] MEDS: Diltiazem 100 MG in Sodium Chloride 0.9% 100 ML IV SCH (19:01)
[2020-11-03] MEDS ORDERED: Apixaban 2.5 MG Tab PO ONE (20:29)
[2020-11-03] MEDS ORDERED: Morphine 2 MG/ML SYRINGE IVPUSH PRN (22:35)
[2020-11-04] MEDS: Diltiazem 100 MG in Sodium Chloride 0.9% 100 ML IV SCH (01:10)
[2020-11-04] MEDS: HYDROmorphone 0.5 MG/0.5 ML Syringe IVPUSH PRN ×2 (03:12→09:20)
--- NOTE | 2020-11-04 03:22 | PCM.HP.2 ---
H&P History of Present Illness - General Date of Service: 11/04/20 Admit Problem/Dx: Admission Diagnosis/Problem Admission Diagnosis/Problem Atrial fibrillation Source of Information: Patient History Limitations: Reports: No Limitations - History of Present Illness Initial Comments - Free Text/Narative: Patient is a 65-year-old lady who was brought to the emergency room via ambulance for generalized weakness, difficulty standing and walking that has worsened over the past 3 to 4 days. In the emergency department the patient was noted to be in new onset atrial fibrillation with rapid ventricular response. The patient is also super obese with a BMI of 62.8. The patient is somewhat of a poor historian. She has been ill for the past week or so and her main concern is that she has been having trouble ambulating. The patient does not use oxygen at home. The patient has denied any fever or chills. She has had no nausea or vomiting. She is taking medication for hypothyroidism as well as diabetes. She does not normally follow with a physician. Onset of Symptoms: Reports: Unknown/Unsure Duration of Symptoms: Reports: Day(s): Location: Reports: Abdomen Severity: Moderate Improves with: Reports: None Worsens with: Reports: None Context: Reports: Exertion Associated Symptoms: Reports: No Other Symptoms - Related Data Allergies/Adverse Reactions: Allergies Allergy/AdvReac Type Severity Reaction Status Date / Time venom-honey bee Allergy Severe Swelling Verified 11/03/20 22:47 [bee venom (honey bee)] adhesive Allergy Intermediate Rash Verified 11/04/20 08:42 amoxicillin Allergy Intermediate Rash Verified 11/04/20 08:42 cimetidine [From Tagamet] Allergy Mild Hives Verified 11/04/20 08:42 Home Medications: Home Meds Aspirin/Acetaminophen/Caffeine [Headache Relief Tablet] 1 tab PO DAILY PRN 08/24/15 [History] Levothyroxine Sodium [Synthroid] 112 mcg PO DAILY 08/24/15 [History] Propylene Glycol/Peg 400 [Systane 0.3-0.4% Eye Drops] 1 drop EYEBOTH TID PRN 08/24/15 [History] Aspirin [Aspirin EC] 81 mg PO DAILY 11/03/20 [History] Furosemide [Lasix] 20 mg PO DAILY 11/03/20 [History] diphenhydrAMINE [Benadryl] 25 mg PO DAILY 11/03/20 [History] metFORMIN [Glucophage] 500 mg PO DAILY 11/03/20 [History] Past Medical History HEENT History: Reports: Sinusitis, Other (See Below) Other HEENT History: bilateral tinnitus, wears reading glasses Cardiovascular History: Reports: ND, Other (See Below) Other Cardiovascular History: lower extremity edema Respiratory History: Reports: COPD Other Respiratory History: panlobular emphysema, dyspnea Gastrointestinal History: Reports: Cholelithiasis, GERD, Other (See Below) Other Gastrointestinal History: umbilical hernia Genitourinary History: Reports: Urinary Incontinence, Other (See Below) Other Genitourinary History: stress incontinence VASCULAR NURSE History: Reports: Musculoskeletal History: Reports: Back Pain, Chronic, Osteoporosis, Other (See Below) Other Musculoskeletal History: carpal tunnel syndrome Neurological History: Reports: Headaches, Chronic Other Neuro History: pt. states she has "twitches" Psychiatric History: Reports: Other (See Below) Other Psychiatric History: fatigue Endocrine/Metabolic History: Reports: Diabetes, Type II Hematologic History: Reports: Other (See Below) Other Hematologic History: erythrocytosis Immunologic History: Reports: None Oncologic (Cancer) History: Reports: None Dermatologic History: Reports: Cellulitis - Infectious Disease History Infectious Disease History: Reports: Influenza - Past Surgical History HEENT Surgical History: Reports: Oral Surgery, Tonsillectomy Cardiovascular Surgical History: Reports: None Respiratory Surgical History: Reports: None GI Surgical History: Reports: Appendectomy Female Surgical History: Reports: Hysterectomy Endocrine Surgical History: Reports: None Neurological Surgical History: Reports: None Musculoskeletal Surgical History: Reports: None Oncologic Surgical History: Reports: None Dermatological Surgical History: Reports: None Social & Family History - Tobacco Use Tobacco Use Status *Q: Never Tobacco User Years of Tobacco use: 46 Packs/Tins Daily: 1 Month/Year Tobacco Last Used: Quit 2018 Tobacco Use Comment: Started smoking 1972 Second Hand Smoke Exposure: No - Caffeine Use Caffeine Use: Reports: Soda Caffeine Use Comment: diet 7 up - Recreational Drug Use Recreational Drug Use: No - Living Situation & Occupation Living situation: Reports: , with Family Occupation: Retired H&P Review of Systems - Review of Systems: Review Of Systems: See Below General: Reports: Weakness, Fatigue HEENT: Reports: No Symptoms Pulmonary: Reports: Shortness of Breath, Cough Cardiovascular: Reports: No Symptoms Gastrointestinal: Reports: No Symptoms Genitourinary: Reports: No Symptoms Musculoskeletal: Reports: Back Pain, Leg Pain Skin: Reports: No Symptoms Psychiatric: Reports: No Symptoms Neurological: Reports: No Symptoms Hematologic/Lymphatic: Reports: No Symptoms Immunologic: Reports: No Symptoms Exam - Exam Exam: See Below - Vital Signs Vital Signs: Last Vital Signs Temp 36.4 C 11/04/20 00:00 Pulse 121 H 11/03/20 21:13 Resp 25 H 11/04/20 00:00 BP 157/100 H 11/04/20 03:00 Pulse Ox 90 L 11/04/20 03:00 Weight: 150.774 kg - Exam Quality Assessment: Supplemental Oxygen, DVT Prophylaxis General: Alert, Oriented, Mild Distress HEENT: Conjunctiva Clear, EACs Clear. No: Mucosa Moist & [place] (Dry) Neck: Supple, Trachea Midline Lungs: Decreased Breath Sounds, Rales Cardiovascular: Irregular Rhythm, Tachycardia GI/Abdominal Exam: Normal Bowel Sounds, Soft, Non-Tender, No Distention (Female) Exam: Deferred Rectal (Female) Exam: Deferred Back Exam: No: Normal Inspection, Full Range of Motion Extremities: Normal Inspection, No Pedal Edema Skin: Warm, Dry, Intact Neurological: Cranial Nerves Intact Neuro Extensive - Mental Status: Alert, Oriented x3 Psychiatric: Alert, Normal Affect - Patient Data Lab Results Last 24 hrs: Laboratory Results - last 24 hr 11/03/20 11/03/20 11/03/20 Range/Units 18:41 18:47 18:47 WBC 20.54 H (3.98-10.04) K/mm3 RBC 4.88 (3.98-5.22) M/mm3 Hgb 13.4 (11.2-15.7) gm/dl Hct 43.2 (34.1-44.9) % MCV 88.5 (79.4-94.8) fl MCH 27.5 (25.6-32.2) pg MCHC 31.0 L (32.2-35.5) g/dl RDW Std Deviation 50.9 H (36.4-46.3) fL Plt Count 223 (182-369) K/mm3 MPV 10.9 (9.4-12.3) fl Neut % (Auto) 86.4 H (34.0-71.1) % Lymph % (Auto) 4.1 L (19.3-51.7) % Ceiba % (Auto) 9.0 (4.7-12.5) % Eos % (Auto) 0 L (0.7-5.8) Baso % (Auto) 0.2 (0.1-1.2) % Neut # (Auto) 17.74 H (1.56-6.13) K/mm3 Lymph # (Auto) 0.84 L (1.18-3.74) K/mm3 Ceiba # (Auto) 1.85 H (0.24-0.36) K/mm3 Eos # (Auto) 0.00 L (0.04-0.36) K/mm3 Baso # (Auto) 0.04 (0.01-0.08) K/mm3 Manual Slide Review Abnormal smear PT (9.7-12.0) SECONDS INR Sodium 136 (136-145) mEq/L Potassium 3.6 (3.5-5.1) mEq/L Chloride 97 L (98-107) mEq/L Carbon Dioxide 30 (21-32) mEq/L Anion Gap 12.6 (5-15) BUN 26 H (7-18) mg/dL Creatinine 1.7 H (0.55-1.02) mg/dL Est Cr Clr Drug Dosing 24.90 mL/min Estimated GFR (MDRD) 30 (>60) mL/min BUN/Creatinine Ratio 15.3 (14-18) Glucose 161 H (70-99) mg/dL Calcium 9.5 (8.5-10.1) mg/dL Total Bilirubin 1.6 H (0.2-1.0) mg/dL AST 44 H (15-37) U/L ALT 22 (14-59) U/L Alkaline Phosphatase 91 (46-116) U/L Troponin I < 0.017 (0.00-0.056) ng/mL NT-Pro-B Natriuret Pep (0-125) pg/mL Total Protein 7.2 (6.4-8.2) g/dl Albumin 3.1 L (3.4-5.0) g/dl Globulin 4.1 gm/dL Albumin/Globulin Ratio 0.8 L (1-2) TSH 3rd Generation 2.046 (0.358-3.74) uIU/mL Urine Color (Yellow) Urine Appearance (Clear) Urine pH (5.0-8.0) Ur Specific [place] (1.005-1.030) Urine Protein (Negative) Urine Glucose (UA) (Negative) Urine Ketones (Negative) Urine Occult Blood (Negative) Urine Nitrite (Negative) Urine Bilirubin (Negative) Urine Urobilinogen (0.2-1.0) Ur Leukocyte Esterase (Negative) U Hyaline Cast (Auto) (0-5) /lpf Urine RBC (0-5) /hpf Urine WBC (0-5) /hpf Ur Squamous Epith Cells (0-5) /hpf Urine Bacteria (FEW) /hpf Urine Mucus (FEW) /hpf SARS-CoV-2 RNA (LY) (NEGATIVE) 11/03/20 11/03/20 11/03/20 Range/Units 18:47 18:47 18:52 WBC (3.98-10.04) K/mm3 RBC (3.98-5.22) M/mm3 Hgb (11.2-15.7) gm/dl Hct (34.1-44.9) % MCV (79.4-94.8) fl MCH (25.6-32.2) pg MCHC (32.2-35.5) g/dl RDW Std Deviation (36.4-46.3) fL Plt Count (182-369) K/mm3 MPV (9.4-12.3) fl Neut % (Auto) (34.0-71.1) % Lymph % (Auto) (19.3-51.7) % Ce[place] % (Auto) (4.7-12.5) % Eos % (Auto) (0.7-5.8) Baso % (Auto) (0.1-1.2) % Neut # (Auto) (1.56-6.13) K/mm3 Lymph # (Auto) (1.18-3.74) K/mm3 [place] # (Auto) (0.24-0.36) K/mm3 Eos # (Auto) (0.04-0.36) K/mm3 Baso # (Auto) (0.01-0.08) K/mm3 Manual Slide Review PT 13.1 H (9.7-12.0) SECONDS INR 1.23 Sodium (136-145) mEq/L Potassium (3.5-5.1) mEq/L Chloride (98-107) mEq/L Carbon Dioxide (21-32) mEq/L Anion Gap (5-15) BUN (7-18) mg/dL Creatinine (0.55-1.02) mg/dL Est Cr Clr Drug Dosing mL/min Estimated GFR (MDRD) (>60) mL/min BUN/Creatinine Ratio (14-18) Glucose (70-99) mg/dL Calcium (8.5-10.1) mg/dL Total Bilirubin (0.2-1.0) mg/dL AST (15-37) U/L ALT (14-59) U/L Alkaline Phosphatase (46-116) U/L Troponin I (0.00-0.056) ng/mL NT-Pro-B Natriuret Pep 1770 H (0-125) pg/mL Total Protein (6.4-8.2) g/dl Albumin (3.4-5.0) g/dl Globulin gm/dL Albumin/Globulin Ratio (1-2) TSH 3rd Generation (0.358-3.74) uIU/mL Urine Color Yellow (Yellow) Urine Appearance Slt cloudy H (Clear) Urine pH 6.0 (5.0-8.0) Ur Specific [place] > or = 1.030 (1.005-1.030) Urine Protein 2+ H (Negative) Urine Glucose (UA) Negative (Negative) Urine Ketones Trace H (Negative) Urine Occult Blood 2+ H (Negative) Urine Nitrite Positive H (Negative) Urine Bilirubin 1+ H (Negative) Urine Urobilinogen 0.2 (0.2-1.0) Ur Leukocyte Esterase Negative (Negative) U Hyaline Cast (Auto) 5-10 H (0-5) /lpf Urine RBC 0-5 (0-5) /hpf Urine WBC 10-20 H (0-5) /hpf Ur Squamous Epith Cells 0-5 (0-5) /hpf Urine Bacteria Many H (FEW) /hpf Urine Mucus Few (FEW) /hpf SARS-CoV-2 RNA (LY) (NEGATIVE) 11/03/20 Range/Units 18:52 WBC (3.98-10.04) K/mm3 RBC (3.98-5.22) M/mm3 Hgb (11.2-15.7) gm/dl Hct (34.1-44.9) % MCV (79.4-94.8) fl MCH (25.6-32.2) pg MCHC (32.2-35.5) g/dl RDW Std Deviation (36.4-46.3) fL Plt Count (182-369) K/mm3 MPV (9.4-12.3) fl Neut % (Auto) (34.0-71.1) % Lymph % (Auto) (19.3-51.7) % [place] % (Auto) (4.7-12.5) % Eos % (Auto) (0.7-5.8) Baso % (Auto) (0.1-1.2) % Neut # (Auto) (1.56-6.13) K/mm3 Lymph # (Auto) (1.18-3.74) K/mm3 [place] # (Auto) (0.24-0.36) K/mm3 Eos # (Auto) (0.04-0.36) K/mm3 Baso # (Auto) (0.01-0.08) K/mm3 Manual Slide Review PT (9.7-12.0) SECONDS INR Sodium (136-145) mEq/L Potassium (3.5-5.1) mEq/L Chloride (98-107) mEq/L Carbon Dioxide (21-32) mEq/L Anion Gap (5-15) BUN (7-18) mg/dL Creatinine (0.55-1.02) mg/dL Est Cr Clr Drug Dosing mL/min Estimated GFR (MDRD) (>60) mL/min BUN/Creatinine Ratio (14-18) Glucose (70-99) mg/dL Calcium (8.5-10.1) mg/dL Total Bilirubin (0.2-1.0) mg/dL AST (15-37) U/L ALT (14-59) U/L Alkaline Phosphatase (46-116) U/L Troponin I (0.00-0.056) ng/mL NT-Pro-B Natriuret Pep (0-125) pg/mL Total Protein (6.4-8.2) g/dl Albumin (3.4-5.0) g/dl Globulin gm/dL Albumin/Globulin Ratio (1-2) TSH 3rd Generation (0.358-3.74) uIU/mL Urine Color (Yellow) Urine Appearance (Clear) Urine pH (5.0-8.0) Ur Specific [place] (1.005-1.030) Urine Protein (Negative) Urine Glucose (UA) (Negative) Urine Ketones (Negative) Urine Occult Blood (Negative) Urine Nitrite (Negative) Urine Bilirubin (Negative) Urine Urobilinogen (0.2-1.0) Ur Leukocyte Esterase (Negative) U Hyaline Cast (Auto) (0-5) /lpf Urine RBC (0-5) /hpf Urine WBC (0-5) /hpf Ur Squamous Epith Cells (0-5) /hpf Urine Bacteria (FEW) /hpf Urine Mucus (FEW) /hpf SARS-CoV-2 RNA (LY) Negative (NEGATIVE) Result Diagrams: 11/04/20 07:03 11/04/20 07:03 Sepsis Event Note - Evaluation Sepsis Screening Result: Sepsis Risk Current Stage of Sepsis: Severe Sepsis Possible Source of Sepsis: Genitourinary - Focused Exam Sepsis Event Note Statement: Focused Sepsis Exam Completed Vital Signs: Vital Signs Temp Pulse Resp BP BP Pulse Ox Pulse Ox 11/04/20 03:00 157/100 H 90 L 11/04/20 02:00 149/100 H 11/04/20 01:00 152/100 H 11/04/20 00:00 36.4 C 25 H 150/85 H 94 L 11/03/20 23:00 24 H 131/72 95 11/03/20 22:00 37.2 C 20 145/70 H 97 97 11/03/20 21:13 121 H 140/88 11/03/20 19:04 151 H 139/98 H 11/03/20 18:06 36.3 C 164 H 30 H 156/129 H 94 L Respiratory Effort Without Exertion: Dyspneic, Pursed Lips Heart Sounds: Irregular Capillary Refill, Detail: Less than/Equal to (</=) 2 Seconds Pulse Description: 1+ [place] Peripheral Pulse Location: Radial Skin Exam (Focused Sepsis): Normal Turgor - Problem List (1) Sepsis SNOMED Code(s): 81377204 ICD Code: A41.9 - SEPSIS, UNSPECIFIED ORGANISM Status: Acute Priority: High Current Visit: Yes Qualifiers: Sepsis type: sepsis due to unspecified organism Sepsis acute organ dysfunction status: with acute organ dysfunction Severe sepsis acute organ dysfunction type: acute respiratory failure Acute respiratory failure type: with hypoxia Severe sepsis shock status: without septic shock Qualified Code(s): A41.9 - Sepsis, unspecified organism; R65.20 - Severe sepsis without septic shock; J96.01 - Acute respiratory failure with hypoxia (2) Atrial fibrillation with rapid ventricular response SNOMED Code(s): 628440607410963 ICD Code: I48.91 - UNSPECIFIED ATRIAL FIBRILLATION Status: Acute Priority: High Current Visit: Yes Problem Details: New onset (3) Urinary tract infection SNOMED Code(s): 74915992 ICD Code: N39.0 - URINARY TRACT INFECTION, SITE NOT SPECIFIED Status: Acute Priority: High Current Visit: Yes Qualifiers: Urinary tract infection type: acute pyelonephritis Qualified Code(s): N10 - Acute pyelonephritis (4) Obesity hypoventilation syndrome SNOMED Code(s): 82861564, 054638903 ICD Code: E66.2 - MORBID (SEVERE) OBESITY WITH ALVEOLAR HYPOVENTILATION Status: Chronic Priority: High Current Visit: Yes (5) Hypoxemia SNOMED Code(s): 934128319 ICD Code: R09.02 - HYPOXEMIA Status: Acute Priority: High Current Visit: Yes (6) Chronic kidney disease, stage 3, mod decreased GFR SNOMED Code(s): 402283912 ICD Code: N18.30 - CHRONIC KIDNEY DISEASE, STAGE 3 UNSPECIFIED Status: Chronic Priority: High Current Visit: Yes Qualifiers: Chronic kidney disease stage 3 subtype: stage 3b (GFR 30-44) Qualified Code(s): N18.32 - Chronic kidney disease, stage 3b Problem List Initiated/Reviewed/Updated: Yes Orders Last 24hrs: Active Orders 24 hr Category Date Time Status Patient Status [ADT] Routine ADT 11/03/20 21:06 Active Bedrest [RC] ASDIRECTED Care 11/03/20 22:51 Active Insert Padilla Catheter [Insert Urinary Catheter] [OM.PC] Care 11/03/20 22:45 Ordered Q24H Insert Padilla Catheter [Insert Urinary Catheter] [OM.PC] Care 11/03/20 19:06 Ordered Stat Oxygen Therapy [RC] ASDIRECTED Care 11/03/20 18:29 Active Peripheral IV Care [RC] Q2HR Care 11/03/20 18:30 Active Urinary Catheter Assessment [RC] Q4HR Care 11/03/20 22:38 Active ADA Diabetic [[place] [employer] Diet] [DIET Diet 11/04/20 Breakfast Active ] Chest 1V Frontal [CR] Stat Exams 11/03/20 18:29 Taken CBC WITH AUTO DIFF [HEME] Routine Lab 11/04/20 05:00 Ordered CMP [COMPREHENSIVE METABOLIC PN,CMP] [CHEM] Routine Lab 11/04/20 05:00 Ordered Acetaminophen [TylenoL] Med 11/03/20 22:35 Active 650 mg PO Q4H PRN Diltiazem [Cardizem] 100 mg Med 11/03/20 19:00 Active Sodium Chloride 0.9% [Normal Saline] 100 ml IV TITRATE HYDROmorphone [Dilaudid] Med 11/04/20 02:57 Active 0.5 mg IVPUSH Q2H PRN Morphine Med 11/03/20 22:35 Active 1 mg IVPUSH Q2HR PRN Sodium Chloride 0.9% [Saline Flush] Med 11/03/20 18:30 Active 10 ml FLUSH ASDIRECTED PRN Peripheral IV Insertion Adult [OM.PC] Stat Oth 11/03/20 18:29 Ordered Code Status [Resuscitation Status] Routine Resus Stat 11/03/20 22:41 Ordered Medication Orders Acetaminophen (Acetaminophen 325 Mg Tab) 650 mg PO Q4H PRN PRN Reason: Pain/Fever Hydromorphone HCl (Hydromorphone 0.5 Mg/0.5 Ml Syringe) 0.5 mg IVPUSH Q2H PRN PRN Reason: PAIN Last Admin: 11/04/20 03:12 Dose: 0.5 mg Documented by: GABBY Diltiazem HCl 100 mg/ Sodium (Chloride) 100 mls @ 5 mls/hr IV TITRATE RORY; Protocol Last Titration: 11/04/20 03:00 Dose: 20 mg/hr, 20 mls/hr Documented by: Admin: 11/04/20 01:10 Dose: 15 mg/hr, 15 mls/hr Documented by: Titration: 11/04/20 01:10 Dose: 15 mg/hr, 15 mls/hr Documented by: Titration: 11/03/20 20:04 Dose: 15 mg/hr, 15 mls/hr Documented by: Admin: 11/03/20 19:01 Dose: 10 mg/hr, 10 mls/hr Documented by: COLTEN Morphine Sulfate (Morphine 2 Mg/Ml Syringe) 1 mg IVPUSH Q2HR PRN PRN Reason: Pain (severe 7-10) Last Admin: 11/04/20 01:46 Dose: 1 mg Documented by: GABBY Sodium Chloride (Sodium Chloride 0.9% 10 Ml Syringe) 10 ml FLUSH ASDIRECTED PRN PRN Reason: Keep Vein Open Last Admin: 11/03/20 18:39 Dose: 10 ml Documented by: COLTEN Assessment/Plan Comment:: Patient is a medically complex 65-year-old lady who has been admitted to the intensive care unit primarily out of concern for atrial fibrillation with RVR and the patient had diltiazem in the emergency department. The patient's rate had not been controlled adequately and I have consulted with pharmacy with regards to starting the patient with digoxin due to her chronic kidney disease as well as her super morbid obesity. The patient because of the obesity is also suspected of having obesity pulmonary hypoventilation syndrome and oxygen support will be continued to help keep the patient saturations around 92%. The patient's urinalysis was also supportive of urinary tract infection along with concentration with the specific gravity of 1.030. The patient may have a component of heart failure due to her atrial fibrillation her B-type natriuretic peptide is elevated at 1700. Patient has Lasix ordered and will continue to monitor her fluid status closely in order to avoid renal injury. I have ordered a repeat chest x-ray for this morning as the patient is still continuing to have shortness of breath and physical examination shows that she has decreased sounds. The patient is a diabetic and she takes Metformin at home and this is being continued. The patient will also be kept on diabetic diet as well as insulin sliding scale. The patient is also started on Eliquis for atrial fibrillation as well as DVT prophylaxis. The patient does have a history of DVT. I discussed with the patient the possibility of rehab in order to safely go home. - Mortality Measure Prognosis:: Good
[2020-11-04] MEDS: Digoxin 500 MCG/2 ML Amp IVPUSH SCH ×2 (03:53→09:20)
[2020-11-04] MEDS ORDERED: Carboxymethylcellulose Sodium 1% Ophth Gel 15 ML Bottle EYEBOTH PRN (03:56)
[2020-11-04] MEDS ORDERED: Levofloxacin/Dextrose 5%-Water 250 MG in Premix Bag 1 BAG IV SCH (04:15)
[2020-11-04] MEDS: Levofloxacin/Dextrose 5%-Water 750 MG in Premix Bag 1 BAG IV SCH (04:22)
[2020-11-04] MEDS ORDERED: Levothyroxine 112 MCG Tab PO SCH (06:00)
[2020-11-04] MEDS ORDERED: metFORMIN 500 MG Tab PO SCH (07:00)
[2020-11-04] MEDS: Acetaminophen 325 MG Tab PO PRN ×2 (08:21→22:39)
[2020-11-04] MEDS: Apixaban 5 MG Tab PO SCH ×2 (08:22→20:20)
[2020-11-04] MEDS: Furosemide 20 MG/2 ML VIAL IVPUSH SCH (08:23)
--- NOTE | 2020-11-04 08:37 | CR ---
Chest: Frontal view of the chest was obtained in AP projection. Comparison: Prior chest x-ray on 05/26/17. Heart is enlarged. Slight parenchymal density is seen within the left base and difficult to exclude an area of pneumonia. Pulmonary vessels are minimally congested which appears stable. Bony structures show nothing acute. Impression: 1. Cardiomegaly and mild chronic pulmonary vascular congestion. 2. Slight density within the left lung base and difficult to exclude pneumonia. Diagnostic code #3
--- NOTE | 2020-11-04 08:37 | CR ---
Chest: Portable view of the chest was obtained. Comparison: Prior chest x-ray of 11/03/20. Heart size is enlarged. Stable pulmonary vascular congestion is seen. Continuing density within the left lung base is seen. Lungs otherwise are clear. Bony structures showed nothing acute. Impression: 1. Stable cardiomegaly with mild chronic pulmonary vascular congestion. 2. Slight parenchymal density within the left lung base. This is unchanged from most recent exam and difficult to exclude an area of pneumonia if patient has infectious symptoms. Diagnostic code #3
[2020-11-04] MEDS ORDERED: Apixaban 2.5 MG Tab PO SCH (09:00)
[2020-11-04] MEDS ORDERED: Furosemide 20 MG Tab PO SCH (09:00)
[2020-11-04] MEDS: Metoprolol Tartrate 25 MG Tab PO SCH ×2 (11:14→20:20)
[2020-11-04] MEDS: Insulin Regular, Human 100 Units/ML 3 ML Vial SUBCUT SCH ×2 (12:34→18:42)
--- NOTE | 2020-11-05 07:08 | PCM.PN ---
- General Info Date of Service: 11/05/20 Admission Dx/Problem (Free Text): Admission Diagnosis/Problem Admission Diagnosis/Problem Atrial fibrillation with RVR, urinary tract infection, pre-existing hypoxia Subjective Update: The patient is a 65-year-old lady who was admitted yesterday to the intensive care unit as an inpatient out of concern for generalized weakness, difficulty standing and walking and was found to be in A. fib with RVR initially in the emergency department with a ventricular rate of 160 bpm. The patient has been rate controlled today and she remains in A. fib with variable rate from 82 -117 per minute. Patient also says that she has been breathing better although she is using oxygen at home. The patient has expressed the desire to go home when ready. She was also noted to have urinary tract infection and she is on medication for this. The patient says that she feels better today. She has been tolerating her diet. She says that she has a cough and has been coughing up sputum. Functional Status: Reports: Pain Controlled, Tolerating Diet - Review of Systems General: Reports: Weakness, Fatigue HEENT: Reports: No Symptoms Pulmonary: Reports: Shortness of Breath, Cough, Sputum Cardiovascular: Reports: No Symptoms Gastrointestinal: Reports: No Symptoms Genitourinary: Reports: No Symptoms Musculoskeletal: Reports: No Symptoms Skin: Reports: No Symptoms Neurological: Reports: No Symptoms Psychiatric: Reports: No Symptoms - Patient Data Vitals - Most Recent: Last Vital Signs Temp 36.2 C 11/05/20 04:00 Pulse 105 H 11/04/20 20:20 Resp 24 H 11/05/20 04:00 BP 150/98 H 11/05/20 04:00 Pulse Ox 96 11/05/20 06:21 Weight - Most Recent: 154.221 kg I&O - Last 24 Hours: Intake & Output 11/04/20 11/05/20 11/05/20 22:59 06:59 14:59 Intake Total 500 350 Output Total 335 350 Balance 165 0 Lab Results Last 24 Hours: Laboratory Results - last 24 hr 11/04/20 11/04/20 11/04/20 Range/Units 07:03 07:03 07:03 WBC 23.82 H (3.98-10.04) K/mm3 RBC 4.98 (3.98-5.22) M/mm3 Hgb 13.6 (11.2-15.7) gm/dl Hct 45.4 H (34.1-44.9) % MCV 91.2 (79.4-94.8) fl MCH 27.3 (25.6-32.2) pg MCHC 30.0 L (32.2-35.5) g/dl RDW Std Deviation 52.8 H (36.4-46.3) fL Plt Count 220 (182-369) K/mm3 MPV 11.0 (9.4-12.3) fl Neut % (Auto) 85.2 H (34.0-71.1) % Lymph % (Auto) 3.7 L (19.3-51.7) % Wallace % (Auto) 10.3 (4.7-12.5) % Eos % (Auto) 0 L (0.7-5.8) Baso % (Auto) 0.2 (0.1-1.2) % Neut # (Auto) 20.31 H (1.56-6.13) K/mm3 Lymph # (Auto) 0.88 L (1.18-3.74) K/mm3 Wallace # (Auto) 2.45 H (0.24-0.36) K/mm3 Eos # (Auto) 0.00 L (0.04-0.36) K/mm3 Baso # (Auto) 0.04 (0.01-0.08) K/mm3 Manual Slide Review Abnormal smear Sodium 135 L (136-145) mEq/L Potassium 4.3 (3.5-5.1) mEq/L Chloride 98 (98-107) mEq/L Carbon Dioxide 34 H (21-32) mEq/L Anion Gap 7.3 (5-15) BUN 27 H (7-18) mg/dL Creatinine 1.5 H (0.55-1.02) mg/dL Est Cr Clr Drug Dosing 28.21 mL/min Estimated GFR (MDRD) 35 (>60) mL/min BUN/Creatinine Ratio 18.0 (14-18) Glucose 158 H (70-99) mg/dL POC Glucose (70-99) mg/dL Lactic Acid (0.4-2.0) mmol/L Calcium 9.5 (8.5-10.1) mg/dL Magnesium (1.8-2.4) mg/dL Total Bilirubin 1.4 H (0.2-1.0) mg/dL AST 41 H (15-37) U/L ALT 24 (14-59) U/L Alkaline Phosphatase 94 (46-116) U/L Total Protein 7.7 (6.4-8.2) g/dl Albumin 3.0 L (3.4-5.0) g/dl Globulin 4.7 gm/dL Albumin/Globulin Ratio 0.6 L (1-2) Digoxin 0.7 L (0.9-2.0) ng/mL 11/04/20 11/04/20 11/04/20 Range/Units 08:25 08:32 09:20 WBC (3.98-10.04) K/mm3 RBC (3.98-5.22) M/mm3 Hgb (11.2-15.7) gm/dl Hct (34.1-44.9) % MCV (79.4-94.8) fl MCH (25.6-32.2) pg MCHC (32.2-35.5) g/dl RDW Std Deviation (36.4-46.3) fL Plt Count (182-369) K/mm3 MPV (9.4-12.3) fl Neut % (Auto) (34.0-71.1) % Lymph % (Auto) (19.3-51.7) % Wallace % (Auto) (4.7-12.5) % Eos % (Auto) (0.7-5.8) Baso % (Auto) (0.1-1.2) % Neut # (Auto) (1.56-6.13) K/mm3 Lymph # (Auto) (1.18-3.74) K/mm3 Wallace # (Auto) (0.24-0.36) K/mm3 Eos # (Auto) (0.04-0.36) K/mm3 Baso # (Auto) (0.01-0.08) K/mm3 Manual Slide Review Sodium (136-145) mEq/L Potassium (3.5-5.1) mEq/L Chloride (98-107) mEq/L Carbon Dioxide (21-32) mEq/L Anion Gap (5-15) BUN (7-18) mg/dL Creatinine (0.55-1.02) mg/dL Est Cr Clr Drug Dosing mL/min Estimated GFR (MDRD) (>60) mL/min BUN/Creatinine Ratio (14-18) Glucose (70-99) mg/dL POC Glucose 144 H (70-99) mg/dL Lactic Acid 0.8 (0.4-2.0) mmol/L Calcium (8.5-10.1) mg/dL Magnesium 1.9 (1.8-2.4) mg/dL Total Bilirubin (0.2-1.0) mg/dL AST (15-37) U/L ALT (14-59) U/L Alkaline Phosphatase (46-116) U/L Total Protein (6.4-8.2) g/dl Albumin (3.4-5.0) g/dl Globulin gm/dL Albumin/Globulin Ratio (1-2) Digoxin (0.9-2.0) ng/mL 11/04/20 11/04/20 11/05/20 Range/Units 11:24 17:36 06:13 WBC 18.98 H (3.98-10.04) K/mm3 RBC 4.99 (3.98-5.22) M/mm3 Hgb 13.5 (11.2-15.7) gm/dl Hct 46.6 H (34.1-44.9) % MCV 93.4 (79.4-94.8) fl MCH 27.1 (25.6-32.2) pg MCHC 29.0 L (32.2-35.5) g/dl RDW Std Deviation 52.4 H (36.4-46.3) fL Plt Count 202 (182-369) K/mm3 MPV 11.1 (9.4-12.3) fl Neut % (Auto) 81.3 H (34.0-71.1) % Lymph % (Auto) 4.6 L (19.3-51.7) % Wallace % (Auto) 13.4 H (4.7-12.5) % Eos % (Auto) 0.1 L (0.7-5.8) Baso % (Auto) 0.1 (0.1-1.2) % Neut # (Auto) 15.44 H (1.56-6.13) K/mm3 Lymph # (Auto) 0.88 L (1.18-3.74) K/mm3 Wallace # (Auto) 2.54 H (0.24-0.36) K/mm3 Eos # (Auto) 0.01 L (0.04-0.36) K/mm3 Baso # (Auto) 0.01 (0.01-0.08) K/mm3 Manual Slide Review Sodium (136-145) mEq/L Potassium (3.5-5.1) mEq/L Chloride (98-107) mEq/L Carbon Dioxide (21-32) mEq/L Anion Gap (5-15) BUN (7-18) mg/dL Creatinine (0.55-1.02) mg/dL Est Cr Clr Drug Dosing mL/min Estimated GFR (MDRD) (>60) mL/min BUN/Creatinine Ratio (14-18) Glucose (70-99) mg/dL POC Glucose 123 H 131 H (70-99) mg/dL Lactic Acid (0.4-2.0) mmol/L Calcium (8.5-10.1) mg/dL Magnesium (1.8-2.4) mg/dL Total Bilirubin (0.2-1.0) mg/dL AST (15-37) U/L ALT (14-59) U/L Alkaline Phosphatase (46-116) U/L Total Protein (6.4-8.2) g/dl Albumin (3.4-5.0) g/dl Globulin gm/dL Albumin/Globulin Ratio (1-2) Digoxin (0.9-2.0) ng/mL 11/05/20 Range/Units 06:13 WBC (3.98-10.04) K/mm3 RBC (3.98-5.22) M/mm3 Hgb (11.2-15.7) gm/dl Hct (34.1-44.9) % MCV (79.4-94.8) fl MCH (25.6-32.2) pg MCHC (32.2-35.5) g/dl RDW Std Deviation (36.4-46.3) fL Plt Count (182-369) K/mm3 MPV (9.4-12.3) fl Neut % (Auto) (34.0-71.1) % Lymph % (Auto) (19.3-51.7) % Wallace % (Auto) (4.7-12.5) % Eos % (Auto) (0.7-5.8) Baso % (Auto) (0.1-1.2) % Neut # (Auto) (1.56-6.13) K/mm3 Lymph # (Auto) (1.18-3.74) K/mm3 Wallace # (Auto) (0.24-0.36) K/mm3 Eos # (Auto) (0.04-0.36) K/mm3 Baso # (Auto) (0.01-0.08) K/mm3 Manual Slide Review Sodium 138 (136-145) mEq/L Potassium 4.6 (3.5-5.1) mEq/L Chloride 98 (98-107) mEq/L Carbon Dioxide 35 H (21-32) mEq/L Anion Gap 9.6 (5-15) BUN 35 H (7-18) mg/dL Creatinine 1.2 H (0.55-1.02) mg/dL Est Cr Clr Drug Dosing 35.27 mL/min Estimated GFR (MDRD) 45 (>60) mL/min BUN/Creatinine Ratio 29.2 H (14-18) Glucose 120 H (70-99) mg/dL POC Glucose (70-99) mg/dL Lactic Acid (0.4-2.0) mmol/L Calcium 10.0 (8.5-10.1) mg/dL Magnesium 2.4 (1.8-2.4) mg/dL Total Bilirubin 0.7 (0.2-1.0) mg/dL AST 41 H (15-37) U/L ALT 27 (14-59) U/L Alkaline Phosphatase 96 (46-116) U/L Total Protein 7.4 (6.4-8.2) g/dl Albumin 2.7 L (3.4-5.0) g/dl Globulin 4.7 gm/dL Albumin/Globulin Ratio 0.6 L (1-2) Digoxin 0.9 (0.9-2.0) ng/mL Med Orders - Current: Current Medications Acetaminophen (Acetaminophen 325 Mg Tab) 650 mg PO Q4H PRN PRN Reason: Pain/Fever Last Admin: 11/04/20 22:39 Dose: 650 mg Documented by: Apixaban (Apixaban 5 Mg Tab) 5 mg PO BID [facility] Last Admin: 11/04/20 20:20 Dose: 5 mg Documented by: Artificial Tears (Carboxymethylcellulose Sodium 1% Ophth Gel 15 Ml Bottle) 0 ml EYEBOTH TID PRN PRN Reason: Dry Eyes Last Admin: 11/04/20 08:23 Dose: 15 ml Documented by: Furosemide (Furosemide 20 Mg/2 Ml Vial) 20 mg IVPUSH DAILY [facility] Last Admin: 11/04/20 08:23 Dose: 20 mg Documented by: Hydromorphone HCl (Hydromorphone 0.5 Mg/0.5 Ml Syringe) 0.5 mg IVPUSH Q2H PRN PRN Reason: PAIN Last Admin: 11/04/20 09:20 Dose: 0.5 mg Documented by: Levofloxacin/Dextrose 750 mg/ (Premix) 150 mls @ 100 mls/hr IV Q48H [facility] Last Admin: 11/04/20 04:22 Dose: 100 mls/hr Documented by: Insulin Human Regular (Insulin Regular, Human 100 Units/Ml 3 Ml Vial) 0 unit SUBCUT TIDPC [facility]; Protocol Last Admin: 11/04/20 18:42 Dose: Not Given Documented by: Levothyroxine Sodium (Levothyroxine 112 Mcg Tab) 112 mcg PO DAILY@0800 [facility] Metformin HCl (Metformin 500 Mg Tab) 500 mg PO DAILY@0900 [facility] Metoprolol Tartrate (Metoprolol Tartrate 25 Mg Tab) 25 mg PO Q12HR [facility] Last Admin: 11/04/20 20:20 Dose: 25 mg Documented by: Morphine Sulfate (Morphine 2 Mg/Ml Syringe) 1 mg IVPUSH Q2HR PRN PRN Reason: Pain (severe 7-10) Last Admin: 11/04/20 01:46 Dose: 1 mg Documented by: Sodium Chloride (Sodium Chloride 0.9% 10 Ml Syringe) 10 ml FLUSH ASDIRECTED PRN PRN Reason: Keep Vein Open Last Admin: 11/03/20 18:39 Dose: 10 ml Documented by: Discontinued Medications Apixaban (Apixaban 2.5 Mg Tab) 2.5 mg PO ONETIME ONE Stop: 11/03/20 20:30 Last Admin: 11/03/20 20:51 Dose: 2.5 mg Documented by: Apixaban (Apixaban 2.5 Mg Tab) 2.5 mg PO BID [facility] Digoxin (Digoxin 500 Mcg/2 Ml Amp) 250 mcg IVPUSH Q6H [facility] Stop: 11/04/20 09:46 Last Admin: 11/04/20 09:20 Dose: 250 mcg Documented by: Diltiazem HCl (Diltiazem 50 Mg/10 Ml Sdv) 20 mg IVPUSH ONETIME ONE Stop: 11/03/20 18:32 Last Admin: 11/03/20 18:36 Dose: 20 mg Documented by: Furosemide (Furosemide 20 Mg Tab) 20 mg PO DAILY [facility] Diltiazem HCl 100 mg/ Sodium (Chloride) 100 mls @ 5 mls/hr IV TITRATE [facility]; Protocol Last Titration: 11/04/20 03:00 Dose: 20 mg/hr, 20 mls/hr Documented by: Levothyroxine Sodium (Levothyroxine 112 Mcg Tab) 112 mcg PO ACBRK RORY Last Admin: 11/04/20 08:23 Dose: 112 mcg Documented by: Metformin HCl (Metformin 500 Mg Tab) 500 mg PO WITHBREAKFAST [facility] Last Admin: 11/04/20 08:24 Dose: 500 mg Documented by: - Exam Quality Assessment: Supplemental Oxygen, Urine Catheter, DVT Prophylaxis (On Eliquis) Urinary Catheter Total Time: 1Days 5Hours General: Alert, Oriented, Cooperative HEENT: Pupils Equal, Pupils Reactive, EOMI, Mucous Membr. Moist/[place] Neck: Supple, Trachea Midline Lungs: Clear to Auscultation, Normal Respiratory Effort Cardiovascular: Irregular Rhythm, Tachycardia GI/Abdominal Exam: Normal Bowel Sounds, Soft, Non-Tender, No Distention, Other (Morbidly obese) (Female) Exam: Deferred Back Exam: Normal Inspection, Full Range of Motion Extremities: Normal Inspection, No Pedal Edema Skin: Warm, Dry, Intact Neurological: No New Focal Deficit Psy/Mental Status: Alert, Normal Affect - Patient Data Lab Results Last 24 hrs: Laboratory Results - last 24 hr 11/04/20 11/04/20 11/04/20 Range/Units 07:03 07:03 07:03 WBC 23.82 H (3.98-10.04) K/mm3 RBC 4.98 (3.98-5.22) M/mm3 Hgb 13.6 (11.2-15.7) gm/dl Hct 45.4 H (34.1-44.9) % MCV 91.2 (79.4-94.8) fl MCH 27.3 (25.6-32.2) pg MCHC 30.0 L (32.2-35.5) g/dl RDW Std Deviation 52.8 H (36.4-46.3) fL Plt Count 220 (182-369) K/mm3 MPV 11.0 (9.4-12.3) fl Neut % (Auto) 85.2 H (34.0-71.1) % Lymph % (Auto) 3.7 L (19.3-51.7) % Wallace % (Auto) 10.3 (4.7-12.5) % Eos % (Auto) 0 L (0.7-5.8) Baso % (Auto) 0.2 (0.1-1.2) % Neut # (Auto) 20.31 H (1.56-6.13) K/mm3 Lymph # (Auto) 0.88 L (1.18-3.74) K/mm3 Wallace # (Auto) 2.45 H (0.24-0.36) K/mm3 Eos # (Auto) 0.00 L (0.04-0.36) K/mm3 Baso # (Auto) 0.04 (0.01-0.08) K/mm3 Manual Slide Review Abnormal smear Sodium 135 L (136-145) mEq/L Potassium 4.3 (3.5-5.1) mEq/L Chloride 98 (98-107) mEq/L Carbon Dioxide 34 H (21-32) mEq/L Anion Gap 7.3 (5-15) BUN 27 H (7-18) mg/dL Creatinine 1.5 H (0.55-1.02) mg/dL Est Cr Clr Drug Dosing 28.21 mL/min Estimated GFR (MDRD) 35 (>60) mL/min BUN/Creatinine Ratio 18.0 (14-18) Glucose 158 H (70-99) mg/dL POC Glucose (70-99) mg/dL Lactic Acid (0.4-2.0) mmol/L Calcium 9.5 (8.5-10.1) mg/dL Magnesium (1.8-2.4) mg/dL Total Bilirubin 1.4 H (0.2-1.0) mg/dL AST 41 H (15-37) U/L ALT 24 (14-59) U/L Alkaline Phosphatase 94 (46-116) U/L Total Protein 7.7 (6.4-8.2) g/dl Albumin 3.0 L (3.4-5.0) g/dl Globulin 4.7 gm/dL Albumin/Globulin Ratio 0.6 L (1-2) Digoxin 0.7 L (0.9-2.0) ng/mL 11/04/20 11/04/20 11/04/20 Range/Units 08:25 08:32 09:20 WBC (3.98-10.04) K/mm3 RBC (3.98-5.22) M/mm3 Hgb (11.2-15.7) gm/dl Hct (34.1-44.9) % MCV (79.4-94.8) fl MCH (25.6-32.2) pg MCHC (32.2-35.5) g/dl RDW Std Deviation (36.4-46.3) fL Plt Count (182-369) K/mm3 MPV (9.4-12.3) fl Neut % (Auto) (34.0-71.1) % Lymph % (Auto) (19.3-51.7) % Wallace % (Auto) (4.7-12.5) % Eos % (Auto) (0.7-5.8) Baso % (Auto) (0.1-1.2) % Neut # (Auto) (1.56-6.13) K/mm3 Lymph # (Auto) (1.18-3.74) K/mm3 Wallace # (Auto) (0.24-0.36) K/mm3 Eos # (Auto) (0.04-0.36) K/mm3 Baso # (Auto) (0.01-0.08) K/mm3 Manual Slide Review Sodium (136-145) mEq/L Potassium (3.5-5.1) mEq/L Chloride (98-107) mEq/L Carbon Dioxide (21-32) mEq/L Anion Gap (5-15) BUN (7-18) mg/dL Creatinine (0.55-1.02) mg/dL Est Cr Clr Drug Dosing mL/min Estimated GFR (MDRD) (>60) mL/min BUN/Creatinine Ratio (14-18) Glucose (70-99) mg/dL POC Glucose 144 H (70-99) mg/dL Lactic Acid 0.8 (0.4-2.0) mmol/L Calcium (8.5-10.1) mg/dL Magnesium 1.9 (1.8-2.4) mg/dL Total Bilirubin (0.2-1.0) mg/dL AST (15-37) U/L ALT (14-59) U/L Alkaline Phosphatase (46-116) U/L Total Protein (6.4-8.2) g/dl Albumin (3.4-5.0) g/dl Globulin gm/dL Albumin/Globulin Ratio (1-2) Digoxin (0.9-2.0) ng/mL 11/04/20 11/04/20 11/05/20 Range/Units 11:24 17:36 06:13 WBC 18.98 H (3.98-10.04) K/mm3 RBC 4.99 (3.98-5.22) M/mm3 Hgb 13.5 (11.2-15.7) gm/dl Hct 46.6 H (34.1-44.9) % MCV 93.4 (79.4-94.8) fl MCH 27.1 (25.6-32.2) pg MCHC 29.0 L (32.2-35.5) g/dl RDW Std Deviation 52.4 H (36.4-46.3) fL Plt Count 202 (182-369) K/mm3 MPV 11.1 (9.4-12.3) fl Neut % (Auto) 81.3 H (34.0-71.1) % Lymph % (Auto) 4.6 L (19.3-51.7) % Wallace % (Auto) 13.4 H (4.7-12.5) % Eos % (Auto) 0.1 L (0.7-5.8) Baso % (Auto) 0.1 (0.1-1.2) % Neut # (Auto) 15.44 H (1.56-6.13) K/mm3 Lymph # (Auto) 0.88 L (1.18-3.74) K/mm3 Wallace # (Auto) 2.54 H (0.24-0.36) K/mm3 Eos # (Auto) 0.01 L (0.04-0.36) K/mm3 Baso # (Auto) 0.01 (0.01-0.08) K/mm3 Manual Slide Review Sodium (136-145) mEq/L Potassium (3.5-5.1) mEq/L Chloride (98-107) mEq/L Carbon Dioxide (21-32) mEq/L Anion Gap (5-15) BUN (7-18) mg/dL Creatinine (0.55-1.02) mg/dL Est Cr Clr Drug Dosing mL/min Estimated GFR (MDRD) (>60) mL/min BUN/Creatinine Ratio (14-18) Glucose (70-99) mg/dL POC Glucose 123 H 131 H (70-99) mg/dL Lactic Acid (0.4-2.0) mmol/L Calcium (8.5-10.1) mg/dL Magnesium (1.8-2.4) mg/dL Total Bilirubin (0.2-1.0) mg/dL AST (15-37) U/L ALT (14-59) U/L Alkaline Phosphatase (46-116) U/L Total Protein (6.4-8.2) g/dl Albumin (3.4-5.0) g/dl Globulin gm/dL Albumin/Globulin Ratio (1-2) Digoxin (0.9-2.0) ng/mL 11/05/20 Range/Units 06:13 WBC (3.98-10.04) K/mm3 RBC (3.98-5.22) M/mm3 Hgb (11.2-15.7) gm/dl Hct (34.1-44.9) % MCV (79.4-94.8) fl MCH (25.6-32.2) pg MCHC (32.2-35.5) g/dl RDW Std Deviation (36.4-46.3) fL Plt Count (182-369) K/mm3 MPV (9.4-12.3) fl Neut % (Auto) (34.0-71.1) % Lymph % (Auto) (19.3-51.7) % Wallace % (Auto) (4.7-12.5) % Eos % (Auto) (0.7-5.8) Baso % (Auto) (0.1-1.2) % Neut # (Auto) (1.56-6.13) K/mm3 Lymph # (Auto) (1.18-3.74) K/mm3 Wallace # (Auto) (0.24-0.36) K/mm3 Eos # (Auto) (0.04-0.36) K/mm3 Baso # (Auto) (0.01-0.08) K/mm3 Manual Slide Review Sodium 138 (136-145) mEq/L Potassium 4.6 (3.5-5.1) mEq/L Chloride 98 (98-107) mEq/L Carbon Dioxide 35 H (21-32) mEq/L Anion Gap 9.6 (5-15) BUN 35 H (7-18) mg/dL Creatinine 1.2 H (0.55-1.02) mg/dL Est Cr Clr Drug Dosing 35.27 mL/min Estimated GFR (MDRD) 45 (>60) mL/min BUN/Creatinine Ratio 29.2 H (14-18) Glucose 120 H (70-99) mg/dL POC Glucose (70-99) mg/dL Lactic Acid (0.4-2.0) mmol/L Calcium 10.0 (8.5-10.1) mg/dL Magnesium 2.4 (1.8-2.4) mg/dL Total Bilirubin 0.7 (0.2-1.0) mg/dL AST 41 H (15-37) U/L ALT 27 (14-59) U/L Alkaline Phosphatase 96 (46-116) U/L Total Protein 7.4 (6.4-8.2) g/dl Albumin 2.7 L (3.4-5.0) g/dl Globulin 4.7 gm/dL Albumin/Globulin Ratio 0.6 L (1-2) Digoxin 0.9 (0.9-2.0) ng/mL Result Diagrams: 11/05/20 06:13 11/05/20 06:13 Sepsis Event Note - Evaluation Sepsis Screening Result: Sepsis Risk - Focused Exam Vital Signs: Vital Signs Temp Pulse Resp BP BP BP Pulse Ox 11/05/20 06:21 11/05/20 04:00 36.2 C 24 H 150/98 H 94 L 11/05/20 00:00 36.0 C L 26 H 123/88 95 11/04/20 21:20 11/04/20 20:20 105 H 129/100 H 11/04/20 20:00 36.2 C 24 H 129/100 H 95 Pulse Ox 11/05/20 06:21 96 11/05/20 04:00 11/05/20 00:00 11/04/20 21:20 95 11/04/20 20:20 11/04/20 20:00 - Problem List & Annotations (1) Sepsis SNOMED Code(s): 63163360 Code(s): A41.9 - SEPSIS, UNSPECIFIED ORGANISM Status: Acute Priority: High Current Visit: Yes Qualifiers: Sepsis type: sepsis due to unspecified organism Sepsis acute organ dysfunction status: with acute organ dysfunction Severe sepsis acute organ dysfunction type: acute respiratory failure Acute respiratory failure type: with hypoxia Severe sepsis shock status: without septic shock Qualified Code(s): A41.9 - Sepsis, unspecified organism; R65.20 - Severe sepsis without septic shock; J96.01 - Acute respiratory failure with hypoxia (2) Atrial fibrillation with rapid ventricular response SNOMED Code(s): 962240106159635 Code(s): I48.91 - UNSPECIFIED ATRIAL FIBRILLATION Status: Acute Priority: High Current Visit: Yes Annotation/Comment:: New onset (3) Urinary tract infection SNOMED Code(s): 70918292 Code(s): N39.0 - URINARY TRACT INFECTION, SITE NOT SPECIFIED Status: Acute Priority: High Current Visit: Yes Qualifiers: Urinary tract infection type: acute pyelonephritis Qualified Code(s): N10 - Acute pyelonephritis (4) Obesity hypoventilation syndrome SNOMED Code(s): 49305971, 986085624 Code(s): E66.2 - MORBID (SEVERE) OBESITY WITH ALVEOLAR HYPOVENTILATION Status: Chronic Priority: High Current Visit: Yes (5) Hypoxemia SNOMED Code(s): 118418114 Code(s): R09.02 - HYPOXEMIA Status: Acute Priority: High Current Visit: Yes (6) Chronic kidney disease, stage 3, mod decreased GFR SNOMED Code(s): 292600626 Code(s): N18.30 - CHRONIC KIDNEY DISEASE, STAGE 3 UNSPECIFIED Status: Chronic Priority: High Current Visit: Yes Qualifiers: Chronic kidney disease stage 3 subtype: stage 3b (GFR 30-44) Qualified Code(s): N18.32 - Chronic kidney disease, stage 3b - Problem List Review Problem List Initiated/Reviewed/Updated: Yes - My Orders Last 24 Hours: My Active Orders 11/04/20 06:14 Oxygen Therapy [RC] ASDIRECTED 11/04/20 09:00 Apixaban [Eliquis] 5 mg PO BID Furosemide [Lasix] 20 mg IVPUSH DAILY 11/04/20 09:07 Blood Glucose Check, Bedside [RC] TIDMEALS Up With Assistance [RC] ASDIRECTED OT Evaluation and Treatment [CONS] Routine PT Evaluation and Treatment [CONS] Routine Glucose Management Sub Q Reflex [OM.PC] Click to Edit VTE Mechanical Contraindications [AST] Per Unit Routine VTE Pharmacological Contraindications [AST] Per Unit Routine 11/04/20 09:08 Cardiac Monitoring [RC] CONTINUOUS Oxygen Therapy [RC] PRN VTE/DVT Education [RC] 11/04/20 09:14 Diabetes Education [RC] 1600 11/04/20 Lunch Consistent Carbohydrate Diet [DIET] Metoprolol Tartrate [Lopressor] 25 mg PO Q12HR 11/04/20 13:00 Insulin Regular, Human [HumuLIN R] See Protocol [facility] 11/05/20 06:13 CBC WITH AUTO DIFF [HEME] AM 11/05/20 08:00 Levothyroxine 112 mcg PO DAILY@0800 11/05/20 09:00 metFORMIN [Glucophage] 500 mg PO DAILY@0900 - Assessment Assessment:: The patient is a 65-year-old lady who is doing somewhat better today. Her rate has been better controlled although she still remains tachycardic. I have increased the patient's metoprolol tartrate to 50 mg twice daily. Digitalis level has been ordered it was therapeutic this morning. Digoxin will be continued. This is worked for her in the past. The patient will also be kept on telemetry. The patient is also on renally dosed Levaquin for her urinary tract infection 750 mg every 8 hours. She will be continued on insulin sliding scale as well as carb constant diet. Patient does have a Padilla catheter in and therefore strict DAMIAN's have been ordered. She is on IV Lasix. The patient was started on apixaban for DVT prophylaxis as well as for anticoagulation for atrial fibrillation. Repeat laboratory studies have been ordered. PT OT will continue to evaluate patient. Patient has refused the idea of skilled facility for rehabilitation. She prefers to go home. - Plan Plan:: Patient is a medically complex 65-year-old lady who has been admitted to the intensive care unit primarily out of concern for atrial fibrillation with RVR and the patient had diltiazem in the emergency department. The patient's rate had not been controlled adequately and I have consulted with pharmacy with regards to starting the patient with digoxin due to her chronic kidney disease as well as her super morbid obesity. The patient because of the obesity is also suspected of having obesity pulmonary hypoventilation syndrome and oxygen support will be continued to help keep the patient saturations around 92%. The patient's urinalysis was also supportive of urinary tract infection along with concentration with the specific gravity of 1.030. The patient may have a component of heart failure due to her atrial fibrillation her B-type natriuretic peptide is elevated at 1700. Patient has Lasix ordered and will continue to monitor her fluid status closely in order to avoid renal injury. I have ordered a repeat chest x-ray for this morning as the patient is still continuing to have shortness of breath and physical examination shows that she has decreased sounds. The patient is a diabetic and she takes Metformin at home and this is being continued. The patient will also be kept on diabetic diet as well as insulin sliding scale. The patient is also started on Eliquis for atrial fibrillation as well as DVT prophylaxis. The patient does have a history of DVT. I discussed with the patient the possibility of rehab in order to safely go home.
[2020-11-05] MEDS ORDERED: Metoprolol Tartrate 50 MG Tab PO SCH (07:30)
[2020-11-05] MEDS ORDERED: Benzonatate 100 MG Cap PO PRN (07:45)
[2020-11-05] MEDS: metFORMIN 500 MG Tab PO SCH (08:04)
[2020-11-05] MEDS: Levothyroxine 112 MCG Tab PO SCH (08:05)
[2020-11-05] MEDS: Metoprolol Tartrate 50 MG Tab PO SCH ×2 (08:05→20:25)
[2020-11-05] MEDS: Apixaban 5 MG Tab PO SCH ×2 (08:05→20:27)
[2020-11-05] MEDS: Insulin Regular, Human 100 Units/ML 3 ML Vial SUBCUT SCH ×3 (08:05→18:05)
[2020-11-05] MEDS: Furosemide 20 MG/2 ML VIAL IVPUSH SCH (08:05)
[2020-11-05] MEDS: Digoxin 500 MCG/2 ML Amp IVPUSH SCH ×2 (18:00→23:40)
[2020-11-05] MEDS: HYDROmorphone 0.5 MG/0.5 ML Syringe IVPUSH PRN (20:25)
[2020-11-06] MEDS: Levofloxacin/Dextrose 5%-Water 750 MG in Premix Bag 1 BAG IV SCH (03:48)
[2020-11-06] MEDS: HYDROmorphone 0.5 MG/0.5 ML Syringe IVPUSH PRN (03:50)
[2020-11-06] MEDS: Digoxin 500 MCG/2 ML Amp IVPUSH SCH (05:17)
[2020-11-06] MEDS: Metoprolol Tartrate 50 MG Tab PO SCH ×2 (08:27→20:57)
[2020-11-06] MEDS: metFORMIN 500 MG Tab PO SCH (08:27)
[2020-11-06] MEDS: Apixaban 5 MG Tab PO SCH ×2 (08:27→20:58)
[2020-11-06] MEDS: Insulin Regular, Human 100 Units/ML 3 ML Vial SUBCUT SCH ×3 (08:27→20:22)
[2020-11-06] MEDS: Levothyroxine 112 MCG Tab PO SCH (08:27)
[2020-11-06] MEDS: Furosemide 20 MG/2 ML VIAL IVPUSH SCH ×3 (08:27→21:08)
--- NOTE | 2020-11-06 09:37 | CR ---
Chest: Portable view of the chest was obtained. Comparison: Prior chest x-ray of 11/04/20. Lung markings are increased which appear stable from prior exam. Left retrocardiac region is not well penetrated. Heart is enlarged. Upper mediastinum is stable. No acute osseous finding is seen. Impression: 1. Stable chest x-ray from previous exam. 2. Nothing acute is seen. Diagnostic code #2
[2020-11-06] MEDS: cefTRIAXone 1 GM in Sodium Chloride 0.9% 100 ML IV SCH (10:10)
--- NOTE | 2020-11-06 15:54 | PCM.PN ---
- General Info Date of Service: 11/06/20 Admission Dx/Problem (Free Text): patient endorses SOB denies cp RVR has resolved no fever - Patient Data Vitals - Most Recent: Last Vital Signs Temp 97.2 F 11/06/20 11:41 Pulse 88 11/06/20 11:41 Resp 20 11/06/20 11:41 BP 107/72 11/06/20 11:41 Pulse Ox 99 11/06/20 11:41 Weight - Most Recent: 339 lb 12.564 oz I&O - Last 24 Hours: Intake & Output 11/06/20 11/06/20 11/06/20 06:59 14:59 22:59 Intake Total 150 Output Total 600 500 Balance -450 -500 Lab Results Last 24 Hours: Laboratory Results - last 24 hr 11/05/20 11/06/20 11/06/20 Range/Units 17:09 05:00 05:00 WBC 18.35 H (3.98-10.04) K/mm3 RBC 4.89 (3.98-5.22) M/mm3 Hgb 13.4 (11.2-15.7) gm/dl Hct 46.3 H (34.1-44.9) % MCV 94.7 (79.4-94.8) fl MCH 27.4 (25.6-32.2) pg MCHC 28.9 L (32.2-35.5) g/dl RDW Std Deviation 53.3 H (36.4-46.3) fL Plt Count 223 (182-369) K/mm3 MPV 11.4 (9.4-12.3) fl Neut % (Auto) 69.4 (34.0-71.1) % Lymph % (Auto) 6.5 L (19.3-51.7) % Faulkner % (Auto) 23.0 H (4.7-12.5) % Eos % (Auto) 0.1 L (0.7-5.8) Baso % (Auto) 0.2 (0.1-1.2) % Neut # (Auto) 12.73 H (1.56-6.13) K/mm3 Lymph # (Auto) 1.20 (1.18-3.74) K/mm3 Faulkner # (Auto) 4.22 H (0.24-0.36) K/mm3 Eos # (Auto) 0.02 L (0.04-0.36) K/mm3 Baso # (Auto) 0.03 (0.01-0.08) K/mm3 Manual Slide Review Abnormal smear Sodium 135 L (136-145) mEq/L Potassium 5.3 H (3.5-5.1) mEq/L Chloride 97 L (98-107) mEq/L Carbon Dioxide 36 H (21-32) mEq/L Anion Gap 7.3 (5-15) BUN 40 H (7-18) mg/dL Creatinine 1.0 (0.55-1.02) mg/dL Est Cr Clr Drug Dosing 42.32 mL/min Estimated GFR (MDRD) 56 (>60) mL/min BUN/Creatinine Ratio 40.0 H (14-18) Glucose 143 H (70-99) mg/dL POC Glucose 119 H (70-99) mg/dL Calcium 10.3 H (8.5-10.1) mg/dL Magnesium 2.3 (1.8-2.4) mg/dL Total Bilirubin 0.4 (0.2-1.0) mg/dL AST 29 (15-37) U/L ALT 29 (14-59) U/L Alkaline Phosphatase 94 (46-116) U/L Total Protein 7.2 (6.4-8.2) g/dl Albumin 2.4 L (3.4-5.0) g/dl Globulin 4.8 gm/dL Albumin/Globulin Ratio 0.5 L (1-2) Digoxin 1.7 (0.9-2.0) ng/mL 11/06/20 11/06/20 Range/Units 08:18 11:27 WBC (3.98-10.04) K/mm3 RBC (3.98-5.22) M/mm3 Hgb (11.2-15.7) gm/dl Hct (34.1-44.9) % MCV (79.4-94.8) fl MCH (25.6-32.2) pg MCHC (32.2-35.5) g/dl RDW Std Deviation (36.4-46.3) fL Plt Count (182-369) K/mm3 MPV (9.4-12.3) fl Neut % (Auto) (34.0-71.1) % Lymph % (Auto) (19.3-51.7) % Faulkner % (Auto) (4.7-12.5) % Eos % (Auto) (0.7-5.8) Baso % (Auto) (0.1-1.2) % Neut # (Auto) (1.56-6.13) K/mm3 Lymph # (Auto) (1.18-3.74) K/mm3 Faulkner # (Auto) (0.24-0.36) K/mm3 Eos # (Auto) (0.04-0.36) K/mm3 Baso # (Auto) (0.01-0.08) K/mm3 Manual Slide Review Sodium (136-145) mEq/L Potassium (3.5-5.1) mEq/L Chloride (98-107) mEq/L Carbon Dioxide (21-32) mEq/L Anion Gap (5-15) BUN (7-18) mg/dL Creatinine (0.55-1.02) mg/dL Est Cr Clr Drug Dosing mL/min Estimated GFR (MDRD) (>60) mL/min BUN/Creatinine Ratio (14-18) Glucose (70-99) mg/dL POC Glucose 111 H 81 (70-99) mg/dL Calcium (8.5-10.1) mg/dL Magnesium (1.8-2.4) mg/dL Total Bilirubin (0.2-1.0) mg/dL AST (15-37) U/L ALT (14-59) U/L Alkaline Phosphatase (46-116) U/L Total Protein (6.4-8.2) g/dl Albumin (3.4-5.0) g/dl Globulin gm/dL Albumin/Globulin Ratio (1-2) Digoxin (0.9-2.0) ng/mL Med Orders - Current: Current Medications Acetaminophen (Acetaminophen 325 Mg Tab) 650 mg PO Q4H PRN PRN Reason: Pain/Fever Last Admin: 11/04/20 22:39 Dose: 650 mg Documented by: Apixaban (Apixaban 5 Mg Tab) 5 mg PO BID RORY Last Admin: 11/06/20 08:27 Dose: 5 mg Documented by: Artificial Tears (Carboxymethylcellulose Sodium 1% Ophth Gel 15 Ml Bottle) 0 ml EYEBOTH TID PRN PRN Reason: Dry Eyes Last Admin: 11/04/20 08:23 Dose: 15 ml Documented by: Benzonatate (Benzonatate 100 Mg Cap) 100 mg PO Q8H PRN PRN Reason: Cough Last Admin: 11/05/20 08:04 Dose: 100 mg Documented by: Furosemide (Furosemide 20 Mg/2 Ml Vial) 20 mg IVPUSH TID [facility] Last Admin: 11/06/20 15:41 Dose: 20 mg Documented by: Hydromorphone HCl (Hydromorphone 0.5 Mg/0.5 Ml Syringe) 0.5 mg IVPUSH Q2H PRN PRN Reason: PAIN Last Admin: 11/06/20 03:50 Dose: 0.5 mg Documented by: Ceftriaxone Sodium 1 gm/ (Sodium Chloride) 100 mls @ 200 mls/hr IV Q24H [facility] Last Admin: 11/06/20 10:10 Dose: 200 mls/hr Documented by: Insulin Human Regular (Insulin Regular, Human 100 Units/Ml 3 Ml Vial) 0 unit SUBCUT TIDPC [facility]; Protocol Last Admin: 11/06/20 13:24 Dose: Not Given Documented by: Levothyroxine Sodium (Levothyroxine 112 Mcg Tab) 112 mcg PO DAILY@0800 [facility] Last Admin: 11/06/20 08:27 Dose: 112 mcg Documented by: Metoprolol Tartrate (Metoprolol Tartrate 50 Mg Tab) 50 mg PO Q12HR [facility] Last Admin: 11/06/20 08:27 Dose: 50 mg Documented by: Morphine Sulfate (Morphine 2 Mg/Ml Syringe) 1 mg IVPUSH Q2HR PRN PRN Reason: Pain (severe 7-10) Last Admin: 11/04/20 01:46 Dose: 1 mg Documented by: Sodium Chloride (Sodium Chloride 0.9% 10 Ml Syringe) 10 ml FLUSH ASDIRECTED PRN PRN Reason: Keep Vein Open Last Admin: 11/03/20 18:39 Dose: 10 ml Documented by: Discontinued Medications Apixaban (Apixaban 2.5 Mg Tab) 2.5 mg PO ONETIME ONE Stop: 11/03/20 20:30 Last Admin: 11/03/20 20:51 Dose: 2.5 mg Documented by: Apixaban (Apixaban 2.5 Mg Tab) 2.5 mg PO BID [facility] Digoxin (Digoxin 500 Mcg/2 Ml Amp) 250 mcg IVPUSH Q6H RORY Stop: 11/04/20 09:46 Last Admin: 11/04/20 09:20 Dose: 250 mcg Documented by: Digoxin (Digoxin 500 Mcg/2 Ml Amp) 250 mcg IVPUSH Q6H RORY Stop: 11/07/20 00:01 Last Admin: 11/06/20 05:17 Dose: 250 mcg Documented by: Diltiazem HCl (Diltiazem 50 Mg/10 Ml Sdv) 20 mg IVPUSH ONETIME ONE Stop: 11/03/20 18:32 Last Admin: 11/03/20 18:36 Dose: 20 mg Documented by: Furosemide (Furosemide 20 Mg Tab) 20 mg PO DAILY [facility] Furosemide (Furosemide 20 Mg/2 Ml Vial) 20 mg IVPUSH DAILY [facility] Last Admin: 11/06/20 08:27 Dose: 20 mg Documented by: Diltiazem HCl 100 mg/ Sodium (Chloride) 100 mls @ 5 mls/hr IV TITRATE [facility]; Protocol Last Titration: 11/04/20 03:00 Dose: 20 mg/hr, 20 mls/hr Documented by: Levofloxacin/Dextrose 750 mg/ (Premix) 150 mls @ 100 mls/hr IV Q48H [facility] Last Admin: 11/06/20 03:48 Dose: 100 mls/hr Documented by: Levothyroxine Sodium (Levothyroxine 112 Mcg Tab) 112 mcg PO ACBRK [facility] Last Admin: 11/04/20 08:23 Dose: 112 mcg Documented by: Metformin HCl (Metformin 500 Mg Tab) 500 mg PO WITHBREAKFAST [facility] Last Admin: 11/04/20 08:24 Dose: 500 mg Documented by: Metformin HCl (Metformin 500 Mg Tab) 500 mg PO DAILY@0900 [facility] Last Admin: 11/06/20 08:27 Dose: 500 mg Documented by: Metoprolol Tartrate (Metoprolol Tartrate 25 Mg Tab) 25 mg PO Q12HR [facility] Last Admin: 11/04/20 20:20 Dose: 25 mg Documented by: Metoprolol Tartrate (Metoprolol Tartrate 50 Mg Tab) 50 mg PO Q12H [facility] Last Admin: 11/05/20 08:09 Dose: Not Given Documented by: - Exam Urinary Catheter Total Time: 2Days 11Hours Physical Findings Comments:: Gen no acute distress HEENT: NCAT EOMI MMM CV: IRIR normal s1 s2 Lungs: Diminished breath sounds Abd: soft, nt ,nd Neuro: Alert oriented, moving extremities, at baseline state MSK: age appropriate muscle mass - Patient Data Lab Results Last 24 hrs: Laboratory Results - last 24 hr 11/05/20 11/06/20 11/06/20 Range/Units 17:09 05:00 05:00 WBC 18.35 H (3.98-10.04) K/mm3 RBC 4.89 (3.98-5.22) M/mm3 Hgb 13.4 (11.2-15.7) gm/dl Hct 46.3 H (34.1-44.9) % MCV 94.7 (79.4-94.8) fl MCH 27.4 (25.6-32.2) pg MCHC 28.9 L (32.2-35.5) g/dl RDW Std Deviation 53.3 H (36.4-46.3) fL Plt Count 223 (182-369) K/mm3 MPV 11.4 (9.4-12.3) fl Neut % (Auto) 69.4 (34.0-71.1) % Lymph % (Auto) 6.5 L (19.3-51.7) % Faulkner % (Auto) 23.0 H (4.7-12.5) % Eos % (Auto) 0.1 L (0.7-5.8) Baso % (Auto) 0.2 (0.1-1.2) % Neut # (Auto) 12.73 H (1.56-6.13) K/mm3 Lymph # (Auto) 1.20 (1.18-3.74) K/mm3 Faulkner # (Auto) 4.22 H (0.24-0.36) K/mm3 Eos # (Auto) 0.02 L (0.04-0.36) K/mm3 Baso # (Auto) 0.03 (0.01-0.08) K/mm3 Manual Slide Review Abnormal smear Sodium 135 L (136-145) mEq/L Potassium 5.3 H (3.5-5.1) mEq/L Chloride 97 L (98-107) mEq/L Carbon Dioxide 36 H (21-32) mEq/L Anion Gap 7.3 (5-15) BUN 40 H (7-18) mg/dL Creatinine 1.0 (0.55-1.02) mg/dL Est Cr Clr Drug Dosing 42.32 mL/min Estimated GFR (MDRD) 56 (>60) mL/min BUN/Creatinine Ratio 40.0 H (14-18) Glucose 143 H (70-99) mg/dL POC Glucose 119 H (70-99) mg/dL Calcium 10.3 H (8.5-10.1) mg/dL Magnesium 2.3 (1.8-2.4) mg/dL Total Bilirubin 0.4 (0.2-1.0) mg/dL AST 29 (15-37) U/L ALT 29 (14-59) U/L Alkaline Phosphatase 94 (46-116) U/L Total Protein 7.2 (6.4-8.2) g/dl Albumin 2.4 L (3.4-5.0) g/dl Globulin 4.8 gm/dL Albumin/Globulin Ratio 0.5 L (1-2) Digoxin 1.7 (0.9-2.0) ng/mL 11/06/20 11/06/20 Range/Units 08:18 11:27 WBC (3.98-10.04) K/mm3 RBC (3.98-5.22) M/mm3 Hgb (11.2-15.7) gm/dl Hct (34.1-44.9) % MCV (79.4-94.8) fl MCH (25.6-32.2) pg MCHC (32.2-35.5) g/dl RDW Std Deviation (36.4-46.3) fL Plt Count (182-369) K/mm3 MPV (9.4-12.3) fl Neut % (Auto) (34.0-71.1) % Lymph % (Auto) (19.3-51.7) % Faulkner % (Auto) (4.7-12.5) % Eos % (Auto) (0.7-5.8) Baso % (Auto) (0.1-1.2) % Neut # (Auto) (1.56-6.13) K/mm3 Lymph # (Auto) (1.18-3.74) K/mm3 Faulkner # (Auto) (0.24-0.36) K/mm3 Eos # (Auto) (0.04-0.36) K/mm3 Baso # (Auto) (0.01-0.08) K/mm3 Manual Slide Review Sodium (136-145) mEq/L Potassium (3.5-5.1) mEq/L Chloride (98-107) mEq/L Carbon Dioxide (21-32) mEq/L Anion Gap (5-15) BUN (7-18) mg/dL Creatinine (0.55-1.02) mg/dL Est Cr Clr Drug Dosing mL/min Estimated GFR (MDRD) (>60) mL/min BUN/Creatinine Ratio (14-18) Glucose (70-99) mg/dL POC Glucose 111 H 81 (70-99) mg/dL Calcium (8.5-10.1) mg/dL Magnesium (1.8-2.4) mg/dL Total Bilirubin (0.2-1.0) mg/dL AST (15-37) U/L ALT (14-59) U/L Alkaline Phosphatase (46-116) U/L Total Protein (6.4-8.2) g/dl Albumin (3.4-5.0) g/dl Globulin gm/dL Albumin/Globulin Ratio (1-2) Digoxin (0.9-2.0) ng/mL Result Diagrams: 11/06/20 05:00 11/06/20 05:00 Sepsis Event Note - Evaluation Sepsis Screening Result: Sepsis Risk - Focused Exam Vital Signs: Vital Signs Temp Temp Pulse Resp BP BP Pulse Ox 11/06/20 11:41 97.2 F 88 20 107/72 99 11/06/20 08:31 97.3 F 95 33 H 169/92 H 91 L 11/06/20 08:27 95 169/92 H 11/06/20 06:56 11/06/20 05:17 105 H 11/06/20 04:00 98.1 F 17 131/82 91 L Pulse Ox 11/06/20 11:41 11/06/20 08:31 11/06/20 08:27 11/06/20 06:56 100 11/06/20 05:17 11/06/20 04:00 - Problem List Review Problem List Initiated/Reviewed/Updated: Yes - My Orders Last 24 Hours: My Active Orders 11/06/20 08:44 UA RFX AIDEE AND CULT IF INDIC [URIN] Routine 11/06/20 09:00 cefTRIAXone [Rocephin] 1 gm Sodium Chloride 0.9% [Normal Saline] 100 ml IV Q24H 11/06/20 10:41 Admission Status [Patient Status] [ADT] Routine 11/06/20 15:00 Furosemide [Lasix] 20 mg IVPUSH TID - Assessment Assessment:: The patient is a 65-year-old lady who is doing somewhat better today. Her rate has been better controlled although she still remains tachycardic. I have increased the patient's metoprolol tartrate to 50 mg twice daily. Digitalis level has been ordered it was therapeutic this morning. Digoxin will be continued. This is worked for her in the past. The patient will also be kept on telemetry. The patient is also on renally dosed Levaquin for her urinary tract infection 750 mg every 8 hours. She will be continued on insulin sliding scale as well as carb constant diet. Patient does have a Padilla catheter in and therefore strict DAMIAN's have been ordered. She is on IV Lasix. The patient was started on apixaban for DVT prophylaxis as well as for anticoagulation for at rial fibrillation. Repeat laboratory studies have been ordered. PT OT will continue to evaluate patient. Patient has refused the idea of skilled facility for rehabilitation. She prefers to go home. 1. Afib w/RVR; RVR has resolved 2. Recent hx of UTI/Sepsis (Tachycardia; leukocytosis) 3. Suspected Diastolic CHF exacerbation 4. Mild Hyperkalemia 5. Hx of Type II DM 6. Acute hypoxia likely secondary to #3 Plan -dc diltiazem -dc digoxin -dc metformin -add urine culture to UA -CXR -echo -lasix -monitor I&O -daily weight -antibiotics: switch to ceftriaxone Code-Full code DVT ppx-on eliquis - Plan Plan:: Patient is a medically complex 65-year-old lady who has been admitted to the intensive care unit primarily out of concern for atrial fibrillation with RVR and the patient had diltiazem in the emergency department. The patient's rate had not been controlled adequately and I have consulted with pharmacy with regards to starting the patient with digoxin due to her chronic kidney disease as well as her super morbid obesity. The patient because of the obesity is also suspected of having obesity pulmonary hypoventilation syndrome and oxygen support will be continued to help keep the patient saturations around 92%. The patient's urinalysis was also supportive of urinary tract infection along with concentration with the specific gravity of 1.030. The patient may have a component of heart failure due to her atrial fibrillation her B-type natriuretic peptide is elevated at 1700. Patient has Lasix ordered and will continue to monitor her fluid status closely in order to avoid renal injury. I have ordered a repeat chest x-ray for this morning as the patient is still continuing to have shortness of breath and physical examination shows that she has decreased sounds. The patient is a diabetic and she takes Metformin at home and this is being continued. The patient will also be kept on diabetic diet as well as insulin sliding scale. The patient is also started on Eliquis for atrial fibrillation as well as DVT prophylaxis. The patient does have a history of DVT. I discussed with the patient the possibility of rehab in order to safely go home.
[2020-11-06] MEDS: Acetaminophen 325 MG Tab PO PRN (21:05)
[2020-11-07] MEDS: HYDROmorphone 0.5 MG/0.5 ML Syringe IVPUSH PRN ×2 (00:30→21:01)
[2020-11-07] MEDS: Furosemide 40 MG/4 ML VIAL IVPUSH SCH ×2 (09:24→20:16)
[2020-11-07] MEDS: Levothyroxine 112 MCG Tab PO SCH (09:24)
[2020-11-07] MEDS: Metoprolol Tartrate 50 MG Tab PO SCH ×2 (09:24→20:16)
[2020-11-07] MEDS: cefTRIAXone 1 GM in Sodium Chloride 0.9% 100 ML IV SCH (09:25)
[2020-11-07] MEDS: Apixaban 5 MG Tab PO SCH ×2 (09:25→20:16)
[2020-11-07] MEDS: Insulin Regular, Human 100 Units/ML 3 ML Vial SUBCUT SCH ×3 (09:25→19:19)
--- NOTE | 2020-11-07 16:50 | PCM.PN ---
- General Info Date of Service: 11/07/20 Admission Dx/Problem (Free Text): patient endorses SOB denies cp RVR has resolved no fever Subjective Update: patient sitting in chair today; sleeping awakens but falls asleep minimally engaging denies sob and cough denies cp - Patient Data Vitals - Most Recent: Last Vital Signs Temp 97.3 F 11/07/20 16:04 Pulse 98 11/07/20 16:04 Resp 20 11/07/20 16:04 BP 137/86 11/07/20 16:04 Pulse Ox 97 11/07/20 16:04 Weight - Most Recent: 341 lb I&O - Last 24 Hours: Intake & Output 11/07/20 11/07/20 11/07/20 06:59 14:59 22:59 Intake Total 100 240 240 Output Total 625 Balance -525 240 240 Lab Results Last 24 Hours: Laboratory Results - last 24 hr 11/06/20 11/07/20 11/07/20 Range/Units 17:35 05:58 05:58 WBC 14.87 H (3.98-10.04) K/mm3 RBC 4.83 (3.98-5.22) M/mm3 Hgb 14.8 (11.2-15.7) gm/dl Hct 45.0 H (34.1-44.9) % MCV 93.2 (79.4-94.8) fl MCH 30.6 (25.6-32.2) pg MCHC 32.9 (32.2-35.5) g/dl RDW Std Deviation 51.3 H (36.4-46.3) fL Plt Count 181 L (182-369) K/mm3 MPV 11.4 (9.4-12.3) fl Sodium 138 (136-145) mEq/L Potassium 4.7 (3.5-5.1) mEq/L Chloride 98 (98-107) mEq/L Carbon Dioxide 38 H (21-32) mEq/L Anion Gap 6.7 (5-15) BUN 37 H (7-18) mg/dL Creatinine 0.9 (0.55-1.02) mg/dL Est Cr Clr Drug Dosing 47.03 mL/min Estimated GFR (MDRD) > 60 (>60) mL/min BUN/Creatinine Ratio 41.1 H (14-18) Glucose 87 (70-99) mg/dL POC Glucose 92 (70-99) mg/dL Calcium 10.3 H (8.5-10.1) mg/dL Magnesium 2.0 (1.8-2.4) mg/dL 11/07/20 11/07/20 Range/Units 06:32 11:08 WBC (3.98-10.04) K/mm3 RBC (3.98-5.22) M/mm3 Hgb (11.2-15.7) gm/dl Hct (34.1-44.9) % MCV (79.4-94.8) fl MCH (25.6-32.2) pg MCHC (32.2-35.5) g/dl RDW Std Deviation (36.4-46.3) fL Plt Count (182-369) K/mm3 MPV (9.4-12.3) fl Sodium (136-145) mEq/L Potassium (3.5-5.1) mEq/L Chloride (98-107) mEq/L Carbon Dioxide (21-32) mEq/L Anion Gap (5-15) BUN (7-18) mg/dL Creatinine (0.55-1.02) mg/dL Est Cr Clr Drug Dosing mL/min Estimated GFR (MDRD) (>60) mL/min BUN/Creatinine Ratio (14-18) Glucose (70-99) mg/dL POC Glucose 81 167 H (70-99) mg/dL Calcium (8.5-10.1) mg/dL Magnesium (1.8-2.4) mg/dL Med Orders - Current: Current Medications Acetaminophen (Acetaminophen 325 Mg Tab) 650 mg PO Q4H PRN PRN Reason: Pain/Fever Last Admin: 11/06/20 21:05 Dose: 650 mg Documented by: Apixaban (Apixaban 5 Mg Tab) 5 mg PO BID RORY Last Admin: 11/07/20 09:25 Dose: 5 mg Documented by: Artificial Tears (Carboxymethylcellulose Sodium 1% Ophth Gel 15 Ml Bottle) 0 ml EYEBOTH TID PRN PRN Reason: Dry Eyes Last Admin: 11/04/20 08:23 Dose: 15 ml Documented by: Benzonatate (Benzonatate 100 Mg Cap) 100 mg PO Q8H PRN PRN Reason: Cough Last Admin: 11/05/20 08:04 Dose: 100 mg Documented by: Furosemide (Furosemide 40 Mg/4 Ml Vial) 40 mg IVPUSH BID [facility] Last Admin: 11/07/20 09:24 Dose: 40 mg Documented by: Hydromorphone HCl (Hydromorphone 0.5 Mg/0.5 Ml Syringe) 0.5 mg IVPUSH Q2H PRN PRN Reason: PAIN Last Admin: 11/07/20 00:30 Dose: 0.5 mg Documented by: Ceftriaxone Sodium 1 gm/ (Sodium Chloride) 100 mls @ 200 mls/hr IV Q24H [facility] Last Admin: 11/07/20 09:25 Dose: 200 mls/hr Documented by: Insulin Human Regular (Insulin Regular, Human 100 Units/Ml 3 Ml Vial) 0 unit SUBCUT TIDPC [facility]; Protocol Last Admin: 11/07/20 12:35 Dose: 1 unit Documented by: Levothyroxine Sodium (Levothyroxine 112 Mcg Tab) 112 mcg PO DAILY@0800 [facility] Last Admin: 11/07/20 09:24 Dose: 112 mcg Documented by: Metoprolol Tartrate (Metoprolol Tartrate 50 Mg Tab) 50 mg PO Q12HR [facility] Last Admin: 11/07/20 09:24 Dose: 50 mg Documented by: Morphine Sulfate (Morphine 2 Mg/Ml Syringe) 1 mg IVPUSH Q2HR PRN PRN Reason: Pain (severe 7-10) Last Admin: 11/04/20 01:46 Dose: 1 mg Documented by: Sodium Chloride (Sodium Chloride 0.9% 10 Ml Syringe) 10 ml FLUSH ASDIRECTED PRN PRN Reason: Keep Vein Open Last Admin: 11/03/20 18:39 Dose: 10 ml Documented by: Discontinued Medications Apixaban (Apixaban 2.5 Mg Tab) 2.5 mg PO ONETIME ONE Stop: 11/03/20 20:30 Last Admin: 11/03/20 20:51 Dose: 2.5 mg Documented by: Apixaban (Apixaban 2.5 Mg Tab) 2.5 mg PO BID [facility] Digoxin (Digoxin 500 Mcg/2 Ml Amp) 250 mcg IVPUSH Q6H [facility] Stop: 11/04/20 09:46 Last Admin: 11/04/20 09:20 Dose: 250 mcg Documented by: Digoxin (Digoxin 500 Mcg/2 Ml Amp) 250 mcg IVPUSH Q6H [facility] Stop: 11/07/20 00:01 Last Admin: 11/06/20 05:17 Dose: 250 mcg Documented by: Diltiazem HCl (Diltiazem 50 Mg/10 Ml Sdv) 20 mg IVPUSH ONETIME ONE Stop: 11/03/20 18:32 Last Admin: 11/03/20 18:36 Dose: 20 mg Documented by: Furosemide (Furosemide 20 Mg Tab) 20 mg PO DAILY [facility] Furosemide (Furosemide 20 Mg/2 Ml Vial) 20 mg IVPUSH DAILY [facility] Last Admin: 11/06/20 08:27 Dose: 20 mg Documented by: Furosemide (Furosemide 20 Mg/2 Ml Vial) 20 mg IVPUSH TID [facility] Last Admin: 11/06/20 21:08 Dose: 20 mg Documented by: Diltiazem HCl 100 mg/ Sodium (Chloride) 100 mls @ 5 mls/hr IV TITRATE [facility]; Protocol Last Titration: 11/04/20 03:00 Dose: 20 mg/hr, 20 mls/hr Documented by: Levofloxacin/Dextrose 750 mg/ (Premix) 150 mls @ 100 mls/hr IV Q48H [facility] Last Admin: 11/06/20 03:48 Dose: 100 mls/hr Documented by: Levothyroxine Sodium (Levothyroxine 112 Mcg Tab) 112 mcg PO ACBRK [facility] Last Admin: 11/04/20 08:23 Dose: 112 mcg Documented by: Metformin HCl (Metformin 500 Mg Tab) 500 mg PO WITHBREAKFAST [facility] Last Admin: 11/04/20 08:24 Dose: 500 mg Documented by: Metformin HCl (Metformin 500 Mg Tab) 500 mg PO DAILY@0900 [facility] Last Admin: 11/06/20 08:27 Dose: 500 mg Documented by: Metoprolol Tartrate (Metoprolol Tartrate 25 Mg Tab) 25 mg PO Q12HR [facility] Last Admin: 11/04/20 20:20 Dose: 25 mg Documented by: Metoprolol Tartrate (Metoprolol Tartrate 50 Mg Tab) 50 mg PO Q12H [facility] Last Admin: 11/05/20 08:09 Dose: Not Given Documented by: - Exam Urinary Catheter Total Time: 3Days 4Hours Physical Findings Comments:: Gen: in chair; NAD HEENT NCAT EOMI MMM CV : IRIR normal s1 s2 Lungs: diminished breath sounds Abd: soft, nt, nd Neuro: sleeping; arousable; moves extremities Ext: 2+ edema lower extremities - Patient Data Lab Results Last 24 hrs: Laboratory Results - last 24 hr 11/06/20 11/07/20 11/07/20 Range/Units 17:35 05:58 05:58 WBC 14.87 H (3.98-10.04) K/mm3 RBC 4.83 (3.98-5.22) M/mm3 Hgb 14.8 (11.2-15.7) gm/dl Hct 45.0 H (34.1-44.9) % MCV 93.2 (79.4-94.8) fl MCH 30.6 (25.6-32.2) pg MCHC 32.9 (32.2-35.5) g/dl RDW Std Deviation 51.3 H (36.4-46.3) fL Plt Count 181 L (182-369) K/mm3 MPV 11.4 (9.4-12.3) fl Sodium 138 (136-145) mEq/L Potassium 4.7 (3.5-5.1) mEq/L Chloride 98 (98-107) mEq/L Carbon Dioxide 38 H (21-32) mEq/L Anion Gap 6.7 (5-15) BUN 37 H (7-18) mg/dL Creatinine 0.9 (0.55-1.02) mg/dL Est Cr Clr Drug Dosing 47.03 mL/min Estimated GFR (MDRD) > 60 (>60) mL/min BUN/Creatinine Ratio 41.1 H (14-18) Glucose 87 (70-99) mg/dL POC Glucose 92 (70-99) mg/dL Calcium 10.3 H (8.5-10.1) mg/dL Magnesium 2.0 (1.8-2.4) mg/dL 11/07/20 11/07/20 Range/Units 06:32 11:08 WBC (3.98-10.04) K/mm3 RBC (3.98-5.22) M/mm3 Hgb (11.2-15.7) gm/dl Hct (34.1-44.9) % MCV (79.4-94.8) fl MCH (25.6-32.2) pg MCHC (32.2-35.5) g/dl RDW Std Deviation (36.4-46.3) fL Plt Count (182-369) K/mm3 MPV (9.4-12.3) fl Sodium (136-145) mEq/L Potassium (3.5-5.1) mEq/L Chloride (98-107) mEq/L Carbon Dioxide (21-32) mEq/L Anion Gap (5-15) BUN (7-18) mg/dL Creatinine (0.55-1.02) mg/dL Est Cr Clr Drug Dosing mL/min Estimated GFR (MDRD) (>60) mL/min BUN/Creatinine Ratio (14-18) Glucose (70-99) mg/dL POC Glucose 81 167 H (70-99) mg/dL Calcium (8.5-10.1) mg/dL Magnesium (1.8-2.4) mg/dL Result Diagrams: 11/07/20 05:58 11/07/20 05:58 Sepsis Event Note - Evaluation Sepsis Screening Result: No Definite Risk - Focused Exam Vital Signs: Vital Signs Temp Pulse Resp BP Pulse Ox Pulse Ox 11/07/20 16:04 97.3 F 98 20 137/86 97 11/07/20 12:00 97.2 F 103 H 20 132/74 95 11/07/20 09:24 95 127/82 11/07/20 08:17 97.3 F 95 20 127/82 98 11/07/20 06:16 95 - Problem List Review Problem List Initiated/Reviewed/Updated: Yes - My Orders Last 24 Hours: My Active Orders 11/06/20 18:57 Renew/Continue Urinary Catheter [OM.PC] Routine 11/07/20 09:00 Furosemide [Lasix] 40 mg IVPUSH BID 11/08/20 06:00 BASIC METABOLIC PANEL,BMP [CHEM] DAILY CBC W/O DIFF,HEMOGRAM [HEME] DAILY MAGNESIUM [CHEM] DAILY 11/09/20 06:00 BASIC METABOLIC PANEL,BMP [CHEM] DAILY CBC W/O DIFF,HEMOGRAM [HEME] DAILY MAGNESIUM [CHEM] DAILY 11/10/20 06:00 BASIC METABOLIC PANEL,BMP [CHEM] DAILY CBC W/O DIFF,HEMOGRAM [HEME] DAILY MAGNESIUM [CHEM] DAILY 11/11/20 06:00 BASIC METABOLIC PANEL,BMP [CHEM] DAILY CBC W/O DIFF,HEMOGRAM [HEME] DAILY MAGNESIUM [CHEM] DAILY - Assessment Assessment:: The patient is a 65-year-old lady who is doing somewhat better today. Her rate has been better controlled although she still remains tachycardic. I have increased the patient's metoprolol tartrate to 50 mg twice daily. Digitalis level has been ordered it was therapeutic this morning. Digoxin will be continued. This is worked for her in the past. The patient will also be kept on telemetry. The patient is also on renally dosed Levaquin for her urinary tract infection 750 mg every 8 hours. She will be continued on insulin sliding scale as well as carb constant diet. Patient does have a Padilla catheter in and therefore strict DAMIAN's have been ordered. She is on IV Lasix. The patient was started on apixaban for DVT prophylaxis as well as for anticoagulation for atrial fibrillation. Repeat laboratory studies have been ordered. PT OT will continue to evaluate patient. Patient has refused the idea of skilled facility for rehabilitation. She prefers to go home. 1. Afib w/RVR; RVR has resolved 2. Recent hx of UTI/Sepsis (Tachycardia; leukocytosis) 3. Suspected Diastolic CHF exacerbation 4. Mild Hyperkalemia; resolved 5. Hx of Type II DM 6. Acute hypoxia likely secondary to #3 Plan -dc diltiazem -dc digoxin -dc metformin -add urine culture to UA -CXR completed -echo pending -lasix increase to 40 mg BID -monitor I&O -daily weight -antibiotics: switch to ceftriaxone Code-Full code DVT ppx-on eliquis - Plan Plan:: Patient is a medically complex 65-year-old lady who has been admitted to the intensive care unit primarily out of concern for atrial fibrillation with RVR and the patient had diltiazem in the emergency department. The patient's rate had not been controlled adequately and I have consulted with pharmacy with regards to starting the patient with digoxin due to her chronic kidney disease as well as her super morbid obesity. The patient because of the obesity is also suspected of having obesity pulmonary hypoventilation syndrome and oxygen support will be continued to help keep the patient saturations around 92%. The patient's urinalysis was also supportive of urinary tract infection along with concentration with the specific gravity of 1.030. The patient may have a component of heart failure due to her atrial fibrillation her B-type natriuretic peptide is elevated at 1700. Patient has Lasix ordered and will continue to monitor her fluid status closely in order to avoid renal injury. I have ordered a repeat chest x-ray for this morning as the patient is still continuing to have shortness of breath and physical examination shows that she has decreased sounds. The patient is a diabetic and she takes Metformin at home and this is being continued. The patient will also be kept on diabetic diet as well as insulin sliding scale. The patient is also started on Eliquis for atrial fibrillation as well as DVT prophylaxis. The patient does have a history of DVT. I discussed with the patient the possibility of rehab in order to safely go home.
[2020-11-07] MEDS: Acetaminophen 325 MG Tab PO PRN (21:01)
[2020-11-08] MEDS: Apixaban 5 MG Tab PO SCH ×3 (10:03→22:24)
[2020-11-08] MEDS: Metoprolol Tartrate 50 MG Tab PO SCH ×4 (10:04→22:24)
[2020-11-08] MEDS: Insulin Regular, Human 100 Units/ML 3 ML Vial SUBCUT SCH ×3 (10:04→18:25)
[2020-11-08] MEDS: Levothyroxine 112 MCG Tab PO SCH (10:04)
[2020-11-08] MEDS: cefTRIAXone 1 GM in Sodium Chloride 0.9% 100 ML IV SCH (10:05)
[2020-11-08] MEDS ORDERED: Lactated Ringers 500 ML IV ONE (12:06)
--- NOTE | 2020-11-08 12:41 | CR ---
Chest: Portable view of the chest was obtained. Comparison: Prior chest x-ray of 11/06/20. Heart is enlarged. Lung markings are increased but appear stable. Slight density is seen behind the left heart which is also stable. Bony structures are grossly intact. Impression: 1. Findings as described above. 2. No change is seen from prior chest x-ray. Diagnostic code #2
[2020-11-08] MEDS: Acetaminophen 325 MG Tab PO PRN (20:12)
[2020-11-09] MEDS: Apixaban 5 MG Tab PO SCH ×2 (08:40→20:14)
[2020-11-09] MEDS: Metoprolol Tartrate 50 MG Tab PO SCH ×2 (08:40→20:13)
[2020-11-09] MEDS: Levothyroxine 112 MCG Tab PO SCH (08:40)
[2020-11-09] MEDS: cefTRIAXone 1 GM in Sodium Chloride 0.9% 100 ML IV SCH (08:41)
[2020-11-09] MEDS: Insulin Regular, Human 100 Units/ML 3 ML Vial SUBCUT SCH ×3 (08:41→18:04)
[2020-11-09] MEDS ORDERED: Furosemide 40 MG Tab PO SCH (09:00)
--- NOTE | 2020-11-09 13:25 | PCM.PN ---
- General Info Date of Service: 11/09/20 Admission Dx/Problem (Free Text): Afib w/RVR Subjective Update: patient alert this morning but confused again this afternoon denied sob and cough this morning UCx with no growth so antibiotics stopped family at bedside this afternoon agreeable to Short term rehab - Review of Systems General: Reports: Weakness Pulmonary: Reports: Shortness of Breath Cardiovascular: Reports: No Symptoms Skin: Reports: No Symptoms Neurological: Reports: Confusion - Patient Data Vitals - Most Recent: Last Vital Signs Temp 96.4 F L 11/09/20 08:38 Pulse 104 H 11/09/20 08:40 Resp 16 11/09/20 08:38 BP 140/88 11/09/20 08:40 Pulse Ox 97 11/09/20 08:38 Weight - Most Recent: 341 lb 11.2 oz I&O - Last 24 Hours: Intake & Output 11/08/20 11/09/20 11/09/20 22:59 06:59 14:59 Intake Total 1930 730 240 Output Total 475 500 Balance 1455 230 240 Lab Results Last 24 Hours: Laboratory Results - last 24 hr 11/08/20 11/08/20 11/08/20 Range/Units 09:57 16:01 16:41 WBC (3.98-10.04) K/mm3 RBC (3.98-5.22) M/mm3 Hgb (11.2-15.7) gm/dl Hct (34.1-44.9) % MCV (79.4-94.8) fl MCH (25.6-32.2) pg MCHC (32.2-35.5) g/dl RDW Std Deviation (36.4-46.3) fL Plt Count (182-369) K/mm3 MPV (9.4-12.3) fl Sodium (136-145) mEq/L Potassium (3.5-5.1) mEq/L Chloride (98-107) mEq/L Carbon Dioxide (21-32) mEq/L Anion Gap (5-15) BUN (7-18) mg/dL Creatinine (0.55-1.02) mg/dL Est Cr Clr Drug Dosing mL/min Estimated GFR (MDRD) (>60) mL/min BUN/Creatinine Ratio (14-18) Glucose (70-99) mg/dL POC Glucose 109 H (70-99) mg/dL Lactic Acid 0.9 (0.4-2.0) mmol/L Calcium (8.5-10.1) mg/dL Magnesium (1.8-2.4) mg/dL Procalcitonin 0.22 H ng/mL TSH 3rd Generation (0.358-3.74) uIU/mL 11/09/20 11/09/20 11/09/20 Range/Units 06:06 06:06 06:44 WBC 18.21 H (3.98-10.04) K/mm3 RBC 5.04 (3.98-5.22) M/mm3 Hgb 13.4 (11.2-15.7) gm/dl Hct 47.1 H (34.1-44.9) % MCV 93.5 (79.4-94.8) fl MCH 26.6 (25.6-32.2) pg MCHC 28.5 L (32.2-35.5) g/dl RDW Std Deviation 51.7 H (36.4-46.3) fL Plt Count 307 (182-369) K/mm3 MPV 10.3 (9.4-12.3) fl Sodium 144 (136-145) mEq/L Potassium 4.1 (3.5-5.1) mEq/L Chloride 100 (98-107) mEq/L Carbon Dioxide 42 H* (21-32) mEq/L Anion Gap 6.1 (5-15) BUN 29 H (7-18) mg/dL Creatinine 0.9 (0.55-1.02) mg/dL Est Cr Clr Drug Dosing 47.03 mL/min Estimated GFR (MDRD) > 60 (>60) mL/min BUN/Creatinine Ratio 32.2 H (14-18) Glucose 106 H (70-99) mg/dL POC Glucose 87 (70-99) mg/dL Lactic Acid (0.4-2.0) mmol/L Calcium 9.9 (8.5-10.1) mg/dL Magnesium 2.2 (1.8-2.4) mg/dL Procalcitonin ng/mL TSH 3rd Generation 2.877 (0.358-3.74) uIU/mL 11/09/20 Range/Units 12:01 WBC (3.98-10.04) K/mm3 RBC (3.98-5.22) M/mm3 Hgb (11.2-15.7) gm/dl Hct (34.1-44.9) % MCV (79.4-94.8) fl MCH (25.6-32.2) pg MCHC (32.2-35.5) g/dl RDW Std Deviation (36.4-46.3) fL Plt Count (182-369) K/mm3 MPV (9.4-12.3) fl Sodium (136-145) mEq/L Potassium (3.5-5.1) mEq/L Chloride (98-107) mEq/L Carbon Dioxide (21-32) mEq/L Anion Gap (5-15) BUN (7-18) mg/dL Creatinine (0.55-1.02) mg/dL Est Cr Clr Drug Dosing mL/min Estimated GFR (MDRD) (>60) mL/min BUN/Creatinine Ratio (14-18) Glucose (70-99) mg/dL POC Glucose 117 H (70-99) mg/dL Lactic Acid (0.4-2.0) mmol/L Calcium (8.5-10.1) mg/dL Magnesium (1.8-2.4) mg/dL Procalcitonin ng/mL TSH 3rd Generation (0.358-3.74) uIU/mL [place] Results Last 24 Hours: Microbiology 11/08/20 00:45 Urine Culture - Final Urine Med Orders - Current: Current Medications Acetaminophen (Acetaminophen 325 Mg Tab) 650 mg PO Q4H PRN PRN Reason: Pain/Fever Last Admin: 11/07/20 21:01 Dose: 650 mg Documented by: Apixaban (Apixaban 5 Mg Tab) 5 mg PO BID [facility] Last Admin: 11/09/20 08:40 Dose: 5 mg Documented by: Artificial Tears (Carboxymethylcellulose Sodium 1% Ophth Gel 15 Ml Bottle) 0 ml EYEBOTH TID PRN PRN Reason: Dry Eyes Last Admin: 11/04/20 08:23 Dose: 15 ml Documented by: Benzonatate (Benzonatate 100 Mg Cap) 100 mg PO Q8H PRN PRN Reason: Cough Last Admin: 11/05/20 08:04 Dose: 100 mg Documented by: Furosemide (Furosemide 40 Mg Tab) 40 mg PO DAILY [facility] Last Admin: 11/09/20 08:40 Dose: 40 mg Documented by: Hydromorphone HCl (Hydromorphone 0.5 Mg/0.5 Ml Syringe) 0.5 mg IVPUSH Q2H PRN PRN Reason: PAIN Last Admin: 11/07/20 21:01 Dose: 0.5 mg Documented by: Insulin Human Regular (Insulin Regular, Human 100 Units/Ml 3 Ml Vial) 0 unit SUBCUT TIC [facility]; Protocol Last Admin: 11/09/20 12:46 Dose: Not Given Documented by: Levothyroxine Sodium (Levothyroxine 112 Mcg Tab) 112 mcg PO DAILY@0800 [facility] Last Admin: 11/09/20 08:40 Dose: 112 mcg Documented by: Metoprolol Tartrate (Metoprolol Tartrate 50 Mg Tab) 100 mg PO Q12HR [facility] Last Admin: 11/09/20 08:40 Dose: 100 mg Documented by: Morphine Sulfate (Morphine 2 Mg/Ml Syringe) 1 mg IVPUSH Q2HR PRN PRN Reason: Pain (severe 7-10) Last Admin: 11/04/20 01:46 Dose: 1 mg Documented by: Discontinued Medications Apixaban (Apixaban 2.5 Mg Tab) 2.5 mg PO ONETIME ONE Stop: 11/03/20 20:30 Last Admin: 11/03/20 20:51 Dose: 2.5 mg Documented by: Apixaban (Apixaban 2.5 Mg Tab) 2.5 mg PO BID [facility] Digoxin (Digoxin 500 Mcg/2 Ml Amp) 250 mcg IVPUSH Q6H [facility] Stop: 11/04/20 09:46 Last Admin: 11/04/20 09:20 Dose: 250 mcg Documented by: Digoxin (Digoxin 500 Mcg/2 Ml Amp) 250 mcg IVPUSH Q6H [facility] Stop: 11/07/20 00:01 Last Admin: 11/06/20 05:17 Dose: 250 mcg Documented by: Diltiazem HCl (Diltiazem 50 Mg/10 Ml Sdv) 20 mg IVPUSH ONETIME ONE Stop: 11/03/20 18:32 Last Admin: 11/03/20 18:36 Dose: 20 mg Documented by: Furosemide (Furosemide 20 Mg Tab) 20 mg PO DAILY [facility] Furosemide (Furosemide 20 Mg/2 Ml Vial) 20 mg IVPUSH DAILY [facility] Last Admin: 11/06/20 08:27 Dose: 20 mg Documented by: Furosemide (Furosemide 20 Mg/2 Ml Vial) 20 mg IVPUSH TID [facility] Last Admin: 11/06/20 21:08 Dose: 20 mg Documented by: Furosemide (Furosemide 40 Mg/4 Ml Vial) 40 mg IVPUSH BID [facility] Last Admin: 11/07/20 20:16 Dose: 40 mg Documented by: Diltiazem HCl 100 mg/ Sodium (Chloride) 100 mls @ 5 mls/hr IV TITRATE [facility]; Protocol Last Titration: 11/04/20 03:00 Dose: 20 mg/hr, 20 mls/hr Documented by: Levofloxacin/Dextrose 750 mg/ (Premix) 150 mls @ 100 mls/hr IV Q48H [facility] Last Admin: 11/06/20 03:48 Dose: 100 mls/hr Documented by: Ceftriaxone Sodium 1 gm/ (Sodium Chloride) 100 mls @ 200 mls/hr IV Q24H [facility] Last Admin: 11/09/20 08:41 Dose: 200 mls/hr Documented by: Lactated Ringer's (Ringers, Lactated) 500 mls @ 250 mls/hr IV .BOLUS ONE Stop: 11/08/20 14:05 Last Admin: 11/08/20 12:32 Dose: 250 mls/hr Documented by: Levothyroxine Sodium (Levothyroxine 112 Mcg Tab) 112 mcg PO ACBRK [facility] Last Admin: 11/04/20 08:23 Dose: 112 mcg Documented by: Metformin HCl (Metformin 500 Mg Tab) 500 mg PO WITHBREAKFAST [facility] Last Admin: 11/04/20 08:24 Dose: 500 mg Documented by: Metformin HCl (Metformin 500 Mg Tab) 500 mg PO DAILY@0900 [facility] Last Admin: 11/06/20 08:27 Dose: 500 mg Documented by: Metoprolol Tartrate (Metoprolol Tartrate 25 Mg Tab) 25 mg PO Q12HR [facility] Last Admin: 11/04/20 20:20 Dose: 25 mg Documented by: Metoprolol Tartrate (Metoprolol Tartrate 50 Mg Tab) 50 mg PO Q12H [facility] Last Admin: 11/05/20 08:09 Dose: Not Given Documented by: Metoprolol Tartrate (Metoprolol Tartrate 50 Mg Tab) 50 mg PO Q12HR [facility] Last Admin: 11/08/20 10:53 Dose: Not Given Documented by: Metoprolol Tartrate (Metoprolol Tartrate 50 Mg Tab) 75 mg PO Q12HR [facility] Last Admin: 11/08/20 22:24 Dose: Not Given Documented by: Sodium Chloride (Sodium Chloride 0.9% 10 Ml Syringe) 10 ml FLUSH ASDIRECTED PRN PRN Reason: Keep Vein Open Last Admin: 11/03/20 18:39 Dose: 10 ml Documented by: - Exam Urinary Catheter Total Time: 5Days 9Hours General: Alert, Cooperative, No Acute Distress Neck: Supple Lungs: Decreased Breath Sounds Cardiovascular: Irregular Rhythm, Tachycardia GI/Abdominal Exam: Soft, Non-Tender Skin: Warm, Dry, Intact Neurological: Normal Speech, Other (moves extremities; age appropriate muscle mass; at baseline state) Psy/Mental Status: Alert, Normal Mood - Patient Data Lab Results Last 24 hrs: Laboratory Results - last 24 hr 11/08/20 11/08/20 11/08/20 Range/Units 09:57 16:01 16:41 WBC (3.98-10.04) K/mm3 RBC (3.98-5.22) M/mm3 Hgb (11.2-15.7) gm/dl Hct (34.1-44.9) % MCV (79.4-94.8) fl MCH (25.6-32.2) pg MCHC (32.2-35.5) g/dl RDW Std Deviation (36.4-46.3) fL Plt Count (182-369) K/mm3 MPV (9.4-12.3) fl Sodium (136-145) mEq/L Potassium (3.5-5.1) mEq/L Chloride (98-107) mEq/L Carbon Dioxide (21-32) mEq/L Anion Gap (5-15) BUN (7-18) mg/dL Creatinine (0.55-1.02) mg/dL Est Cr Clr Drug Dosing mL/min Estimated GFR (MDRD) (>60) mL/min BUN/Creatinine Ratio (14-18) Glucose (70-99) mg/dL POC Glucose 109 H (70-99) mg/dL Lactic Acid 0.9 (0.4-2.0) mmol/L Calcium (8.5-10.1) mg/dL Magnesium (1.8-2.4) mg/dL Procalcitonin 0.22 H ng/mL TSH 3rd Generation (0.358-3.74) uIU/mL 11/09/20 11/09/20 11/09/20 Range/Units 06:06 06:06 06:44 WBC 18.21 H (3.98-10.04) K/mm3 RBC 5.04 (3.98-5.22) M/mm3 Hgb 13.4 (11.2-15.7) gm/dl Hct 47.1 H (34.1-44.9) % MCV 93.5 (79.4-94.8) fl MCH 26.6 (25.6-32.2) pg MCHC 28.5 L (32.2-35.5) g/dl RDW Std Deviation 51.7 H (36.4-46.3) fL Plt Count 307 (182-369) K/mm3 MPV 10.3 (9.4-12.3) fl Sodium 144 (136-145) mEq/L Potassium 4.1 (3.5-5.1) mEq/L Chloride 100 (98-107) mEq/L Carbon Dioxide 42 H* (21-32) mEq/L Anion Gap 6.1 (5-15) BUN 29 H (7-18) mg/dL Creatinine 0.9 (0.55-1.02) mg/dL Est Cr Clr Drug Dosing 47.03 mL/min Estimated GFR (MDRD) > 60 (>60) mL/min BUN/Creatinine Ratio 32.2 H (14-18) Glucose 106 H (70-99) mg/dL POC Glucose 87 (70-99) mg/dL Lactic Acid (0.4-2.0) mmol/L Calcium 9.9 (8.5-10.1) mg/dL Magnesium 2.2 (1.8-2.4) mg/dL Procalcitonin ng/mL TSH 3rd Generation 2.877 (0.358-3.74) uIU/mL 11/09/20 Range/Units 12:01 WBC (3.98-10.04) K/mm3 RBC (3.98-5.22) M/mm3 Hgb (11.2-15.7) gm/dl Hct (34.1-44.9) % MCV (79.4-94.8) fl MCH (25.6-32.2) pg MCHC (32.2-35.5) g/dl RDW Std Deviation (36.4-46.3) fL Plt Count (182-369) K/mm3 MPV (9.4-12.3) fl Sodium (136-145) mEq/L Potassium (3.5-5.1) mEq/L Chloride (98-107) mEq/L Carbon Dioxide (21-32) mEq/L Anion Gap (5-15) BUN (7-18) mg/dL Creatinine (0.55-1.02) mg/dL Est Cr Clr Drug Dosing mL/min Estimated GFR (MDRD) (>60) mL/min BUN/Creatinine Ratio (14-18) Glucose (70-99) mg/dL POC Glucose 117 H (70-99) mg/dL Lactic Acid (0.4-2.0) mmol/L Calcium (8.5-10.1) mg/dL Magnesium (1.8-2.4) mg/dL Procalcitonin ng/mL TSH 3rd Generation (0.358-3.74) uIU/mL Result Diagrams: 11/09/20 06:06 11/09/20 06:06 [place] Results Last 24 hrs: Microbiology 11/08/20 00:45 Urine Culture - Final Urine Sepsis Event Note - Evaluation Sepsis Screening Result: Sepsis Risk - Focused Exam Vital Signs: Vital Signs Temp Pulse Resp BP Pulse Ox 11/09/20 08:40 104 H 140/88 11/09/20 08:38 96.4 F L 104 H 16 140/88 97 11/09/20 03:13 96.8 F L 101 H 22 H 136/98 H 98 - Problem List Review Problem List Initiated/Reviewed/Updated: Yes - My Orders Last 24 Hours: My Active Orders 11/08/20 14:09 BLOOD CULTURE [MREF] Routine 11/09/20 09:00 Furosemide [Lasix] 40 mg PO DAILY Metoprolol Tartrate [Lopressor] 100 mg PO Q12HR 11/09/20 13:09 BLOOD GAS VENOUS [BG] Routine 11/09/20 13:24 Head wo Cont [CT] Stat LACTATE SEPSIS W/ REFLEX [CHEM] Stat 11/10/20 06:00 BASIC METABOLIC PANEL,BMP [CHEM] DAILY CBC W/O DIFF,HEMOGRAM [HEME] DAILY MAGNESIUM [CHEM] DAILY 11/11/20 06:00 BASIC METABOLIC PANEL,BMP [CHEM] DAILY CBC W/O DIFF,HEMOGRAM [HEME] DAILY MAGNESIUM [CHEM] DAILY - Assessment Assessment:: The patient is a 65-year-old female who presented with afib w/RVR, suspected UTI, and diastolic CHF exacerbation 1. Afib w/RVR; slightly tachycardic 2. Recent hx of UTI/Sepsis (Tachycardia; leukocytosis); initial UCx not obtained by previous provider; repeat cx after antibiotics already started showing no growth 3. Diastolic CHF exacerbation 4. Mild Hyperkalemia; resolved 5. Hx of Type II DM 6. Acute hypoxia likely secondary to #3 7. Suspected LIZ 8. Suspected obesity hypoventilation syndrome 9. Chronic pulmonary HTN and RV dilation 10. Chronic hypoxic respiratory failure on 3 liters oxygen Plan -dc diltiazem -dc digoxin -dc metformin -CXR completed -echo showing normal EF -RV size is severely enlarged -RVSP elevated 85.6 -Severe pulmonary HTN and RV dilation was noted from echo 2018 -will need outpatient Cardiology follow up -transitioned to PO lasix 11/08 -daily weight -discontinue ceftriaxone 11/09 -increase metoprolol 11/09 to 100 mg BID addendum repeat ABG/Lactate and CT HEAD Code-Full code DVT ppx-on eliquis Dispo-will need short term rehab - Plan Plan:: Patient is a medically complex 65-year-old lady who has been admitted to the intensive care unit primarily out of concern for atrial fibrillation with RVR and the patient had diltiazem in the emergency department. The patient's rate had not been controlled adequately and I have consulted with pharmacy with [facility] to starting the patient with digoxin due to her chronic kidney disease as well as her super morbid obesity. The patient because of the obesity is also suspected of having obesity pulmonary hypoventilation syndrome and oxygen support will be continued to help keep the patient saturations around 92%. The patient's urinalysis was also supportive of urinary tract infection along with concentration with the specific gravity of 1.030. The patient may have a component of heart failure due to her atrial fibrillation her B-type natriuretic peptide is elevated at 1700. Patient has Lasix ordered and will continue to monitor her fluid status closely in order to avoid renal injury. I have ordered a repeat chest x-ray for this morning as the patient is still continuing to have shortness of breath and physical examination shows that she has decreased sounds. The patient is a diabetic and she takes Metformin at home and this is being continued. The patient will also be kept on diabetic diet as well as insulin sliding scale. The patient is also started on Eliquis for atrial fibrillation as well as DVT prophylaxis. The patient does have a history of DVT. I discussed with the patient the possibility of rehab in order to safely go home.
[2020-11-09] MEDS ORDERED: methylPREDNISolone Sodium Succinate 125 MG/2 ML SDV IV ONE (15:00)
--- NOTE | 2020-11-09 15:04 | CT ---
Head CT Technique: Multiple axial sections through the brain were obtained. Intravenous contrast was not utilized. Reconstructed coronal and sagittal images were obtained. Comparison: No prior intracranial imaging is available. Findings: Motion artifact is seen on the base cuts. Within these limitations, no abnormal parenchymal densities are seen. Ventricles along with basal cisterns and sulci over the convexities are within normal limits. No midline shift or mass-effect is seen. Bone window settings were reviewed. Visualized mastoid sinuses show nothing acute. Visualized paranasal sinuses show slight mucosal thickening within the left maxillary sinus. This is most likely chronic. No acute calvarial abnormality is appreciated. Impression: 1. Motion artifact in the base cuts. 2. Minimal sinus findings which are likely chronic. 3. No definite acute intracranial abnormality is appreciated. Diagnostic code #2
[2020-11-09] MEDS: Albuterol/Ipratropium 3.0-0.5 MG/3 ML Neb Soln NEB SCH ×2 (15:49→20:11)
--- NOTE | 2020-11-09 16:01 | CR ---
Chest: Portable view of the chest was obtained. Comparison: Prior chest x-ray of 11/08/20. Pulmonary vessels are increased. Slight parenchymal density within the left lung base is noted which is stable. Heart is enlarged. Bony structures show nothing acute. Slight pleural thickening is seen along the lateral right chest wall which is stable. Impression: 1. Findings as noted above. No change from previous study is seen. Diagnostic code #2
[2020-11-09] MEDS: HYDROmorphone 0.5 MG/0.5 ML Syringe IVPUSH PRN (23:17)
[2020-11-10] MEDS: Albuterol/Ipratropium 3.0-0.5 MG/3 ML Neb Soln NEB SCH ×4 (03:00→21:03)
[2020-11-10] MEDS: HYDROmorphone 0.5 MG/0.5 ML Syringe IVPUSH PRN ×3 (03:51→21:04)
[2020-11-10] MEDS: Levothyroxine 112 MCG Tab PO SCH (07:53)
[2020-11-10] MEDS: Apixaban 5 MG Tab PO SCH ×2 (08:00→20:11)
[2020-11-10] MEDS: Metoprolol Tartrate 50 MG Tab PO SCH ×2 (08:00→20:11)
[2020-11-10] MEDS: Insulin Regular, Human 100 Units/ML 3 ML Vial SUBCUT SCH ×3 (08:03→18:04)
[2020-11-10] MEDS ORDERED: Furosemide 20 MG/2 ML VIAL IVPUSH SCH (09:00)
--- NOTE | 2020-11-10 10:50 | PCM.PN ---
- General Info Date of Service: 11/10/20 Admission Dx/Problem (Free Text): Patient placed on BIPAP yesterday afternoon/evening for hypercapnic/hypoxic resp failure Hypercapnia improving alert this morning denies chest pain and sob - Review of Systems General: Reports: Fatigue HEENT: Reports: No Symptoms Cardiovascular: Reports: No Symptoms Gastrointestinal: Reports: No Symptoms - Patient Data Vitals - Most Recent: Last Vital Signs Temp 97.1 F 11/10/20 04:56 Pulse 75 11/10/20 08:00 Resp 20 11/10/20 04:56 BP 126/66 11/10/20 08:00 Pulse Ox 974 H 11/10/20 08:51 Weight - Most Recent: 340 lb 11.2 oz I&O - Last 24 Hours: Intake & Output 11/09/20 11/10/20 11/10/20 22:59 06:59 14:59 Intake Total 400 100 Balance 400 100 Lab Results Last 24 Hours: Laboratory Results - last 24 hr 11/08/20 11/09/20 11/09/20 Range/Units 06:57 12:01 13:31 WBC (3.98-10.04) K/mm3 RBC (3.98-5.22) M/mm3 Hgb (11.2-15.7) gm/dl Hct (34.1-44.9) % MCV (79.4-94.8) fl MCH (25.6-32.2) pg MCHC (32.2-35.5) g/dl RDW Std Deviation (36.4-46.3) fL Plt Count (182-369) K/mm3 MPV (9.4-12.3) fl Puncture Site ABG pH (7.35-7.45) ABG pCO2 (35.0-45.0) mmHg ABG pO2 (80.0-100.0) mmHg ABG HCO3 (22.0-26.0) meq/L ABG O2 Saturation (96.0-97.0) % ABG Base Excess (-2-2.0) Augusto Test A-a Gradient mmHg O2 Delivery Device Oxygen Flow Rate FiO2 (21.00-100.00) % Sodium (136-145) mEq/L Potassium (3.5-5.1) mEq/L Chloride (98-107) mEq/L Carbon Dioxide (21-32) mEq/L Anion Gap (5-15) BUN (7-18) mg/dL Creatinine (0.55-1.02) mg/dL Est Cr Clr Drug Dosing mL/min Estimated GFR (MDRD) (>60) mL/min BUN/Creatinine Ratio (14-18) Glucose (70-99) mg/dL POC Glucose 117 H (70-99) mg/dL Lactic Acid 0.8 (0.4-2.0) mmol/L Calcium (8.5-10.1) mg/dL Magnesium (1.8-2.4) mg/dL PTH Intact 48 (15-65) pg/mL 11/09/20 11/09/20 11/09/20 Range/Units 13:55 15:56 18:02 WBC (3.98-10.04) K/mm3 RBC (3.98-5.22) M/mm3 Hgb (11.2-15.7) gm/dl Hct (34.1-44.9) % MCV (79.4-94.8) fl MCH (25.6-32.2) pg MCHC (32.2-35.5) g/dl RDW Std Deviation (36.4-46.3) fL Plt Count (182-369) K/mm3 MPV (9.4-12.3) fl Puncture Site Rt radial Lt radial ABG pH 7.27 L 7.37 (7.35-7.45) ABG pCO2 99.0 H* 75.4 H* (35.0-45.0) mmHg ABG pO2 134.0 H 77.0 L (80.0-100.0) mmHg ABG HCO3 44.2 H 42.2 H (22.0-26.0) meq/L ABG O2 Saturation 98.1 H 95.0 L (96.0-97.0) % ABG Base Excess 13.2 H 13.9 H (-2-2.0) Augusto Test Positive A-a Gradient 57 mmHg O2 Delivery Device Nasal cannula Bipap Oxygen Flow Rate 3.0 FiO2 36.00 32.00 (21.00-100.00) % Sodium (136-145) mEq/L Potassium (3.5-5.1) mEq/L Chloride (98-107) mEq/L Carbon Dioxide (21-32) mEq/L Anion Gap (5-15) BUN (7-18) mg/dL Creatinine (0.55-1.02) mg/dL Est Cr Clr Drug Dosing mL/min Estimated GFR (MDRD) (>60) mL/min BUN/Creatinine Ratio (14-18) Glucose (70-99) mg/dL POC Glucose 107 H (70-99) mg/dL Lactic Acid (0.4-2.0) mmol/L Calcium (8.5-10.1) mg/dL Magnesium (1.8-2.4) mg/dL PTH Intact (15-65) pg/mL 11/10/20 11/10/20 11/10/20 Range/Units 05:10 05:10 07:55 WBC 16.14 H (3.98-10.04) K/mm3 RBC 4.47 (3.98-5.22) M/mm3 Hgb 13.8 (11.2-15.7) gm/dl Hct 41.9 (34.1-44.9) % MCV 93.7 (79.4-94.8) fl MCH 30.9 (25.6-32.2) pg MCHC 32.9 (32.2-35.5) g/dl RDW Std Deviation 51.8 H (36.4-46.3) fL Plt Count 231 D (182-369) K/mm3 MPV 10.6 (9.4-12.3) fl Puncture Site ABG pH (7.35-7.45) ABG pCO2 (35.0-45.0) mmHg ABG pO2 (80.0-100.0) mmHg ABG HCO3 (22.0-26.0) meq/L ABG O2 Saturation (96.0-97.0) % ABG Base Excess (-2-2.0) Augusto Test A-a Gradient mmHg O2 Delivery Device Oxygen Flow Rate FiO2 (21.00-100.00) % Sodium 143 (136-145) mEq/L Potassium 5.8 H D (3.5-5.1) mEq/L Chloride 101 (98-107) mEq/L Carbon Dioxide 40 H (21-32) mEq/L Anion Gap 7.8 (5-15) BUN 27 H (7-18) mg/dL Creatinine 0.7 (0.55-1.02) mg/dL Est Cr Clr Drug Dosing 60.46 mL/min Estimated GFR (MDRD) > 60 (>60) mL/min BUN/Creatinine Ratio 38.6 H (14-18) Glucose 128 H (70-99) mg/dL POC Glucose 120 H (70-99) mg/dL Lactic Acid (0.4-2.0) mmol/L Calcium 10.1 (8.5-10.1) mg/dL Magnesium 2.0 (1.8-2.4) mg/dL PTH Intact (15-65) pg/mL 11/10/20 Range/Units 08:08 WBC (3.98-10.04) K/mm3 RBC (3.98-5.22) M/mm3 Hgb (11.2-15.7) gm/dl Hct (34.1-44.9) % MCV (79.4-94.8) fl MCH (25.6-32.2) pg MCHC (32.2-35.5) g/dl RDW Std Deviation (36.4-46.3) fL Plt Count (182-369) K/mm3 MPV (9.4-12.3) fl Puncture Site Rt radial ABG pH 7.41 (7.35-7.45) ABG pCO2 68.6 H (35.0-45.0) mmHg ABG pO2 68.0 L (80.0-100.0) mmHg ABG HCO3 42.5 H (22.0-26.0) meq/L ABG O2 Saturation 93.1 L (96.0-97.0) % ABG Base Excess 15.0 H (-2-2.0) Aguusto Test A-a Gradient 103 mmHg O2 Delivery Device Nasal cannula Oxygen Flow Rate 3.0 FiO2 32.00 (21.00-100.00) % Sodium (136-145) mEq/L Potassium (3.5-5.1) mEq/L Chloride (98-107) mEq/L Carbon Dioxide (21-32) mEq/L Anion Gap (5-15) BUN (7-18) mg/dL Creatinine (0.55-1.02) mg/dL Est Cr Clr Drug Dosing mL/min Estimated GFR (MDRD) (>60) mL/min BUN/Creatinine Ratio (14-18) Glucose (70-99) mg/dL POC Glucose (70-99) mg/dL Lactic Acid (0.4-2.0) mmol/L Calcium (8.5-10.1) mg/dL Magnesium (1.8-2.4) mg/dL PTH Intact (15-65) pg/mL Eleno Results Last 24 Hours: Microbiology 11/08/20 14:09 Blood Culture - Preliminary Blood - Venous 11/08/20 09:50 Blood Culture - Preliminary Blood - Venous - Lab Draw 11/08/20 00:45 Urine Culture - Final Urine Med Orders - Current: Current Medications Acetaminophen (Acetaminophen 325 Mg Tab) 650 mg PO Q4H PRN PRN Reason: Pain/Fever Last Admin: 11/07/20 21:01 Dose: 650 mg Documented by: Albuterol/Ipratropium (Albuterol/Ipratropium 3.0-0.5 Mg/3 Ml Neb Soln) 3 ml NEB Q6HRRT [facility] Last Admin: 11/10/20 08:50 Dose: 3 ml Documented by: Apixaban (Apixaban 5 Mg Tab) 5 mg PO BID [facility] Last Admin: 11/10/20 08:00 Dose: 5 mg Documented by: Artificial Tears (Carboxymethylcellulose Sodium 1% Ophth Gel 15 Ml Bottle) 0 ml EYEBOTH TID PRN PRN Reason: Dry Eyes Last Admin: 11/04/20 08:23 Dose: 15 ml Documented by: Benzonatate (Benzonatate 100 Mg Cap) 100 mg PO Q8H PRN PRN Reason: Cough Last Admin: 11/05/20 08:04 Dose: 100 mg Documented by: Furosemide (Furosemide 20 Mg/2 Ml Vial) 20 mg IVPUSH DAILY [facility] Last Admin: 11/10/20 08:00 Dose: 20 mg Documented by: Hydromorphone HCl (Hydromorphone 0.5 Mg/0.5 Ml Syringe) 0.5 mg IVPUSH Q2H PRN PRN Reason: PAIN Last Admin: 11/10/20 10:13 Dose: 0.5 mg Documented by: Insulin Human Regular (Insulin Regular, Human 100 Units/Ml 3 Ml Vial) 0 unit KNIGHT BCUT TIDPC [facility]; Protocol Last Admin: 11/10/20 08:03 Dose: Not Given Documented by: Levothyroxine Sodium (Levothyroxine 112 Mcg Tab) 112 mcg PO DAILY@0800 [facility] Last Admin: 11/10/20 07:53 Dose: 112 mcg Documented by: Metoprolol Tartrate (Metoprolol Tartrate 50 Mg Tab) 100 mg PO Q12HR [facility] Last Admin: 11/10/20 08:00 Dose: 100 mg Documented by: Morphine Sulfate (Morphine 2 Mg/Ml Syringe) 1 mg IVPUSH Q2HR PRN PRN Reason: Pain (severe 7-10) Last Admin: 11/04/20 01:46 Dose: 1 mg Documented by: Discontinued Medications Apixaban (Apixaban 2.5 Mg Tab) 2.5 mg PO ONETIME ONE Stop: 11/03/20 20:30 Last Admin: 11/03/20 20:51 Dose: 2.5 mg Documented by: Apixaban (Apixaban 2.5 Mg Tab) 2.5 mg PO BID [facility] Digoxin (Digoxin 500 Mcg/2 Ml Amp) 250 mcg IVPUSH Q6H [facility] Stop: 11/04/20 09:46 Last Admin: 11/04/20 09:20 Dose: 250 mcg Documented by: Digoxin (Digoxin 500 Mcg/2 Ml Amp) 250 mcg IVPUSH Q6H [facility] Stop: 11/07/20 00:01 Last Admin: 11/06/20 05:17 Dose: 250 mcg Documented by: Diltiazem HCl (Diltiazem 50 Mg/10 Ml Sdv) 20 mg IVPUSH ONETIME ONE Stop: 11/03/20 18:32 Last Admin: 11/03/20 18:36 Dose: 20 mg Documented by: Furosemide (Furosemide 20 Mg Tab) 20 mg PO DAILY [facility] Furosemide (Furosemide 20 Mg/2 Ml Vial) 20 mg IVPUSH DAILY [facility] Last Admin: 11/06/20 08:27 Dose: 20 mg Documented by: Furosemide (Furosemide 20 Mg/2 Ml Vial) 20 mg IVPUSH TID [facility] Last Admin: 11/06/20 21:08 Dose: 20 mg Documented by: Furosemide (Furosemide 40 Mg/4 Ml Vial) 40 mg IVPUSH BID [facility] Last Admin: 11/07/20 20:16 Dose: 40 mg Documented by: Furosemide (Furosemide 40 Mg Tab) 40 mg PO DAILY [facility] Last Admin: 11/09/20 08:40 Dose: 40 mg Documented by: Diltiazem HCl 100 mg/ Sodium (Chloride) 100 mls @ 5 mls/hr IV TITRATE [facility]; Protocol Last Titration: 11/04/20 03:00 Dose: 20 mg/hr, 20 mls/hr Documented by: Levofloxacin/Dextrose 750 mg/ (Premix) 150 mls @ 100 mls/hr IV Q48H [facility] Last Admin: 11/06/20 03:48 Dose: 100 mls/hr Documented by: Ceftriaxone Sodium 1 gm/ (Sodium Chloride) 100 mls @ 200 mls/hr IV Q24H [facility] Last Admin: 11/09/20 08:41 Dose: 200 mls/hr Documented by: Lactated Ringer's (Ringers, Lactated) 500 mls @ 250 mls/hr IV .BOLUS ONE Stop: 11/08/20 14:05 Last Admin: 11/08/20 12:32 Dose: 250 mls/hr Documented by: Levothyroxine Sodium (Levothyroxine 112 Mcg Tab) 112 mcg PO ACBRK [facility] Last Admin: 11/04/20 08:23 Dose: 112 mcg Documented by: Metformin HCl (Metformin 500 Mg Tab) 500 mg PO WITHBREAKFAST [facility] Last Admin: 11/04/20 08:24 Dose: 500 mg Documented by: Metformin HCl (Metformin 500 Mg Tab) 500 mg PO DAILY@0900 [facility] Last Admin: 11/06/20 08:27 Dose: 500 mg Documented by: Methylprednisolone Sodium Succinate (Methylprednisolone Sodium Succinate 125 Mg/2 Ml Sdv) 125 mg IV ONETIME ONE Stop: 11/09/20 15:01 Last Admin: 11/09/20 15:09 Dose: 125 mg Documented by: Metoprolol Tartrate (Metoprolol Tartrate 25 Mg Tab) 25 mg PO Q12HR [facility] Last Admin: 11/04/20 20:20 Dose: 25 mg Documented by: Metoprolol Tartrate (Metoprolol Tartrate 50 Mg Tab) 50 mg PO Q12H [facility] Last Admin: 11/05/20 08:09 Dose: Not Given Documented by: Metoprolol Tartrate (Metoprolol Tartrate 50 Mg Tab) 50 mg PO Q12HR [facility] Last Admin: 11/08/20 10:53 Dose: Not Given Documented by: Metoprolol Tartrate (Metoprolol Tartrate 50 Mg Tab) 75 mg PO Q12HR [facility] Last Admin: 11/08/20 22:24 Dose: Not Given Documented by: Sodium Chloride (Sodium Chloride 0.9% 10 Ml Syringe) 10 ml FLUSH ASDIRECTED PRN PRN Reason: Keep Vein Open Last Admin: 11/03/20 18:39 Dose: 10 ml Documented by: - Exam Urinary Catheter Total Time: 5Days 9Hours Physical Findings Comments:: Gen: obese female on BIPAP HEENT: NCAT EOMI MMM CV: IRIR normal s1 s2 Lungs: Diminished breath sounds Abd: soft, nt, nd Neuro: Alert, oriented; moves extremities MSK: age appropriate muscle mass Skin: venous stasis changes of lower extremities - Patient Data Lab Results Last 24 hrs: Laboratory Results - last 24 hr 11/08/20 11/09/20 11/09/20 Range/Units 06:57 12:01 13:31 WBC (3.98-10.04) K/mm3 RBC (3.98-5.22) M/mm3 Hgb (11.2-15.7) gm/dl Hct (34.1-44.9) % MCV (79.4-94.8) fl MCH (25.6-32.2) pg MCHC (32.2-35.5) g/dl RDW Std Deviation (36.4-46.3) fL Plt Count (182-369) K/mm3 MPV (9.4-12.3) fl Puncture Site ABG pH (7.35-7.45) ABG pCO2 (35.0-45.0) mmHg ABG pO2 (80.0-100.0) mmHg ABG HCO3 (22.0-26.0) meq/L ABG O2 Saturation (96.0-97.0) % ABG Base Excess (-2-2.0) Augusto Test A-a Gradient mmHg O2 Delivery Device Oxygen Flow Rate FiO2 (21.00-100.00) % Sodium (136-145) mEq/L Potassium (3.5-5.1) mEq/L Chloride (98-107) mEq/L Carbon Dioxide (21-32) mEq/L Anion Gap (5-15) BUN (7-18) mg/dL Creatinine (0.55-1.02) mg/dL Est Cr Clr Drug Dosing mL/min Estimated GFR (MDRD) (>60) mL/min BUN/Creatinine Ratio (14-18) Glucose (70-99) mg/dL POC Glucose 117 H (70-99) mg/dL Lactic Acid 0.8 (0.4-2.0) mmol/L Calcium (8.5-10.1) mg/dL Magnesium (1.8-2.4) mg/dL PTH Intact 48 (15-65) pg/mL 11/09/20 11/09/20 11/09/20 Range/Units 13:55 15:56 18:02 WBC (3.98-10.04) K/mm3 RBC (3.98-5.22) M/mm3 Hgb (11.2-15.7) gm/dl Hct (34.1-44.9) % MCV (79.4-94.8) fl MCH (25.6-32.2) pg MCHC (32.2-35.5) g/dl RDW Std Deviation (36.4-46.3) fL Plt Count (182-369) K/mm3 MPV (9.4-12.3) fl Puncture Site Rt radial Lt radial ABG pH 7.27 L 7.37 (7.35-7.45) ABG pCO2 99.0 H* 75.4 H* (35.0-45.0) mmHg ABG pO2 134.0 H 77.0 L (80.0-100.0) mmHg ABG HCO3 44.2 H 42.2 H (22.0-26.0) meq/L ABG O2 Saturation 98.1 H 95.0 L (96.0-97.0) % ABG Base Excess 13.2 H 13.9 H (-2-2.0) Augusto Test Positive A-a Gradient 57 mmHg O2 Delivery Device Nasal cannula Bipap Oxygen Flow Rate 3.0 FiO2 36.00 32.00 (21.00-100.00) % Sodium (136-145) mEq/L Potassium (3.5-5.1) mEq/L Chloride (98-107) mEq/L Carbon Dioxide (21-32) mEq/L Anion Gap (5-15) BUN (7-18) mg/dL Creatinine (0.55-1.02) mg/dL Est Cr Clr Drug Dosing mL/min Estimated GFR (MDRD) (>60) mL/min BUN/Creatinine Ratio (14-18) Glucose (70-99) mg/dL POC Glucose 107 H (70-99) mg/dL Lactic Acid (0.4-2.0) mmol/L Calcium (8.5-10.1) mg/dL Magnesium (1.8-2.4) mg/dL PTH Intact (15-65) pg/mL 11/10/20 11/10/20 11/10/20 Range/Units 05:10 05:10 07:55 WBC 16.14 H (3.98-10.04) K/mm3 RBC 4.47 (3.98-5.22) M/mm3 Hgb 13.8 (11.2-15.7) gm/dl Hct 41.9 (34.1-44.9) % MCV 93.7 (79.4-94.8) fl MCH 30.9 (25.6-32.2) pg MCHC 32.9 (32.2-35.5) g/dl RDW Std Deviation 51.8 H (36.4-46.3) fL Plt Count 231 D (182-369) K/mm3 MPV 10.6 (9.4-12.3) fl Puncture Site ABG pH (7.35-7.45) ABG pCO2 (35.0-45.0) mmHg ABG pO2 (80.0-100.0) mmHg ABG HCO3 (22.0-26.0) meq/L ABG O2 Saturation (96.0-97.0) % ABG Base Excess (-2-2.0) Augusto Test A-a Gradient mmHg O2 Delivery Device Oxygen Flow Rate FiO2 (21.00-100.00) % Sodium 143 (136-145) mEq/L Potassium 5.8 H D (3.5-5.1) mEq/L Chloride 101 (98-107) mEq/L Carbon Dioxide 40 H (21-32) mEq/L Anion Gap 7.8 (5-15) BUN 27 H (7-18) mg/dL Creatinine 0.7 (0.55-1.02) mg/dL Est Cr Clr Drug Dosing 60.46 mL/min Estimated GFR (MDRD) > 60 (>60) mL/min BUN/Creatinine Ratio 38.6 H (14-18) Glucose 128 H (70-99) mg/dL POC Glucose 120 H (70-99) mg/dL Lactic Acid (0.4-2.0) mmol/L Calcium 10.1 (8.5-10.1) mg/dL Magnesium 2.0 (1.8-2.4) mg/dL PTH Intact (15-65) pg/mL 11/10/20 Range/Units 08:08 WBC (3.98-10.04) K/mm3 RBC (3.98-5.22) M/mm3 Hgb (11.2-15.7) gm/dl Hct (34.1-44.9) % MCV (79.4-94.8) fl MCH (25.6-32.2) pg MCHC (32.2-35.5) g/dl RDW Std Deviation (36.4-46.3) fL Plt Count (182-369) K/mm3 MPV (9.4-12.3) fl Puncture Site Rt radial ABG pH 7.41 (7.35-7.45) ABG pCO2 68.6 H (35.0-45.0) mmHg ABG pO2 68.0 L (80.0-100.0) mmHg ABG HCO3 42.5 H (22.0-26.0) meq/L ABG O2 Saturation 93.1 L (96.0-97.0) % ABG Base Excess 15.0 H (-2-2.0) Augusto Test A-a Gradient 103 mmHg O2 Delivery Device Nasal cannula Oxygen Flow Rate 3.0 FiO2 32.00 (21.00-100.00) % Sodium (136-145) mEq/L Potassium (3.5-5.1) mEq/L Chloride (98-107) mEq/L Carbon Dioxide (21-32) mEq/L Anion Gap (5-15) BUN (7-18) mg/dL Creatinine (0.55-1.02) mg/dL Est Cr Clr Drug Dosing mL/min Estimated GFR (MDRD) (>60) mL/min BUN/Creatinine Ratio (14-18) Glucose (70-99) mg/dL POC Glucose (70-99) mg/dL Lactic Acid (0.4-2.0) mmol/L Calcium (8.5-10.1) mg/dL Magnesium (1.8-2.4) mg/dL PTH Intact (15-65) pg/mL Result Diagrams: 11/10/20 05:10 11/10/20 05:10 [place]eno Results Last 24 hrs: Microbiology 11/08/20 14:09 Blood Culture - Preliminary Blood - Venous 11/08/20 09:50 Blood Culture - Preliminary Blood - Venous - Lab Draw 11/08/20 00:45 Urine Culture - Final Urine Sepsis Event Note - Evaluation Sepsis Screening Result: Sepsis Risk - Focused Exam Vital Signs: Vital Signs Temp Pulse Resp BP Pulse Ox Pulse Ox Pulse Ox 11/10/20 08:51 974 H 11/10/20 08:00 75 126/66 95 11/10/20 05:00 89 L 11/10/20 04:56 97.1 F 20 161/91 H 92 L 11/10/20 04:55 89 L 11/10/20 04:00 92 L 11/10/20 03:02 95 11/10/20 03:00 97 11/10/20 02:00 96 11/10/20 01:46 156/95 H 11/10/20 01:27 98 11/10/20 01:00 98 11/10/20 00:11 86 L 11/10/20 00:00 90 L 11/09/20 23:00 97 - Problem List Review Problem List Initiated/Reviewed/Updated: Yes - My Orders Last 24 Hours: My Active Orders 11/09/20 14:25 BIPAP [RT BiPAP/CPAP] [RC] ASDIRECTED 11/09/20 14:32 RT Aerosol Therapy [RC] ASDIRECTED 11/09/20 15:00 Albuterol/Ipratropium [DuoNeb 3.0-0.5 MG/3 ML] 3 ml NEB Q6HRRT 11/10/20 09:00 Furosemide [Lasix] 20 mg IVPUSH DAILY 11/11/20 06:00 BASIC METABOLIC PANEL,BMP [CHEM] DAILY CBC W/O DIFF,HEMOGRAM [HEME] DAILY MAGNESIUM [CHEM] DAILY - Assessment Assessment:: The patient is a 65-year-old female who presented with afib w/RVR, suspected UTI, and diastolic CHF exacerbation 1. Afib w/RVR; slightly tachycardic 2. Recent hx of UTI/Sepsis (Tachycardia; leukocytosis); initial UCx not obtained by previous provider; repeat cx after antibiotics already started showing no growth 3. Diastolic CHF exacerbation 4. Mild Hyperkalemia; 5. Hx of Type II DM 6. Acute hypoxia likely secondary to #3 7. Suspected LIZ 8. obesity hypoventilation syndrome 9. Chronic pulmonary HTN and RV dilation 10. Chronic hypoxic respiratory failure on 3 liters oxygen 11. Acute on chronic hypoxic and hypercapnic respiratory failure improving with BIPAP Plan -dc diltiazem -dc digoxin -dc metformin -CXR completed -echo showing normal EF -RV size is severely enlarged -RVSP elevated 85.6 -Severe pulmonary HTN and RV dilation was noted from echo 2017 -will need outpatient Cardiology follow up -transitioned to PO lasix 11/08; transitioned back to IV lasix 11/10 -daily weight -discontinued ceftriaxone 11/09 -increase metoprolol 11/09 to 100 mg BID -BIPAP when sleeping and at night -solumedrol X1 given on 11/09 -continue scheduled duonebs -recheck potassium this afternoon -RT consulted Code-Full code DVT ppx-on eliquis Dispo-will need short term rehab Length of stay greater than 96hours due to hypercapnic respiratory failure and need for short term rehab placement - Plan Plan:: Patient is a medically complex 65-year-old lady who has been admitted to the intensive care unit primarily out of concern for atrial fibrillation with RVR and the patient had diltiazem in the emergency department. The patient's rate had not been controlled adequately and I have consulted with pharmacy with regards to starting the patient with digoxin due to her chronic kidney disease as well as her super morbid obesity. The patient because of the obesity is also suspected of having obesity pulmonary hypoventilation syndrome and oxygen support will be continued to help keep the patient saturations around 92%. The patient's urinalysis was also supportive of urinary tract infection along with concentration with the specific gravity of 1.030. The patient may have a component of heart failure due to her atrial fibrillation her B-type natriuretic peptide is elevated at 1700. Patient has Lasix ordered and will continue to monitor her fluid status closely in order to avoid renal injury. I have ordered a repeat chest x-ray for this morning as the patient is still continuing to have shortness of breath and physical examination shows that she has decreased sounds. The patient is a diabetic and she takes Metformin at home and this is being continued. The patient will also be kept on diabetic diet as well as insulin sliding scale. The patient is also started on Eliquis for atrial fibrillation as well as DVT prophylaxis. The patient does have a history of DVT. I discussed with the patient the possibility of rehab in order to safely go home.
[2020-11-10] MEDS: Acetaminophen 325 MG Tab PO PRN (20:11)
[2020-11-10] MEDS ORDERED: Lidocaine 1% 4 ML ONE (21:59)
--- NOTE | 2020-11-10 22:31 | PCM.SN.2 ---
- Free Text/Narrative Note: Anesthesia Note: Start: 2155 Stop: 2224 Anesthesia requested for an IV start. [facility] nurse states other nursing staff attempted and failed. ER nurses declined to look and attempt. Upon arrival patient resting quietly, arm placed on pillow. Site prepped with alcohol and right upper arm 20 gauge angio placed times one attempt with localization noted with 1% lidocaine. Site flushed easily with 20ml's of normal saline. Patient tolerated procedure well. Thank you! Leelee [id number]
[2020-11-11] MEDS ORDERED: oxyCODONE 5 MG Tab PO PRN (01:35)
[2020-11-11] MEDS: Albuterol/Ipratropium 3.0-0.5 MG/3 ML Neb Soln NEB SCH ×4 (02:47→20:58)
[2020-11-11] MEDS: Insulin Regular, Human 100 Units/ML 3 ML Vial SUBCUT SCH ×3 (08:00→18:13)
[2020-11-11] MEDS: HYDROmorphone 0.5 MG/0.5 ML Syringe IVPUSH PRN ×2 (08:20→20:41)
[2020-11-11] MEDS: Levothyroxine 112 MCG Tab PO SCH (08:29)
[2020-11-11] MEDS: Apixaban 5 MG Tab PO SCH ×2 (08:29→20:40)
[2020-11-11] MEDS: Metoprolol Tartrate 50 MG Tab PO SCH ×2 (08:29→20:40)
[2020-11-11] MEDS ORDERED: Furosemide 40 MG/4 ML VIAL IVPUSH SCH (09:00)
--- NOTE | 2020-11-11 09:37 | PCM.PN ---
- General Info Date of Service: 11/11/20 Admission Dx/Problem (Free Text): Patient placed on BIPAP yesterday afternoon/evening for hypercapnic/hypoxic resp failure Hypercapnia improving alert this morning denies chest pain and sob Subjective Update: Patient states that bed and chair uncomfortable denies new SOB but feels lower extremities with increased edema denies chest pain lost IV overnight; IV reinserted - Review of Systems General: Reports: Fatigue HEENT: Reports: No Symptoms Pulmonary: Reports: Shortness of Breath Cardiovascular: Reports: No Symptoms Neurological: Reports: No Symptoms - Patient Data Vitals - Most Recent: Last Vital Signs Temp 97.8 F 11/11/20 04:00 Pulse 98 11/11/20 08:29 Resp 22 H 11/11/20 04:00 BP 123/46 L 11/11/20 08:29 Pulse Ox 97 11/11/20 08:37 Weight - Most Recent: 342 lb I&O - Last 24 Hours: Intake & Output 11/10/20 11/11/20 11/11/20 22:59 06:59 14:59 Intake Total 1280 800 Output Total 400 Balance 880 800 Lab Results Last 24 Hours: Laboratory Results - last 24 hr 11/10/20 11/10/20 11/10/20 Range/Units 11:48 14:10 17:57 WBC (3.98-10.04) K/mm3 RBC (3.98-5.22) M/mm3 Hgb (11.2-15.7) gm/dl Hct (34.1-44.9) % MCV (79.4-94.8) fl MCH (25.6-32.2) pg MCHC (32.2-35.5) g/dl RDW Std Deviation (36.4-46.3) fL Plt Count (182-369) K/mm3 MPV (9.4-12.3) fl Sodium (136-145) mEq/L Potassium 4.6 (3.5-5.1) mEq/L Chloride (98-107) mEq/L Carbon Dioxide (21-32) mEq/L Anion Gap (5-15) BUN (7-18) mg/dL Creatinine (0.55-1.02) mg/dL Est Cr Clr Drug Dosing mL/min Estimated GFR (MDRD) (>60) mL/min BUN/Creatinine Ratio (14-18) Glucose (70-99) mg/dL POC Glucose 129 H 91 (70-99) mg/dL Calcium (8.5-10.1) mg/dL Magnesium (1.8-2.4) mg/dL 11/11/20 11/11/20 11/11/20 Range/Units 04:50 04:50 05:59 WBC 15.22 H (3.98-10.04) K/mm3 RBC 4.53 (3.98-5.22) M/mm3 Hgb 12.1 D (11.2-15.7) gm/dl Hct 42.3 (34.1-44.9) % MCV 93.4 (79.4-94.8) fl MCH 26.7 (25.6-32.2) pg MCHC 28.6 L (32.2-35.5) g/dl RDW Std Deviation 52.0 H (36.4-46.3) fL Plt Count 365 D (182-369) K/mm3 MPV 10.2 (9.4-12.3) fl Sodium 142 (136-145) mEq/L Potassium 4.8 (3.5-5.1) mEq/L Chloride 102 (98-107) mEq/L Carbon Dioxide 38 H (21-32) mEq/L Anion Gap 6.8 (5-15) BUN 30 H (7-18) mg/dL Creatinine 0.8 (0.55-1.02) mg/dL Est Cr Clr Drug Dosing 52.90 mL/min Estimated GFR (MDRD) > 60 (>60) mL/min BUN/Creatinine Ratio 37.5 H (14-18) Glucose 102 H (70-99) mg/dL POC Glucose 89 (70-99) mg/dL Calcium 9.4 (8.5-10.1) mg/dL Magnesium 1.8 (1.8-2.4) mg/dL Med Orders - Current: Current Medications Acetaminophen (Acetaminophen 325 Mg Tab) 650 mg PO Q4H PRN PRN Reason: Pain/Fever Last Admin: 11/10/20 20:11 Dose: 650 mg Documented by: Albuterol/Ipratropium (Albuterol/Ipratropium 3.0-0.5 Mg/3 Ml Neb Soln) 3 ml NEB Q6HRRT [facility] Last Admin: 11/11/20 08:37 Dose: 3 ml Documented by: Apixaban (Apixaban 5 Mg Tab) 5 mg PO BID [facility] Last Admin: 11/11/20 08:29 Dose: 5 mg Documented by: Artificial Tears (Carboxymethylcellulose Sodium 1% Ophth Gel 15 Ml Bottle) 0 ml EYEBOTH TID PRN PRN Reason: Dry Eyes Last Admin: 11/04/20 08:23 Dose: 15 ml Documented by: Benzonatate (Benzonatate 100 Mg Cap) 100 mg PO Q8H PRN PRN Reason: Cough Last Admin: 11/05/20 08:04 Dose: 100 mg Documented by: Furosemide (Furosemide 40 Mg/4 Ml Vial) 40 mg IVPUSH DAILY [facility] Last Admin: 11/11/20 08:30 Dose: 40 mg Documented by: Hydromorphone HCl (Hydromorphone 0.5 Mg/0.5 Ml Syringe) 0.5 mg IVPUSH Q2H PRN PRN Reason: PAIN Last Admin: 11/11/20 08:20 Dose: 0.5 mg Documented by: Insulin Human Regular (Insulin Regular, Human 100 Units/Ml 3 Ml Vial) 0 unit SUBCUT TIDPC [facility]; Protocol Last Admin: 11/11/20 08:00 Dose: Not Given Documented by: Levothyroxine Sodium (Levothyroxine 112 Mcg Tab) 112 mcg PO DAILY@0800 [facility] Last Admin: 11/11/20 08:29 Dose: 112 mcg Documented by: Metoprolol Tartrate (Metoprolol Tartrate 50 Mg Tab) 100 mg PO Q12HR [facility] Last Admin: 11/11/20 08:29 Dose: 100 mg Documented by: Morphine Sulfate (Morphine 2 Mg/Ml Syringe) 1 mg IVPUSH Q2HR PRN PRN Reason: Pain (severe 7-10) Last Admin: 11/04/20 01:46 Dose: 1 mg Documented by: Oxycodone HCl (Oxycodone 5 Mg Tab) 5 mg PO Q4H PRN PRN Reason: Pain (moderate 4-6) Discontinued Medications Apixaban (Apixaban 2.5 Mg Tab) 2.5 mg PO ONETIME ONE Stop: 11/03/20 20:30 Last Admin: 11/03/20 20:51 Dose: 2.5 mg Documented by: Apixaban (Apixaban 2.5 Mg Tab) 2.5 mg PO BID [facility] Digoxin (Digoxin 500 Mcg/2 Ml Amp) 250 mcg IVPUSH Q6H [facility] Stop: 11/04/20 09:46 Last Admin: 11/04/20 09:20 Dose: 250 mcg Documented by: Digoxin (Digoxin 500 Mcg/2 Ml Amp) 250 mcg IVPUSH Q6H [facility] Stop: 11/07/20 00:01 Last Admin: 11/06/20 05:17 Dose: 250 mcg Documented by: Diltiazem HCl (Diltiazem 50 Mg/10 Ml Sdv) 20 mg IVPUSH ONETIME ONE Stop: 11/03/20 18:32 Last Admin: 11/03/20 18:36 Dose: 20 mg Documented by: Furosemide (Furosemide 20 Mg Tab) 20 mg PO DAILY [facility] Furosemide (Furosemide 20 Mg/2 Ml Vial) 20 mg IVPUSH DAILY [facility] Last Admin: 11/06/20 08:27 Dose: 20 mg Documented by: Furosemide (Furosemide 20 Mg/2 Ml Vial) 20 mg IVPUSH TID [facility] Last Admin: 11/06/20 21:08 Dose: 20 mg Documented by: Furosemide (Furosemide 40 Mg/4 Ml Vial) 40 mg IVPUSH BID [facility] Last Admin: 11/07/20 20:16 Dose: 40 mg Documented by: Furosemide (Furosemide 40 Mg Tab) 40 mg PO DAILY [facility] Last Admin: 11/09/20 08:40 Dose: 40 mg Documented by: Furosemide (Furosemide 20 Mg/2 Ml Vial) 20 mg IVPUSH DAILY [facility] Last Admin: 11/10/20 08:00 Dose: 20 mg Documented by: Diltiazem HCl 100 mg/ Sodium (Chloride) 100 mls @ 5 mls/hr IV TITRATE [facility]; Protocol Last Titration: 11/04/20 03:00 Dose: 20 mg/hr, 20 mls/hr Documented by: Levofloxacin/Dextrose 750 mg/ (Premix) 150 mls @ 100 mls/hr IV Q48H [facility] Last Admin: 11/06/20 03:48 Dose: 100 mls/hr Documented by: Ceftriaxone Sodium 1 gm/ (Sodium Chloride) 100 mls @ 200 mls/hr IV Q24H [facility] Last Admin: 11/09/20 08:41 Dose: 200 mls/hr Documented by: Lactated Ringer's (Ringers, Lactated) 500 mls @ 250 mls/hr IV .BOLUS ONE Stop: 11/08/20 14:05 Last Admin: 11/08/20 12:32 Dose: 250 mls/hr Documented by: Lidocaine HCl (Xylocaine-Mpf 1%) Confirm Administered Dose 4 mls @ as directed .ROUTE .STK-MED ONE Stop: 11/10/20 22:00 Levothyroxine Sodium (Levothyroxine 112 Mcg Tab) 112 mcg PO ACBRK [facility] Last Admin: 11/04/20 08:23 Dose: 112 mcg Documented by: Metformin HCl (Metformin 500 Mg Tab) 500 mg PO WITHBREAKFAST [facility] Last Admin: 11/04/20 08:24 Dose: 500 mg Documented by: Metformin HCl (Metformin 500 Mg Tab) 500 mg PO DAILY@0900 [facility] Last Admin: 11/06/20 08:27 Dose: 500 mg Documented by: Methylprednisolone Sodium Succinate (Methylprednisolone Sodium Succinate 125 Mg/2 Ml Sdv) 125 mg IV ONETIME ONE Stop: 11/09/20 15:01 Last Admin: 11/09/20 15:09 Dose: 125 mg Documented by: Metoprolol Tartrate (Metoprolol Tartrate 25 Mg Tab) 25 mg PO Q12HR [facility] Last Admin: 11/04/20 20:20 Dose: 25 mg Documented by: Metoprolol Tartrate (Metoprolol Tartrate 50 Mg Tab) 50 mg PO Q12H [facility] Last Admin: 11/05/20 08:09 Dose: Not Given Documented by: Metoprolol Tartrate (Metoprolol Tartrate 50 Mg Tab) 50 mg PO Q12HR [facility] Last Admin: 11/08/20 10:53 Dose: Not Given Documented by: Metoprolol Tartrate (Metoprolol Tartrate 50 Mg Tab) 75 mg PO Q12HR [facility] Last Admin: 11/08/20 22:24 Dose: Not Given Documented by: Sodium Chloride (Sodium Chloride 0.9% 10 Ml Syringe) 10 ml FLUSH ASDIRECTED PRN PRN Reason: Keep Vein Open Last Admin: 11/03/20 18:39 Dose: 10 ml Documented by: - Exam Urinary Catheter Total Time: 5Days 9Hours General: Alert, Oriented HEENT: EOMI, Mucous Membr. Moist/Manuel Garcia Neck: Supple Lungs: Decreased Breath Sounds Cardiovascular: Irregular Rhythm GI/Abdominal Exam: Soft, Non-Tender, No Distention Skin: Warm, Dry Neurological: No New Focal Deficit Psy/Mental Status: Alert - Patient Data Lab Results Last 24 hrs: Laboratory Results - last 24 hr 11/10/20 11/10/20 11/10/20 Range/Units 11:48 14:10 17:57 WBC (3.98-10.04) K/mm3 RBC (3.98-5.22) M/mm3 Hgb (11.2-15.7) gm/dl Hct (34.1-44.9) % MCV (79.4-94.8) fl MCH (25.6-32.2) pg MCHC (32.2-35.5) g/dl RDW Std Deviation (36.4-46.3) fL Plt Count (182-369) K/mm3 MPV (9.4-12.3) fl Sodium (136-145) mEq/L Potassium 4.6 (3.5-5.1) mEq/L Chloride (98-107) mEq/L Carbon Dioxide (21-32) mEq/L Anion Gap (5-15) BUN (7-18) mg/dL Creatinine (0.55-1.02) mg/dL Est Cr Clr Drug Dosing mL/min Estimated GFR (MDRD) (>60) mL/min BUN/Creatinine Ratio (14-18) Glucose (70-99) mg/dL POC Glucose 129 H 91 (70-99) mg/dL Calcium (8.5-10.1) mg/dL Magnesium (1.8-2.4) mg/dL 11/11/20 11/11/20 11/11/20 Range/Units 04:50 04:50 05:59 WBC 15.22 H (3.98-10.04) K/mm3 RBC 4.53 (3.98-5.22) M/mm3 Hgb 12.1 D (11.2-15.7) gm/dl Hct 42.3 (34.1-44.9) % MCV 93.4 (79.4-94.8) fl MCH 26.7 (25.6-32.2) pg MCHC 28.6 L (32.2-35.5) g/dl RDW Std Deviation 52.0 H (36.4-46.3) fL Plt Count 365 D (182-369) K/mm3 MPV 10.2 (9.4-12.3) fl Sodium 142 (136-145) mEq/L Potassium 4.8 (3.5-5.1) mEq/L Chloride 102 (98-107) mEq/L Carbon Dioxide 38 H (21-32) mEq/L Anion Gap 6.8 (5-15) BUN 30 H (7-18) mg/dL Creatinine 0.8 (0.55-1.02) mg/dL Est Cr Clr Drug Dosing 52.90 mL/min Estimated GFR (MDRD) > 60 (>60) mL/min BUN/Creatinine Ratio 37.5 H (14-18) Glucose 102 H (70-99) mg/dL POC Glucose 89 (70-99) mg/dL Calcium 9.4 (8.5-10.1) mg/dL Magnesium 1.8 (1.8-2.4) mg/dL Result Diagrams: 11/11/20 04:50 11/11/20 04:50 Sepsis Event Note - Evaluation Sepsis Screening Result: Sepsis Risk - Focused Exam Vital Signs: Vital Signs Temp Pulse Resp BP BP Pulse Ox Pulse Ox 11/11/20 08:37 97 11/11/20 08:29 98 123/46 L 11/11/20 04:00 97.8 F 22 H 128/60 94 L 11/11/20 02:47 97 - Problem List Review Problem List Initiated/Reviewed/Updated: Yes - My Orders Last 24 Hours: My Active Orders 11/11/20 01:35 oxyCODONE 5 mg PO Q4H PRN 11/11/20 09:00 Furosemide [Lasix] 40 mg IVPUSH DAILY - Assessment Assessment:: The patient is a 65-year-old female who presented with afib w/RVR, suspected UTI, and diastolic CHF exacerbation 1. Afib w/RVR; slightly tachycardic 2. Recent hx of UTI/Sepsis (Tachycardia; leukocytosis); initial UCx not obtained by previous provider; repeat cx after antibiotics already started showing no growth 3. Diastolic CHF exacerbation 4. Mild Hyperkalemia; 5. Hx of Type II DM 6. Acute hypoxia likely secondary to #3 7. Suspected LIZ 8. obesity hypoventilation syndrome 9. Chronic pulmonary HTN and RV dilation 10. Chronic hypoxic respiratory failure on 3 liters oxygen 11. Acute on chronic hypoxic and hypercapnic respiratory failure improving with BIPAP Plan -dc diltiazem -dc digoxin -dc metformin -CXR completed -echo showing normal EF -RV size is severely enlarged -RVSP elevated 85.6 -Severe pulmonary HTN and RV dilation was noted from echo 2017 -will need outpatient Cardiology follow up -transitioned to PO lasix 11/08; transitioned back to IV lasix 11/10; increase to 40 mg IV 11/11 -daily weight -discontinued ceftriaxone 11/09 -increase metoprolol 11/09 to 100 mg BID -BIPAP when sleeping and at night -solumedrol X1 given on 11/09 -continue scheduled duonebs -recheck potassium this afternoon -RT consulted Code-Full code DVT ppx-on eliquis Dispo-will need short term rehab likely Thursday vs Thursday Length of stay greater than 96hours due to hypercapnic respiratory failure and need for short term rehab placement - Plan Plan:: Patient is a medically complex 65-year-old lady who has been admitted to the intensive care unit primarily out of concern for atrial fibrillation with RVR and the patient had diltiazem in the emergency department. The patient's rate had not been controlled adequately and I have consulted with pharmacy with regards to starting the patient with digoxin due to her chronic kidney disease as well as her super morbid obesity. The patient because of the obesity is also suspected of having obesity pulmonary hypoventilation syndrome and oxygen support will be continued to help keep the patient saturations around 92%. The patient's urinalysis was also supportive of urinary tract infection along with concentration with the specific gravity of 1.030. The patient may have a component of heart failure due to her atrial fibrillation her B-type natriuretic peptide is elevated at 1700. Patient has Lasix ordered and will continue to monitor her fluid status closely in order to avoid renal injury. I have ordered a repeat chest x-ray for this morning as the patient is still continuing to have shortness of breath and physical examination shows that she has decreased sounds. The patient is a diabetic and she takes Metformin at home and this is being continued. The patient will also be kept on diabetic diet as well as insulin sliding scale. The patient is also started on Eliquis for atrial fibrillation as well as DVT prophylaxis. The patient does have a history of DVT. I discussed with the patient the possibility of rehab in order to safely go home.
[2020-11-11] MEDS ORDERED: Ondansetron 4 MG/2 ML SDV IVPUSH PRN (21:00)
[2020-11-12] MEDS: Albuterol/Ipratropium 3.0-0.5 MG/3 ML Neb Soln NEB SCH ×4 (03:52→21:09)
[2020-11-12] MEDS: HYDROmorphone 0.5 MG/0.5 ML Syringe IVPUSH PRN (05:25)
[2020-11-12] MEDS: Apixaban 5 MG Tab PO SCH ×2 (08:49→20:47)
[2020-11-12] MEDS: Insulin Regular, Human 100 Units/ML 3 ML Vial SUBCUT SCH ×3 (08:49→18:19)
[2020-11-12] MEDS: Metoprolol Tartrate 100 MG Tab PO SCH ×2 (08:49→20:48)
[2020-11-12] MEDS: Levothyroxine 112 MCG Tab PO SCH (08:49)
[2020-11-12] MEDS ORDERED: Furosemide 40 MG Tab PO SCH (09:00)
--- NOTE | 2020-11-12 10:23 | PCM.PN ---
- General Info Date of Service: 11/12/20 Admission Dx/Problem (Free Text): Patient placed on BIPAP yesterday afternoon/evening for hypercapnic/hypoxic resp failure Hypercapnia improving alert this morning denies chest pain and sob Subjective Update: patient denies chest pain denies SOB states lower extremity edema improved ambulating better degree of contraction alkalosis noted on labs using BIPAP at night Functional Status: Reports: Pain Controlled - Review of Systems General: Reports: Weakness HEENT: Reports: No Symptoms Pulmonary: Reports: Shortness of Breath Cardiovascular: Reports: No Symptoms Gastrointestinal: Reports: No Symptoms Skin: Reports: No Symptoms Psychiatric: Reports: No Symptoms - Patient Data Vitals - Most Recent: Last Vital Signs Temp 97.9 F 11/12/20 07:23 Pulse 101 H 11/12/20 08:49 Resp 16 11/12/20 07:23 BP 129/85 11/12/20 08:49 Pulse Ox 96 11/12/20 08:31 Weight - Most Recent: 341 lb 3.2 oz I&O - Last 24 Hours: Intake & Output 11/11/20 11/12/20 11/12/20 22:59 06:59 14:59 Intake Total 700 800 Balance 700 800 Lab Results Last 24 Hours: Laboratory Results - last 24 hr 11/11/20 11/11/20 11/12/20 Range/Units 11:37 16:48 05:50 WBC 12.28 H (3.98-10.04) K/mm3 RBC 4.60 (3.98-5.22) M/mm3 Hgb 12.3 (11.2-15.7) gm/dl Hct 43.0 (34.1-44.9) % MCV 93.5 (79.4-94.8) fl MCH 26.7 (25.6-32.2) pg MCHC 28.6 L (32.2-35.5) g/dl RDW Std Deviation 52.5 H (36.4-46.3) fL Plt Count 377 H (182-369) K/mm3 MPV 10.6 (9.4-12.3) fl Sodium (136-145) mEq/L Potassium (3.5-5.1) mEq/L Chloride (98-107) mEq/L Carbon Dioxide (21-32) mEq/L Anion Gap (5-15) BUN (7-18) mg/dL Creatinine (0.55-1.02) mg/dL Est Cr Clr Drug Dosing mL/min Estimated GFR (MDRD) (>60) mL/min BUN/Creatinine Ratio (14-18) Glucose (70-99) mg/dL POC Glucose 98 88 (70-99) mg/dL Calcium (8.5-10.1) mg/dL 11/12/20 11/12/20 Range/Units 05:50 06:43 WBC (3.98-10.04) K/mm3 RBC (3.98-5.22) M/mm3 Hgb (11.2-15.7) gm/dl Hct (34.1-44.9) % MCV (79.4-94.8) fl MCH (25.6-32.2) pg MCHC (32.2-35.5) g/dl RDW Std Deviation (36.4-46.3) fL Plt Count (182-369) K/mm3 MPV (9.4-12.3) fl Sodium 146 H (136-145) mEq/L Potassium 4.9 (3.5-5.1) mEq/L Chloride 103 (98-107) mEq/L Carbon Dioxide 41 H* (21-32) mEq/L Anion Gap 6.9 (5-15) BUN 26 H (7-18) mg/dL Creatinine 0.8 (0.55-1.02) mg/dL Est Cr Clr Drug Dosing 52.90 mL/min Estimated GFR (MDRD) > 60 (>60) mL/min BUN/Creatinine Ratio 32.5 H (14-18) Glucose 104 H (70-99) mg/dL POC Glucose 88 (70-99) mg/dL Calcium 9.3 (8.5-10.1) mg/dL Med Orders - Current: Current Medications Acetaminophen (Acetaminophen 325 Mg Tab) 650 mg PO Q4H PRN PRN Reason: Pain/Fever Last Admin: 11/10/20 20:11 Dose: 650 mg Documented by: Albuterol/Ipratropium (Albuterol/Ipratropium 3.0-0.5 Mg/3 Ml Neb Soln) 3 ml NEB Q6HRRT RORY Last Admin: 11/12/20 08:29 Dose: 3 ml Documented by: Apixaban (Apixaban 5 Mg Tab) 5 mg PO BID [facility] Last Admin: 11/12/20 08:49 Dose: 5 mg Documented by: Artificial Tears (Carboxymethylcellulose Sodium 1% Ophth Gel 15 Ml Bottle) 0 ml EYEBOTH TID PRN PRN Reason: Dry Eyes Last Admin: 11/04/20 08:23 Dose: 15 ml Documented by: Benzonatate (Benzonatate 100 Mg Cap) 100 mg PO Q8H PRN PRN Reason: Cough Last Admin: 11/05/20 08:04 Dose: 100 mg Documented by: Diltiazem HCl (Diltiazem 120 Mg Cap.Cd) 120 mg PO DAILY [facility] Furosemide (Furosemide 40 Mg Tab) 40 mg PO DAILY [facility] Hydromorphone HCl (Hydromorphone 0.5 Mg/0.5 Ml Syringe) 0.5 mg IVPUSH Q2H PRN PRN Reason: PAIN Last Admin: 11/12/20 05:25 Dose: 0.5 mg Documented by: Insulin Human Regular (Insulin Regular, Human 100 Units/Ml 3 Ml Vial) 0 unit SUBCUT [facility]; Protocol Last Admin: 11/12/20 08:49 Dose: Not Given Documented by: Levothyroxine Sodium (Levothyroxine 112 Mcg Tab) 112 mcg PO DAILY@0800 [facility] Last Admin: 11/12/20 08:49 Dose: 112 mcg Documented by: Metoprolol Tartrate (Metoprolol Tartrate 100 Mg Tab) 100 mg PO BID [facility] Last Admin: 11/12/20 08:49 Dose: 100 mg Documented by: Morphine Sulfate (Morphine 2 Mg/Ml Syringe) 1 mg IVPUSH Q2HR PRN PRN Reason: Pain (severe 7-10) Last Admin: 11/04/20 01:46 Dose: 1 mg Documented by: Ondansetron HCl (Ondansetron 4 Mg/2 Ml Sdv) 4 mg IVPUSH Q4H PRN PRN Reason: Nausea Last Admin: 11/11/20 21:13 Dose: 4 mg Documented by: Oxycodone HCl (Oxycodone 5 Mg Tab) 5 mg PO Q4H PRN PRN Reason: Pain (moderate 4-6) Discontinued Medications Apixaban (Apixaban 2.5 Mg Tab) 2.5 mg PO ONETIME ONE Stop: 11/03/20 20:30 Last Admin: 11/03/20 20:51 Dose: 2.5 mg Documented by: Apixaban (Apixaban 2.5 Mg Tab) 2.5 mg PO BID [facility] Digoxin (Digoxin 500 Mcg/2 Ml Amp) 250 mcg IVPUSH Q6H [facility] Stop: 11/04/20 09:46 Last Admin: 11/04/20 09:20 Dose: 250 mcg Documented by: Digoxin (Digoxin 500 Mcg/2 Ml Amp) 250 mcg IVPUSH Q6H [facility] Stop: 11/07/20 00:01 Last Admin: 11/06/20 05:17 Dose: 250 mcg Documented by: Diltiazem HCl (Diltiazem 50 Mg/10 Ml Sdv) 20 mg IVPUSH ONETIME ONE Stop: 11/03/20 18:32 Last Admin: 11/03/20 18:36 Dose: 20 mg Documented by: Furosemide (Furosemide 20 Mg Tab) 20 mg PO DAILY [facility] Furosemide (Furosemide 20 Mg/2 Ml Vial) 20 mg IVPUSH DAILY [facility] Last Admin: 11/06/20 08:27 Dose: 20 mg Documented by: Furosemide (Furosemide 20 Mg/2 Ml Vial) 20 mg IVPUSH TID [facility] Last Admin: 11/06/20 21:08 Dose: 20 mg Documented by: Furosemide (Furosemide 40 Mg/4 Ml Vial) 40 mg IVPUSH BID [facility] Last Admin: 11/07/20 20:16 Dose: 40 mg Documented by: Furosemide (Furosemide 40 Mg Tab) 40 mg PO DAILY [facility] Last Admin: 11/09/20 08:40 Dose: 40 mg Documented by: Furosemide (Furosemide 20 Mg/2 Ml Vial) 20 mg IVPUSH DAILY [facility] Last Admin: 11/10/20 08:00 Dose: 20 mg Documented by: Furosemide (Furosemide 40 Mg/4 Ml Vial) 40 mg IVPUSH DAILY [facility] Last Admin: 11/11/20 08:30 Dose: 40 mg Documented by: Furosemide (Furosemide 40 Mg Tab) 40 mg PO DAILY [facility] Last Admin: 11/12/20 08:49 Dose: 40 mg Documented by: Diltiazem HCl 100 mg/ Sodium (Chloride) 100 mls @ 5 mls/hr IV TITRATE [facility]; Protocol Last Titration: 11/04/20 03:00 Dose: 20 mg/hr, 20 mls/hr Documented by: Levofloxacin/Dextrose 750 mg/ (Premix) 150 mls @ 100 mls/hr IV Q48H [facility] Last Admin: 11/06/20 03:48 Dose: 100 mls/hr Documented by: Ceftriaxone Sodium 1 gm/ (Sodium Chloride) 100 mls @ 200 mls/hr IV Q24H [facility] Last Admin: 11/09/20 08:41 Dose: 200 mls/hr Documented by: Lactated Ringer's (Ringers, Lactated) 500 mls @ 250 mls/hr IV .BOLUS ONE Stop: 11/08/20 14:05 Last Admin: 11/08/20 12:32 Dose: 250 mls/hr Documented by: Lidocaine HCl (Xylocaine-Mpf 1%) Confirm Administered Dose 4 mls @ as directed .ROUTE .STK-MED ONE Stop: 11/10/20 22:00 Levothyroxine Sodium (Levothyroxine 112 Mcg Tab) 112 mcg PO ACBRK [facility] Last Admin: 11/04/20 08:23 Dose: 112 mcg Documented by: Metformin HCl (Metformin 500 Mg Tab) 500 mg PO WITHBREAKFAST [facility] Last Admin: 11/04/20 08:24 Dose: 500 mg Documented by: Metformin HCl (Metformin 500 Mg Tab) 500 mg PO DAILY@0900 [facility] Last Admin: 11/06/20 08:27 Dose: 500 mg Documented by: Methylprednisolone Sodium Succinate (Methylprednisolone Sodium Succinate 125 Mg/2 Ml Sdv) 125 mg IV ONETIME ONE Stop: 11/09/20 15:01 Last Admin: 11/09/20 15:09 Dose: 125 mg Documented by: Metoprolol Tartrate (Metoprolol Tartrate 25 Mg Tab) 25 mg PO Q12HR [facility] Last Admin: 11/04/20 20:20 Dose: 25 mg Documented by: Metoprolol Tartrate (Metoprolol Tartrate 50 Mg Tab) 50 mg PO Q12H [facility] Last Admin: 11/05/20 08:09 Dose: Not Given Documented by: Metoprolol Tartrate (Metoprolol Tartrate 50 Mg Tab) 50 mg PO Q12HR [facility] Last Admin: 11/08/20 10:53 Dose: Not Given Documented by: Metoprolol Tartrate (Metoprolol Tartrate 50 Mg Tab) 75 mg PO Q12HR [facility] Last Admin: 11/08/20 22:24 Dose: Not Given Documented by: Metoprolol Tartrate (Metoprolol Tartrate 50 Mg Tab) 100 mg PO Q12HR [facility] Last Admin: 11/11/20 20:40 Dose: 100 mg Documented by: Sodium Chloride (Sodium Chloride 0.9% 10 Ml Syringe) 10 ml FLUSH ASDIRECTED PRN PRN Reason: Keep Vein Open Last Admin: 11/03/20 18:39 Dose: 10 ml Documented by: - Exam Urinary Catheter Total Time: 5Days 9Hours General: Alert, Oriented HEENT: EOMI, Mucous Membr. Moist/[place] Neck: Supple Lungs: Clear to Auscultation, Normal Respiratory Effort Cardiovascular: Irregular Rhythm, Tachycardia GI/Abdominal Exam: Soft, Non-Tender, No Distention Skin: Warm, Dry, Intact Neurological: No New Focal Deficit Psy/Mental Status: Alert, Normal Affect, Normal Mood - Patient Data Lab Results Last 24 hrs: Laboratory Results - last 24 hr 11/11/20 11/11/20 11/12/20 Range/Units 11:37 16:48 05:50 WBC 12.28 H (3.98-10.04) K/mm3 RBC 4.60 (3.98-5.22) M/mm3 Hgb 12.3 (11.2-15.7) gm/dl Hct 43.0 (34.1-44.9) % MCV 93.5 (79.4-94.8) fl MCH 26.7 (25.6-32.2) pg MCHC 28.6 L (32.2-35.5) g/dl RDW Std Deviation 52.5 H (36.4-46.3) fL Plt Count 377 H (182-369) K/mm3 MPV 10.6 (9.4-12.3) fl Sodium (136-145) mEq/L Potassium (3.5-5.1) mEq/L Chloride (98-107) mEq/L Carbon Dioxide (21-32) mEq/L Anion Gap (5-15) BUN (7-18) mg/dL Creatinine (0.55-1.02) mg/dL Est Cr Clr Drug Dosing mL/min Estimated GFR (MDRD) (>60) mL/min BUN/Creatinine Ratio (14-18) Glucose (70-99) mg/dL POC Glucose 98 88 (70-99) mg/dL Calcium (8.5-10.1) mg/dL 11/12/20 11/12/20 Range/Units 05:50 06:43 WBC (3.98-10.04) K/mm3 RBC (3.98-5.22) M/mm3 Hgb (11.2-15.7) gm/dl Hct (34.1-44.9) % MCV (79.4-94.8) fl MCH (25.6-32.2) pg MCHC (32.2-35.5) g/dl RDW Std Deviation (36.4-46.3) fL Plt Count (182-369) K/mm3 MPV (9.4-12.3) fl Sodium 146 H (136-145) mEq/L Potassium 4.9 (3.5-5.1) mEq/L Chloride 103 (98-107) mEq/L Carbon Dioxide 41 H* (21-32) mEq/L Anion Gap 6.9 (5-15) BUN 26 H (7-18) mg/dL Creatinine 0.8 (0.55-1.02) mg/dL Est Cr Clr Drug Dosing 52.90 mL/min Estimated GFR (MDRD) > 60 (>60) mL/min BUN/Creatinine Ratio 32.5 H (14-18) Glucose 104 H (70-99) mg/dL POC Glucose 88 (70-99) mg/dL Calcium 9.3 (8.5-10.1) mg/dL Result Diagrams: 11/12/20 05:50 11/12/20 05:50 Sepsis Event Note - Evaluation Sepsis Screening Result: No Definite Risk - Focused Exam Vital Signs: Vital Signs Temp Pulse Resp BP Pulse Ox Pulse Ox 11/12/20 08:49 101 H 129/85 11/12/20 08:31 96 11/12/20 07:23 97.9 F 101 H 16 129/85 92 L 11/12/20 04:24 97.5 F 88 18 115/58 L 93 L - Problem List Review Problem List Initiated/Reviewed/Updated: Yes - My Orders Last 24 Hours: My Active Orders 11/11/20 21:00 Ondansetron [Zofran] 4 mg IVPUSH Q4H PRN 11/12/20 09:00 Metoprolol Tartrate [Lopressor] 100 mg PO BID 11/12/20 10:00 Diltiazem [Cardizem CD] 120 mg PO DAILY 11/13/20 05:11 BASIC METABOLIC PANEL,BMP [CHEM] AM CBC W/O DIFF,HEMOGRAM [HEME] AM 11/13/20 09:00 Furosemide [Lasix] 40 mg PO DAILY 11/14/20 05:11 BASIC METABOLIC PANEL,BMP [CHEM] AM CBC W/O DIFF,HEMOGRAM [HEME] AM 11/15/20 05:11 BASIC METABOLIC PANEL,BMP [CHEM] AM CBC W/O DIFF,HEMOGRAM [HEME] AM 11/16/20 05:11 BASIC METABOLIC PANEL,BMP [CHEM] AM CBC W/O DIFF,HEMOGRAM [HEME] AM 11/17/20 05:11 BASIC METABOLIC PANEL,BMP [CHEM] AM CBC W/O DIFF,HEMOGRAM [HEME] AM 11/18/20 05:11 BASIC METABOLIC PANEL,BMP [CHEM] AM CBC W/O DIFF,HEMOGRAM [HEME] AM - Assessment Assessment:: The patient is a 65-year-old female who presented with afib w/RVR, suspected UTI, and diastolic CHF exacerbation 1. Afib w/RVR; slightly tachycardic 2. Recent hx of UTI/Sepsis (Tachycardia; leukocytosis); initial UCx not obtained by previous provider; repeat cx after antibiotics already started showing no growth 3. Diastolic CHF exacerbation 4. Mild Hyperkalemia; 5. Hx of Type II DM 6. Acute hypoxia likely secondary to #3 7. Suspected LIZ 8. obesity hypoventilation syndrome 9. Chronic pulmonary HTN and RV dilation 10. Chronic hypoxic respiratory failure on 3 liters oxygen 11. Acute on chronic hypoxic and hypercapnic respiratory failure improving with BIPAP Plan -start diltiazem 120 mg XL 8/2 -dc digoxin -dc metformin -CXR completed -echo showing normal EF -RV size is severely enlarged -RVSP elevated 85.6 -Severe pulmonary HTN and RV dilation was noted from echo 2018 -will need outpatient Cardiology follow up -transitioned to PO lasix 11/08; transitioned back to IV lasix 11/10; increased to 40 mg IV 11/11; resume PO lasix tomorrow -daily weight -discontinued ceftriaxone 11/09 -increase metoprolol 11/09 to 100 mg BID -BIPAP when sleeping and at night -solumedrol X1 given on 11/09 -continue scheduled duonebs -recheck potassium this afternoon -RT consulted-->anticipate will need nocturnal BIPAP vs CPAP Code-Full code DVT ppx-on eliquis Dispo-anticipated discharge tomorrow; patient now declining short term rehab; if HR improves with diltiazem likely dc home tomorrow with home health care Length of stay greater than 96hours due to hypercapnic respiratory failure and need for short term rehab placement - Plan Plan:: Patient is a medically complex 65-year-old lady who has been admitted to the intensive care unit primarily out of concern for atrial fibrillation with RVR and the patient had diltiazem in the emergency department. The patient's rate had not been controlled adequately and I have consulted with pharmacy with regards to starting the patient with digoxin due to her chronic kidney disease as well as her super morbid obesity. The patient because of the obesity is also suspected of having obesity pulmonary hypoventilation syndrome and oxygen support will be continued to help keep the patient saturations around 92%. The patient's urinalysis was also supportive of urinary tract infection along with concentration with the specific gravity of 1.030. The patient may have a component of heart failure due to her atrial fibrillation her B-type natriuretic peptide is elevated at 1700. Patient has Lasix ordered and will continue to monitor her fluid status closely in order to avoid renal injury. I have ordered a repeat chest x-ray for this morning as the patient is still continuing to have shortness of breath and physical examination shows that she has decreased sounds. The patient is a diabetic and she takes Metformin at home and this is being continued. The patient will also be kept on diabetic diet as well as insulin sliding scale. The patient is also started on Eliquis for atrial fibrillation as well as DVT prophylaxis. The patient does have a history of DVT. I discussed with the patient the possibility of rehab in order to safely go home.
[2020-11-12] MEDS: Diltiazem 120 MG Cap.CD PO SCH (11:53)
[2020-11-13] MEDS: Albuterol/Ipratropium 3.0-0.5 MG/3 ML Neb Soln NEB SCH ×2 (03:31→08:55)
[2020-11-13] MEDS: Diltiazem 120 MG Cap.CD PO SCH (08:26)
[2020-11-13] MEDS: Levothyroxine 112 MCG Tab PO SCH (08:26)
[2020-11-13] MEDS: Insulin Regular, Human 100 Units/ML 3 ML Vial SUBCUT SCH ×2 (08:26→14:18)
[2020-11-13] MEDS: Metoprolol Tartrate 100 MG Tab PO SCH (08:26)
[2020-11-13] MEDS: Apixaban 5 MG Tab PO SCH (08:26)
[2020-11-13] MEDS ORDERED: Furosemide 40 MG Tab PO SCH (09:00)
[2020-11-13] MEDS: Acetaminophen 325 MG Tab PO PRN (09:32)
--- NOTE | 2020-11-13 12:30 | PCM.DCSUM1 ---
Discharge Summary - Hospital Course HPI Initial Comments: JULIA This is a 65-year-old lady who was brought to the emergency room via ambulance for generalized weakness, difficulty standing and walking that has worsened over the past 3 to 4 days. In the emergency department the patient was noted to be i n new onset atrial fibrillation with rapid ventricular response. The patient is also super obese with a BMI of 62.8. The patient is somewhat of a poor historian. She has been ill for the past week or so and her main concern is that she has been having trouble ambulating. The patient does not use oxygen at home. The patient has denied any fever or chills. She has had no nausea or vomiting. She is taking medication for hypothyroidism as well as diabetes. She does not normally follow with a physician. HOSPITAL COURSE he patient is a 65-year-old female who presented with afib w/RVR, suspected UTI, and diastolic CHF exacerbation 1. Afib w/RVR; slightly tachycardic-->started on eliquis/metoprolol+diltiazem 2. Recent hx of UTI/Sepsis (Tachycardia; leukocytosis); initial UCx not obtained by previous provider; repeat cx after antibiotics already started showing no growth 3. Diastolic CHF exacerbation 4. Mild Hyperkalemia; resolved 5. Hx of Type II DM 6. Acute hypoxia likely secondary to #3, 7, 8, 9, 10 7. Suspected LIZ 8. obesity hypoventilation syndrome 9. Chronic pulmonary HTN and RV dilation 10. Chronic hypoxic respiratory failure on 3 liters oxygen 11. Acute on chronic hypoxic and hypercapnic respiratory failure improving with BIPAP 12. Generalized weakness; patient declined SNF referral; discharging with home health care services 13. Suspected COPD; will need outpatient PFTs Plan -start diltiazem 120 mg XL 11/12 -CXR completed -echo showing normal EF -RV size is severely enlarged -RVSP elevated 85.6 -Severe pulmonary HTN and RV dilation was noted from echo 2017 -will need outpatient Cardiology follow up -transitioned to PO lasix 11/08; transitioned back to IV lasix 11/10; increased to 40 mg IV 11/11; resumed PO lasix -discontinued ceftriaxone 11/09 -increase metoprolol 11/09 to 100 mg BID -RT consulted-->will need outpatient sleep study Will need outpatient follow up with PCP this week Face to Face Documentation Face to Face meeting with patient and or family. Pt has the following diagnosis: Sepsis, afib with RVR, UTI, obesity hypoventilation syndrome, hypoxemia, also see discharge summary for additional diagnosis. Pt needs home health care nursing services for: skilled assessment, vital signs, disease education, and medication management. Physical therapy for gait training, transfer training, safety education, neuromuscular reeducation, therapeutic exercise, balance training, equipment recommendations. OT for activities of daily living, balance training, functional mobility training, safety education, therapeutic activities, therapeutic exercises. MANUFACTURING ENGINEERING TECHNOLOGIST for assistance with ADLS. Pt is currently homebound related to decreased activity tolerance, decreased level of endurance and need for assistance of her walker and W/C. Pt will be followed by her PCP. Diagnosis: Stroke: No - Discharge Data Discharge Date: 11/13/20 Discharge Disposition: Home, W Home Health Agency 06 Condition: Fair - Referral to Home Health Date of Face to Face Encounter: 11/13/20 Reason for Homebound Status: difficulty with ambulation; Acute on chronic hypoxic and hypercapnic respiratory failure Primary Care Physician: Juni Milton MD Skilled Need: PT, OT, RN - Patient Summary/Data Consults: Consultations 11/04/20 09:07 OT Evaluation and Treatment [CONS] Routine PT Evaluation and Treatment [CONS] Routine 11/08/20 11:03 Consult to Speech Language Pathology [LANGUAGE ASST Evaluation and Treatment] [CONS] Routine - Patient Instructions Diet: Heart Healthy Diet Activity: As Tolerated Notify Provider of: Fever, Increased Pain, Nausea and/or Vomiting (Shortness of breath; chest pain or pressure) - Discharge Plan *PRESCRIPTION DRUG MONITORING PROGRAM REVIEWED*: Not Applicable *COPY OF PRESCRIPTION DRUG MONITORING REPORT IN PATIENT LASHA: Not Applicable Prescriptions/Med Rec: Albuterol Sulfate [Albuterol Sulfate HFA] 8.5 gm INH Q2H PRN #1 ea PRN Reason: Shortness Of Breath dilTIAZem HCL [Diltiazem 24Hr ER (Xr)] 120 mg PO DAILY #30 cap.er.deg Apixaban [Eliquis] 5 mg PO BID #60 tablet Furosemide [Lasix] 40 mg PO DAILY #30 tablet Metoprolol Tartrate 100 mg PO BID #30 tablet Tiotropium [Spiriva HandiHaler] 18 mcg .XX DAILY #10 cap Home Medications: Home Meds Aspirin/Acetaminophen/Caffeine [Headache Relief Tablet] 1 tab PO DAILY PRN 08/24/15 [History] Levothyroxine Sodium [Synthroid] 112 mcg PO DAILY 08/24/15 [History] Propylene Glycol/Peg 400 [Systane 0.3-0.4% Eye Drops] 1 drop EYEBOTH TID PRN 08/24/15 [History] Aspirin [Aspirin EC] 81 mg PO DAILY 11/03/20 [History] diphenhydrAMINE [Benadryl] 25 mg PO DAILY 11/03/20 [History] metFORMIN [Glucophage] 500 mg PO DAILY 11/03/20 [History] Albuterol Sulfate [Albuterol Sulfate HFA] 8.5 gm INH Q2H PRN #1 ea 11/13/20 [Rx] Apixaban [Eliquis] 5 mg PO BID #60 tablet 11/13/20 [Rx] Furosemide [Lasix] 40 mg PO DAILY #30 tablet 11/13/20 [Rx] Metoprolol Tartrate 100 mg PO BID #30 tablet 11/13/20 [Rx] Tiotropium [Spiriva HandiHaler] 18 mcg .XX DAILY #10 cap 11/13/20 [Rx] dilTIAZem HCL [Diltiazem 24Hr ER (Xr)] 120 mg PO DAILY #30 cap.er.deg 11/13/20 [Rx] Oxygen Therapy Mode: Nasal Cannula Oxygen Flow Rate (L/min): 3 Maintain SpO2% greater than: 90 Patient Handouts: Heart Failure, Self Care, [id number], Home Oxygen Use, Adult, Living With Heart Failure, Atrial Fibrillation, [id number], Sepsis, Self Care, Adult Referrals: Juni Milton MD [Primary Care Provider] - 11/15/20 2:00 pm (This is the check in time for a 2:15pm appointment. It is recommended that you have a sleep study, please discuss this with .) - Discharge Summary/Plan Comment DC Time >30 min.: Yes (35 minutes) - General Info Date of Service: 11/13/20 - Review of Systems Systems Review Comment: Gen: obese female in no distress HEENT: NCAT EOMI MMM CV: IRIR normal s1s2 Lungs CTAB ABd: Soft, nt, nd Neuro: AOX3, moves extremities; nonfocal screening exam MSK: Age appropriate muscle mass Skin: warm, dry no rash on face - Patient Data Vitals - Most Recent: Last Vital Signs Temp 98.2 F 11/13/20 11:07 Pulse 74 11/13/20 11:07 Resp 20 11/13/20 11:07 BP 113/56 L 11/13/20 11:07 Pulse Ox 94 L 11/13/20 11:07 Weight - Most Recent: 342 lb 11.2 oz I&O - Last 24 hours: Intake & Output 11/12/20 11/13/20 11/13/20 22:59 06:59 14:59 Intake Total 1280 400 Output Total 900 200 Balance 380 200 Lab Results - Last 24 hrs: Laboratory Results - last 24 hr 11/12/20 11/12/20 11/13/20 Range/Units 14:23 16:15 05:50 WBC 12.62 H (3.98-10.04) K/mm3 RBC 4.43 (3.98-5.22) M/mm3 Hgb 11.8 (11.2-15.7) gm/dl Hct 41.6 (34.1-44.9) % MCV 93.9 (79.4-94.8) fl MCH 26.6 (25.6-32.2) pg MCHC 28.4 L (32.2-35.5) g/dl RDW Std Deviation 52.5 H (36.4-46.3) fL Plt Count 341 (182-369) K/mm3 MPV 10.1 (9.4-12.3) fl Puncture Site Lt radial ABG pH 7.35 (7.35-7.45) ABG pCO2 73.6 H* (35.0-45.0) mmHg ABG pO2 74.0 L (80.0-100.0) mmHg ABG HCO3 39.8 H (22.0-26.0) meq/L ABG O2 Saturation 93.8 L (96.0-97.0) % ABG Base Excess 12.0 H (-2-2.0) A-a Gradient 62 mmHg O2 Delivery Device Nasal cannula Oxygen Flow Rate 3.0 FiO2 32.00 (21.00-100.00) % Sodium (136-145) mEq/L Potassium (3.5-5.1) mEq/L Chloride (98-107) mEq/L Carbon Dioxide (21-32) mEq/L Anion Gap (5-15) BUN (7-18) mg/dL Creatinine (0.55-1.02) mg/dL Est Cr Clr Drug Dosing mL/min Estimated GFR (MDRD) (>60) mL/min BUN/Creatinine Ratio (14-18) Glucose (70-99) mg/dL POC Glucose 78 (70-99) mg/dL Calcium (8.5-10.1) mg/dL 11/13/20 11/13/20 11/13/20 Range/Units 05:50 06:23 08:09 WBC (3.98-10.04) K/mm3 RBC (3.98-5.22) M/mm3 Hgb (11.2-15.7) gm/dl Hct (34.1-44.9) % MCV (79.4-94.8) fl MCH (25.6-32.2) pg MCHC (32.2-35.5) g/dl RDW Std Deviation (36.4-46.3) fL Plt Count (182-369) K/mm3 MPV (9.4-12.3) fl Puncture Site Lt radial ABG pH 7.45 (7.35-7.45) ABG pCO2 58.9 H (35.0-45.0) mmHg ABG pO2 71.0 L (80.0-100.0) mmHg ABG HCO3 40.5 H (22.0-26.0) meq/L ABG O2 Saturation 94.4 L (96.0-97.0) % ABG Base Excess 14.1 H (-2-2.0) A-a Gradient 84 mmHg O2 Delivery Device Nasal cannula Oxygen Flow Rate 3.0 FiO2 32.00 (21.00-100.00) % Sodium 146 H (136-145) mEq/L Potassium 4.5 (3.5-5.1) mEq/L Chloride 103 (98-107) mEq/L Carbon Dioxide 41 H* (21-32) mEq/L Anion Gap 6.5 (5-15) BUN 23 H (7-18) mg/dL Creatinine 0.7 (0.55-1.02) mg/dL Est Cr Clr Drug Dosing 60.46 mL/min Estimated GFR (MDRD) > 60 (>60) mL/min BUN/Creatinine Ratio 32.9 H (14-18) Glucose 102 H (70-99) mg/dL POC Glucose 87 (70-99) mg/dL Calcium 9.5 (8.5-10.1) mg/dL 11/13/20 Range/Units 11:05 WBC (3.98-10.04) K/mm3 RBC (3.98-5.22) M/mm3 Hgb (11.2-15.7) gm/dl Hct (34.1-44.9) % MCV (79.4-94.8) fl MCH (25.6-32.2) pg MCHC (32.2-35.5) g/dl RDW Std Deviation (36.4-46.3) fL Plt Count (182-369) K/mm3 MPV (9.4-12.3) fl Puncture Site ABG pH (7.35-7.45) ABG pCO2 (35.0-45.0) mmHg ABG pO2 (80.0-100.0) mmHg ABG HCO3 (22.0-26.0) meq/L ABG O2 Saturation (96.0-97.0) % ABG Base Excess (-2-2.0) A-a Gradient mmHg O2 Delivery Device Oxygen Flow Rate FiO2 (21.00-100.00) % Sodium (136-145) mEq/L Potassium (3.5-5.1) mEq/L Chloride (98-107) mEq/L Carbon Dioxide (21-32) mEq/L Anion Gap (5-15) BUN (7-18) mg/dL Creatinine (0.55-1.02) mg/dL Est Cr Clr Drug Dosing mL/min Estimated GFR (MDRD) (>60) mL/min BUN/Creatinine Ratio (14-18) Glucose (70-99) mg/dL POC Glucose 111 H (70-99) mg/dL Calcium (8.5-10.1) mg/dL Med Orders - Current: Current Medications Acetaminophen (Acetaminophen 325 Mg Tab) 650 mg PO Q4H PRN PRN Reason: Pain/Fever Last Admin: 11/13/20 09:32 Dose: 650 mg Documented by: Albuterol/Ipratropium (Albuterol/Ipratropium 3.0-0.5 Mg/3 Ml Neb Soln) 3 ml NEB Q6HRRT [facility] Last Admin: 11/13/20 08:55 Dose: 3 ml Documented by: Apixaban (Apixaban 5 Mg Tab) 5 mg PO BID [facility] Last Admin: 11/13/20 08:26 Dose: 5 mg Documented by: Artificial Tears (Carboxymethylcellulose Sodium 1% Ophth Gel 15 Ml Bottle) 0 ml EYEBOTH TID PRN PRN Reason: Dry Eyes Last Admin: 11/04/20 08:23 Dose: 15 ml Documented by: Benzonatate (Benzonatate 100 Mg Cap) 100 mg PO Q8H PRN PRN Reason: Cough Last Admin: 11/05/20 08:04 Dose: 100 mg Documented by: Diltiazem HCl (Diltiazem 120 Mg Cap.Cd) 120 mg PO DAILY [facility] Last Admin: 11/13/20 08:26 Dose: 120 mg Documented by: Furosemide (Furosemide 40 Mg Tab) 40 mg PO DAILY [facility] Last Admin: 11/13/20 08:27 Dose: Not Given Documented by: Hydromorphone HCl (Hydromorphone 0.5 Mg/0.5 Ml Syringe) 0.5 mg IVPUSH Q2H PRN PRN Reason: PAIN Last Admin: 11/12/20 05:25 Dose: 0.5 mg Documented by: Insulin Human Regular (Insulin Regular, Human 100 Units/Ml 3 Ml Vial) 0 unit SUBCUT TIDPC [facility]; Protocol Last Admin: 11/13/20 08:26 Dose: Not Given Documented by: Levothyroxine Sodium (Levothyroxine 112 Mcg Tab) 112 mcg PO DAILY@0800 [facility] Last Admin: 11/13/20 08:26 Dose: 112 mcg Documented by: Metoprolol Tartrate (Metoprolol Tartrate 100 Mg Tab) 100 mg PO BID [facility] Last Admin: 11/13/20 08:26 Dose: 100 mg Documented by: Morphine Sulfate (Morphine 2 Mg/Ml Syringe) 1 mg IVPUSH Q2HR PRN PRN Reason: Pain (severe 7-10) Last Admin: 11/04/20 01:46 Dose: 1 mg Documented by: Ondansetron HCl (Ondansetron 4 Mg/2 Ml Sdv) 4 mg IVPUSH Q4H PRN PRN Reason: Nausea Last Admin: 11/11/20 21:13 Dose: 4 mg Documented by: Oxycodone HCl (Oxycodone 5 Mg Tab) 5 mg PO Q4H PRN PRN Reason: Pain (moderate 4-6) Discontinued Medications Apixaban (Apixaban 2.5 Mg Tab) 2.5 mg PO ONETIME ONE Stop: 11/03/20 20:30 Last Admin: 11/03/20 20:51 Dose: 2.5 mg Documented by: Apixaban (Apixaban 2.5 Mg Tab) 2.5 mg PO BID [facility] Digoxin (Digoxin 500 Mcg/2 Ml Amp) 250 mcg IVPUSH Q6H [facility] Stop: 11/04/20 09:46 Last Admin: 11/04/20 09:20 Dose: 250 mcg Documented by: Digoxin (Digoxin 500 Mcg/2 Ml Amp) 250 mcg IVPUSH Q6H [facility] Stop: 11/07/20 00:01 Last Admin: 11/06/20 05:17 Dose: 250 mcg Documented by: Diltiazem HCl (Diltiazem 50 Mg/10 Ml Sdv) 20 mg IVPUSH ONETIME ONE Stop: 11/03/20 18:32 Last Admin: 11/03/20 18:36 Dose: 20 mg Documented by: Furosemide (Furosemide 20 Mg Tab) 20 mg PO DAILY [facility] Furosemide (Furosemide 20 Mg/2 Ml Vial) 20 mg IVPUSH DAILY [facility] Last Admin: 11/06/20 08:27 Dose: 20 mg Documented by: Furosemide (Furosemide 20 Mg/2 Ml Vial) 20 mg IVPUSH TID [facility] Last Admin: 11/06/20 21:08 Dose: 20 mg Documented by: Furosemide (Furosemide 40 Mg/4 Ml Vial) 40 mg IVPUSH BID [facility] Last Admin: 11/07/20 20:16 Dose: 40 mg Documented by: Furosemide (Furosemide 40 Mg Tab) 40 mg PO DAILY [facility] Last Admin: 11/09/20 08:40 Dose: 40 mg Documented by: Furosemide (Furosemide 20 Mg/2 Ml Vial) 20 mg IVPUSH DAILY [facility] Last Admin: 11/10/20 08:00 Dose: 20 mg Documented by: Furosemide (Furosemide 40 Mg/4 Ml Vial) 40 mg IVPUSH DAILY [facility] Last Admin: 11/11/20 08:30 Dose: 40 mg Documented by: Furosemide (Furosemide 40 Mg Tab) 40 mg PO DAILY [facility] Last Admin: 11/12/20 08:49 Dose: 40 mg Documented by: Diltiazem HCl 100 mg/ Sodium (Chloride) 100 mls @ 5 mls/hr IV TITRATE [facility]; Protocol Last Titration: 11/04/20 03:00 Dose: 20 mg/hr, 20 mls/hr Documented by: Levofloxacin/Dextrose 750 mg/ (Premix) 150 mls @ 100 mls/hr IV Q48H [facility] Last Admin: 11/06/20 03:48 Dose: 100 mls/hr Documented by: Ceftriaxone Sodium 1 gm/ (Sodium Chloride) 100 mls @ 200 mls/hr IV Q24H [facility] Last Admin: 11/09/20 08:41 Dose: 200 mls/hr Documented by: Lactated Ringer's (Ringers, Lactated) 500 mls @ 250 mls/hr IV .BOLUS ONE Stop: 11/08/20 14:05 Last Admin: 11/08/20 12:32 Dose: 250 mls/hr Documented by: Lidocaine HCl (Xylocaine-Mpf 1%) Confirm Administered Dose 4 mls @ as directed .ROUTE .STK-MED ONE Stop: 11/10/20 22:00 Levothyroxine Sodium (Levothyroxine 112 Mcg Tab) 112 mcg PO ACBRK [facility] Last Admin: 11/04/20 08:23 Dose: 112 mcg Documented by: Metformin HCl (Metformin 500 Mg Tab) 500 mg PO WITHBREAKFAST [facility] Last Admin: 11/04/20 08:24 Dose: 500 mg Documented by: Metformin HCl (Metformin 500 Mg Tab) 500 mg PO DAILY@0900 [facility] Last Admin: 11/06/20 08:27 Dose: 500 mg Documented by: Methylprednisolone Sodium Succinate (Methylprednisolone Sodium Succinate 125 Mg/2 Ml Sdv) 125 mg IV ONETIME ONE Stop: 11/09/20 15:01 Last Admin: 11/09/20 15:09 Dose: 125 mg Documented by: Metoprolol Tartrate (Metoprolol Tartrate 25 Mg Tab) 25 mg PO Q12HR [facility] Last Admin: 11/04/20 20:20 Dose: 25 mg Documented by: Metoprolol Tartrate (Metoprolol Tartrate 50 Mg Tab) 50 mg PO Q12H [facility] Last Admin: 11/05/20 08:09 Dose: Not Given Documented by: Metoprolol Tartrate (Metoprolol Tartrate 50 Mg Tab) 50 mg PO Q12HR [facility] Last Admin: 11/08/20 10:53 Dose: Not Given Documented by: Metoprolol Tartrate (Metoprolol Tartrate 50 Mg Tab) 75 mg PO Q12HR [facility] Last Admin: 11/08/20 22:24 Dose: Not Given Documented by: Metoprolol Tartrate (Metoprolol Tartrate 50 Mg Tab) 100 mg PO Q12HR [facility] Last Admin: 11/11/20 20:40 Dose: 100 mg Documented by: Sodium Chloride (Sodium Chloride 0.9% 10 Ml Syringe) 10 ml FLUSH ASDIRECTED PRN PRN Reason: Keep Vein Open Last Admin: 11/03/20 18:39 Dose: 10 ml Documented by: *Q Meaningful Use (DIS) - VTE *Q VTE Mechanical Contraindications *Q: At Risk for Falls VTE Pharmacological Contraindications *Q: Risk of Bleeding
[2020-11-13 14:24] VITALS: BP 113/56; PULSE 74
--- NOTE | 2020-12-06 19:05 | PCM.PN ---
- General Info Date of Service: 11/08/20 Admission Dx/Problem (Free Text): Patient placed on BIPAP yesterday afternoon/evening for hypercapnic/hypoxic resp failure Hypercapnia improving alert this morning denies chest pain and sob Subjective Update: intermittent SOB/cough no CP tolerating diet afebrile Functional Status: Reports: Pain Controlled, Urinating - Review of Systems General: Reports: Weakness, Fatigue HEENT: Reports: No Symptoms Pulmonary: Reports: Shortness of Breath, Cough, Hemoptysis Cardiovascular: Reports: Dyspnea on Exertion Gastrointestinal: Reports: No Symptoms Genitourinary: Reports: No Symptoms Musculoskeletal: Reports: Joint Pain - Patient Data Vitals - Most Recent: Last Vital Signs Temp 98.2 F 11/13/20 11:07 Pulse 74 11/13/20 11:07 Resp 20 11/13/20 11:07 BP 113/56 L 11/13/20 11:07 Pulse Ox 94 L 11/13/20 11:07 Weight - Most Recent: 342 lb 11.2 oz Med Orders - Current: Current Medications Discontinued Medications Acetaminophen (Acetaminophen 325 Mg Tab) 650 mg PO Q4H PRN PRN Reason: Pain/Fever Last Admin: 11/13/20 09:32 Dose: 650 mg Documented by: Albuterol/Ipratropium (Albuterol/Ipratropium 3.0-0.5 Mg/3 Ml Neb Soln) 3 ml NEB Q6HRRT [facility] Last Admin: 11/13/20 08:55 Dose: 3 ml Documented by: Apixaban (Apixaban 2.5 Mg Tab) 2.5 mg PO ONETIME ONE Stop: 11/03/20 20:30 Last Admin: 11/03/20 20:51 Dose: 2.5 mg Documented by: Apixaban (Apixaban 2.5 Mg Tab) 2.5 mg PO BID RORY Apixaban (Apixaban 5 Mg Tab) 5 mg PO BID [facility] Last Admin: 11/13/20 08:26 Dose: 5 mg Documented by: Artificial Tears (Carboxymethylcellulose Sodium 1% Ophth Gel 15 Ml Bottle) 0 ml EYEBOTH TID PRN PRN Reason: Dry Eyes Last Admin: 11/04/20 08:23 Dose: 15 ml Documented by: Benzonatate (Benzonatate 100 Mg Cap) 100 mg PO Q8H PRN PRN Reason: Cough Last Admin: 11/05/20 08:04 Dose: 100 mg Documented by: Digoxin (Digoxin 500 Mcg/2 Ml Amp) 250 mcg IVPUSH Q6H [facility] Stop: 11/04/20 09:46 Last Admin: 11/04/20 09:20 Dose: 250 mcg Documented by: Digoxin (Digoxin 500 Mcg/2 Ml Amp) 250 mcg IVPUSH Q6H [facility] Stop: 11/07/20 00:01 Last Admin: 11/06/20 05:17 Dose: 250 mcg Documented by: Diltiazem HCl (Diltiazem 50 Mg/10 Ml Sdv) 20 mg IVPUSH ONETIME ONE Stop: 11/03/20 18:32 Last Admin: 11/03/20 18:36 Dose: 20 mg Documented by: Diltiazem HCl (Diltiazem 120 Mg Cap.Cd) 120 mg PO DAILY [facility] Last Admin: 11/13/20 08:26 Dose: 120 mg Documented by: Furosemide (Furosemide 20 Mg Tab) 20 mg PO DAILY [facility] Furosemide (Furosemide 20 Mg/2 Ml Vial) 20 mg IVPUSH DAILY [facility] Last Admin: 11/06/20 08:27 Dose: 20 mg Documented by: Furosemide (Furosemide 20 Mg/2 Ml Vial) 20 mg IVPUSH TID [facility] Last Admin: 11/06/20 21:08 Dose: 20 mg Documented by: Furosemide (Furosemide 40 Mg/4 Ml Vial) 40 mg IVPUSH BID [facility] Last Admin: 11/07/20 20:16 Dose: 40 mg Documented by: Furosemide (Furosemide 40 Mg Tab) 40 mg PO DAILY [facility] Last Admin: 11/09/20 08:40 Dose: 40 mg Documented by: Furosemide (Furosemide 20 Mg/2 Ml Vial) 20 mg IVPUSH DAILY [facility] Last Admin: 11/10/20 08:00 Dose: 20 mg Documented by: Furosemide (Furosemide 40 Mg/4 Ml Vial) 40 mg IVPUSH DAILY [facility] Last Admin: 11/11/20 08:30 Dose: 40 mg Documented by: Furosemide (Furosemide 40 Mg Tab) 40 mg PO DAILY [facility] Last Admin: 11/12/20 08:49 Dose: 40 mg Documented by: Furosemide (Furosemide 40 Mg Tab) 40 mg PO DAILY [facility] Last Admin: 11/13/20 08:27 Dose: Not Given Documented by: Hydromorphone HCl (Hydromorphone 0.5 Mg/0.5 Ml Syringe) 0.5 mg IVPUSH Q2H PRN PRN Reason: PAIN Last Admin: 11/12/20 05:25 Dose: 0.5 mg Documented by: Diltiazem HCl 100 mg/ Sodium (Chloride) 100 mls @ 5 mls/hr IV TITRATE [facility]; Protocol Last Titration: 11/04/20 03:00 Dose: 20 mg/hr, 20 mls/hr Documented by: Levofloxacin/Dextrose 750 mg/ (Premix) 150 mls @ 100 mls/hr IV Q48H [facility] Last Admin: 11/06/20 03:48 Dose: 100 mls/hr Documented by: Ceftriaxone Sodium 1 gm/ (Sodium Chloride) 100 mls @ 200 mls/hr IV Q24H [facility] Last Admin: 11/09/20 08:41 Dose: 200 mls/hr Documented by: Lactated Ringer's (Ringers, Lactated) 500 mls @ 250 mls/hr IV .BOLUS ONE Stop: 11/08/20 14:05 Last Admin: 11/08/20 12:32 Dose: 250 mls/hr Documented by: Lidocaine HCl (Xylocaine-Mpf 1%) Confirm Administered Dose 4 mls @ as directed .ROUTE .STK-MED ONE Stop: 11/10/20 22:00 Insulin Human Regular (Insulin Regular, Human 100 Units/Ml 3 Ml Vial) [facility] Protocol Last Admin: 11/13/20 14:18 Dose: Not Given Documented by: Levothyroxine Sodium (Levothyroxine 112 Mcg Tab) 112 mcg PO ACBRK [facility] Last Admin: 11/04/20 08:23 Dose: 112 mcg Documented by: Levothyroxine Sodium (Levothyroxine 112 Mcg Tab) 112 mcg PO DAILY@0800 [facility] Last Admin: 11/13/20 08:26 Dose: 112 mcg Documented by: Metformin HCl (Metformin 500 Mg Tab) 500 mg PO WITHBREAKFAST [facility] Last Admin: 11/04/20 08:24 Dose: 500 mg Documented by: Metformin HCl (Metformin 500 Mg Tab) 500 mg PO DAILY@0900 [facility] Last Admin: 11/06/20 08:27 Dose: 500 mg Documented by: Methylprednisolone Sodium Succinate (Methylprednisolone Sodium Succinate 125 Mg/2 Ml Sdv) 125 mg IV ONETIME ONE Stop: 11/09/20 15:01 Last Admin: 11/09/20 15:09 Dose: 125 mg Documented by: Metoprolol Tartrate (Metoprolol Tartrate 25 Mg Tab) 25 mg PO Q12HR [facility] Last Admin: 11/04/20 20:20 Dose: 25 mg Documented by: Metoprolol Tartrate (Metoprolol Tartrate 50 Mg Tab) 50 mg PO Q12H [facility] Last Admin: 11/05/20 08:09 Dose: Not Given Documented by: Metoprolol Tartrate (Metoprolol Tartrate 50 Mg Tab) 50 mg PO Q12HR [facility] Last Admin: 11/08/20 10:53 Dose: Not Given Documented by: Metoprolol Tartrate (Metoprolol Tartrate 50 Mg Tab) 75 mg PO Q12HR [facility] Last Admin: 11/08/20 22:24 Dose: Not Given Documented by: Metoprolol Tartrate (Metoprolol Tartrate 50 Mg Tab) 100 mg PO Q12HR [facility] Last Admin: 11/11/20 20:40 Dose: 100 mg Documented by: Metoprolol Tartrate (Metoprolol Tartrate 100 Mg Tab) 100 mg PO BID [facility] Last Admin: 11/13/20 08:26 Dose: 100 mg Documented by: Morphine Sulfate (Morphine 2 Mg/Ml Syringe) 1 mg IVPUSH Q2HR PRN PRN Reason: Pain (severe 7-10) Last Admin: 11/04/20 01:46 Dose: 1 mg Documented by: Ondansetron HCl (Ondansetron 4 Mg/2 Ml Sdv) 4 mg IVPUSH Q4H PRN PRN Reason: Nausea Last Admin: 11/11/20 21:13 Dose: 4 mg Documented by: Oxycodone HCl (Oxycodone 5 Mg Tab) 5 mg PO Q4H PRN PRN Reason: Pain (moderate 4-6) Sodium Chloride (Sodium Chloride 0.9% 10 Ml Syringe) 10 ml FLUSH ASDIRECTED PRN PRN Reason: Keep Vein Open Last Admin: 11/03/20 18:39 Dose: 10 ml Documented by: - Exam Quality Assessment: Supplemental Oxygen Urinary Catheter Total Time: 5Days 9Hours General: Alert, Oriented HEENT: EOMI, Mucous Membr. Moist/[place] Neck: Supple Lungs: Decreased Breath Sounds Cardiovascular: Regular Rate, Irregular Rhythm GI/Abdominal Exam: Soft, Non-Tender Back Exam: Normal Inspection Extremities: Pedal Edema Skin: Warm, Dry Neurological: No New Focal Deficit Psy/Mental Status: Alert, Normal Affect - Patient Data Result Diagrams: 11/13/20 05:50 11/13/20 05:50 Sepsis Event Note - Evaluation Sepsis Screening Result: No Definite Risk - Problem List Review Problem List Initiated/Reviewed/Updated: Yes - Assessment Assessment:: The patient is a 65-year-old female who presented with afib w/RVR, suspected UTI, and diastolic CHF exacerbation 1. Afib w/RVR; slightly tachycardic 2. Recent hx of UTI/Sepsis (Tachycardia; leukocytosis); initial UCx not obtained by previous provider; repeat cx after antibiotics already started showing no growth 3. Diastolic CHF exacerbation 4. Mild Hyperkalemia; 5. Hx of Type II DM 6. Acute hypoxia likely secondary to #3 7. Suspected LIZ 8. obesity hypoventilation syndrome 9. Chronic pulmonary HTN and RV dilation 10. Chronic hypoxic respiratory failure on 3 liters oxygen 11. Acute on chronic hypoxic and hypercapnic respiratory failure improving with BIPAP Plan -dc digoxin -dc metformin -CXR completed -echo showing normal EF -RV size is severely enlarged -RVSP elevated 85.6 -Severe pulmonary HTN and RV dilation was noted from echo 2018 -will need outpatient Cardiology follow up -transitioned to PO lasix 11/08; -daily weight -continue ceftriaxone -conntinue metoprolol -BIPAP when sleeping and at night -continue scheduled duonebs -rfollow electrolytes -RT consulted-->anticipate will need nocturnal BIPAP vs CPAP Code-Full code DVT ppx-on eliquis Dispo-anticipated discharge tomorrow; patient now declining short term rehab; if HR improves with diltiazem likely dc home tomorrow with home health care Length of stay greater than 96hours due to hypercapnic respiratory failure and need for short term rehab placement - Plan Plan:: Patient is a medically complex 65-year-old lady who has been admitted to the intensive care unit primarily out of concern for atrial fibrillation with RVR and the patient had diltiazem in the emergency department. The patient's rate had not been controlled adequately and I have consulted with pharmacy with regards to starting the patient with digoxin due to her chronic kidney disease as well as her super morbid obesity. The patient because of the obesity is also suspected of having obesity pulmonary hypoventilation syndrome and oxygen support will be continued to help keep the patient saturations around 92%. The patient's urinalysis was also supportive of urinary tract infection along with concentration with the specific gravity of 1.030. The patient may have a component of heart failure due to her atrial fibrillation her B-type natriuretic peptide is elevated at 1700. Patient has Lasix ordered and will continue to monitor her fluid status closely in order to avoid renal injury. I have ordered a repeat chest x-ray for this morning as the patient is still continuing to have shortness of breath and physical examination shows that she has decreased sounds. The patient is a diabetic and she takes Metformin at home and this is being continued. The patient will also be kept on diabetic diet as well as insulin sliding scale. The patient is also started on Eliquis for atrial fibrillation as well as DVT prophylaxis. The patient does have a history of DVT. I discussed with the patient the possibility of rehab in order to safely go home.
== END 2020-11-13 14:15 | disposition home health service (06) | DRG 871 ==
LOC: JD.ED 17:57 → JD.ICU 21:06 → JD.MS 11-06 17:34 → JD.ICU 11-09 14:45 → JD.MS 11-10 13:25
PROVIDERS: ADMIT Internal Medicine; ATTEND Internal Medicine
PROC: 5A09457 Assistance with Respiratory Ventilation, 24-96 Consecutive Hours, Continuous Positive Airway Pressure (ICD-10-PCS; principal; 2020-11-03)
DX: A41.9 Sepsis, unspecified organism (principal); D72.829 Elevated white blood cell count, unspecified; N28.9 Disorder of kidney and ureter, unspecified; I50.31 Acute diastolic (congestive) heart failure; J96.21 Acute and chronic respiratory failure with hypoxia; J43.1 Panlobular emphysema; J96.22 Acute and chronic respiratory failure with hypercapnia; E66.2 Morbid (severe) obesity with alveolar hypoventilation; Z68.44 Body mass index [BMI] 60.0-69.9, adult; N10 Acute pyelonephritis; I48.91 Unspecified atrial fibrillation; E87.5 Hyperkalemia; I27.20 Pulmonary hypertension, unspecified; E03.9 Hypothyroidism, unspecified; H54.7 Unspecified visual loss; J43.9 Emphysema, unspecified; K21.9 Gastro-esophageal reflux disease without esophagitis; R65.20 Severe sepsis without septic shock; E11.22 Type 2 diabetes mellitus with diabetic chronic kidney disease; N18.32 Chronic kidney disease, stage 3b; N39.3 Stress incontinence (female) (male); G89.29 Other chronic pain; M54.9 Dorsalgia, unspecified; M81.0 Age-related osteoporosis without current pathological fracture; Z90.89 Acquired absence of other organs; Z90.710 Acquired absence of both cervix and uterus; Z91.030 Bee allergy status; Z91.048 Other nonmedicinal substance allergy status; Z88.1 Allergy status to other antibiotic agents; Z88.8 Allergy status to other drugs, medicaments and biological substances; Z79.82 Long term (current) use of aspirin; Z79.890 Hormone replacement therapy; Z79.84 Long term (current) use of oral hypoglycemic drugs; Z79.899 Other long term (current) drug therapy; I25.2 Old myocardial infarction; Z90.49 Acquired absence of other specified parts of digestive tract; Z86.718 Personal history of other venous thrombosis and embolism; Z20.822 Contact with and (suspected) exposure to COVID-19
CPT/HCPCS: 36415; 71045; 80053; 81001; 83880; 84443; 84484; 85025; 85610; 93005 ×2; 96365; 96366; 99285; A9270; J3490 ×2; U0002; 36410; 36600; 51702; 70450; 70450-26; 80048; 80162; 82306; 82397; 82803; 82947; 83605; 83735; 83970; 84132; 84145; 85027; 87040; 87086; 92523-GN; 93010; 93306; 94010; 94640; 94660; 94761; 97116-GP; 97162-GP; 97530-GP; 99223; 99232; 99233; 99239; 99284; J0696; J1160; J1170; J1815-GY; J1940; J1956; J2270; J2405; J2930; J7120; J7620-GY

== ENCOUNTER 2022-09-17 10:53 | Inpatient (IN) | payer MEDICAID, MEDICARE ==
[2022-09-17] MEDS ORDERED: Sodium Chloride 0.9% 10 ML Syringe FLUSH PRN (11:19)
[2022-09-17 11:39] LABS: HEMATOCRIT 46.8 % (34.1-44.9); HEMOGLOBIN 12.6 gm/dl (11.2-15.7); MEAN CORPUSCULAR HEMOGLOBIN 27.8 pg (25.6-32.2); MEAN CORPUSCULAR HGB CONC 26.9 g/dl (32.2-35.5); MEAN CORPUSCULAR VOLUME 103.1 fl (79.4-94.8); MEAN PLATELET VOLUME 10.4 fl (9.4-12.3); PLATELET COUNT,PLT 265 K/mm3 (182-369); RED BLOOD CELL COUNT 4.54 M/mm3 (3.98-5.22); WHITE BLOOD CELL COUNT,WBC 12.66 K/mm3 (3.98-10.04)
[2022-09-17 11:41] LABS: BICARBONATE,ARTERIAL 45.1 meq/L (22.0-26.0)
[2022-09-17 11:53] LABS: A/G RATIO 0.9 (1-2); ALANINE AMINOTRANSFERASE,ALT 23 U/L (14-59); ALBUMIN 3.4 g/dl (3.4-5.0); ALKALINE PHOSPHATASE 78 U/L (46-116); ANION GAP 4.5 (5-15); ASPARTATE AMNIOTRANSFERASE,AST 20 U/L (15-37); BILIRUBIN TOTAL 1.2 mg/dL (0.2-1.0); BLOOD UREA NITROGEN,BUN 21 mg/dL (7-18); BUN/CREATININE RATIO 17.5 (14-18); C-REACTIVE PROTEIN <0.2 mg/dL (<1.0); CALCIUM 9.6 mg/dL (8.5-10.1); CHLORIDE,CL 98 mEq/L (98-107); CREATININE 1.2 mg/dL (0.55-1.02); ESTIMATED GFR 50 mL/min (>60); GLUCOSE RANDOM 104 mg/dL (70-99); POTASSIUM,K 4.5 mEq/L (3.5-5.1); SODIUM,NA 141 mEq/L (136-145); TROPONIN I HIGH SENSITIVITY 14 pg/mL (<=51)
[2022-09-17 11:58] LABS: INR 1.21; PROTHROMBIN TIME 12.8 SECONDS (9.7-12.0)
[2022-09-17 12:00] LABS: CARBON DIOXIDE,CO2 43 mEq/L (21-32)
[2022-09-17] MEDS ORDERED: Sodium Chloride 0.9% 1,000 ML IV ONE (12:04)
[2022-09-17 12:12] LABS: APPEARANCE,URINE CLOUDY (Clear); BILIRUBIN,URINE 1+ (Negative); COLOR,URINE YELLOW (Yellow); GLUCOSE,URINE NEGATIVE (Negative); KETONES,URINE NEGATIVE (Negative); LEUKOCYTE ESTERASE,URINE 2+ (Negative); NITRITE,URINE POSITIVE (Negative); OCCULT BLOOD,URINE TRACE-INTACT (Negative); PH,URINE 8.5 (5.0-8.0); PROTEIN,URINE 3+ (Negative)
[2022-09-17] MEDS ORDERED: cefTRIAXone 2 GM in Sodium Chloride 0.9% 100 ML IV ONE (12:50)
[2022-09-17 13:19] LABS: BAND PERCENT MAN 0 % (0-10); BASOPHILS PERCENT MAN 0 (0.1-1.2); EOSINOPHILS PERCENT MAN 1 % (0.7-5.8); LYMPHOCYTES % ATYPICAL MANUAL 0 %; LYMPHOCYTES PERCENT MAN 6 % (20-40); MONOCYTES PERCENT MAN 2 % (2-10)
[2022-09-17 13:20] LABS: ANISOCYTOSIS 1+ SLIGHT; HYPOCHROMASIA 1+ SLIGHT; PLATELET COUNT ESTIMATE ADEQUATE
[2022-09-17] MEDS ORDERED: Loperamide 2 MG Cap PO ONE (13:46)
[2022-09-17 13:50] LABS: BASE EXCESS ARTERIAL 11.8 (-2-2.0); BICARBONATE,ARTERIAL 43.8 meq/L (22.0-26.0); O2 SATURATION ARTERIAL 92.7 % (96.0-97.0)
[2022-09-17 13:51] LABS: PCO2 ARTERIAL 113.3 mmHg (35.0-45.0)
[2022-09-17 14:56] LABS: BACTERIA,URINE MODERATE /hpf (FEW); MUCUS,URINE FEW /hpf (FEW); SQUAMOUS EPITHELIAL CELLS,UR 0-5 /hpf (0-5); WBC,URINE 20-30 /hpf (0-5)
[2022-09-17] MEDS ORDERED: Furosemide 40 MG/4 ML VIAL IVPUSH ONE (15:32)
[2022-09-17] MEDS ORDERED: Acetaminophen 325 MG Tab PO PRN (15:41)
[2022-09-17] MEDS ORDERED: oxyCODONE 5 MG Tab PO PRN (15:41)
[2022-09-17] MEDS ORDERED: Albuterol/Ipratropium 3.0-0.5 MG/3 ML Neb Soln NEB PRN (15:41)
[2022-09-17] MEDS ORDERED: Ondansetron 4 MG Tab.DIS PO PRN (15:41)
[2022-09-17] MEDS ORDERED: Docusate Sodium 100 MG Cap PO PRN (15:41)
[2022-09-17] MEDS ORDERED: Glucose Gel 15 GM in 37.5 GM Tube PO ONE (15:41)
[2022-09-17] MEDS ORDERED: Ondansetron 4 MG/2 ML SDV IV PRN (15:41)
[2022-09-17] MEDS ORDERED: Polyethylene Glycol 3350 Powder 17 GM Packet PO PRN (15:41)
[2022-09-17] MEDS ORDERED: Acetaminophen 650 MG Supp RECTAL PRN (15:41)
[2022-09-17 17:14] LABS: HEMOGLOBIN A1C 5.5 %
[2022-09-17] MEDS: Insulin Lispro 100 Unit/ML 3 ML KwikPen SUBCUT SCH ×2 (18:07→21:52)
[2022-09-17] MEDS ORDERED: Furosemide 20 MG/2 ML VIAL IVPUSH ONE (18:15)
[2022-09-17] MEDS ORDERED: Glucose Gel 15 GM in 37.5 GM Tube PO PRN (18:16)
[2022-09-17] MEDS ORDERED: CAFFEINE PO PRN (18:39)
[2022-09-17] MEDS ORDERED: ASPIRIN PO PRN (18:39)
[2022-09-17] MEDS ORDERED: Carboxymethylcellulose Sodium 1% Ophth Gel 15 ML Bottle EYEBOTH PRN (18:39)
[2022-09-17] MEDS ORDERED: Albuterol 6.7 GM Inhaler INH PRN (18:39)
[2022-09-17] MEDS ORDERED: PHENYLEPHRINE HCL 10 MG PO PRN (18:39)
[2022-09-17] MEDS ORDERED: ACETAMINOPHEN PO PRN (18:39)
[2022-09-17] MEDS: Metoprolol Tartrate 100 MG Tab PO SCH (21:50)
[2022-09-17] MEDS: diphenhydrAMINE 25 MG Cap PO SCH (21:50)
[2022-09-17] MEDS: Apixaban 5 MG Tab PO SCH (21:50)
[2022-09-17] MEDS: Nystatin Crm 30 GM Tube TOP SCH (21:51)
[2022-09-18] MEDS: Levothyroxine 112 MCG Tab PO SCH (05:00)
[2022-09-18] MEDS: Nystatin Crm 30 GM Tube TOP SCH ×3 (05:23→21:35)
[2022-09-18 06:50] LABS: BASOPHILS ABSOLUTE AUTO 0.04 K/mm3 (0.01-0.08); BASOPHILS PERCENT AUTO 0.4 % (0.1-1.2); EOSINOPHILS ABSOLUTE AUTO 0.11 K/mm3 (0.04-0.36); HEMATOCRIT 44.9 % (34.1-44.9); HEMOGLOBIN 12.1 gm/dl (11.2-15.7); IMMATURE GRAN ABSOLUTE AUTO 0.03 K/mm3 (0.00-0.10); IMMATURE GRAN PERCENT AUTO 0.3 % (<=1.0); LYMPHOCYTES ABSOLUTE AUTO 1.35 K/mm3 (1.18-3.74); LYMPHOCYTES PERCENT AUTO 12.2 % (19.3-51.7); MEAN CORPUSCULAR HEMOGLOBIN 28.2 pg (25.6-32.2); MEAN CORPUSCULAR HGB CONC 26.9 g/dl (32.2-35.5); MEAN CORPUSCULAR VOLUME 104.7 fl (79.4-94.8); MONOCYTES ABSOLUTE AUTO 1.27 K/mm3 (0.24-0.36); MONOCYTES PERCENT AUTO 11.4 % (4.7-12.5); NEUTROPHILS PERCENT AUTO 74.7 % (34.0-71.1); PLATELET COUNT,PLT 213 K/mm3 (182-369); RED BLOOD CELL COUNT 4.29 M/mm3 (3.98-5.22)
[2022-09-18 06:59] LABS: ANION GAP 7.1 (5-15); CALCIUM 9.4 mg/dL (8.5-10.1); EST CRCL DRUG DOSING (CG) 45.78 mL/min; POTASSIUM,K 4.1 mEq/L (3.5-5.1)
[2022-09-18] MEDS: Insulin Lispro 100 Unit/ML 3 ML KwikPen SUBCUT SCH ×4 (07:55→21:32)
[2022-09-18 08:13] LABS: BICARBONATE,ARTERIAL 46.5 meq/L (22.0-26.0); O2 SATURATION ARTERIAL 90.6 % (96.0-97.0)
[2022-09-18] MEDS: Tiotropium Bromide 4 GM Inhalation Spray (2.5mcg/1 dose; 10 doses) INH SCH (08:24)
[2022-09-18] MEDS: diphenhydrAMINE 25 MG Cap PO SCH ×2 (08:38→21:35)
[2022-09-18] MEDS: Cyanocobalamin (Vitamin B12) 1,000 MCG Tab PO SCH (08:39)
[2022-09-18] MEDS: Aspirin 81 MG Tab.EC PO SCH (08:39)
[2022-09-18] MEDS: Diltiazem 120 MG Cap.CD PO SCH (08:39)
[2022-09-18] MEDS: Metoprolol Tartrate 100 MG Tab PO SCH ×2 (08:39→21:34)
[2022-09-18] MEDS: Apixaban 5 MG Tab PO SCH ×2 (08:39→21:35)
[2022-09-18] MEDS: Furosemide 40 MG/4 ML VIAL IVPUSH SCH ×2 (08:40→21:35)
[2022-09-18] MEDS: Potassium Chloride 20 MEQ Tab.ER PO SCH (08:40)
[2022-09-18] MEDS: Liothyronine 5 MCG Tab PO SCH (08:52)
[2022-09-18 09:42] LABS: SLIDE REVIEW ABNORMAL SMEAR
[2022-09-18] MEDS: cefTRIAXone 1 GM in Sodium Chloride 0.9% 100 ML IV SCH (12:10)
[2022-09-18] MEDS: Albuterol/Ipratropium 3.0-0.5 MG/3 ML Neb Soln NEB SCH ×3 (13:10→21:17)
[2022-09-19] MEDS: Albuterol/Ipratropium 3.0-0.5 MG/3 ML Neb Soln NEB SCH ×6 (02:01→22:18)
[2022-09-19 05:55] LABS: BASE EXCESS ARTERIAL 16.2 (-2-2.0); BICARBONATE,ARTERIAL 45.7 meq/L (22.0-26.0); O2 SATURATION ARTERIAL 94.2 % (96.0-97.0); PCO2 ARTERIAL 92.1 mmHg (35.0-45.0)
[2022-09-19] MEDS: Levothyroxine 112 MCG Tab PO SCH (06:19)
[2022-09-19 06:29] LABS: BASOPHILS ABSOLUTE AUTO 0.03 K/mm3 (0.01-0.08); BASOPHILS PERCENT AUTO 0.3 % (0.1-1.2); EOSINOPHILS PERCENT AUTO 2.3 (0.7-5.8); HEMATOCRIT 42.5 % (34.1-44.9); HEMOGLOBIN 11.4 gm/dl (11.2-15.7); IMMATURE GRAN ABSOLUTE AUTO 0.02 K/mm3 (0.00-0.10); IMMATURE GRAN PERCENT AUTO 0.2 % (<=1.0); LYMPHOCYTES ABSOLUTE AUTO 1.31 K/mm3 (1.18-3.74); LYMPHOCYTES PERCENT AUTO 14.8 % (19.3-51.7); MEAN CORPUSCULAR HEMOGLOBIN 27.8 pg (25.6-32.2); MEAN CORPUSCULAR HGB CONC 26.8 g/dl (32.2-35.5); MEAN CORPUSCULAR VOLUME 103.7 fl (79.4-94.8); MEAN PLATELET VOLUME 10.4 fl (9.4-12.3); MONOCYTES ABSOLUTE AUTO 1.03 K/mm3 (0.24-0.36); MONOCYTES PERCENT AUTO 11.6 % (4.7-12.5); NEUTROPHILS ABSOLUTE AUTO 6.27 K/mm3 (1.56-6.13); NEUTROPHILS PERCENT AUTO 70.8 % (34.0-71.1); PLATELET COUNT,PLT 181 K/mm3 (182-369); WHITE BLOOD CELL COUNT,WBC 8.86 K/mm3 (3.98-10.04)
[2022-09-19 06:56] LABS: BUN/CREATININE RATIO 22.2 (14-18); CALCIUM 9.5 mg/dL (8.5-10.1); CREATININE 0.9 mg/dL (0.55-1.02); EST CRCL DRUG DOSING (CG) 50.86 mL/min
[2022-09-19] MEDS: Insulin Lispro 100 Unit/ML 3 ML KwikPen SUBCUT SCH ×5 (07:27→20:45)
[2022-09-19 07:35] LABS: SLIDE REVIEW ABNORMAL SMEAR
[2022-09-19] MEDS: Diltiazem 120 MG Cap.CD PO SCH (07:59)
[2022-09-19] MEDS: Metoprolol Tartrate 100 MG Tab PO SCH ×2 (07:59→20:44)
[2022-09-19] MEDS: diphenhydrAMINE 25 MG Cap PO SCH ×2 (07:59→20:45)
[2022-09-19] MEDS: Potassium Chloride 20 MEQ Tab.ER PO SCH (08:01)
[2022-09-19] MEDS: Furosemide 40 MG/4 ML VIAL IVPUSH SCH (08:01)
[2022-09-19] MEDS: Aspirin 81 MG Tab.EC PO SCH (08:01)
[2022-09-19] MEDS: Apixaban 5 MG Tab PO SCH ×2 (08:01→20:45)
[2022-09-19] MEDS: Cyanocobalamin (Vitamin B12) 1,000 MCG Tab PO SCH (08:01)
[2022-09-19] MEDS: Liothyronine 5 MCG Tab PO SCH (08:01)
[2022-09-19] MEDS: Nystatin Crm 30 GM Tube TOP SCH ×2 (08:02→20:46)
[2022-09-19] MEDS: Tiotropium Bromide 4 GM Inhalation Spray (2.5mcg/1 dose; 10 doses) INH SCH (09:27)
[2022-09-19] MEDS: cefTRIAXone 1 GM in Sodium Chloride 0.9% 100 ML IV SCH (11:18)
[2022-09-19] MEDS ORDERED: methylPREDNISolone Sodium Succinate 125 MG/2 ML SDV IVPUSH ONE (11:57)
[2022-09-19] MEDS ORDERED: oxyCODONE 5 MG Tab PO PRN (14:11)
[2022-09-19] MEDS ORDERED: acetaZOLAMIDE 500 MG Vial IVPUSH SCH (15:45)
[2022-09-19 21:50] VITALS: BP 121/76; PULSE 84
[2022-09-20] MEDS ORDERED: methylPREDNISolone Sodium Succinate 40 MG/1 ML SDV IVPUSH SCH (09:00)
[2022-09-20] MEDS ORDERED: Furosemide 40 MG/4 ML VIAL IVPUSH SCH (09:00)
== END 2022-09-19 22:10 | DRG 871 ==
LOC: JD.ED 10:53 → JD.MS 15:33 → JD.ICU 09-18 13:56
PROVIDERS: ADMIT Hospitalist; ATTEND Hospitalist
DX: J96.02 Acute respiratory failure with hypercapnia (principal); A41.89 Other specified sepsis; J44.9 Chronic obstructive pulmonary disease, unspecified; E11.9 Type 2 diabetes mellitus without complications; Z91.038 Other insect allergy status; Z88.8 Allergy status to other drugs, medicaments and biological substances; J96.21 Acute and chronic respiratory failure with hypoxia; J96.22 Acute and chronic respiratory failure with hypercapnia; N17.9 Acute kidney failure, unspecified; Z79.84 Long term (current) use of oral hypoglycemic drugs; Z79.01 Long term (current) use of anticoagulants; I48.20 Chronic atrial fibrillation, unspecified; Z68.44 Body mass index [BMI] 60.0-69.9, adult; N30.01 Acute cystitis with hematuria; J43.9 Emphysema, unspecified; E03.9 Hypothyroidism, unspecified; E66.01 Morbid (severe) obesity due to excess calories; K21.9 Gastro-esophageal reflux disease without esophagitis; I27.20 Pulmonary hypertension, unspecified; M54.9 Dorsalgia, unspecified; G89.29 Other chronic pain; M81.0 Age-related osteoporosis without current pathological fracture; Z91.030 Bee allergy status; Z88.0 Allergy status to penicillin; Z88.1 Allergy status to other antibiotic agents; Z79.899 Other long term (current) drug therapy; Z79.82 Long term (current) use of aspirin; Z79.890 Hormone replacement therapy; I25.2 Old myocardial infarction; Z99.81 Dependence on supplemental oxygen; Z90.49 Acquired absence of other specified parts of digestive tract; Z98.890 Other specified postprocedural states; Z90.710 Acquired absence of both cervix and uterus
CPT/HCPCS: 36415; 36600 ×2; 71045; 80053; 81001; 82803 ×2; 82947 ×2; 83036; 83605; 83880; 84484; 85007; 85027; 85610; 86140; 87040 ×2; 87086; 87088; 87186; 93005; 94660; 96365; 99285; A9270; J0696; J3490 ×2; J7030; 80048; 84145; 85025; 93010; 93306; 94640; 94762; 97116-GP; 97162-GP; 97166-GO; 97530-GO; 97530-GP; 97535-GO; J1120; J1815; J1940; J2930; J7620-GY